=== PATIENT | female | born 1950 | race Caucasian/White ===

== ENCOUNTER 2019-03-21 07:02 | Inpatient (IN) | payer BC, OTHER ==
--- OUTSIDE RECORDS SUMMARY | 2019-03-21 07:05 | XMS REPORT ---
:1950 Author Organization [employer] Care Team Providers Name Role Phone Luh Larios Provider Role Unavailable Allergies, Adverse Reactions, Alerts Substance Reaction Event Type Bactrim rash Drug Allergy Problems Problem Type Condition Code Onset Dates Condition Status Problem Herpes zoster without complication B02.9 Active Problem Intermittent lightheadedness R42 Active Problem Acute myocardial infarction, I21.9 Active unspecified Problem Essential hypertension I10 Active Assessment History of coronary artery disease Z86.79 Active Problem Primary insomnia F51.01 Active Assessment Nocturnal leg cramps G47.62 Active Problem History of coronary artery disease Z86.79 Active Problem Vaginal dryness, menopausal N95.1 Active Problem Pain in female genitalia on N94.10 Active intercourse Problem Gastroesophageal reflux disease K21.9 Active without esophagitis Problem Obstructive sleep apnea syndrome G47.33 Active Problem Bipolar affective disorder F31.9 Active Problem Hydronephrosis N13.30 Active Assessment Primary insomnia F51.01 Active Problem Nocturnal leg cramps G47.62 Active Problem Anemia D64.9 Active Problem Benign hypertension I10 Active Problem Complete loss of teeth, unspecified K08.109 Active cause, unspecified class Problem Gastro-esophageal reflux disease K21.9 Active without esophagitis Problem Other seasonal allergic rhinitis J30.2 Active Medications Medication Code Code Instructions Start End Status Dosage System Date Date Biotin [facility] [address] Active not defined Iron [facility] 64935400693 325 (65 Fe) MG Active 1 tablet Orally Once a day Toprol XL [facility] 29410579283 50 MG Orally Active 1 tablet Once a day ProAir HFA [facility] 17009007338 108 (90 Base) Jun 21, Active 2 puffs as MCG/ACT 2017 needed Inhalation every 6 hrs Fish Oil [facility] [address]-78 Orally Once a Active 1 capsule day Trileptal ND 63240539234 300 MG Orally Active 3 tabs Twice a day Triamcinolone [facility] 99111774719 0.1 % December Active 1 application Acetonide Externally 08, to affected Twice a day 2017 area Lunesta [facility] [address]-05 2 MG Orally Active 1 tablet Once a day immediately before bedtime Probiotic [facility] 51864-[address]60 Active not defined L-Lysine [facility] [address]63 Active not defined Gabapentin [facility] 73816080080 300 MG Orally Active 1 capsule Three times a day Pantoprazole [facility] 22334453663 40 MG Orally Active 1 tablet Sodium Once a day Valtrex [facility] 59035093007 1 GM Orally Active 1 tablet Once a day Vitamin C [facility] [address]-38 Active not defined Centrum Silver [facility] 46011863222 - 1 Orally Active not defined Ultra Womens daily Calcium [facility] 97059024355 600 MG Orally Active 1 tablet Carbonate Three times a day Lyrica [facility] 26830716556 150 MG Orally Mar 01, Active 1 capsule Three times a 2018 day Results No Known Results Summary Purpose eClinicalWorks Submission
--- OUTSIDE RECORDS SUMMARY | 2019-03-21 07:05 | XMS REPORT ---
:1950 Author Organization [facility] Address [address] [place] [address] Dr. Wei [address] [place] [id number] Care Team Providers Name Role Phone Unavailable Unavailable Unavailable Problems This patient has no known problems. Allergies, Adverse Reactions, Alerts This patient has no known allergies or adverse reactions. Medications This patient has no known medications.
--- NOTE | 2019-03-21 07:29 | ER ---
Nurse's Notes [facility] Name: Cisco Edward Age: 68 yrs Sex: Female : 1950 Arrival Date: 03/21/2019 Time: 07:04 Bed 7 Private MD: Diagnosis: Pneumonia, unspecified organism Presentation: 03/21 07:16 Presenting complaint: Patient states: feels like she can't get a deep breath, started iw at 3 am, also has dry cough, runny nose X 1 week, body aches, general weakness, chills, nausea. Transition of care: patient was not received from another setting of care. Onset of symptoms was March 21, 2019. Risk Assessment: Do you want to hurt yourself or someone else? Patient reports no desire to harm self or others. Initial Sepsis Screen: Does the patient meet any 2 criteria? No. Patient's initial sepsis screen is negative. Does the patient have a suspected source of infection? No. Patient's initial sepsis screen is negative. Care prior to arrival: None. 07:16 Method Of Arrival: Wheelchair iw 07:16 Acuity: ROB 3 iw Triage Assessment: 07:20 General: Appears distressed, uncomfortable, Behavior is calm, cooperative, appropriate jl7 for age. Respiratory: Reports shortness of breath at rest cough that is hacking, Airway is patent Respiratory effort is even, labored, shallow, Respiratory pattern is symmetrical, tachypnea Breath sounds are coarse bilaterally. Breath sounds with wheezes bilaterally. Onset: The symptoms/episode began/occurred this morning, the patient has moderate shortness of breath. Historical: - Allergies: 07:18 Darvon; iw 07:18 Dilaudid; iw 07:18 Sulfa (Sulfonamide Antibiotics); iw - Home Meds: 07:18 metoprolol tartrate 25 mg Oral tab 1 tab once daily [Active]; iw 08:51 Wellbutrin Oral [Active]; ibuprofen 800 mg Oral tab 1 tab BID PRN [Active]; jl7 hydrocodone-acetaminophen 7.5-325 mg oral tab [Active]; pantoprazole 40 mg oral TbEC [Active]; Lyrica Oral [Active]; - PMHx: 07:18 Chronic pain; Hypertension; Myocardial infarction; Bipolar disorder; iw - PSHx: 07:18 Cholecystectomy; ; foot; back; iw - Immunization history:: Adult Immunizations not up to date. - Social history:: Smoking status: Patient/guardian denies using tobacco. - Ebola Screening: : Patient negative for fever greater than or equal to 101.5 degrees Fahrenheit, and additional compatible Ebola Virus Disease symptoms Patient denies exposure to infectious person Patient denies travel to an Ebola-affected area in the 21 days before illness onset No symptoms or risks identified at this time. Screenin:38 Abuse screen: Denies threats or abuse. Denies injuries from another. Nutritional jl7 screening: No deficits noted. Tuberculosis screening: No symptoms or risk factors identified. Fall Risk IV access (20 points). Total Manuel Fall Scale indicates No Risk (0-24 pts). Assessment: 07:20 General: Appears distressed, uncomfortable, Behavior is cooperative. Pain: Complains of jl7 pain in diaphragm Pain does not radiate. Pain currently is 9 out of 10 on a pain scale. Quality of pain is described as "Sore" Pain began 4 hours ago. Is continuous. Neuro: Level of Consciousness is awake, alert, obeys commands, Oriented to person, place, time, situation. Cardiovascular: Denies chest pain, Heart tones present Patient's skin is warm and dry. Rhythm is regular. Respiratory: Airway is patent Respiratory effort is even, labored, shallow, Respiratory pattern is symmetrical, tachypnea Breath sounds are coarse Breath sounds with wheezes. GI: No signs and/or symptoms were reported involving the gastrointestinal system. : No signs and/or symptoms were reported regarding the genitourinary system. EENT: No signs and/or symptoms were reported regarding the EENT system. Derm: Skin is pink, warm \\T\\ dry. Musculoskeletal: No signs and/or symptoms reported regarding the musculoskeletal system. 07:57 Reassessment: Pt initially reported taking a Narvon 7.5 mg this morning at 0530 so only jl7 one 500 mg acetaminophen was administered, now reporting she did not take the Narvon additional 500 mg acetaminophen administered at this time. 08:38 Reassessment: Patient appears in no apparent distress at this time. Patient and/or jl7 family updated on plan of care and expected duration. Pain level reassessed. Patient is alert, oriented x 3, equal unlabored respirations, skin warm/dry/pink. Patient states feeling better. Patient states symptoms have improved. 09:00 Reassessment: Attempted to call report, nurse unavailable. jl7 Vital Signs: 07:19 BP 124 / 66; Pulse 87; Resp 24 S; Temp 100.8(O); Pulse Ox 100% on R/A; Weight 74.84 kg; iw Height 5 ft. 1 in. (154.94 cm); Pain 8/10; 07:25 BP 89 / 56; Pulse 89; Resp 25 S; Pulse Ox 97% on R/A; jl7 07:35 BP 77 / 45; Pulse 85; Resp 24 S; Pulse Ox 96% on R/A; jl7 08:23 BP 104 / 62; Pulse 97; Resp 26 S; Temp 101.0(O); Pulse Ox 98% on R/A; jl7 08:51 BP 103 / 56; Pulse 92; Resp 24; Temp 100.2; Pulse Ox 94% on R/A; jl7 10:00 BP 79 / 64; Pulse 83; Resp 22; Pulse Ox 97% ; jl7 10:14 BP 86 / 49; Pulse 82; Resp 24 S; Pulse Ox 97% on R/A; jl7 07:19 Body Mass Index 31.18 (74.84 kg, 154.94 cm) iw ED Course: 07:04 Patient arrived in ED. as 07:05 Chaz Rizvi MD is Attending Physician. kdr 07:05 Crista Chin, GAEL is Primary Nurse. jl7 07:17 Triage completed. iw 07:19 Arm band placed on. iw 07:27 Linden Frankel MD is Hospitalizing Provider. kdr 07:28 Inserted saline lock: 20 gauge in right antecubital area, using aseptic technique. aa5 Blood collected. 07:28 Initial lab(s) drawn, by me, sent to lab. First set of blood cultures drawn by me. aa5 07:37 XRAY Chest (1 view) In Process Unspecified. EDMS 07:47 EKG done, by research technician. reviewed by Chaz Rizvi MD. at1 07:49 Inserted saline lock: 22 gauge in left forearm, using aseptic technique. Blood jl7 collected. 07:49 Second set of blood cultures drawn by me. jl7 08:25 Straight cath inserted, using sterile technique, 16 Fr. Specimen obtained. Returned jl7 clear yellow urine. Patient tolerated well. 08:38 Patient has correct armband on for positive identification. Placed in gown. Bed in low jl7 position. Call light in reach. Side rails up X2. roller presser operator on. Pulse ox on. NIBP on. 08:38 No provider procedures requiring assistance completed. Patient admitted, IV remains in jl7 place. intact, No redness/swelling at site. Administered Medications: 07:52 Drug: Tylenol 1000 mg {Note: 500 administered, pt took a Narvon 7.5 at 0530 this jl7 morning.} Route: PO; 08:50 Follow up: Response: No adverse reaction; Temperature is decreased jl7 07:53 Drug: NS 0.9% 1000 ml Route: IV; Rate: 1 bolus; Site: left forearm; jl7 08:31 Follow up: Response: No adverse reaction; IV Status: Completed infusion; IV Intake: jl7 1000ml 07:55 Drug: Albuterol - atroVENT (3:1) (2.5 mg - 0.5 mg) 3 ml Route: Nebulizer; jl7 08:31 Follow up: Response: No adverse reaction; Marked relief of symptoms jl7 07:55 Not Given (wrong pharmacy order): Rocephin - (cefTRIAXone) 1 grams IVPB once over 30 jl7 mins; (mix in 50 mL NS) 07:55 Drug: Rocephin 1 grams Route: IV; Rate: 1 calculated rate; Site: left forearm; jl7 07:58 Follow up: Response: No adverse reaction; IV Status: Completed infusion jl7 08:54 Drug: Zithromax 500 mg Route: IVPB; Infused Over: 1 hrs; Site: left forearm; jl7 08:54 Follow up: IV Status: Infusion continued upon admission jl7 10:00 Follow up: Response: No adverse reaction; IV Status: Completed infusion jl7 10:10 Drug: NS 0.9% 1000 ml Route: IV; Rate: 1 bolus; Site: right antecubital; jl7 10:15 Follow up: IV Status: Infusion continued upon admission jl7 Intake: 08:31 IV: 1000ml; Total: 1000ml. jl7 Outcome: 07:27 Decision to Hospitalize by Provider. kdr 10:12 Admitted to Tele accompanied by tech, family with patient, via stretcher, room 212, 7 with chart, Report called to GAEL Zuniga 10:12 Condition: stable 10:12 Discharge instructions given to patient, family, Instructed on the need for admit, Demonstrated understanding of instructions. 10:42 Patient left the ED. aa5 Signatures: Dispatcher [employer] EDMS Chaz Rizvi MD MD kdr Viviana Tom Irene, RN RN iw Carolina Flores RN RN aa5 Vale Hensley, manager inventory EKG Tat1 Crista Chin RN RN jl7 Corrections: (The following items were deleted from the chart) 07:33 07:19 BP 124 / 66; Pulse 87bpm; Resp 18bpm; Spontaneous; Pulse Ox 100% RA; Temp 100.8F iw Oral; 74.84 kg; Height 5 ft. 1 in.; BMI: 31.1; Pain 8/10; iw 08:21 07:19 BP 124 / 66; Pulse 87bpm; Resp 20bpm; Spontaneous; Pulse Ox 100% RA; Temp 100.8F iw Oral; 74.84 kg; Height 5 ft. 1 in.; BMI: 31.1; Pain 8/10; iw
--- NOTE | 2019-03-21 07:29 | EDPHYS ---
Physician Documentation [facility] Name: Cisco Edward Age: 68 yrs Sex: Female : 1950 Arrival Date: 03/21/2019 Time: 07:04 Bed 7 Private MD: ED Physician Chaz Rizvi HPI: 03/21 07:23 This 68 yrs old Female presents to ER via Wheelchair with complaints of kdr Breathing Difficulty. 07:23 The patient has shortness of breath at rest, with light activity. Onset: The kdr symptoms/episode began/occurred suddenly, just prior to arrival, this morning. Duration: The symptoms are continuous, and are steadily getting worse. The patient's shortness of breath is aggravated by coughing, exertion, light activity, talking. Associated signs and symptoms: Pertinent positives: productive cough, fever, Pertinent negatives: chest pain, diaphoresis, dizziness, hemoptysis, vomiting. Severity of symptoms: At their worst the symptoms were mild moderate in the emergency department the symptoms are unchanged. The patient has experienced similar episodes in the past, a few times. The patient has not recently seen a physician. Has had runny nose/minor URI for the last week but then awoke feeling poorly this morning. Historical: - Allergies: 07:18 Darvon; iw 07:18 Dilaudid; iw 07:18 Sulfa (Sulfonamide Antibiotics); iw - Home Meds: 07:18 metoprolol tartrate 25 mg Oral tab 1 tab once daily [Active]; iw 08:51 Wellbutrin Oral [Active]; ibuprofen 800 mg Oral tab 1 tab BID PRN [Active]; jl7 hydrocodone-acetaminophen 7.5-325 mg oral tab [Active]; pantoprazole 40 mg oral TbEC [Active]; Lyrica Oral [Active]; - PMHx: 07:18 Chronic pain; Hypertension; Myocardial infarction; Bipolar disorder; iw - PSHx: 07:18 Cholecystectomy; ; foot; back; iw - Immunization history:: Adult Immunizations not up to date. - Social history:: Smoking status: Patient/guardian denies using tobacco. - Ebola Screening: : Patient negative for fever greater than or equal to 101.5 degrees Fahrenheit, and additional compatible Ebola Virus Disease symptoms Patient denies exposure to infectious person Patient denies travel to an Ebola-affected area in the 21 days before illness onset No symptoms or risks identified at this time. ROS: 07:23 Constitutional: Negative for weight loss - she has had subjective fever adn chills kdr Eyes: Negative for injury, pain, redness, and discharge, Neck: Negative for injury, pain, and swelling, Cardiovascular: Negative for chest pain, palpitations, and edema, Abdomen/GI: Negative for abdominal pain, nausea, vomiting, diarrhea, and constipation, Back: Negative for injury and pain, : Negative for injury, bleeding, discharge, and swelling, MS/Extremity: Negative for injury and deformity, Skin: Negative for injury, rash, and discoloration, Neuro: Negative for headache, weakness, numbness, tingling, and seizure activity. Psych: Negative for depression, anxiety, suicide ideation, homicidal ideation, and hallucinations, Allergy/Immunology: Negative for hives, rash, and allergies, Endocrine: Negative for neck swelling, polydipsia, polyuria, polyphagia, and marked weight changes, Hematologic/Lymphatic: Negative for swollen nodes, abnormal bleeding, and unusual bruising. 07:23 Respiratory: Positive for cough, with no reported sputum, dyspnea on exertion, shortness of breath, at rest. wheezing, expiratory. Exam: 07:23 Constitutional: This is a well developed, well nourished patient who is awake, alert, kdr and in no acute distress. Head/Face: Normocephalic, atraumatic. Eyes: Pupils equal round and reactive to light, extra-ocular motions intact. Lids and lashes normal. Conjunctiva and sclera are non-icteric and not injected. Cornea within normal limits. Periorbital areas with no swelling, redness, or edema. Neck: Trachea midline, no thyromegaly or masses palpated, and no cervical lymphadenopathy. Supple, full range of motion without nuchal rigidity, or vertebral point tenderness. No Meningismus. Chest/axilla: Normal chest wall appearance and motion. Nontender with no deformity. No lesions are appreciated. Cardiovascular: Regular rate and rhythm with a normal S1 and S2. No gallops, murmurs, or rubs. Normal PMI, no JVD. No pulse deficits. Abdomen/GI: Soft, non-tender, with normal bowel sounds. No distension or tympany. No guarding or rebound. No evidence of tenderness throughout. Back: No spinal tenderness. No costovertebral tenderness. Full range of motion. Skin: Warm, dry with normal turgor. Normal color with no rashes, no lesions, and no evidence of cellulitis. MS/ Extremity: Pulses equal, no cyanosis. Neurovascular intact. Full, normal range of motion. Neuro: Awake and alert, GCS 15, oriented to person, place, time, and situation. Cranial nerves II-XII grossly intact. Motor strength 5/5 in all extremities. Sensory grossly intact. Cerebellar exam normal. Normal gait. Psych: Awake, alert, with orientation to person, place and time. Behavior, mood, and affect are within normal limits. 07:23 Respiratory: mild respiratory distress is noted, Respirations: labored breathing, grunting, that is mild, shallow respirations, that is mild, tachypnea, that is mild. 07:28 ECG was reviewed by the Attending Physician. kdr 08:16 Respiratory: Breath sounds: decreased breath sounds, that are mild, are heard in the kdr right posterior middle lobe and right posterior lower lobe, wheezing: expiratory that is mild, is heard diffusely. Vital Signs: 07:19 BP 124 / 66; Pulse 87; Resp 24 S; Temp 100.8(O); Pulse Ox 100% on R/A; Weight 74.84 kg; iw Height 5 ft. 1 in. (154.94 cm); Pain 8/10; 07:25 BP 89 / 56; Pulse 89; Resp 25 S; Pulse Ox 97% on R/A; jl7 07:35 BP 77 / 45; Pulse 85; Resp 24 S; Pulse Ox 96% on R/A; jl7 08:23 BP 104 / 62; Pulse 97; Resp 26 S; Temp 101.0(O); Pulse Ox 98% on R/A; jl7 08:51 BP 103 / 56; Pulse 92; Resp 24; Temp 100.2; Pulse Ox 94% on R/A; jl7 10:00 BP 79 / 64; Pulse 83; Resp 22; Pulse Ox 97% ; jl7 10:14 BP 86 / 49; Pulse 82; Resp 24 S; Pulse Ox 97% on R/A; jl7 07:19 Body Mass Index 31.18 (74.84 kg, 154.94 cm) iw MDM: 07:23 Data reviewed: vital signs, nurses notes, lab test result(s), radiologic studies. kdr Counseling: I had a detailed discussion with the patient and/or guardian regarding: the historical points, exam findings, and any diagnostic results supporting the discharge/admit diagnosis, lab results, radiology results, the need for further work-up and treatment in the hospital. 07:27 Patient medically screened. kdr 03/21 07:12 Order name: Basic Metabolic Panel; Complete Time: 08:14 kdr 03/21 07:12 Order name: CBC with Diff; Complete Time: 10:36 kdr 03/21 07:12 Order name: LFT's; Complete Time: 08:14 kdr 03/21 07:12 Order name: Magnesium; Complete Time: 08:14 kdr 03/21 07:12 Order name: NT PRO-BNP; Complete Time: 08:14 kdr 03/21 07:12 Order name: PT-INR; Complete Time: 08:14 kdr 03/21 07:12 Order name: Troponin (emerg Dept Use Only); Complete Time: 08:14 kdr 03/21 07:22 Order name: Blood Culture Adult (2) kdr 03/21 07:22 Order name: Ckmb; Complete Time: 08:14 kdr 03/21 07:22 Order name: CPK; Complete Time: 08:14 kdr 03/21 07:22 Order name: Lactate; Complete Time: 08:14 kdr 03/21 07:22 Order name: Lipase; Complete Time: 08:14 kdr 03/21 07:22 Order name: Procalcitonin; Complete Time: 08:14 kdr 03/21 07:22 Order name: Ptt, Activated; Complete Time: 08:14 kdr 03/21 07:12 Order name: XRAY Chest (1 view); Complete Time: 10:36 kdr 03/21 07:12 Order name: EKG; Complete Time: 07:14 kdr 03/21 07:12 Order name: Cardiac monitoring; Complete Time: 07:32 kdr 03/21 07:12 Order name: EKG - Nurse/Tech; Complete Time: 07:32 kdr 03/21 07:12 Order name: IV Saline Lock; Complete Time: 07:32 kdr 03/21 07:12 Order name: Labs collected and sent; Complete Time: 07:32 kdr 03/21 07:22 Order name: Urine Microscopic Only; Complete Time: 10:36 kdr 03/21 07:54 Order name: CBC Smear Scan; Complete Time: 10:36 EDMS 03/21 08:21 Order name: Urine Dipstick--Ancillary (enter results); Complete Time: 10:36 eb 03/21 07:12 Order name: O2 Per Protocol; Complete Time: 07:32 kdr 03/21 07:12 Order name: O2 Sat Monitoring; Complete Time: 07:32 kdr 03/21 07:22 Order name: Accucheck; Complete Time: 07:56 kdr 03/21 07:22 Order name: IV Saline Lock - Large Bore; Complete Time: 07:32 kdr 03/21 07:22 Order name: Urine Dipstick-Ancillary (obtain specimen); Complete Time: 08:24 kdr 03/21 08:24 Order name: Straight Cath - Urine; Complete Time: 08:24 jl7 EC:28 Rate is 86 beats/min. Rhythm is regular, Sinus Rhythm with No ectopy. [place] interval is kdr normal. QRS interval is normal. QT interval is normal. No Q waves. Clinical impression: NSR w/ Non-specific ST/T Changes. Administered Medications: 07:52 Drug: Tylenol 1000 mg {Note: 500 administered, pt took a [place] 7.5 at 0530 this jl7 morning.} Route: PO; 08:50 Follow up: Response: No adverse reaction; Temperature is decreased jl7 07:53 Drug: NS 0.9% 1000 ml Route: IV; Rate: 1 bolus; Site: left forearm; jl7 08:31 Follow up: Response: No adverse reaction; IV Status: Completed infusion; IV Intake: jl7 1000ml 07:55 Drug: Albuterol - atroVENT (3:1) (2.5 mg - 0.5 mg) 3 ml Route: Nebulizer; jl7 08:31 Follow up: Response: No adverse reaction; Marked relief of symptoms jl7 07:55 Not Given (wrong pharmacy order): Rocephin - (cefTRIAXone) 1 grams IVPB once over 30 jl7 mins; (mix in 50 mL NS) 07:55 Drug: Rocephin 1 grams Route: IV; Rate: 1 calculated rate; Site: left forearm; jl7 07:58 Follow up: Response: No adverse reaction; IV Status: Completed infusion jl7 08:54 Drug: Zithromax 500 mg Route: IVPB; Infused Over: 1 hrs; Site: left forearm; jl7 08:54 Follow up: IV Status: Infusion continued upon admission jl7 10:00 Follow up: Response: No adverse reaction; IV Status: Completed infusion jl7 10:10 Drug: NS 0.9% 1000 ml Route: IV; Rate: 1 bolus; Site: right antecubital; jl7 10:15 Follow up: IV Status: Infusion continued upon admission jl7 Disposition: 03/21/19 07:27 Hospitalization ordered by Linden Frankel for Inpatient Admission. Preliminary diagnosis is Pneumonia, unspecified organism. - Bed requested for Telemetry/MedSurg (Inpatient). - Status is Inpatient Admission. aa5 - Condition is Fair. - Problem is new. - Symptoms have improved. UTI on Admission? No Signatures: Dispatcher [employer] EDMS Edyta Potts RN RN Chaz Rizvi MD MD [facility] Lilian Fairbanks RN RN Carolina Flores RN RN aa5 Crista Chin RN RN 7 Debra Martin Corrections: (The following items were deleted from the chart) 07:29 07:27 Hospitalization Ordered by Linden Frankel MD for Inpatient Admission. Preliminary eb diagnosis is Pneumonia, unspecified organism. Bed requested for Telemetry/MedSurg (Inpatient). Status is Inpatient Admission. Condition is Fair. Problem is new. Symptoms have improved. UTI on Admission? No. kdr 08:43 07:29 03/21/2019 07:27 Hospitalization Ordered by Linden Frankel MD for Inpatient dw Admission. Preliminary diagnosis is Pneumonia, unspecified organism. Bed requested for Telemetry/MedSurg (Inpatient). Status is Inpatient Admission. Condition is Fair. Problem is new. Symptoms have improved. UTI on Admission? No. eb 10:42 08:43 03/21/2019 07:27 Hospitalization Ordered by Linden Frankel MD for Inpatient aa5 Admission. Preliminary diagnosis is Pneumonia, unspecified organism. Bed requested for Telemetry/MedSurg (Inpatient). Status is Inpatient Admission. Condition is Fair. Problem is new. Symptoms have improved. UTI on Admission? No. dw
[2019-03-21] MEDS ORDERED: ACETAMINOPHEN 500 MG TAB ONE ×2 (07:33→08:03)
[2019-03-21] MEDS ORDERED: CEFTRIAXONE/SWI 1gm 1 GM/10 ML SYR ONE (07:33)
[2019-03-21] MEDS ORDERED: IPRATROPIUM BROM 0.5MG/2.5ML ONE (07:33)
[2019-03-21] MEDS ORDERED: NA CHLORIDE 0.9% 1,000 ML ONE (07:33)
[2019-03-21] MEDS ORDERED: ALBUTEROL 2.5 MG/3 ML NEB SOL ONE (07:33)
[2019-03-21 07:44] LABS: Absolute Lymphocytes (CBC) 0.6 K/uL (0.7-4.9); Basophils % 0.2 % (0-1.3); Hematocrit 42.2 % (36.0-45.0); Lymphocytes % 6.1 % (15.3-44.8); MPV 7.7 fL (7.6-11.3); RBC Red Blood Cell Count 4.51 M/uL (3.86-4.86)
[2019-03-21 07:45] LABS: Protime INR 0.92
[2019-03-21 08:00] LABS: CKMB Creatine Kinase MB 3.6 ng/mL (0.3-3.6)
[2019-03-21 08:09] LABS: ALT/SGPT 32 U/L (12-78); AST/SGOT 28 U/L (15-37); Albumin 3.8 g/dL (3.4-5.0); Alkaline Phosphatase 125 U/L (45-117); BUN Blood Urea Nitrogen 17 mg/dL (7-18); Bicarbonate 28 mmol/L (21-32); Bilirubin Direct 0.1 mg/dL (0-0.2); Bilirubin Total 0.4 mg/dL (0.2-1.0); Glucose Level 88 mg/dL (74-106); Magnesium 1.8 mg/dL (1.8-2.4); NT PRO-BNP 95 pg/mL (<125); Potassium 3.8 mmol/L (3.5-5.1); Protein, Total 6.9 g/dL (6.4-8.2); Sodium Level 138 mmol/L (136-145); Troponin (Emerg Dept Use Only) < 0.02 ng/mL (0.0-0.045)
[2019-03-21 08:37] LABS: Blood Morphology Comment NOT SEEN (NOT SEEN); Platelet Estimate ADEQ; Urine White Blood Cell Casts OK
[2019-03-21 08:55] LABS: Urine Blood NEGATIVE (NEG); Urine Glucose NEGATIVE (NEG); Urine Protein NEGATIVE (NEG)
--- NOTE | 2019-03-21 08:56 | RAD REPORT ---
EXAM DESCRIPTION: Sharon Single View03/21/2019 7:37 am CLINICAL HISTORY: Shortness of breath COMPARISON: 2017 FINDINGS: Moderate patchy alveolar opacities right lung. Left lung appears clear Of acute infiltrate. The heart is normal size IMPRESSION: Moderate right pneumonia. This should be followed until it has cleared to help exclude a post obstructive process/underlying mass
[2019-03-21] MEDS ORDERED: AZITHROMYCIN IV 500 MG in NA CHLORIDE 0.9% 250 ML IVPB ONE (09:00)
[2019-03-21 09:05] LABS: Urine Bacteria NONE SEEN /HPF (<20); Urine Culture Reflex Order NOT NEEDED; Urine RBC NONE SEEN /HPF (NONE SEEN)
[2019-03-21] MEDS ORDERED: NA CHLORIDE 0.9% 1,000 ML IV SCH (11:10)
[2019-03-21 11:22] VITALS: BMI 31.1
[2019-03-21] MEDS: ENOXAPARIN 40 MG/0.4 ML SQ SCH (12:38)
[2019-03-21] MEDS: NA CHLORIDE 0.9% 1,000 ML IV SCH ×2 (13:00→20:41)
[2019-03-21] MEDS: ALBUTEROL 2.5 MG/3 ML NEB SOL NEB SCH ×2 (13:36→19:35)
[2019-03-21] MEDS: IPRATROPIUM BROM 0.5MG/2.5ML NEB SCH ×2 (13:36→19:35)
--- NOTE | 2019-03-21 15:56 | EKG ---
Test Date: 2019-03-21 Test Time: 07:19:37 Interactive Media Director: SYLVIA MEASUREMENT RESULTS: Intervals: Rate: 86 OR: 162 QRSD: 116 QT: 362 QTc: 433 Levasy: P: 44 OR: 162 QRS: -21 T: 102 INTERPRETIVE STATEMENTS: Normal sinus rhythm Incomplete left bundle branch block ST & T wave abnormality, consider lateral ischemia Abnormal ECG Compared to ECG 01/12/2018 14:28:46 ST (T wave) deviation now present Possible ischemia now present Sinus bradycardia no longer present Electronically Signed On 03-21-19 15:54:23 CDT by Rajinder Cassidy
[2019-03-21] MEDS ORDERED: IBUPROFEN 800 MG PO PRN (16:35)
[2019-03-21] MEDS ORDERED: HYDROCODONE/APAP 7.5/325 MG TAB PO PRN (16:35)
--- NOTE | 2019-03-21 16:43 | P.HP ---
Patient History Date of Service: 03/21/19 Reason for admission: Shortness of breath History of Present Illness: This is a 68-year-old female with past medical history of chronic pain, hypertension, [place] and bipolar disorder who presented to the emergency room with shortness of breath at rest and with light activity. Per patient, for the past 1 week she has not been feeling well generally and this has gotten progressively. She started to experience exhaustion, decreased energy, congestion. 3 a.m. prior to arrival, patient states that she was suddenly awoke with shortness of breath and not being able to catch her breath. She felt like she to gasp for air. Shortness of breath is associated with cough and subjective fever. She denies any chest pain, diaphoresis, dizziness, hemoptysis, vomiting. She denies any alleviating or exacerbating factors. She therefore was brought to the emergency room. In the ER, patient's blood pressure was 124/66, heart rate of 87, respirations of 24, low-grade temperature of 100.8 and satting 100% on room air. Her labs were fairly unremarkable. Her chest x-ray was with Moderate right pneumonia. This should be followed until it has cleared to help exclude a post obstructive process/underlying mass. she received Tylenol, IV fluids, breathing treatments , Rocephin, IV azithromycin. At the time of my exam, she was alert oriented x3, in no acute distress and hemodynamically stable. She stated that she is feeling better, though not completely back to baseline. Allergies hydromorphone [From Dilaudid] Allergy (Verified 04/20/17 14:37) Unknown propoxyphene HCl [From Darvon] Allergy (Verified 04/20/17 14:37) Unknown Sulfa (Sulfonamide Antibiotics) Allergy (Verified 04/20/17 14:37) Unknown Home medications list reviewed: Yes Home Medications: Ascorbic Acid [Vitamin C*] 1 tab PO BEDTIME 11/28/16 Biotin 5 mg PO DAILY 11/28/16 Calcium Carbonate/Vitamin D3 [Calcium 500 + Vit D Caplet] 1 tab PO DAILY Eszopiclone 3 mg PO BEDTIME 11/28/16 Hydrocodone 7.5/APAP 325 [[place] 7.5/325 mg*] 1 tab PO Q6HP PRN 11/28/16 Ibuprofen 800 mg PO BID PRN 11/28/16 Multivit-Min/Iron/Folic/Lutein [Centrum Silver Women Tablet] 1 tab PO DAILY Oxcarbazepine [Trileptal] 300 mg PO DAILY 11/28/16 Oxcarbazepine [Trileptal] 600 mg PO BEDTIME 11/28/16 Pregabalin [Lyrica] 150 cap PO TID 11/28/16 Pantoprazole [Protonix Tab*] 40 mg PO DAILYAC #30 tab 11/29/16 Atorvastatin Calcium 20 mg PO BEDTIME 03/21/19 Bupropion *Xl* [Wellbutrin XL] 300 mg PO DAILY 03/21/19 Metoprolol Succinate 50 mg PO DAILY 03/21/19 - Past Medical/Surgical History Diabetic: No -: Coronary artery disease -: Hypertension -: GERD -: Chronic back pain with neuropathy -: Bipolar disorder -: Obesity -: 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 She has 3 children. She no longer works. 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 - Family History Mother -: Heart disease, Hypertension, Diabetes Father History Unknown: Yes - Social History Smoking Status: Former smoker Alcohol use: Yes CD- Drugs: No Caffeine use: Yes Place of Residence: Home Review of Systems 10-point ROS is otherwise unremarkable Physical Examination - Vital Signs Temperature: 100.2 F Blood Pressure: 86/49 Pulse: 82 Respirations: 24 - Physical Exam General: Alert, In no apparent distress, Oriented x3 HEENT: Atraumatic, PERRLA, Mucous membr. moist/pink, EOMI, Sclerae nonicteric Neck: Supple, 2+ carotid pulse no bruit, No LAD, Without JVD or thyroid abnormality Respiratory: Clear to auscultation bilaterally, Normal air movement Cardiovascular: Regular rate/rhythm, Normal S1 S2 Gastrointestinal: Normal bowel sounds, No tenderness Musculoskeletal: No tenderness Integumentary: No rashes Neurological: Normal gait, Normal speech, Normal strength at 5/5 x4 extr, Normal tone, Normal affect Lymphatics: No axilla or inguinal lymphadenopathy - Studies Laboratory Data (last 24 hrs) 03/21/19 07:28: APTT 33.3 03/21/19 07:28: Lipase 158 03/21/19 07:28: PT 10.9, INR 0.92 03/21/19 07:28: WBC 9.7, Hgb 14.5, Hct 42.2, Plt Count 367 03/21/19 07:28: Sodium 138, Potassium 3.8, BUN 17, Creatinine 0.82, Glucose 88, Magnesium 1.8, Total Bilirubin 0.4, AST 28, ALT 32, Alkaline Phosphatase 125 H Assessment and Plan - Problems (Diagnosis) (1) Pneumonia Onset Date: 03/21/19 Current Visit: Yes Status: Acute Plan: Chest x-ray evident with right sided pneumonia -PSI risk class 3, was 0.9-2.8% mortality. Patient would need to be treated inpatient due to clinical symptoms. -IV antibiotics with azithromycin and Rocephin. -Supportive care with oxygen as needed. -continue IV fluids -No evidence of sepsis at this time, continue to monitor. Qualifiers: Pneumonia type: due to unspecified organism Laterality: right Lung location: unspecified part of lung Qualified Code(s): J18.9 - Pneumonia, unspecified organism (2) Shortness of breath Onset Date: 11/29/16 Current Visit: No Status: Acute Plan: Secondary to pneumonia - continue supportive care and breathing treatments (3) Bipolar disorder Onset Date: 11/29/16 Current Visit: No Status: Chronic Plan: Stable. We will restart home medications Qualifiers: Active/Remission status: remission status unspecified Qualified Code(s): F31.9 - Bipolar disorder, unspecified (4) Chronic back pain Onset Date: 11/29/16 Current Visit: No Status: Chronic Plan: Stable, will restart home medications Qualifiers: Back pain location: back pain in unspecified location Back pain laterality : unspecified Qualified Code(s): M54.9 - Dorsalgia, unspecified; G89.29 - Other chronic pain (5) Coronary artery disease Onset Date: 11/29/16 Current Visit: No Status: Chronic Qualifiers: Coronary Disease-Associated Artery/Lesion type: [place] artery [place] vs. transplanted heart: [place] heart Associated angina: without angina Qualified Code(s): I25.10 - Atherosclerotic heart disease of [place] coronary artery without angina pectoris (6) GERD (gastroesophageal reflux disease) Onset Date: 11/29/16 Current Visit: No Status: Chronic Plan: Will continue Protonix, home medication. Qualifiers: Esophagitis presence: esophagitis presence not specified Qualified Code(s) : K21.9 - Gastro-esophageal reflux disease without esophagitis (7) Hypertension Onset Date: 11/29/16 Current Visit: No Status: Chronic Plan: Currently hypotensive. Therefore will hold home medications at this time. We will continue to monitor blood pressure and restart if needed. Qualifiers: Hypertension type: essential hypertension Qualified Code(s): I10 - Essential (primary) hypertension (8) Hypotension Current Visit: Yes Status: Acute Plan: Hold blood pressure medications at this time. Continue to monitor blood pressures. Continue IV fluids at this time. Qualifiers: Hypotension type: unspecified hypotension type Qualified Code(s): I95.9 - Hypotension, unspecified - Plan DVT prophylaxis: Lovenox GI prophylaxis: Protonix, home medication Diet: Heart healthy diet Disposition: admit to floor with tele. Pending symptomatic improvement. Anticipate discharge home in the next 24-48 hr. - Advance Directives Does patient have a Living Will: No Does patient have a Durable POA for Healthcare: No
[2019-03-21] MEDS ORDERED: ESZOPICLONE 1 MG TAB PO PRN (16:57)
[2019-03-21] MEDS ORDERED: POTASSIUM CL SA 10 MEQ TAB PO ONE (17:00)
[2019-03-21] MEDS: IBUPROFEN 400 MG TAB PO PRN (17:29)
[2019-03-21] MEDS: CEFTRIAXONE/SWI 1gm 1 GM/10 ML SYR IV SCH (20:39)
[2019-03-21] MEDS: ASCORBIC ACID 500 MG TABLET PO SCH (20:39)
[2019-03-21] MEDS: ATORVASTATIN 20 MG TAB PO SCH (20:39)
[2019-03-21] MEDS: OXcarbazepine 150 MG TAB PO SCH (20:41)
[2019-03-21] MEDS ORDERED: OXCARBAZEPINE 600 MG PO SCH (21:00)
[2019-03-21] MEDS ORDERED: HOME MED 1 EA UNK (Eszopiclone [Eszopiclone] 3 MG) PO SCH (21:00)
[2019-03-22] MEDS: IPRATROPIUM BROM 0.5MG/2.5ML NEB SCH ×5 (02:00→20:00)
[2019-03-22] MEDS: ALBUTEROL 2.5 MG/3 ML NEB SOL NEB SCH ×5 (02:00→20:00)
[2019-03-22] MEDS: NA CHLORIDE 0.9% 1,000 ML IV SCH (05:00)
[2019-03-22 05:56] LABS: Absolute Lymphocytes (CBC) 1.6 K/uL (0.7-4.9); Basophils % 0.3 % (0-1.3); Hematocrit 31.5 % (36.0-45.0); Lymphocytes % 13.8 % (15.3-44.8); MPV 8.1 fL (7.6-11.3); RBC Red Blood Cell Count 3.34 M/uL (3.86-4.86)
[2019-03-22 06:20] LABS: Albumin 2.6 g/dL (3.4-5.0); Bilirubin Total 0.3 mg/dL (0.2-1.0); Magnesium 2.2 mg/dL (1.8-2.4); Potassium 4.5 mmol/L (3.5-5.1); Protein, Total 4.8 g/dL (6.4-8.2)
[2019-03-22] MEDS: OXcarbazepine 150 MG TAB PO SCH ×2 (07:50→21:02)
[2019-03-22] MEDS: MULTIVIT W/ MINERAL TAB PO SCH (07:50)
[2019-03-22] MEDS: BUPROPION HCL XL 150 MG TAB PO SCH (07:50)
[2019-03-22] MEDS: ENOXAPARIN 40 MG/0.4 ML SQ SCH (07:51)
[2019-03-22] MEDS: IBUPROFEN 400 MG TAB PO PRN (07:51)
[2019-03-22] MEDS: CALCIUM CARB 500MG/VIT D 200 IU TAB PO SCH (07:51)
[2019-03-22] MEDS: PANTOPRAZOLE 40MG TABLET PO SCH (07:51)
[2019-03-22] MEDS: CEFTRIAXONE/SWI 1gm 1 GM/10 ML SYR IV SCH ×2 (07:51→21:01)
[2019-03-22] MEDS ORDERED: FOLIC PO SCH (09:00)
[2019-03-22] MEDS ORDERED: LUTEIN PO SCH (09:00)
[2019-03-22] MEDS: BIOTIN 5 MG PO SCH (09:00)
[2019-03-22] MEDS ORDERED: IRON PO SCH (09:00)
[2019-03-22] MEDS ORDERED: VITAMIN D3 PO SCH (09:00)
[2019-03-22] MEDS ORDERED: MULTIVIT MIN PO SCH (09:00)
[2019-03-22] MEDS ORDERED: OXCARBAZEPINE 300 MG PO SCH (09:00)
[2019-03-22] MEDS ORDERED: CALCIUM CARBONATE PO SCH (09:00)
[2019-03-22] MEDS: AZITHROMYCIN IV 500 MG in NA CHLORIDE 0.9% 250 ML IVPB SCH (10:48)
--- NOTE | 2019-03-22 14:32 | P.PN ---
Subjective Date of Service: 03/22/19 Chief Complaint: Shortness of breath Subjective: Improving Patient seen and examined at bedside. No family at bedside. Chart reviewed and case discussed with nursing staff. Patient reports improvement but states she is generally tired this morning. She reports improved breathing and is off oxygen. No other concerns or complaints this morning. No acute events noted overnight. Review of Systems 10-point ROS is otherwise unremarkable Physical Examination - Vital Signs Temperature: 97.3 F Blood Pressure: 137/60 Pulse: 68 Respirations: 18 Pulse Ox (%): 97 - Physical Exam General: Alert, In no apparent distress, Oriented x3 HEENT: Atraumatic, PERRLA, EOMI Neck: Supple, JVD not distended Respiratory: Clear to auscultation bilaterally, Normal air movement Cardiovascular: Regular rate/rhythm, Normal S1 S2 Gastrointestinal: Normal bowel sounds, No tenderness Musculoskeletal: No tenderness Integumentary: No rashes Neurological: Normal speech, Normal tone, Normal affect Lymphatics: No axilla or inguinal lymphadenopathy - Studies Microbiology Data (last 24 hrs): 03/21/19 07:49 Blood - Blood Anaerobic Blood Culture - Final Assessment And Plan - Current Problems (Diagnosis) (1) Pneumonia Onset Date: 03/21/19 Current Visit: Yes Status: Acute Plan: Chest x-ray evident with right sided pneumonia -PSI risk class 3, was 0.9-2.8% mortality. Patient would need to be treated inpatient due to clinical symptoms. -IV antibiotics with azithromycin and Rocephin. -Supportive care with oxygen as needed. -continue IV fluids -No evidence of sepsis at this time, continue to monitor. Qualifiers: Pneumonia type: due to unspecified organism Laterality: right Lung location: unspecified part of lung Qualified Code(s): J18.9 - Pneumonia, unspecified organism (2) Shortness of breath Onset Date: 11/29/16 Current Visit: No Status: Acute Plan: Secondary to pneumonia - improved. - continue supportive care and breathing treatments (3) Bipolar disorder Onset Date: 11/29/16 Current Visit: No Status: Chronic Plan: Stable. We will restart home medications Qualifiers: Active/Remission status: remission status unspecified Qualified Code(s): F31.9 - Bipolar disorder, unspecified (4) Chronic back pain Onset Date: 11/29/16 Current Visit: No Status: Chronic Plan: Stable, will restart home medications Qualifiers: Back pain location: back pain in unspecified location Back pain laterality : unspecified Qualified Code(s): M54.9 - Dorsalgia, unspecified; G89.29 - Other chronic pain (5) Coronary artery disease Onset Date: 11/29/16 Current Visit: No Status: Chronic Qualifiers: Coronary Disease-Associated Artery/Lesion type: [place] artery [place] vs. transplanted heart: [place] heart Associated angina: without angina Qualified Code(s): I25.10 - Atherosclerotic heart disease of [place] coronary artery without angina pectoris (6) GERD (gastroesophageal reflux disease) Onset Date: 11/29/16 Current Visit: No Status: Chronic Plan: Will continue Protonix, home medication. Qualifiers: Esophagitis presence: esophagitis presence not specified Qualified Code(s) : K21.9 - Gastro-esophageal reflux disease without esophagitis (7) Hypertension Onset Date: 11/29/16 Current Visit: No Status: Chronic Plan: Currently hypotensive. Therefore will hold home medications at this time. We will continue to monitor blood pressure and restart if needed. Qualifiers: Hypertension type: essential hypertension Qualified Code(s): I10 - Essential (primary) hypertension (8) Hypotension Current Visit: Yes Status: Acute Plan: Improved. Hold blood pressure medications at this time. Continue to monitor blood pressures. Continue IV fluids at this time. -If BP remains lower, she may not require blood pressure medications on discharge. Qualifiers: Hypotension type: unspecified hypotension type Qualified Code(s): I95.9 - Hypotension, unspecified - Plan DVT prophylaxis: Lovenox GI prophylaxis: Protonix, home medication Diet: Heart healthy diet Disposition: Pending symptomatic improvement. Anticipate discharge home in the next 24 hr.
[2019-03-22] MEDS: ATORVASTATIN 20 MG TAB PO SCH (21:01)
[2019-03-22] MEDS: ASCORBIC ACID 500 MG TABLET PO SCH (21:01)
[2019-03-23 00:19] VITALS: O2SAT 98
[2019-03-23] MEDS: IBUPROFEN 400 MG TAB PO PRN (02:20)
[2019-03-23 05:55] LABS: Absolute Lymphocytes (CBC) 1.5 K/uL (0.7-4.9); Basophils % 0.4 % (0-1.3); Hematocrit 32.3 % (36.0-45.0); Lymphocytes % 18.7 % (15.3-44.8); MPV 7.8 fL (7.6-11.3); RBC Red Blood Cell Count 3.44 M/uL (3.86-4.86)
[2019-03-23 06:13] LABS: Albumin 2.9 g/dL (3.4-5.0); Bilirubin Total 0.2 mg/dL (0.2-1.0); Potassium 3.7 mmol/L (3.5-5.1); Protein, Total 5.6 g/dL (6.4-8.2)
[2019-03-23] MEDS: IPRATROPIUM BROM 0.5MG/2.5ML NEB SCH (08:00)
[2019-03-23] MEDS ORDERED: POTASSIUM CL SA 10 MEQ TAB PO ONE (08:00)
[2019-03-23] MEDS: ALBUTEROL 2.5 MG/3 ML NEB SOL NEB SCH (08:00)
[2019-03-23] MEDS: PANTOPRAZOLE 40MG TABLET PO SCH (08:08)
[2019-03-23] MEDS: CALCIUM CARB 500MG/VIT D 200 IU TAB PO SCH (08:08)
[2019-03-23] MEDS: BUPROPION HCL XL 150 MG TAB PO SCH (08:08)
[2019-03-23] MEDS: AZITHROMYCIN IV 500 MG in NA CHLORIDE 0.9% 250 ML IVPB SCH (08:09)
[2019-03-23] MEDS: CEFTRIAXONE/SWI 1gm 1 GM/10 ML SYR IV SCH (08:09)
[2019-03-23] MEDS: MULTIVIT W/ MINERAL TAB PO SCH (08:09)
--- NOTE | 2019-03-23 08:10 | RAD REPORT ---
EXAM DESCRIPTION: Khait Pa And Lat (2 Views)03/23/2019 7:17 am CLINICAL HISTORY: Cough COMPARISON: March 21 FINDINGS: Right pulmonary opacities have shown significant improvement. Mild right lung opacities ar e present The heart is normal size IMPRESSION: Significant improvement in a right pneumonia.
[2019-03-23 08:16] VITALS: BP 128/60; TEMP 97.1
[2019-03-23] MEDS: BIOTIN 5 MG PO SCH (09:00)
[2019-03-23] MEDS: ENOXAPARIN 40 MG/0.4 ML SQ SCH (09:00)
[2019-03-23] MEDS: OXcarbazepine 150 MG TAB PO SCH (09:29)
--- NOTE | 2019-03-23 15:31 | P.DS ---
Admission Date: 03/21/19 Discharge Date: 03/23/19 Disposition: ROUTINE DISCHARGE Discharge Condition: GOOD Reason for Admission: Shortness of breath - Problems (1) Pneumonia Onset Date: 03/21/19 Status: Acute Qualifiers: Pneumonia type: due to unspecified organism Laterality: right Lung location: unspecified part of lung Qualified Code(s): J18.9 - Pneumonia, unspecified organism (2) Shortness of breath Onset Date: 11/29/16 Status: Acute (3) Bipolar disorder Onset Date: 11/29/16 Status: Chronic Qualifiers: Active/Remission status: remission status unspecified Qualified Code(s): F31.9 - Bipolar disorder, unspecified (4) Chronic back pain Onset Date: 11/29/16 Status: Chronic Qualifiers: Back pain location: back pain in unspecified location Back pain laterality : unspecified Qualified Code(s): M54.9 - Dorsalgia, unspecified; G89.29 - Other chronic pain (5) Coronary artery disease Onset Date: 11/29/16 Status: Chronic Qualifiers: Coronary Disease-Associated Artery/Lesion type: [place] artery [place] vs. transplanted heart: [place] heart Associated angina: without angina Qualified Code(s): I25.10 - Atherosclerotic heart disease of [place] coronary artery without angina pectoris (6) GERD (gastroesophageal reflux disease) Onset Date: 11/29/16 Status: Chronic Qualifiers: Esophagitis presence: esophagitis presence not specified Qualified Code(s) : K21.9 - Gastro-esophageal reflux disease without esophagitis (7) Hypertension Onset Date: 11/29/16 Status: Chronic Qualifiers: Hypertension type: essential hypertension Qualified Code(s): I10 - Essential (primary) hypertension (8) Hypotension Status: Acute Qualifiers: Hypotension type: unspecified hypotension type Qualified Code(s): I95.9 - Hypotension, unspecified Brief History of Present Illness: This is a 68-year-old female with past medical history of chronic pain, hypertension, [place] and bipolar disorder who presented to the emergency room with shortness of breath at rest and with light activity. Per patient, for the past 1 week she has not been feeling well generally and this has gotten progressively. She started to experience exhaustion, decreased energy, congestion. 3 a.m. prior to arrival, patient states that she was suddenly awoke with shortness of breath and not being able to catch her breath. She felt like she to gasp for air. Shortness of breath is associated with cough and subjective fever. She denies any chest pain, diaphoresis, dizziness, hemoptysis, vomiting. She denies any alleviating or exacerbating factors. She therefore was brought to the emergency room. In the ER, patient's blood pressure was 124/66, heart rate of 87, respirations of 24, low-grade temperature of 100.8 and satting 100% on room air. Her labs were fairly unremarkable. Her chest x-ray was with Moderate right pneumonia. This should be followed until it has cleared to help exclude a post obstructive process/underlying mass. she received Tylenol, IV fluids, breathing treatments , Rocephin, IV azithromycin. At the time of my exam, she was alert oriented x3, in no acute distress and hemodynamically stable. She stated that she is feeling better, though not completely back to baseline. Hospital Course: Patient was admitted for pneumonia. Chest x-ray was evident with right-sided pneumonia. PSI risk class 3. she was started on IV antibiotics with azithromycin and Rocephin. She was provided supportive care and oxygen as needed. Her symptoms slowly improved. Prior to discharge, she was ambulating without concerns, satting well on room air, she was symptom-free and tolerating an oral diet. She otherwise did really well throughout the stay. She remained hemodynamically stable. She did have hypotension on admission. Her blood pressure medications were held. Her blood pressure is improved, though in the normal range. Her metoprolol was held on discharge. She was instructed to check her blood pressures at home and record on the blood pressure sheet that she take with her primary care physician and they can't come to a decision of metoprolol needs to be continued. Her diagnosis and treatment plan was explained to her, all questions were answered and she verbalized understanding. She was then discharged home a safe and stable manner with instructions to follow up with her primary care physician. Vital Signs/Physical Exam: Temp Pulse Resp BP Pulse Ox 97.1 F 63 18 128/60 98 03/23/19 08:00 03/23/19 08:00 03/23/19 09:08 03/23/19 08:00 03/23/19 09:08 General: Alert, In no apparent distress, Oriented x3 HEENT: Atraumatic, PERRLA, EOMI Neck: Supple, JVD not distended Respiratory: Clear to auscultation bilaterally, Normal air movement Cardiovascular: Regular rate/rhythm, Normal S1 S2 Gastrointestinal: Normal bowel sounds, No tenderness Musculoskeletal: No tenderness Integumentary: No rashes Neurological: Normal speech, Normal tone, Normal affect Lymphatics: No axilla or inguinal lymphadenopathy Laboratory Data at Discharge: WBC 7.9 K/uL (4.3-10.9) D 03/23/19 05:33 Hgb 11.1 g/dL (12.0-15.0) L 03/23/19 05:33 Hct 32.3 % (36.0-45.0) L 03/23/19 05:33 Plt Count 305 K/uL (152-406) 03/23/19 05:33 PT 10.9 SECONDS (9.5-12.5) 03/21/19 07:28 INR 0.92 03/21/19 07:28 APTT 33.3 SECONDS (24.3-36.9) 03/21/19 07:28 Sodium 144 mmol/L (136-145) 03/23/19 05:33 Potassium 3.7 mmol/L (3.5-5.1) 03/23/19 05:33 BUN 7 mg/dL (7-18) 03/23/19 05:33 Creatinine 0.66 mg/dL (0.55-1.3) 03/23/19 05:33 Glucose 105 mg/dL (74-106) 03/23/19 05:33 Phosphorus 3.0 mg/dL (2.5-4.9) 03/22/19 05:07 Magnesium 2.2 mg/dL (1.8-2.4) 03/22/19 05:07 Total Bilirubin 0.2 mg/dL (0.2-1.0) 03/23/19 05:33 AST 14 U/L (15-37) L 03/23/19 05:33 ALT 25 U/L (12-78) 03/23/19 05:33 Alkaline Phosphatase 82 U/L (45-117) 03/23/19 05:33 Triglycerides 26 mg/dL (<150) 03/22/19 05:07 Cholesterol 98 mg/dL (<200) 03/22/19 05:07 HDL Cholesterol 71 mg/dL (40-60) H 03/22/19 05:07 Cholesterol/HDL Ratio 1.38 03/22/19 05:07 Lipase 158 U/L (73-393) 03/21/19 07:28 Home Medications: Ascorbic Acid [Vitamin C*] 1 tab PO BEDTIME 11/28/16 Biotin 5 mg PO DAILY 11/28/16 Calcium Carbonate/Vitamin D3 [Calcium 500 + Vit D Caplet] 1 tab PO DAILY Eszopiclone 3 mg PO BEDTIME 11/28/16 Hydrocodone 7.5/APAP 325 [[place] 7.5/325 mg*] 1 tab PO Q6HP PRN 11/28/16 Ibuprofen 800 mg PO BID PRN 11/28/16 Multivit-Min/Iron/Folic/Lutein [Centrum Silver Women Tablet] 1 tab PO DAILY Oxcarbazepine [Trileptal] 300 mg PO DAILY 11/28/16 Oxcarbazepine [Trileptal] 600 mg PO BEDTIME 11/28/16 Pregabalin [Lyrica] 150 cap PO TID 11/28/16 Pantoprazole [Protonix Tab*] 40 mg PO DAILYAC #30 tab 11/29/16 Atorvastatin Calcium 20 mg PO BEDTIME 03/21/19 Bupropion *Xl* [Wellbutrin XL*] 300 mg PO DAILY 03/21/19 Albuterol Inhaler [Ventolin Inhaler*] 2 puff IH Q6H PRN #1 hfa.aer.ad 03/23/19 Azithromycin 500 mg PO DAILY #7 tablet 03/23/19 New Medications: Albuterol Inhaler [Ventolin Inhaler*] 2 puff IH Q6H PRN #1 hfa.aer.ad PRN Reason: Shortness Of Breath Azithromycin 500 mg PO DAILY #7 tablet Patient Discharge Instructions: Please follow up with your primary care physician in 2-3 days. Return to the Emergency room for worsening symptoms. Diet: Regular Activity: Ad jose Time spent managing pt's care (in minutes): 55
== END 2019-03-23 11:50 | disposition home or self-care (01) | DRG 195 ==
LOC: ER 07:02 → ERHOLD 08:38 → 2ND 10:08
PROVIDERS: ADMIT Family Medicine; ATTEND Family Medicine
DX: J18.9 Pneumonia, unspecified organism (principal); I95.9 Hypotension, unspecified; I10 Essential (primary) hypertension; F31.9 Bipolar disorder, unspecified; M54.9 Dorsalgia, unspecified; I25.10 Atherosclerotic heart disease of native coronary artery without angina pectoris; K21.9 Gastro-esophageal reflux disease without esophagitis; I25.2 Old myocardial infarction; Z88.2 Allergy status to sulfonamides; Z87.891 Personal history of nicotine dependence
CPT/HCPCS: 36415; 51702; 71045; 71046; 80048; 80053; 80061; 80076; 81003; 81015; 82550; 82553; 83605; 83690; 83735; 83880; 84100; 84145; 84484; 85025; 85610; 85730; 87040; 93005; 94640; 94760; 96361; 96374; 96375; 97116; 97161; 99285; J0456; J0696; J1650; J7030

== ENCOUNTER 2019-09-13 08:55 | Observation (INO) | payer OTHER ==
--- OUTSIDE RECORDS SUMMARY | 2019-09-13 09:00 | XMS REPORT ---
:1950 Author Organization [employer] Care Team Providers Name Role Phone Luh Larios Provider Role Unavailable Allergies, Adverse Reactions, Alerts Substance Reaction Event Type Bactrim rash Drug Allergy Problems Problem Type Condition Code Onset Dates Condition Status Problem Intermittent lightheadedness R42 Active Problem Vaginal dryness, menopausal N95.1 Active Problem Pain in female genitalia on N94.10 Active intercourse Problem History of pneumonia Z87.01 Active Problem History of coronary artery disease Z86.79 Active Assessment Hospital discharge follow-up Z09 Active Assessment History of pneumonia Z87.01 Active Problem Hospital discharge follow-up Z09 Active Problem Obstructive sleep apnea syndrome G47.33 Active Problem Primary insomnia F51.01 Active Problem Essential hypertension I10 Active Problem Gastroesophageal reflux disease K21.9 Active without esophagitis Problem Benign hypertension I10 Active Problem Gastro-esophageal reflux disease K21.9 Active without esophagitis Problem Bipolar affective disorder F31.9 Active Problem Hydronephrosis N13.30 Active Problem Nocturnal leg cramps G47.62 Active Problem Anemia D64.9 Active Problem Complete loss of teeth, unspecified K08.109 Active cause, unspecified class Problem Herpes zoster without complication B02.9 Active Problem Other seasonal allergic rhinitis J30.2 Active Problem Acute myocardial infarction, I21.9 Active unspecified Medications Medication Code Code Instructions Start End Status Dosage System Date Date Vitamin C [facility] [address]-40 Active not defined Iron [facility] 70712278077 325 (65 Fe) MG Active 1 tablet Orally Once a day Valtrex [facility] 81277778887 1 GM Orally Active 1 tablet Once a day Gabapentin [facility] 61450940703 300 MG Orally Active 1 capsule Three times a day Fish Oil [facility] [address]-64 Orally Once a Active 1 capsule day Trileptal ND 22283691842 300 MG Orally Active 3 tabs Twice a day Lyrica ND 28060721268 150 MG Orally Mar 01, Active 1 capsule Three times a [address] [facility] 90579553978 - 1 Orally Active not defined Ultra Womens daily L-Lysine [facility] [address] Active not defined Biotin [facility] [address] Active not defined Pantoprazole [facility] 94876960981 40 MG Orally Active 1 tablet Sodium Once a day Toprol XL [facility] 56325246972 50 MG Orally Active 1 tablet Once a day ProAir HFA [facility] 54089589213 108 (90 Base) Jun 21, Active 2 puffs as MCG/ACT 2017 needed Inhalation every [address] [facility] 12648883860 0.1 % December Active 1 application Acetonide Externally , to affected Twice a day [address] [facility] 81468407678 2 MG Orally Active 1 tablet Once a day immediately before bedtime Calcium [facility] 51530184616 600 MG Orally Active 1 tablet Carbonate Three times a day Probiotic [facility] 64[address]63 Active not defined Results Name Result Date Reference Range Unit Abnormality Flag Chest Pa And Lat (2 Views) Summary Purpose [employer] Submission
--- OUTSIDE RECORDS SUMMARY | 2019-09-13 09:00 | XMS REPORT ---
:1950 Author Organization eClinicalWorks Care Team Providers Name Role Phone Luh Larios Provider Role Unavailable Allergies, Adverse Reactions, Alerts Substance Reaction Event Type Bactrim rash Drug Allergy Problems Problem Type Condition Code Onset Dates Condition Status Assessment Hospital discharge follow-up Z09 Active Assessment Gastro-esophageal reflux disease K21.9 Active without esophagitis Assessment Cough R05 Active Problem Pain in female genitalia on N94.10 Active intercourse Assessment Pneumonia due to infectious J18.9 Active organism, unspecified laterality, unspecified part of lung Problem Vaginal dryness, menopausal N95.1 Active Problem Essential hypertension I10 Active Problem Obstructive sleep apnea syndrome G47.33 Active Problem Primary insomnia F51.01 Active Problem Pneumonia due to infectious J18.9 Active organism, unspecified laterality, unspecified part of lung Problem Hospital discharge follow-up Z09 Active Problem Benign hypertension I10 Active Problem Hydronephrosis N13.30 Active Problem Cough R05 Active Problem Bipolar affective disorder F31.9 Active Problem History of coronary artery disease Z86.79 Active Problem Gastroesophageal reflux disease K21.9 Active without esophagitis Problem History of pneumonia Z87.01 Active Problem Neuropathic pain of both feet G57.93 Active Problem Other seasonal allergic rhinitis J30.2 Active Problem Nocturnal leg cramps G47.62 Active Problem Gastro-esophageal reflux disease K21.9 Active without esophagitis Problem Complete loss of teeth, unspecified K08.109 Active cause, unspecified class Problem Acute myocardial infarction, I21.9 Active unspecified Problem Intermittent lightheadedness R42 Active Problem Anemia D64.9 Active Problem Herpes zoster without complication B02.9 Active Medications No Known Medications Results No Known Results Summary Purpose eClinicalWorks Submission
--- OUTSIDE RECORDS SUMMARY | 2019-09-13 09:00 | XMS REPORT ---
:1950 [facility] Address [address] [place] [address] Dr. Wei [address] [place] [id number] Care Team Providers Name Role Phone Unavailable Unavailable Unavailable Problems This patient has no known problems. Allergies, Adverse Reactions, Alerts This patient has no known allergies or adverse reactions. Medications This patient has no known medications.
--- OUTSIDE RECORDS SUMMARY | 2019-09-13 09:01 | XMS REPORT ---
:1950 Author Organization [employer]Works Care Team Providers Name Role Phone Luh Larios Provider Role Unavailable Allergies, Adverse Reactions, Alerts Substance Reaction Event Type Bactrim rash Drug Allergy Problems Problem Type Condition Code Onset Dates Condition Status Assessment Asymptomatic menopausal state Z78.0 Active Assessment Encounter for screening mammogram Z12.31 Active for malignant neoplasm of breast Problem Pain in female genitalia on N94.10 Active intercourse Assessment Encounter for general adult medical Z00.00 Active examination without abnormal findings Problem Vaginal dryness, menopausal N95.1 Active Problem [...] Herpes zoster without complication B02.9 Active Medications Medication Code Code Instructions Start End Status Dosage System Date Date Probiotic [facility] [address]30-506[address] Active not defined L-Lysine [facility] 66092-[address]75 Active not defined Lyrica ND 49724118756 150 MG Orally Mar 01, Active 1 capsule Three times a 2019 day Atorvastatin ND 57562677570 20 MG Orally Active 1 tablet Calcium Once a day Calcium [facility] 99376322506 600 MG Orally Active 1 tablet Carbonate Three times a day Centrum Silver [facility] 37931812849 - 1 Orally Active not defined Ultra Womens daily Biotin [facility] 66379-[address]48 Active not defined Iron [facility] 01931388434 325 (65 Fe) MG Active 1 tablet Orally Once a day Pantoprazole [facility] 53868791752 40 MG Orally Active 1 tablet Sodium Once a day Gabapentin [facility] 93056653371 300 MG Orally Active 1 capsule Three times a day Valtrex [facility] 62409014127 1 GM Orally Active 1 tablet Once a day Lunesta [facility] 97910496328 2 MG Orally Active 1 tablet Once a day immediately before bedtime Trileptal [facility] 99070161356 300 MG Orally Active 3 tabs Twice a day Vitamin C [facility] [address]-86 Active not defined ProAir HFA [facility] 22517731871 108 (90 Base) Jun 21, Active 2 puffs as MCG/ACT 2018 needed Inhalation every 6 hrs Results No Known Results Summary Purpose eClinicalWorks Submission
--- OUTSIDE RECORDS SUMMARY | 2019-09-13 09:01 | XMS REPORT ---
:1950 Author Organization eClinicalWorks Care Team Providers Name Role Phone Luh Larios Provider Role Unavailable Allergies No Known Allergies Problems Problem Type Condition Code Onset Dates Condition Status Problem Essential hypertension I10 Active Problem Obstructive sleep apnea syndrome G47.33 Active Problem Primary insomnia F51.01 Active Problem Pneumonia due to infectious J18.9 Active organism, unspecified laterality, unspecified part of lung Problem Benign hypertension I10 Active Problem Hospital discharge follow-up Z09 Active Problem Hydronephrosis N13.30 Active Problem Bipolar affective disorder F31.9 Active Problem Cough R05 Active Problem History of coronary artery disease [...] Active unspecified Problem Intermittent lightheadedness R42 Active Assessment Benign hypertension I10 Active Problem Anemia D64.9 Active Problem Pain in female genitalia on N94.10 Active intercourse Problem Herpes zoster without complication B02.9 Active Problem Vaginal dryness, menopausal N95.1 Active Medications Medication Code Code Instructions Start End Date Status Dosage System Date Metoprolol [facility] 26066525283 25 MG Orally Sep 05, Active 1 tablet Succinate ER Once a day 2019 Results No Known Results Summary Purpose eClinicalWorks Submission
--- OUTSIDE RECORDS SUMMARY | 2019-09-13 09:01 | XMS REPORT ---
:1950 Author Organization eClinicalWorks Care Team Providers Name Role Phone Luh Larios Provider Role Unavailable Allergies, Adverse Reactions, Alerts Substance Reaction Event Type Bactrim rash Drug Allergy Problems Problem Type Condition Code Onset Dates Condition Status Assessment Bipolar affective disorder F31.9 Active Assessment Gastro-esophageal reflux disease K21.9 Active without esophagitis Problem Pain in female genitalia on N94.10 Active intercourse Assessment Neuropathic pain of both feet G57.93 Active Problem Vaginal dryness, menopausal N95.1 Active [...] Start End Status Dosage System Date Date Iron [facility] 93464217872 325 (65 Fe) MG Active 1 tablet Orally Once a day Biotin [facility] 32832-17924 Active not defined Toprol XL [facility] 48058516907 50 MG Orally Active 1 tablet Once a day Pantoprazole [facility] 63248948556 40 MG Orally Active 1 tablet Sodium Once a day Lunesta [facility] 91233838524 2 MG Orally Active 1 tablet Once a day immediately before bedtime Lyrica [facility] 25834951359 150 MG Orally Mar 01, Active 1 capsule Three times a 2018 day Calcium [facility] 93933896583 600 MG Orally Active 1 tablet Carbonate Three times a day Vitamin C [facility] [address]-53 Active not defined L-Lysine [facility] 05876-88033 Active not defined Valtrex [facility] 31793986403 1 GM Orally Active 1 tablet Once a day Fish Oil [facility] [address]-11 Orally Once a Active 1 capsule day Triamcinolone [facility] 46583085833 0.1 % December Active 1 application Acetonide Externally , to affected Twice a day 2017 area Gabapentin [facility] 77076763383 300 MG Orally Active 1 capsule Three times a day Centrum Silver [facility] 46725671877 - 1 Orally Active not defined Ultra Womens daily Trileptal [facility] 62968973752 300 MG Orally Active 3 tabs Twice a day Probiotic [facility] 82063-41639 Active not defined ProAir HFA [facility] 58274792566 108 (90 Base) Jun 21, Active 2 puffs as MCG/ACT 2018 needed Inhalation every 6 hrs Results No Known Results Summary Purpose eClinicalWorks Submission
--- OUTSIDE RECORDS SUMMARY | 2019-09-13 09:01 | XMS REPORT | Summary of Care ---
:1950 Author Organization [facility] Address [address] [place] [address] Care Team Providers Name Role Phone Luh Larios Primary Care Provider Reason for Referral MRI/CAT Scan (Routine) Status Reason Specialty Diagnoses / Referred By Referred To Procedures Contact Contact Closed Diagnostic Diagnoses Cervicalgia Fernando Norton Radiology Procedures CT CERVICAL SPINE WO CONTRAST MD Michael [id number] [place] [address] Reason for Visit MRI/CAT Scan (Routine) Status Reason Specialty Diagnoses / Referred By Referred To Procedures Contact Contact Closed Diagnostic Diagnoses Cervicalgia Fernando Norton Radiology Procedures CT CERVICAL SPINE WO CONTRAST MD Michael [id number] [place] [address] Encounter Details Date Type Department Care Team Description 08/23/2019 Hospital Encounter [facility] Fernando Norton Arrived [place] [facility] MD Tomography [address] [place] [address] [address] [phone] [place] [address] Allergies Active Allergy Reactions Severity Noted Date Comments Propoxyphene Hcl Hallucinations 01/24/2013 Sulfa (Sulfonamide Unknown - See comments 01/24/2013 Told not to take by Antibiotics) mother documented as of this encounter (statuses as of 08/24/2019) Medications Medication Sig Dispensed Refills Start Date End Date Status OXcarbazepine Take 1 mg by mouth 0 Active (TRILEPTAL) 300 mg 2 (two) times tablet daily. metoprolol succinate Take 12.5 mg by 0 Active XL (TOPROL XL) 25 mg mouth daily. 24 hr tablet pantoprazole Take 40 mg by 0 Active (PROTONIX) 40 mg EC mouth daily. tablet eszopiclone (LUNESTA) Take 3 mg by mouth 0 Active 3 mg tablet at bedtime. DOCOSAHEXANOIC Take 1 Cap by 0 Active ACID/EPA (FISH OIL mouth daily. ORAL) MULTIVITS W-FE,OTHER Take 1 Tab by 0 Active MIN/LUT (CENTRUM mouth daily. SILVER ULTRA WOMEN'S ORAL) CALCIUM Take 1 Tab by 0 Active CARBONATE/VITAMIN D3 mouth daily. (VITAMIN D-3 ORAL) CALCIUM CARB/VIT Take 1 Tab by 0 Active D2/MINERALS (CALTRATE mouth daily. PLUS ORAL) imiquimod (ALDARA) 5 % Apply to area(s) 0 Active cream every Tuesday, Tuesday and Tuesday. clotrimazole Apply to area(s) 1 Tube 1 10/04/2013 Active (LOTRIMIN) 1 % topical at bedtime. creamIndications: Candidiasis of mouth gabapentin (NEURONTIN) 0 08/06/2013 Active 300 mg capsule HYDROcodone-acetaminop 0 08/31/2013 Active hen (NORCO) 7.5-325 mg per tablet fluocinonide (LIDEX) Apply to area(s) 120 g 3 11/01/2013 Active 0.05 % 2 (two) times creamIndications: daily. Granuloma annulare clobetasol (TEMOVATE) Apply to area(s) 60 g 3 12/10/2013 Active 0.05 % 2 (two) times creamIndications: daily. Granuloma annulare lidocaine 4% (L-M-X 4) Apply to lesions 1 45 g 0 12/10/2013 Active 4 % creamIndications: hour prior to Granuloma annulare appointment ibuprofen (MOTRIN) 800 0 11/28/2013 Active mg tablet valACYclovir (VALTREX) 0 11/28/2013 Active 1 gram tablet ondansetron (ZOFRAN) 4 Take 1 tablet by 12 tablet 0 12/12/2018 Active mg tabletIndications: mouth every 8 Weakness, Syncope, (eight) hours as unspecified syncope needed for Nausea type, Nausea and and Vomiting vomiting, (N/V). 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 Overview: ICD10 Diagnosis Term [employer] Utility Encounter for routine gynecological examination 01/24/2013 Overview: ICD10 Diagnosis Term [employer] Utility Bipolar disorder 01/24/2013 Hx of hysterectomy 01/24/2013 Need for prophylactic vaccination with combined 01/24/2013 oxwqneetcf-nbglgib-fcvwplfat (DTP) vaccine Skin lesion 01/24/2013 documented as of this encounter (statuses as of 08/24/2019) Resolved Problems Problem Noted Date Resolved Date Tubal ligation status 01/24/2013 01/24/2013 documented as of this encounter (statuses as of 08/24/2019) Immunizations Name Administration Dates Next Due Tdap 01/24/2013 documented as of this encounter Social History Tobacco Use Types Packs/Day Years Used Date Never Smoker Smokeless Tobacco: Never Used Alcohol Use Drinks/Week oz/Week Comments Yes socially Sex Assigned at Date Recorded Not on file Job Start Date Occupation Industry Not on file Not on file Not on file Travel History Travel Start Travel End No recent travel history available. documented as of this encounter Last Filed Vital Signs Not on filedocumented in this encounter Plan of Treatment Health Maintenance Due Date Last Done Comments HEPATITIS C (HCV) SCREEN 1950 Breast Cancer Screening (MAMMOGRAM) 1992 COLONOSCOPY 2002 Zoster Recombinant Vaccine (SHINGRIX) (1 of 2) 2002 Medicare Wellness Visit 2017 Osteoporosis Screening 2017 PNEUMOCOCCAL VACCINES 65+ (1 of 2 - PCV13) 2017 INFLUENZA VACCINE (#1) 2019 DTaP,Tdap,and Td Vaccines (2 - Td) 01/24/2023 01/24/2013 documented as of this encounter Procedures Procedure Name Priority Date/Time Associated Diagnosis Comments CT CERVICAL SPINE WO Routine 08/23/2019 9:59 Cervicalgia Results for this CONTRAST AM CHIROPRACTIC PHYSICIAN procedure are in the results section. CONSENT/REFUSAL FOR Routine 08/23/2019 9:20 DIAGNOSIS AND AM CHIROPRACTIC PHYSICIAN TREATMENT ASSIGNMENT OF Routine 08/23/2019 9:20 BENEFITS AM CHIROPRACTIC PHYSICIAN documented in this encounter Results CT CERVICAL SPINE WO CONTRAST (08/23/2019 9:59 AM CHIROPRACTIC PHYSICIAN) Specimen Narrative Performed At HISTORY: Neck pain. PACS/VR/DOSE TECHNIQUE: 64-multidetector Sp[address] CT of the cervical spine is obtained and subsequently sagittal, coronal reformations are obtained. FINDINGS: No acute compression fracture or aggressive bone lesions visualized. Reversal of normal cervical lordosis is suggestive of neck muscle spasm. Calcification is seen in the left thyroid gland, of no clinical significance. C2-C3: Mild right facet arthritis. C3-C4: Minimal anterior listhesis of C3 over C4 could be due to neck muscle spasm. C4-C5: Minimal anterior listhesis of C4 over C5 could be due to neck muscle spasm. Mild hypertrophic right facet arthritis with subchondral degenerative cystic changes in the right facet of C4. C5-C6: Moderate degenerative disc disease with narrowing of the disc space by approximately 70% with small disc osteophyte complex minimally encroaching into the spinal canal. No significant foraminal encroachment. C6-C7: Moderate degenerative disc disease with narrowing of the disc space by up to 70%, shallow Schmorl's nodes in the vertebral endplates, more prominent in the lower plate of C6. Small disc osteophyte complex are seen encroaching into the spinal canal and into the neural foramina, slightly on the right side without cord compression or nerve root compression. C7-T1, T1-T2: Mild left facet arthritis at C7-T1. CONCLUSIONS: 1. No acute fracture. No aggressive bone lesions. Probable neck muscle spasm. 2. Degenerative disc disease at C5-C6 and C6-C7. Procedure Note Wymb, Radiant Results Inft User - 08/23/2019 10:11 AM CHIROPRACTIC PHYSICIAN HISTORY: Neck pain. TECHNIQUE: 64-multidetector Spiral CT of the cervical spine is obtained and subsequently sagittal, coronal reformations are obtained. FINDINGS: No acute compression fracture or aggressive bone lesions visualized. Reversal of normal cervical lordosis is suggestive of neck muscle spasm. Calcification is seen in the left thyroid gland, of no clinical significance. C2-C3: Mild right facet arthritis. C3-C4: Minimal anterior listhesis of C3 over C4 could be due to neck muscle spasm. C4-C5: Minimal anterior listhesis of C4 over C5 could be due to neck muscle spasm. Mild hypertrophic right facet arthritis with subchondral degenerative cystic changes in the right facet of C4. C5-C6: Moderate degenerative disc disease with narrowing of the disc space by approximately 70% with small disc osteophyte complex minimally encroaching into the spinal canal. No significant foraminal encroachment. C6-C7: Moderate degenerative disc disease with narrowing of the disc space by up to 70%, shallow Schmorl's nodes in the vertebral endplates, more prominent in the lower plate of C6. Small disc osteophyte complex are seen encroaching into the spinal canal and into the neural foramina, slightly on the right side without cord compression or nerve root compression. C7-T1, T1-T2: Mild left facet arthritis at C7-T1. CONCLUSIONS: 1. No acute fracture. No aggressive bone lesions. Probable neck muscle spasm. 2. Degenerative disc disease at C5-C6 and C6-C7. Performing Organization Address City/State/Zipcode Phone Number PACS/VR/DOSE documented in this encounter Visit Diagnoses Diagnosis Cervicalgia documented in this encounter Insurance Payer Benefit Plan / Subscriber ID Effective Phone Address Type Group Dates MEDICARE MEDICARE PART xxxxxxxxxxx 2019-Pre [phone] Medicare [employer] sent [id number] [place] [address] [facility] [id number] 2019-Pres Commercial COMMERCIAL ent Group GROUP documented as of this encounter
--- OUTSIDE RECORDS SUMMARY | 2019-09-13 09:01 | XMS REPORT ---
:1950 Author Organization eClinicalWorks Care Team Providers Name Role Phone Luh Larios Provider Role Unavailable Allergies, Adverse Reactions, Alerts Substance Reaction Event Type Bactrim rash Drug Allergy Problems Problem Type Condition Code Onset Dates Condition Status Assessment Gastroesophageal reflux disease K21.9 Active without esophagitis Assessment Neuropathic pain of both feet G57.93 Active Problem Pain in female genitalia on N94.10 Active intercourse Assessment Benign hypertension I10 Active Problem Vaginal dryness, menopausal N95.1 Active [...] Start End Status Dosage System Date Date Valtrex [facility] 15840161065 1 GM Orally Active 1 tablet Once a day Gabapentin [facility] 44063379503 300 MG Orally Active 1 capsule Three times a day Lyrica ND 20320285742 150 MG Orally Mar 01, Active 1 capsule Three times a 2019 day Centrum Silver [facility] 45408643442 - 1 Orally Active not defined Ultra Womens daily Vitamin C [facility] [address]-41 Active not defined Iron [facility] 16947199072 325 (65 Fe) MG Active 1 tablet Orally Once a day Trileptal [facility] 19915923490 300 MG Orally Active 3 tabs Twice a day Probiotic [facility] 8[address] Active not defined Pantoprazole [facility] 27693068658 40 MG Orally Active 1 tablet Sodium Once a day Lunesta [facility] 21573338723 2 MG Orally Active 1 tablet Once a day immediately before bedtime Eszopiclone [facility] 22974819993 3 MG Oral Active (Schedule IV Drug) TAKE 1 TABLET BY MOUTH EVERY DAY AT BEDTIME NEEDED Metoprolol [facility] 28499108252 25 MG Orally Aug 31, Active 1 capsule Succinate Once a day 2019 Calcium [facility] 13667645550 600 MG Orally Active 1 tablet Carbonate Three times a day Biotin [facility] [address] Active not defined L-Lysine [facility] 95[address]678 Active not defined ProAir HFA [facility] 79772076504 108 (90 Base) Jun 21, Active 2 puffs as MCG/ACT 2017 needed Inhalation every 6 hrs Atorvastatin [facility] 53664913663 20 MG Orally Active 1 tablet Calcium Once a day Results No Known Results Summary Purpose eClinicalWorks Submission
--- OUTSIDE RECORDS SUMMARY | 2019-09-13 09:02 | XMS REPORT ---
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 Assessment Non-intractable vomiting with R11.2 Active nausea, unspecified vomiting type Assessment UTI (lower urinary tract infection) N39.0 Active Assessment Dysuria R30.0 Active Problem Complete loss of teeth, unspecified K08.109 Active cause, unspecified class Problem Other seasonal allergic rhinitis J30.2 Active Problem Herpes zoster without complication B02.9 Active Problem Gastroesophageal reflux disease K21.9 Active without esophagitis Problem Primary insomnia F51.01 Active Problem Bipolar affective disorder F31.9 Active Problem History of coronary artery disease Z86.79 Active Problem History of pneumonia Z87.01 Active Problem Neuropathic pain of both feet G57.93 Active Problem 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 Problem UTI (lower urinary tract infection) N39.0 Active Problem Gastro-esophageal reflux disease K21.9 Active without esophagitis Problem Benign hypertension I10 Active Problem Dysuria R30.0 Active Problem Hydronephrosis N13.30 Active Problem Cough R05 Active Problem Hospital discharge follow-up Z09 Active Problem Non-intractable vomiting with R11.2 Active nausea, unspecified vomiting type Problem Pneumonia due to infectious J18.9 Active organism, unspecified laterality, unspecified part of lung Problem Acute myocardial infarction, I21.9 Active unspecified Problem Intermittent lightheadedness R42 Active Problem Anemia D64.9 Active Problem Nocturnal leg cramps G47.62 Active Problem Essential hypertension I10 Active Problem Obstructive sleep apnea syndrome G47.33 Active Problem Pain in female genitalia on N94.10 Active intercourse Problem Vaginal dryness, menopausal N95.1 Active Medications Medication Code Code Instructions Start End Status Dosage System Date Date Ciprofloxacin NDC 77274102354 500 MG Orally September Active 1 tablet HCl every 12 hrs 2019 Pyridium NDC 70754468535 200 MG Orally September Active 1 tablet Three times a , 05, after meals day 2019 2019 Vitamin C [facility] [address]-31 Active not defined Trileptal [facility] 44584208266 300 MG Orally Active 3 tabs Twice a day Metoprolol ND 57973374981 25 MG Orally Sep 05, Active 1 tablet Succinate ER Once a day 2019 Gabapentin [facility] 88513294432 300 MG Orally Active 1 capsule Three times a day Calcium [facility] 26454931513 600 MG Orally Active 1 tablet Carbonate Three times a day Lunesta [facility] 55213250726 2 MG Orally Active 1 tablet Once a day immediately before bedtime L-Lysine [facility] [address] Active not defined Eszopiclone [facility] 12358062534 3 MG Oral Active (Schedule IV Drug) TAKE 1 TABLET BY MOUTH EVERY DAY AT BEDTIME NEEDED Lyrica [facility] 27271743755 150 MG Orally Mar 01, Active 1 capsule Three times a 2018 Pantoprazole [facility] 09183583175 40 MG Orally Active 1 tablet Sodium Once a day Iron [facility] 82178802980 325 (65 Fe) MG Active 1 tablet Orally Once a day Ondansetron HCl [facility] 63338419571 8 MG Orally September Active 1 tablet as Once a day , 2019 Valtrex [facility] 42720463573 1 GM Orally Active 1 tablet Once a day ProAir HFA [facility] 73394225860 108 (90 Base) Jun 21, Active 2 puffs as MCG/ACT 2017 needed Inhalation every 6 hrs Atorvastatin [facility] 07523482169 20 MG Orally Active 1 tablet Calcium Once a day Probiotic [facility] [address] Active not defined Centrum Silver [facility] 07210317691 - 1 Orally Active not defined Ultra Womens daily Biotin [facility] [address] Active not defined Results Name Result Date Reference Range Unit Abnormality Flag URINALYSIS AUTO W/O SCOPE (71125) ----NIT Positive* [id number] ----URO 1.0 [id number] ----PROTEIN 3+* [id number] ----pH 6.0 [id number] ----BLO 2+* [id number] ----GLUCOSE Negative [id number] ----ERIK 3+* [id number] ----BILIRUBIN Negative [id number] ----KETONES Negative [id number] ----SPECIFIC GRAVITY 1.015 [id number] Summary Purpose [employer] Submission
[2019-09-13 10:14] LABS: Absolute Lymphocytes (CBC) 0.7 K/uL (0.7-4.9); Basophils % 0.4 % (0-1.3); Hematocrit 35.7 % (36.0-45.0); Lymphocytes % 4.7 % (15.3-44.8); MPV 7.8 fL (7.6-11.3); RBC Red Blood Cell Count 3.92 M/uL (3.86-4.86)
[2019-09-13 10:19] LABS: Protime INR 1.1
[2019-09-13 10:34] LABS: ALT/SGPT 25 U/L (12-78); AST/SGOT 22 U/L (15-37); Alkaline Phosphatase 105 U/L (45-117); Amylase Level 28 U/L (25-115); BUN Blood Urea Nitrogen 10 mg/dL (7-18); Bicarbonate 29 mmol/L (21-32); Bilirubin Direct 0.2 mg/dL (0-0.2); Bilirubin Total 0.4 mg/dL (0.2-1.0); CKMB Creatine Kinase MB 2.6 ng/mL (0.3-3.6); Creatine Phosphokinase 208 U/L (26-192); Glucose Level 143 mg/dL (74-106); Lipase 47 U/L (73-393); Potassium 3.7 mmol/L (3.5-5.1); Protein, Total 6.5 g/dL (6.4-8.2); Sodium Level 130 mmol/L (136-145); Troponin (Emerg Dept Use Only) < 0.02 ng/mL (0.0-0.045)
--- NOTE | 2019-09-13 10:42 | RAD REPORT ---
EXAM DESCRIPTION: RAD - Chest Single View - 09/13/2019 9:51 am CLINICAL HISTORY: AMS/Abdominal pain COMPARISON: Chest Pa And Lat (2 Views) dated 04/10/2019 TECHNIQUE: AP portable chest image was obtained 09/13/2019 9:51 am . FINDINGS: Lungs are underinflated. Patchy opacification is present in the lower right lung field jaime picious for a mild pneumonia. No significant failure or volume overload. Heart and vasculature are no rmal. No measurable pleural effusion and no pneumothorax. No acute bony abnormality seen. No acute ao rtic findings suspected. IMPRESSION: Mild or early right lung base pneumonia.
[2019-09-13 11:03] LABS: Urine Blood 1+ (NEG); Urine Glucose NEGATIVE (NEG); Urine Protein 1+ (NEG); Urine Specific Gravity 1.015 (1.005-1.030)
--- NOTE | 2019-09-13 11:15 | RAD REPORT ---
EXAM DESCRIPTION: CT - Head Brain Wo Cont - 09/13/2019 11:03 am CLINICAL HISTORY: CONFUSED, transient alteration of awareness COMPARISON: No comparisons TECHNIQUE: Axial 5 mm thick images of the head were obtained without IV contrast. All CT scans are performed using dose optimization technique as appropriate and may include automated exposure control or mA/KV adjustment according to patient size. FINDINGS: No intracranial hemorrhage, mass, edema or shift of mid-line structures. No acute infarcti on changes seen. No abnormal extra-axial fluid collections. Ventricles are normal. No significant atr ophy or chronic ischemic change. Physiologic calcifications are present. Mastoid air cells and visualized portions of the paranasal sinuses are clear. No acute bony findings. IMPRESSION: Negative non-contrast CT head examination.
[2019-09-13 11:16] LABS: Urine Bacteria <20 /HPF (<20); Urine Culture Reflex Order REFLEXED
--- NOTE | 2019-09-13 11:18 | RAD REPORT ---
EXAM DESCRIPTION: CT - Abdomen Pelvis W Contrast - 09/13/2019 11:02 am CLINICAL HISTORY: ABD PAIN, anteromedially COMPARISON: No comparisons TECHNIQUE: Biphasic, helical CT imaging of the abdomen and pelvis was performed following 100 ml non -ionic IV contrast. Oral contrast was given. All CT scans are performed using dose optimization technique as appropriate and may include automated exposure control or mA/KV adjustment according to patient size. FINDINGS: Scattered airspace opacification present in the right lower lobe. Minimal atelectasis also present. No left lobe infiltrate. There is some hazy ground-glass opacification that is favored to b e atelectasis. No pleural effusion. No cardiomegaly or pericardial effusion. Patient does have a smal l hiatal hernia. The The liver, spleen, and pancreas show no suspicious findings. Cholecystectomy clips are present. No bi liary tree dilatation. No hydronephrosis present. Both kidneys show heterogeneous enhancement of the renal parenchyma. No ab scess or mass lesions seen. No measurable stranding in the perinephric fat. Urinary bladder is fully contracted limiting assessment of the urinary bladder blackburn. Numerous phleboliths are present. No adr enal abnormalities. Gastric sleeve surgical changes are present. Moderate stool volume is present in the colon. No eviden ce for appendicitis. No free air, free fluid or inflammatory stranding. No hernia, mass or bulky lym phadenopathy. Postsurgical changes are present at the lower abdominal wall. Atrophy of the right-side corrects abdominis musculature noted. No suspicious bony findings. IMPRESSION: Bilateral pyelonephritis with no abscess or emergent complication. Right lower lung pneumonia
[2019-09-13] MEDS ORDERED: NA CHLORIDE 0.9% 1,000 ML IV ONE (12:20)
[2019-09-13] MEDS ORDERED: CEFTRIAXONE/SWI 1gm 1 GM/10 ML SYR ONE (12:30)
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
[2019-09-13] MEDS ORDERED: ACETAMINOPHEN 500 MG TAB PO PRN (14:25)
[2019-09-13] MEDS ORDERED: ONDANSETRON 4 MG/2 ML VIAL IV PRN (14:25)
[2019-09-13] MEDS ORDERED: ALBUTEROL 2.5 MG/3 ML NEB SOL NEB PRN (14:25)
[2019-09-13] MEDS: NA CHLORIDE 0.9% 1,000 ML IV SCH (14:52)
[2019-09-13] MEDS: ENOXAPARIN 40 MG/0.4 ML SQ SCH (16:01)
[2019-09-13] MEDS: AZITHROMYCIN IV 500 MG in NA CHLORIDE 0.9% 250 ML IVPB SCH (16:01)
--- NOTE | 2019-09-13 16:48 | EKG ---
Test Date: 2019-09-13 Test Time: 10:49:55 Window And Door Installer: KATIE MEASUREMENT RESULTS: Intervals: Rate: 73 NH: 164 QRSD: 122 QT: 396 QTc: 436 [place]: P: 68 NH: 164 QRS: 35 T: -77 INTERPRETIVE STATEMENTS: Normal sinus rhythm Nonspecific intraventricular conduction delay ST & T wave abnormality, consider inferolateral ischemia Abnormal ECG Compared to ECG 03/21/2019 07:19:37 Intraventricular conduction delay now present Left bundle-branch block no longer present ST (T wave) deviation still present Possible ischemia still present Electronically Signed On 09-13-19 16:47:26 REMOTE SENSING ANALYST by Leif Gu
[2019-09-13 16:59] VITALS: BMI 33.6
[2019-09-13] MEDS ORDERED: POTASSIUM CL SA 10 MEQ TAB PO ONE (20:30)
[2019-09-13] MEDS: CEFTRIAXONE/SWI 1gm 1 GM/10 ML SYR IVP SCH (20:41)
[2019-09-13] MEDS ORDERED: OXCARBAZEPINE 600 MG PO SCH (21:00)
[2019-09-13] MEDS ORDERED: ESZOPICLONE 1 MG TAB PO SCH (21:00)
[2019-09-13] MEDS ORDERED: OXcarbazepine 150 MG TAB PO SCH (21:00)
[2019-09-13] MEDS ORDERED: HOME MED 1 EA UNK (Eszopiclone [Eszopiclone] 3 MG) PO SCH (21:00)
[2019-09-13 21:28] VITALS: O2SAT 95
[2019-09-14] MEDS: NA CHLORIDE 0.9% 1,000 ML IV SCH ×2 (00:25→10:25)
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
[2019-09-14 06:34] LABS: Basophils % 0.4 % (0-1.3); Hematocrit 34.7 % (36.0-45.0); Lymphocytes % 14.4 % (15.3-44.8); MPV 7.9 fL (7.6-11.3); RBC Red Blood Cell Count 3.75 M/uL (3.86-4.86)
[2019-09-14 06:39] LABS: Albumin 2.6 g/dL (3.4-5.0); Bilirubin Total 0.3 mg/dL (0.2-1.0); Potassium 4.1 mmol/L (3.5-5.1); Protein, Total 5.8 g/dL (6.4-8.2)
[2019-09-14] MEDS ORDERED: PANTOPRAZOLE 40MG TABLET PO SCH (07:30)
[2019-09-14] MEDS ORDERED: BUPROPION HCL XL 150 MG TAB PO SCH (09:00)
[2019-09-14] MEDS ORDERED: OXCARBAZEPINE 300 MG PO SCH (09:00)
[2019-09-14] MEDS ORDERED: OXcarbazepine 150 MG TAB PO SCH (09:00)
[2019-09-14] MEDS: AZITHROMYCIN IV 500 MG in NA CHLORIDE 0.9% 250 ML IVPB SCH (09:13)
[2019-09-14] MEDS: ENOXAPARIN 40 MG/0.4 ML SQ SCH (09:14)
[2019-09-14] MEDS: CEFTRIAXONE/SWI 1gm 1 GM/10 ML SYR IVP SCH (09:15)
[2019-09-14 10:38] VITALS: TEMP 97.2
[2019-09-14] MEDS ORDERED: ALBUTEROL 2.5 MG/3 ML NEB SOL NEB PRN (14:00)
[2019-09-14] MEDS ORDERED: ALBUTEROL 2.5 MG/3 ML NEB SOL NEB SCH (14:00)
[2019-09-14] MEDS ORDERED: PREGABALIN 150 MG CAP PO SCH (14:00)
[2019-09-14 15:20] VITALS: BP 144/80
--- NOTE | 2019-09-15 00:06 | DS ---
Date of Discharge: 09/14/2019 Discharge Diagnoses: 1.Right lung base pneumonia. 2.Acute pyelonephritis, bilateral. 3.Hyponatremia. 4.Coronary artery disease, buckland artery and buckland heart, without angina. 5.Essential hypertension. 6.Chronic back pain, midline with sciatica. 7.Neuropathy. 8.Bipolar disorder. 9.Obesity, BMI 33. 10.Chronic obstructive pulmonary disease. Hospital Course: Patient is a 69-year-old female with past medical history of bipolar disorder, neur opathy, GERD, hypertension, comes in with generalized malaise, dysuria and flank pain. Patient was s een by her PCP and was found to have UTI, was given ciprofloxacin. She took the dose for 2 days. Sh cailin took 5 doses total, however, continued to deteriorate. She had worsening symptoms. She had a near syncopal type episode and presented to the ER. She was hypotensive at home. Patient, in the ER[place] [id number]. She was admitted for pneumonia and urinary tract infection. CT scan showe d pyelonephritis. She was started on IV antibiotics. Cultures were obtained. Urine culture at the hospital grew negative. Blood cultures also negative. Influenza screen was also negative. However, the culture report from her PCPs office did show E coli, which was essentially pansensitive. Patiluly hale overall did well, her white blood cell count improved, her blood pressure was more stable, did not have any further near syncopal type episodes. She was able to ambulate without difficulty. Her proc alcitonin level normalized. White blood cell count also normalized. Did not have any signs of sepsi s. Patient was then feeling better, still had minimal pain in her left flank, but overall doing bett er. She was then cleared for discharge and was sent home in a stable condition. Activity: As tolerated. Medications: As per medication reconciliation list. Followup: Follow up with primary care physician in 2-3 days. Return to ER for worsening condition. Medications: As per medication reconciliation list. Physical Examination: General: Awake, alert, and oriented x3, obese female. CV: S1, S2. Respiratory: Minimal wheezing. No use of accessory muscles or stridor, otherwise moving air well. Gastrointestinal: Abdomen is soft, nontender, nondistended. Positive bowel sounds. Minimal tendern ess on the left flank. Extremities: No clubbing, cyanosis, or edema. Neurologic: Nonfocal. SA/MODL Voice ID: [id number] Report ID: [id number]
== END 2019-09-14 14:25 | disposition home or self-care (01) ==
LOC: ER 08:55 → ERHOLD 12:09 → INTOOBSV 12:09 → 2ND 14:06
PROVIDERS: ADMIT Family Medicine; ATTEND Family Medicine
DX: N10 Acute pyelonephritis (principal); J18.9 Pneumonia, unspecified organism; E87.1 Hypo-osmolality and hyponatremia; J44.9 Chronic obstructive pulmonary disease, unspecified; I25.10 Atherosclerotic heart disease of native coronary artery without angina pectoris; I10 Essential (primary) hypertension; G89.29 Other chronic pain; M54.9 Dorsalgia, unspecified; G62.9 Polyneuropathy, unspecified; K21.9 Gastro-esophageal reflux disease without esophagitis; I25.2 Old myocardial infarction; F31.9 Bipolar disorder, unspecified; E66.9 Obesity, unspecified; Z68.33 Body mass index [BMI] 33.0-33.9, adult; Z87.891 Personal history of nicotine dependence; Z88.3 Allergy status to other anti-infective agents; Z88.6 Allergy status to analgesic agent; Z80.9 Family history of malignant neoplasm, unspecified; Z83.3 Family history of diabetes mellitus; Z82.49 Family history of ischemic heart disease and other diseases of the circulatory system
CPT/HCPCS: 96365; 93005; 87040 ×2; 87088; 85025 ×2; 80048; 36415; 82150; 82550; 85610; 82947; 80076; 83605; 85730; 84484; 82553; 83690; 80053; 84145 ×2; 87804 ×2; 70450; 74177; 71045; 94640; 94760 ×2; 99285; Q9967; J0456; J1650 ×2; J0696 ×3; J7030 ×4; G0378 ×3; 81003; 81015; 87086

== ENCOUNTER 2020-01-16 09:39 | Emergency (ER) | payer OTHER ==
--- OUTSIDE RECORDS SUMMARY | 2020-01-16 10:05 | XMS REPORT | Continuity of Care Document ---
:1950 Author Organization [facility] t Address [address] [place] [address] Care Team Providers Name Role Phone James LÓPEZ Attending Clinician Doctor Unassigned, Name Attending Clinician Unavailable Cierra LÓPEZ, S Attending Clinician Problems Condition Condition Condition Status Onset Resolution Last Treating Co mments Source Name Details Category Date Date Treatment Clinician Date Herpes Herpes Problem Active [facility] zoster zoster [facility] - without without Memoria complicati complicati l on on Outpati ent Clinics Other Other Problem Active [facility] seasonal seasonal [facility] - allergic allergic Memori a rhinitis rhinitis l Outpati ent Clinics Complete Complete Problem Active [facility] loss of loss of [facility] - teeth, teeth, Memoria unspecifie unspecifie l d cause, d cause, Outpat i unspecifie unspecifie en t d class d class Clinics Nocturnal Nocturnal Problem Active [facility] leg cramps leg cramps Gertrude kes - [facility] Outpat[facility] ent Clinics Anemia Anemia Problem Active [facility] Hydronephr Hydronephr Problem Active [facility] osis osis [facility] Bipolar Bipolar Problem Active [facility] affective affective [facility] - disorder disorder Memori a l Outpati ent Clinics Gastroesop Gastroesop Problem Active [facility] hageal hageal [facility] - reflux reflux Memoria disease disease l without without Outpati esophagiti esophagiti en t s s Clinics Essential Essential Problem Active [facility] hypertensi hypertensi Gertrude kes - on on Memoria l [facility] Clinics Acute Acute Problem Active [facility] myocardial myocardial Gertrude kes - infarction infarction Me moria , , l unspecifie unspecifie Ou tpati d d ent Clinics Intermitte Intermitte Problem Active [facility] nt nt [facility] - lightheade lightheade Me moria dness dness l [facility] Pain in Pain in Problem Active [facility] female female [facility] - genitalia genitalia Prem noé on on l intercours intercours Ou tpati e e ent Clinics Vaginal Vaginal Problem Active [facility] dryness, dryness, [facility] - menopausal menopausal Me moria l [facility] Clinics Primary Primary Problem Active [facility] insomnia insomnia [facility] - [facility] Clinics Obstructiv Obstructiv Problem Active [facility] e sleep e sleep [facility] - apnea apnea Memoria syndrome syndrome l [facility] Clinics History of History of Problem Active [facility] coronary coronary [facility] - artery artery Memoria disease disease l [facility] Clin[facility] History of History of Problem Active [facility] pneumonia pneumonia [facility] - Memoria l [facility] Hospital Problem Active [facility] discharge discharge Luke [facility] - follow-up follow-up Prem noé l [facility] Clinics Cough Cough Problem Active [facility] Pneumonia Pneumonia Problem Active [facility] due to due to [facility] - infectious infectious Me moria organism, organism, l unspecifie unspecifie Ou tpati d d ent laterality laterality Cl inics , , unspecifie unspecifie d part of d part of lung lung Neuropathi Neuropathi Problem Active [facility] c pain of c pain of Luke s - both feet both feet Prem noé l [facility] Clinics Benign Benign Problem Active [facility] essential essential Luke s - microscopi microscopi Me moria c c l hematuria hematuria Outp ati ent Clinics Non-intrac Non-intrac Problem Active [facility] table table [facility] - vomiting vomiting Memori a with with l nausea, nausea, Outpati unspecifie unspecifie en t d vomiting d vomiting Cl inics type type UTI (lower UTI (lower Problem Active [facility] urinary urinary [facility] - tract tract Memoria infection) infection) l [facility] Clin[facility] Dysuria Dysuria Problem Active [facility] Pyelonephr Pyelonephr Problem Active [facility] itis itis [facility] - [facility] Aspiration Aspiration Problem Active [facility] pneumonia pneumonia Luke s - of right of right Memori a upper upper l lobe, lobe, Outpati unspecifie unspecifie en t d d Clinics aspiration aspiration pneumonia pneumonia type type Allergies, Adverse Reactions, Alerts Allergy Allergy Status Severity Reaction(s) Onset Inactive Treating Comm ents Source Name Type Date Date Clinician Bactrim Adverse Active rash [facility] Reaction [facility] Medications Ordered Filled Start Stop Current Ordering Indication Dosage Frequency Signature Comments Components Source Medication Medication Date Date Medication? Clinician (SIG) Name Name Ondansetron Ondansetron Yes Luh [address] [facility] HCl HCl 3-03 [place] as needed [facility] - 00:00: Memoria 00 l [facility] Metoprolol Metoprolol Yes Luh [address] [facility] Succinate Succinate 2-26 [place] Luke s - ER ER 00:00: Memoria 00 l [facility] Clinics Lyrica Lyrica Yes Luh [address] [facility] 8-22 [place] [facility]ukes - 00:00: Memoria 00 l [facility] Clinics ProAir HFA ProAir HFA 2017-07 Yes Luh [address] [facility] 2-12 [place] needed [facility]ukes - 00:00: Memoria 00 l [facility] Clinics Vitamin C Vitamin C Yes Luh not [facility] [place] defined [facility] - Memoria l [facility] Clinics Trileptal Trileptal Yes Luh [address] [facility] [place] [facility] - [facility]ics Gabapentin Gabapentin Yes Luh [address] [facility] [place] [facility] - [facility] Clinics Calcium Calcium Yes Luh [address] [facility] Carbonate Carbonate [place] Luke s - Memoria l [facility] Clinics L-Lysine L-Lysine Yes Luh not [facility] [place] defined [facility] - Mem[facility] l [facility] Clinics Eszopiclone Eszopiclone Yes Luh (Schedule [facility] [place] IV Drug) Lukes - TAKE 1 Memoria TABLET BY l MOUTH [facility] EVERY DAY ent AT BEDTIME Clinics NEEDED Pantoprazol Pantoprazol Yes Luh [address] [facility] e Sodium e Sodium [place] [facility] ent Clinics Iron Iron Yes Luh [address] [facility] [place] [facility] ent Clinics Valtrex Valtrex Yes Luh [address] [facility] [place] [facility]pat[facility] ent Clinics Atorvastati Atorvastati Yes Luh [address] [facility] n Calcium n Calcium [place] Luke s - Memoria l Outpati ent Clinics Centrum Centrum Yes Luh not [facility] Silver Silver [place] defined [facility]ukes - Ultra Ultra Memoria Womens Womens l Outpati ent Clinics Biotin Biotin Yes Luh not [facility] [place] defined [facility] - [facility] ent Clinics Probiotic Probiotic Yes Luh not [facility] [place] defined [facility] - [facility] Out[facility] ent Clinics Procedures This patient has no known procedures. Encounters Start End Encounter Admission Attending Care Care Encounter Source Date/Time Date/Time Type Type Clinicians Facility Department ID 2019-12-23 2019-12-23 Emergency Ramirez, [facility] [id number] 13:12:31 15:41:00 Chencho Hatch [id number] [place] [id number] [place] [id number] 2019-12-23 2019-12-23 Orders Doctor [facility] [id number] 00:00:00 00:00:00 Only Unassigned, ZULEMA [id number] [place] [facility] [id number] 2019-11-06 2019-11-06 [place] [id number] [facility] 10:20:00 10:20:00 [facility] Medicine Medicine Outpati ent Clinics 2019-10-10 2019-10-10 [facility] [id number] [address] 15:00:00 15:00:00 [facility] Medicine l Medicine Outpati ent Clinics 2019-09-26 2019-09-26 [facility] [id number] 13:23:00 13:23:00 [facility] Medicine Medicine Outpati ent Clinics 2019-09-18 2019-09-18 [facility] [place] [id number] 10:00:00 10:00:[address] [facility] Medicine Outpati ent Clinics 2019-09-11 2019-09-11 [facility] [place] [facility] [id number] 13:00:00 13:00:00 [facility] Medicine Outpati ent Clinics 2019-09-05 2019-09-05 [facility] [place] [id number] 11:26:00 11:26:[address] [facility] Medicine Outpati ent Clinics 2019-08-31 2019-08-31 [facility] [place] [id number] 10:40:00 10:40:00 [facility] Medicine Outpati ent Clinics 2019-08-23 2019-08-23 [facility] [id number] 09:19:00 23:59:00 Encounter Fernando Hatch [id number] [place] [id number] [place] [id number] 2019-08-07 2019-08-07 [facility] [id number] 10:40:00 10:40:00 [facility] Medicine Outpati ent Clinics 2019-06-01 2019-06-01 [facility] [place] [id number] 09:40:00 09:40:[address] [facility] Medicine Outpati ent Clinics 2019-04-13 2019-04-13 [facility] [place] [facility] [id number] 10:00:00 10:00:00 [facility] Medicine Outpati ent Clinics 2019-03-26 2019-03-26 [facility] [place] [id number] 15:20:00 15:20:00 [facility] Medicine Outpati ent Clinics 2019-03-01 2019-03-01 [facility] [place] [id number] [address] 08:20:00 08:20:00 [facility] Medicine Outpati ent Clinics 2018-12-18 2018-12-18 [facility] [place] [facility] [id number] 15:51:00 15:51:[address] [facility] Medicine Outpati ent Clinics 2018-12-18 2018-12-18 [facility] [place] [id number] 10:15:00 10:15:[address] [facility] Medicine Outpati ent Clinics 2018-06-29 2018-06-29 [facility] [id number] 11:41:00 11:41:[address] [facility] Medicine Outpati ent Clinics 2018-06-21 2018-06-21 [facility] [place] [address] 10:30:00 10:30:[address] [facility] Medicine Outpati ent Clinics 2018-02-06 2018-02-06 [facility] [place] [id number] [address] 10:13:00 10:13:00 t [facility] Medicine Medicine Outpati ent Clinics 2018-02-02 2018-02-02 [facility] [place] [id number] 16:51:00 16:51:[address] [facility] Medicine Outpati ent Clinics 2018-01-09 2018-01-09 [facility] [id number] 09:12:00 09:12:00 t [facility] Medicine Medicine Outpati ent Clinics 2017-12-16 2017-12-16 [facility] [id number] 09:15:00 09:15:00 t [facility] Medicine Medicine Outpati ent Clinics 2017-12-12 2017-12-12 [facility] [place] [id number] 16:39:00 16:39:00 t [facility] Medicine Outpati ent Clinics 2017-11-30 2017-11-30 [facility] [place] [id number] 09:30:00 09:30:[address] [facility] Medicine Outpati ent Clinics Results This patient has no known results.
--- OUTSIDE RECORDS SUMMARY | 2020-01-16 10:06 | XMS REPORT | Summary of Care ---
:1950 Author Organization [facility] - Health Address [address] [place] [address] Care Team Providers Name Role Phone Patricia Larios Primary Care Provider Encounter Details Date Type Department Care Team Description 12/23/2019 Orders Only [facility] Doctor Unassigned, No [address] [facility] [place] [address] [address] [place] [address] Allergies Active Allergy Reactions Severity Noted Date Comments Propoxyphene Hcl Hallucinations 01/24/2013 Sulfa (Sulfonamide Unknown - See comments 01/24/2013 Told not to take by Antibiotics) mother documented as of this encounter (statuses as of 12/23/2019) Medications Medication Sig Dispensed Refills Start Date End Date Status OXcarbazepine Take 1 mg by mouth 0 Active (TRILEPTAL) 300 mg 2 (two) times tablet daily. metoprolol succinate Take 12.5 mg by 0 Active XL (TOPROL XL) 25 mg mouth daily. 24 hr tablet pantoprazole Take 40 mg by 0 Act ruba (PROTONIX) 40 mg EC mouth daily. tablet eszopiclone (LUNESTA) Take 3 mg by mouth 0 Active 3 mg tablet at bedtime. DOCOSAHEXANOIC Take 1 Cap by 0 A ctive ACID/EPA (FISH OIL mouth daily. 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 Overview: ICD10 Diagnosis Term Conveyor Feeder Utility Encounter for routine gynecological examination 2012 Overview: ICD10 Diagnosis Term Conveyor Feeder Utility Bipolar disorder 01/24/2013 Hx of hysterectomy 01/24/2013 Need for prophylactic vaccination with combined 2012 pkanzgzvac-asligoc-squjbxfbz (DTP) vaccine Skin lesion 01/24/2013 documented as of this encounter (statuses as of 12/23/2019) Resolved Problems Problem Noted Date Resolved Date Tubal ligation status 01/24/2013 01/24/2013 documented as of this encounter (statuses as of 12/23/2019) Immunizations Name Administration Dates Next Due Tdap [...] Done Comments HEPATITIS C (HCV) SCREEN 1950 Depression Screening 1964 Breast Cancer Screening (MAMMOGRAM) 1992 COLONOSCOPY 2002 Zoster Recombinant Vaccine (SHINGRIX) (1 of 2) 2002 Medicare Wellness Visit 2017 Osteoporosis Screening 2017 PNEUMOCOCCAL VACCINES 65+ (1 of 2 - PCV13) 2017 INFLUENZA VACCINE (Season Ended) 2020 DTaP,Tdap,and Td Vaccines (2 - Td) 01/24/2023 01/24/2013 documented as of this encounter Procedures Procedure Name Priority Date/Time Associated Diagnosis Comme nts CONSENT/REFUSAL FOR Routine 12/23/2019 1:02 PM CDT DIAGNOSIS AND TREATMENT documented in this encounter Results Not on filedocumented in this encounter Insurance Payer Benefit Plan / Subscriber ID Effective Phone Address T ype Group Dates MEDICARE MEDICARE PART xxxxxxxxxxx 2019-Pre [phone] Medicare A & B sent [id number] [place] [phone] [facility] [id number] 2019-Pres C ommercial COMMERCIAL ent Group GROUP documented as of this encounter
--- OUTSIDE RECORDS SUMMARY | 2020-01-16 10:06 | XMS REPORT ---
:1950 Author Organization [employer] Care Team Providers Name Role Phone Luh Larios Provider Role Unavailable Allergies, Adverse Reactions, Alerts Substance Reaction Event Type Bactrim rash Drug Allergy Problems Problem Type Condition Code Onset Dates Condition Statu s Assessment Cough R05 Active Assessment Gastroesophageal reflux disease K21.9 Active without esophagitis Problem Complete loss of teeth, unspecified K08.109 Active cause, unspecified class Problem Other seasonal allergic rhinitis J30.2 Active Problem Herpes zoster without complication B02.9 Active Problem Bipolar affective disorder F31.9 A ctive Problem Hydronephrosis N13.30 Active Problem History of coronary artery disease Z86.79 Active Problem Neuropathic pain of both feet G57.93 Active Problem Benign hypertension I10 Active Problem History of pneumonia Z87.01 Active Problem Pneumonia due to infectious J18.9 Active organism, unspecified laterality, unspecified part of lung Problem Hospital discharge follow-up Z09 Active Problem Aspiration pneumonia of right upper J69.0 Active lobe, unspecified aspiration pneumonia type Problem UTI (lower urinary tract infection) N39.0 Active Problem Nocturnal leg cramps G47.62 Active Problem Anemia D64.9 Active Problem Pyelonephritis N12 Active Problem Gastro-esophageal reflux disease K21.9 Active without esophagitis Problem 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 Problem Cough R05 Active Problem Non-intractable vomiting with R11.2 Active nausea, unspecified vomiting type Problem Dysuria R30.0 Active Problem Pain in female genitalia on N94.10 Active intercourse Problem Vaginal dryness, menopausal N95.1 Active Problem Acute myocardial infarction, I21.9 Active unspecified Problem Intermittent lightheadedness R42 Active Problem Gastroesophageal reflux disease K21.9 Active without esophagitis Problem Primary insomnia F51.01 Active Problem Essential hypertension I10 Activ e Problem Obstructive sleep apnea syndrome G47.33 Active Medications Medication Code Code Instructions Start End Status Dosage System Date Date Gabapentin ND 36310234518 300 MG Orally Active 1 c apsule Three times a day ProAir HFA ND 38630293252 108 (90 Base) Jun 21, Active 2 p uffs as MCG/ACT 2017 needed Inhalation every 6 hrs Lyrica [facility] 91186800655 150 MG Orally Mar 01, Active 1 caps ule Three times a 2018 day Eszopiclone [facility] 53686918240 3 MG Oral Active (Sched ule IV Drug) TAKE 1 TABLET BY MOUTH EVERY DAY AT BEDTIME NEEDED Calcium [facility] 45865413535 600 MG Orally Active 1 tabl et Carbonate Three times a day Centrum Silver [facility] 37519743202 - 1 Orally Active no t Ultra Womens daily defined Ondansetron HCl [facility] 96622003813 8 MG Orally September Active 1 tablet Once a day 2019 as needed L-Lysine [facility] [address] Active not defined Pantoprazole [facility] 41976598527 40 MG Orally Active 1 tablet Sodium Once a day Iron [facility] 39978601370 325 (65 Fe) MG Active 1 tab let Orally Once a day Metoprolol [facility] 97070559059 25 MG Orally Sep 05, Active 1 ta blet Succinate ER Once a day 2019 Valtrex [facility] 98384078452 1 GM Orally Active 1 tablet Once a day Atorvastatin [facility] 03600821099 20 MG Orally Active 1 tablet Calcium Once a day Vitamin C [facility] [address]-27 Active not defined Trileptal [facility] 77521059948 300 MG Orally 3 Active 1 tablet times a day Probiotic [facility] [address] Active not defined Biotin [facility] [address] Active not defined Results No Known Results Summary Purpose [employer]ClinicalWorks Submission
--- OUTSIDE RECORDS SUMMARY | 2020-01-16 10:07 | XMS REPORT | Summary of Care ---
:1950 Author Organization [facility] - [facility] Address [address] [place] [id number] Care Team Providers Name Role Phone Patricia Larios Primary Care Provider Reason for Referral Radiology Services (STAT) Status Reason Specialty Diagnoses / Referred By Referred To Procedures Contact Contact New Request Diagnostic Diagnoses Dyspnea, unspecified type Chencho Weinberg, Radiology Procedures XR CHEST [address] [place] [address] [place] [phone] Radiology Services (STAT) Status Reason Specialty Diagnoses / Referred By Referred To Procedures Contact Contact New Request Diagnostic Diagnoses Dyspnea, unspecified type Chencho Weinberg, Radiology Procedures XR RIBS 3 V[address] [place] [address] [place] [id number] Reason for Visit Reason Comments Rib Pain Auth/Cert Status Reason Specialty Diagnoses / Referred By Referred To Procedures Contact Contact Emergency Medicine Diagnoses RIB PAIN [facility] [address] [place] [address] Fax: Encounter Details Date Type Department Care Team Description 12/23/2019 Emergency [facility] Chencho Weinberg MD Dyspnea, unspecified type (Primary Dx); Department [address] [facility] Muscle strain; [address] [facility] [address] Sprain of costal cartilage[place] [address] [place] [address] [phone] Allergies Active Allergy Reactions Severity Noted Date [...] not specified, unspecified vomiting type, Mild dehydration ibuprofen 600 mg Take 1 tablet by 30 tablet 0 12/23/2019 Active tabletIndications: mouth 3 (three) Dyspnea, unspecified times daily with type, Muscle strain, meals. Sprain of costal cartilage, initial encounter methocarbamol 500 mg Take 1 tablet by 30 tablet 0 12/23/2019 Active tabletIndications: mouth 4 (four) Dyspnea, unspecified times daily. 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 COVID-19 Exposure Response Date Recorded In the last month, have you been in contact with No / Unsure 12/23/2019 1:45 PM CDT someone who was confirmed or suspected to have Coronavirus / COVID-19? documented as of this encounter Last Filed Vital Signs Vital Sign Reading Time Taken Comments Blood Pressure 133/81 12/23/2019 3:34 PM CDT Pulse 56 12/23/2019 3:34 PM CDT Temperature 36.4 C (97.5 F) 12/23/2019 1:11 PM CDT Respiratory Rate 20 12/23/2019 3:34 PM CDT Oxygen Saturation 99% 12/23/2019 3:34 PM CDT Inhaled Oxygen Concentration - - Weight 77.1 kg (170 lb) 12/23/2019 1:11 PM CDT Height - - Body Mass Index 31.09 12/12/2018 7:06 PM CDT documented in this encounter Discharge Instructions InstructionsChencho Weinberg MD - 12/23/2019 RETURN FOR ANY QUESTIONS OR CONCERNS Today you were seen by Chencho Weinberg Jr., MD You were seen today for Chief Complaint Patient presents with Rib Pain Your ER diagnosis was ICD-10-CM ICD-9-CM 1. Dyspnea, unspecified type R06.00 786.09 2. Muscle strain T14.8XXA 848.9 NO LIFE-THREATENING FINDINGS ON TODAY'S EXAM. YOUR PRESCRIPTIONS : Check out [facility] for medication discounts Medication List ASK your doctor about these medications CALTRATE PLUS ORAL CENTRUM SILVER ULTRA WOMEN'S ORAL clobetasoL 0.05 % cream Commonly known as: TEMOVATE Apply to area(s) 2 (two) times daily. clotrimazole 1 % topical cream Commonly known as: LOTRIMIN Apply to area(s) at bedtime. FISH OIL ORAL fluocinonide 0.05 % cream Commonly known as: LIDEX Apply to area(s) 2 (two) times daily. gabapentin 300 mg capsule Commonly known as: NEURONTIN HYDROcodone-acetaminophen 7.5-325 mg per tablet Commonly known as: NORCO ibuprofen 800 mg tablet Commonly known as: IBU imiquimod 5 % cream Commonly known as: ALDARA lidocaine 4% 4 % cream Commonly known as: L-M-X 4 Apply to lesions 1 hour prior to appointment LUNESTA 3 mg tablet Generic drug: eszopiclone metoprolol succinate XL 25 mg 24 hr tablet Commonly known as: TOPROL XL ondansetron 4 mg tablet Commonly known as: ZOFRAN Take 1 tablet by mouth every 8 (eight) hours as needed for Nausea and Vomiting (N/V). pantoprazole 40 mg EC tablet Commonly known as: PROTONIX TRILEPTAL 300 mg tablet Generic drug: OXcarbazepine valACYclovir 1 gram tablet Commonly known as: VALTREX VITAMIN D-3 ORAL ER precautions and follow up : 1. Return to ER if your symptoms should worsen or fail to improve within 72 hours. 2. The care provided in the emergency room was for acute problems only. 3. You should follow up with your primary care provider within 72 hours. 4. Fill and take all your medications as prescribed. 5. Make sure you are staying adequately hydrated. Busque attencion immediatamente si usted tiene los sitomas sigue, vuelve peor o si hay sitomas nuevas o para cualquiera preoccupacion incluyendo dolor del pecho, falta aire, se siente debile, mas fievre, mas dolor, nausea, vomitando, sangrando que no es normal, confusion, baja or pierdas conciencia. MAY FOLLOW-UP WITH A PROVIDER OF YOUR CHOICE, SUCH : 1. A PHYSICIAN OF YOUR CHOICE 2. [facility], . LOCATIONS IN [facility] 3. [facility], [address] [place] [address]; [phone] OR, IF YOU WISH TO FOLLOW-UP WITHIN THE [facility], MAY TRY THESE OPTIONS (CLINIC APPOINTMENTS AVAILABLE ON BIPF-PT-WOEU BASIS): 1. SCHEDULE AN APPOINTMENT ONLINE AT WWW[facility] 2. OR CALL THE [facility] ACCESS CENTER AT OR 3. OR CALL YOUR [facility] PHYSICIAN'S OFFICE DIRECTLY IF YOU ARE ALREADY AN ESTABLISHED [facility] PATIENT. [facility] RETURN TO WORK / SCHOOL EXCUSE Cisco Bangura John WAS SEEN IN THE ER AND DISCHARGED 12/23/2019 TODAY, 3:27 PM & May return to Work / School / Incarceration on X with activity as tolerated indicated below. ___The following limitations apply until pt is seen by Physician and cleared to return to normal activity. _X_ Off for two days and return to activity as tolerated at work or school ___ No Sports ___ No work ___ Do not return until fever free for 24 hours. ___ No school CHENCHO WEINBERG Jr., MD [facility] [address] [place] [address] [place] [address] ### The patient may have been given Narcotic pain medications during their stay in the ED that may show up on a Drug Screen. The hospital discharge paper work will identify these medications. AttachmentsThe following attachments cannot be sent through Care Everywhere. Contusion, Rib ([place] African)Strains and Sprains, Treating ([place] African)documented in this encounter Plan of Treatment Name Type Priority Associated Diagnoses Date/Ti me XR RIBS 3 VW RIGHT IMAGING STAT Dyspnea, unspecified t ype 12/23/2019 2:58 PM CDT XR CHEST 1 VW IMAGING STAT Dyspnea, unspecified type 0 12/23/2019 2:58 PM CDT Health Maintenance Due Date Last Done Comments [...] Name Priority Date/Time Associated Diagnosis Comme nts XR RIBS 3 VW RIGHT STAT 12/23/2019 2:58 PM CDT Dyspnea, un specified type Procedure Note - [facility], Radia nt Results Inft User - 12/23/2019 3:10 PM CDT XR RIBS 3 VW RIGHT HISTORY: 69 years-old; Femal e; fall COMPARISON: None FINDINGS: Radiographs of the right rib s demonstrate no acute rib fracture. No acute abnormality is noted in the remainder of the osseous structures. The leads of nerve stimulati ng device project at the level of T6-T7. The visualized lungs are clear w ith no pneumothorax or pleural effusion. The heart is normal in size. IMPRESSION No acute rib fracture. Preliminary Report Dictated by Resident: Vikram Kennedy XR CHEST 1 VW STAT 12/23/2019 2:58 PM CDT Dyspnea, unspeci fied type Procedure Note - [facility], Radia nt Results Inft User - 12/23/2019 3:11 PM CDT XR CHEST 1 VW HISTORY: 69 years-old; Femal e; dyspnea COMPARISON: 12/12/2018 TECHNIQUE: SINGLE VIEW CHEST RADIOGRAPH. FINDINGS: The lungs are well-expanded and clear with no focal consolidation. There is no pleural effusion or pneum othorax. The cardiac silhouette is wi thin normal limits. Aortic knob calcification is seen. There is no acute osseous ab normality. Neurostimulator wires projec ting over the midthoracic spine. IMPRESSION No acute cardiopulmonary abn ormality within the confines of radiographic imaging. Preliminary Report Dictated by Resident: Vikram Kennedy EKG-12 LEAD STAT 12/23/2019 1:39 PM CDT NOTICE OF PRIVACY PRACTICES Routine 12/23/2019 1:02 PM CDT documented in this encounter Results Not on filedocumented in this encounter Visit Diagnoses Diagnosis Dyspnea, unspecified type - Primary Muscle strain Unspecified site of sprain and strain Sprain of costal cartilage, initial enco unter documented in this encounter Insurance Payer Benefit Plan / Subscriber ID Effective Phone Address T ype Group Dates MEDICARE MEDICARE PART xxxxxxxxxxx 2019-Pre [phone] Medicare A & B sent [id number] [place] [address] [facility] [id number] 2019-Pres C ommercial [employer]CIAL ent Group GROUP documented as of this encounter
[2020-01-16] MEDS ORDERED: HYDROCODONE/APAP 10/325 TAB ONE (11:21)
--- NOTE | 2020-01-16 11:33 | RAD REPORT ---
EXAM DESCRIPTION: CT - Facial Bones W/ Mpr - 01/16/2020 11:15 am CLINICAL HISTORY: Facial injury with facial pain status post fall COMPARISON: None TECHNIQUE: Computed axial tomography of the face was obtained. Coronal and sagittal reconstruction w as performed. All CT scans are performed using dose optimization technique as appropriate and may include automated exposure control or mA/KV adjustment according to patient size. FINDINGS: The right cheek hematoma. A fracture is not seen. A TMJ dislocation is not noted. The globes are intact. Fluid within the sinuses is not seen. IMPRESSION: Negative for a facial fracture.
--- NOTE | 2020-01-16 11:38 | RAD REPORT ---
EXAM DESCRIPTION: CT - Thorax Wo Con - 01/16/2020 11:24 am CLINICAL HISTORY: Chest pain status post fall TECHNIQUE: Computed axial tomography of the chest was obtained. Contrast was not requested. All CT scans are performed using dose optimization technique as appropriate and may include automated exposure control or mA/KV adjustment according to patient size. FINDINGS: The evaluation of mediastinum, jarett and vessels is limited secondary to lack of IV contras t administration. Nondisplaced fractures involve the left eighth and ninth lateral ribs. No pneumothorax No pulmonary contusion. No mediastinal hematoma seen. A pleural effusion is not present. No pericardial effusion IMPRESSION: Nondisplaced fractures involve the left eighth and ninth lateral ribs
[2020-01-16] MEDS ORDERED: ONDANSETRON 4 MG (ODT) TAB ONE (12:10)
--- NOTE | 2020-01-16 12:26 | ER ---
Nurse's Notes [facility] Name: Cisco Edward Age: 69 yrs Sex: Female : 1950 Arrival Date: 01/16/2020 Time: 09:43 Bed 2 Private MD: Luh Larios Diagnosis: Multiple fractures of ribs, left side-8 \T\ 9;Abrasion, left knee;Pain in left knee;Right infraorbital pain/contusion Presentation: 01/15 09:55 Chief complaint: Patient states: slipped and fell approximately 1 hour ago. Pt c/o pain ss to L knee, R crandall and R cheek. Bruising noted to areas. Denies LOC. Coronavirus screen: Proceed with normal triage. Patient denies a cough. Patient denies shortness of breath or difficulty breathing. Patient denies measured and/or subjective temperature greater than 100.4F prior to today's visit. Patient denies travel on a cruise ship or to a country the [facility] currently lists as an affected area. Patient denies contact with known and/or suspected case of COVID-19. Ebola Screen: Patient denies exposure to infectious person. Patient denies travel to an Ebola-affected area in the 21 days before illness onset. Initial Sepsis Screen: Does the patient meet any 2 criteria? No. Patient's initial sepsis screen is negative. Does the patient have a suspected source of infection? No. Patient's initial sepsis screen is negative. Risk Assessment: Do you want to hurt yourself or someone else? Patient reports no desire to harm self or others. Onset of symptoms was January 16, 2020. 09:55 Method Of Arrival: Ambulatory ss 09:55 Acuity: ROB 3 ss Historical: - Allergies: 09:57 Darvon; ss 09:57 Dilaudid; ss 09:57 Sulfa (Sulfonamide Antibiotics); ss - PMHx: 09:57 Bipolar disorder; Chronic pain; Hypertension; Myocardial infarction; ss - PSHx: 09:57 Cholecystectomy; ; foot; back; ss - Immunization history:: Adult Immunizations up to date. - Social history:: Smoking status: Patient denies any tobacco usage or history of. Screenin:40 Abuse screen: Denies threats or abuse. Nutritional screening: No deficits noted. em Tuberculosis screening: No symptoms or risk factors identified. Fall Risk Fall in past 12 months (25 points). Total Manuel Fall Scale indicates Low Risk Score (25-44 pts). Fall prevention measures have been instituted. Placed close to Nursing Station 1:1 attendant Assigned to Pt. Assessment: 11:40 General: Appears in no apparent distress. uncomfortable, Behavior is calm, cooperative, em appropriate for age. Pain: Complains of pain in left leg and left crandall and left knee and chest and left lateral anterior chest Pain currently is 8 out of 10 on a pain scale. Neuro: Level of Consciousness is awake, alert, obeys commands, Oriented to person, place, time, situation, Appropriate for age. Cardiovascular: Capillary refill < 3 seconds Patient's skin is warm and dry. Respiratory: Reports pain with respiration Airway is patent Respiratory effort is even, unlabored, Respiratory pattern is regular, symmetrical. GI: Abdomen is round non-distended. Derm: Skin is intact, is fragile, is thin, Bruising that is on right eye and left crandall. Musculoskeletal: Swelling present in right eye and left crandall. 12:00 Reassessment: states she is nauseous, provider notified, received new medication orders.em 12:50 Reassessment: Patient appears in no apparent distress at this time. Dr. Rizvi at em bedside. Vital Signs: 09:55 BP 99 / 43; Pulse 70; Resp 17; Temp 97.0(TE); Pulse Ox 96% on R/A; Weight 83.91 kg; ss Height 5 ft. 1 in. (154.94 cm); 11:49 BP 142 / 73; Pulse 61; Resp 18; Pulse Ox 95% on R/A; em 09:55 Body Mass Index 34.96 (83.91 kg, 154.94 cm) ED Course: 09:43 Patient arrived in ED. ag5 09:43 Luh Larios is Private Physician. ag5 09:49 Chaz Rzivi MD is Attending Physician. kdr 09:57 Triage completed. ss 09:57 Arm band placed on right wrist. ss 11:21 Facial Bones W/ Mpr In Process Unspecified. EDMS 11:22 Thorax Wo Con In Process Unspecified. EDMS 11:26 Oseas Muhammad, RN is Primary Nurse. em 11:35 Knee Left 3 View In Process Unspecified. EDMS 11:40 Patient has correct armband on for positive identification. Placed in gown. Bed in low em position. Call light in reach. Pulse ox on. NIBP on. 13:30 No provider procedures requiring assistance completed. Patient did not have IV access em during this emergency room visit. Administered Medications: 11:49 Drug: Leivasy 10 mg-325 mg 1 tabs Route: PO; em 12:30 Follow up: Response: No adverse reaction em 12:05 Drug: Zofran (Ondansetron) 4 mg Route: PO; em 12:20 Follow up: Response: No adverse reaction em Outcome: 12:25 Discharge ordered by . kdr 13:30 Discharged to home ambulatory. em 13:30 Condition: good 13:30 Discharge instructions given to patient, Instructed on discharge instructions, follow up and referral plans. Demonstrated understanding of instructions, follow-up care, medications, Prescriptions given X 2. 13:34 Patient left the ED. Signatures: Dispatcher [employer] EDIA Chaz Rizvi MD MD kdr Munoz, Edgar, RN RN Shante Yarbrough RN RN Ena Wilcox, GAEL RN Lon Samson ag5
--- NOTE | 2020-01-16 12:26 | EDPHYS ---
Physician Documentation [facility] Name: Cisco Edward Age: 69 yrs Sex: Female : 1950 Arrival Date: 01/16/2020 Time: 09:43 Bed 2 Private MD: Luh Larios ED Physician Chaz Rizvi HPI: 01/15 11:15 This 69 yrs old Female presents to ER via Ambulatory with complaints of Fall kdr Injury, Knee Pain, Facial Injury. 11:15 Details of fall: The patient fell from an upright position, while standing. Onset: The kdr symptoms/episode began/occurred suddenly, just prior to arrival. Associated injuries: The patient sustained injury to the head, contusion, hematoma, pain, left lateral anterior chest, painful injury, left knee and left crandall, decreased range of motion, painful injury, swelling. Severity of symptoms: At their worst the symptoms were mild, in the emergency department the symptoms are unchanged. The patient has not experienced similar symptoms in the past. The patient has not recently seen a physician. Historical: - Allergies: 09:57 Darvon; ss 09:57 Dilaudid; ss 09:57 Sulfa (Sulfonamide Antibiotics); ss - PMHx: 09:57 Bipolar disorder; Chronic pain; Hypertension; Myocardial infarction; ss - PSHx: 09:57 Cholecystectomy; ; foot; back; ss - Immunization history:: Adult Immunizations up to date. - Social history:: Smoking status: Patient denies any tobacco usage or history of. ROS: 11:15 Constitutional: Negative for fever, chills, and weight loss, Eyes: Negative for injury, kdr pain, redness, and discharge, ENT: Negative for injury, pain, and discharge, Neck: Negative for injury, pain, and swelling, Respiratory: Negative for shortness of breath, cough, wheezing, and pleuritic chest pain, Abdomen/GI: Negative for abdominal pain, nausea, vomiting, diarrhea, and constipation, Back: Negative for injury and pain, : Negative for injury, bleeding, discharge, and swelling, Skin: Negative for injury, rash, and discoloration, Neuro: Negative for headache, weakness, numbness, tingling, and seizure activity. Psych: Negative for depression, anxiety, suicide ideation, homicidal ideation, and hallucinations, Allergy/Immunology: Negative for hives, rash, and allergies, Endocrine: Negative for neck swelling, polydipsia, polyuria, polyphagia, and marked weight changes, Hematologic/Lymphatic: Negative for swollen nodes, abnormal bleeding, and unusual bruising. 11:15 Cardiovascular: Positive for chest pain, with movement, of the left lateral anterior chest. 11:15 MS/extremity: Positive for abrasion, contusion, ecchymosis, erythema, pain, swelling, tenderness, of the left knee and left crandall. Exam: 11:15 Constitutional: This is a well developed, well nourished patient who is awake, alert, kdr and in no acute distress. Head/Face: Normocephalic, contusion to lright infra-orbital area Eyes: Pupils equal round and reactive to light, extra-ocular motions intact. Lids and lashes normal. Conjunctiva and sclera are non-icteric and not injected. Cornea within normal limits. Periorbital areas with no swelling, redness, or edema. Neck: Trachea midline, no thyromegaly or masses palpated, and no cervical lymphadenopathy. Supple, full range of motion without nuchal rigidity, or vertebral point tenderness. No Meningismus. Chest/axilla: Normal chest wall appearance and motion. Mild left aneterior lateal chest pain to palpation with no deformity. No lesions are appreciated. Cardiovascular: Regular rate and rhythm with a normal S1 and S2. No gallops, murmurs, or rubs. Normal PMI, no JVD. No pulse deficits. Respiratory: Lungs have equal breath sounds bilaterally, clear to auscultation and percussion. No rales, rhonchi or wheezes noted. No increased work of breathing, no retractions or nasal flaring. Abdomen/GI: Soft, non-tender, with normal bowel sounds. No distension or tympany. No guarding or rebound. No evidence of tenderness throughout. Back: No spinal tenderness. No costovertebral tenderness. Full range of motion. Skin: Warm, dry with normal turgor. Normal color with no rashes, no lesions, and no evidence of cellulitis. Neuro: Awake and alert, GCS 15, oriented to person, place, time, and situation. Cranial nerves II-XII grossly intact. Motor strength 5/5 in all extremities. Sensory grossly intact. Cerebellar exam normal. Normal gait. Psych: Awake, alert, with orientation to person, place and time. Behavior, mood, and affect are within normal limits. 11:15 Musculoskeletal/extremity: Extremities: grossly normal except: noted in the left knee and left crandall: contusion, decreased ROM, ecchymosis, erythema, pain, swelling, tenderness. Vital Signs: 09:55 BP 99 / 43; Pulse 70; Resp 17; Temp 97.0(TE); Pulse Ox 96% on R/A; Weight 83.91 kg; ss Height 5 ft. 1 in. (154.94 cm); 11:49 BP 142 / 73; Pulse 61; Resp 18; Pulse Ox 95% on R/A; em 09:55 Body Mass Index 34.96 (83.91 kg, 154.94 cm) ss MDM: 11:15 Data reviewed: vital signs, nurses notes, lab test result(s), radiologic studies. kdr Counseling: I had a detailed discussion with the patient and/or guardian regarding: the historical points, exam findings, and any diagnostic results supporting the discharge/admit diagnosis, radiology results, the need for outpatient follow up. 12:25 Patient medically screened. kdr 01/15 11:21 Order name: Facial Bones W/ Mpr; Complete Time: 12:20 EDMS 01/15 11:21 Order name: Knee Left 3 View; Complete Time: 14:08 EDMS 01/15 11:22 Order name: Thorax Wo Con; Complete Time: 12:20 EDMS Administered Medications: 11:49 Drug: [place] 10 mg-325 mg 1 tabs Route: PO; em 12:30 Follow up: Response: No adverse reaction em 12:05 Drug: Zofran (Ondansetron) 4 mg Route: PO; em 12:20 Follow up: Response: No adverse reaction em Disposition: 01/16/20 12:25 Discharged to Home. Impression: Multiple fractures of ribs, left side - 8 \T\ 9, Abrasion, left knee, Pain in left knee, Right infraorbital pain/contusion. - Condition is Stable. - Discharge Instructions: Musculoskeletal Pain, Knee Pain, [id number], Rib Fracture, Jdwh-ro-Gtbj, Joint Pain, Ssby-vd-Uaii, Facial or Scalp Contusion, Bult-ce-Gbnt. - Prescriptions for Tylenol- Codeine #3 300-30 mg Oral Tablet - take 2 tablets by ORAL route every 4-6 hours As needed Take one or two tablest every 4-6 hours as needed for pain; 20 tablet. - Medication Reconciliation Form, Thank You Letter, Antibiotic Education, Prescription Opioid Use form. - Follow up: Private Physician; When: 2 - 3 days; Reason: If symptoms return, Further diagnostic work-up, Recheck today's complaints, Continuance of care, Re-evaluation by your physician. - Problem is new. - Symptoms have improved. Signatures: Dispatcher [employer] EDMS Chaz Rizvi MD MD [facility] Oseas Muhammad RN RN em Shante Yarbrough RN RN Ean Wilcox RN RN Corrections: (The following items were deleted from the chart) 13:34 12:25 01/16/2020 12:25 Discharged to Home. Impression: Multiple fractures of ribs, left hb side - 8 \T\ 9; Abrasion, left knee; Pain in left knee; Right infraorbital pain/contusion. Condition is Stable. Forms are Medication Reconciliation Form, Thank You Letter, Antibiotic Education, Prescription Opioid Use. Follow up: Private Physician; When: 2 - 3 days; Reason: If symptoms return, Further diagnostic work-up, Recheck today's complaints, Continuance of care, Re-evaluation by your physician. Problem is new. Symptoms have improved. kdr
--- NOTE | 2020-01-16 13:00 | RAD REPORT ---
EXAM DESCRIPTION: RAD - Knee Left 3 View - 01/16/2020 11:39 am CLINICAL HISTORY: Left knee pain status post injury FINDINGS: No fracture or dislocation is seen. Soft tissue swelling anterior aspect of the lower knee
[2020-01-16 13:39] VITALS: TEMP 97
[2020-01-16 13:40] VITALS: BP 142/73; O2SAT 95
== END 2020-01-16 13:34 | disposition home or self-care (01) ==
LOC: ER 09:39
DX: S22.42XA Multiple fractures of ribs, left side, initial encounter for closed fracture (principal); S80.212A Abrasion, left knee, initial encounter; S05.11XA Contusion of eyeball and orbital tissues, right eye, initial encounter; W19.XXXA Unspecified fall, initial encounter; Y93.9 Activity, unspecified; Y92.9 Unspecified place or not applicable; I10 Essential (primary) hypertension; Z88.2 Allergy status to sulfonamides; Z88.5 Allergy status to narcotic agent; Z88.8 Allergy status to other drugs, medicaments and biological substances
CPT/HCPCS: 70486; 71250; 76377; 99284

== ENCOUNTER 2020-04-11 09:15 | Emergency (ER) | payer OTHER ==
[2020-04-11 09:58] LABS: Absolute Lymphocytes (CBC) 1.7 K/uL (0.7-4.9); Basophils % 0.1 % (0-1.3); Lymphocytes % 8.5 % (15.3-44.8); MPV 7.6 fL (7.6-11.3); RBC Red Blood Cell Count 4.34 M/uL (3.86-4.86)
[2020-04-11 10:01] LABS: Protime INR 0.89
--- NOTE | 2020-04-11 10:01 | RAD REPORT ---
EXAM DESCRIPTION: CT - Ct Stroke Brain Wo Cont - 04/11/2020 9:49 am CLINICAL HISTORY: Visual disturbances;Weakness COMPARISON: Facial Bones W/ Mpr dated 01/16/2020 TECHNIQUE: Axial 5 millimeter thick images of the head were obtained without IV contrast. All CT scans are performed using dose optimization technique as appropriate and may include automated exposure control or mA/KV adjustment according to patient size. FINDINGS: No intracranial hemorrhage, mass, or cerebral edema. No acute infarction identifiable. No cortical edema or sulcal effacement. No significant atrophy changes. Ventricles are normal. Patient m ay have very minimal white matter chronic ischemic change. Marrero matter-white matter differentiation i s preserved. Visualized portions of the mastoid air cells, paranasal sinuses, and orbits are unremarkable. Findings telephoned to the referring physician 9:47 a.m. IMPRESSION: No CT evidence of acute intracranial process.
[2020-04-11] MEDS ORDERED: ALTEPLASE 100 ML IV ONE (10:02)
[2020-04-11] MEDS ORDERED: NA CHLORIDE 0.9% 100 ML IV ONE (10:05)
[2020-04-11 10:18] LABS: BUN Blood Urea Nitrogen 8 mg/dL (7-18); Bicarbonate 29 mmol/L (21-32); Glucose Level 92 mg/dL (74-106); Magnesium 2.2 mg/dL (1.8-2.4); Sodium Level 127 mmol/L (136-145); Troponin (Emerg Dept Use Only) < 0.02 ng/mL (0.0-0.045)
--- NOTE | 2020-04-11 10:31 | RAD REPORT ---
EXAM DESCRIPTION: RAD - Chest Single View - 04/11/2020 10:02 am CLINICAL HISTORY: weakness, possible stroke COMPARISON: September 2019 TECHNIQUE: AP portable chest image was obtained 04/11/2020 10:02 am . FINDINGS: No focal lung parenchymal process. Interstitial pattern matches comparison. Heart and vasc ulature are normal. No measurable pleural effusion and no pneumothorax. No acute bony abnormality see n. No acute aortic findings suspected. IMPRESSION: No acute cardiopulmonary process. No significant change from comparison.
--- NOTE | 2020-04-11 10:37 | EDPHYS ---
Physician Documentation [facility] Name: Cisco Edward Age: 69 yrs Sex: Female : 1950 Arrival Date: 04/11/2020 Time: 09:16 Bed 3 Private MD: ED Physician Donell Draper HPI: 04/11 09:39 This 69 yrs old Female presents to ER via Unassigned with complaints of S/S rn of Possible Stroke. 09:39 The patient's problem is reported as visual difficulty, blurred vision, decreased rn visual field, weakness, in the right lower extremity. 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 No recent trauma or bleeding. Takes aspirin. . 09:56 Onset: The symptoms/episode began/occurred at 08:00. Duration: This was a single rn incident. The symptoms are alleviated by nothing. The symptoms are aggravated by nothing. Severity of symptoms: At their worst the symptoms were mild in the emergency department the symptoms are unchanged. The patient has not experienced similar symptoms in the past. Historical: - Allergies: 09:42 Dilaudid; iw 09:42 Sulfa (Sulfonamide Antibiotics); iw 09:42 Darvon; iw - Home Meds: 10:13 Lyrica Oral daily [Active]; metoprolol tartrate 25 mg Oral tab 1 tab once daily iw [Active]; pantoprazole 40 mg Oral TbEC [Active]; Lunesta oral oral nightly [Active]; Trileptal 300 mg oral tab 1 tab 2 times per day [Active]; Bupropion Oral once daily [Active]; - PMHx: 09:42 Bipolar disorder; Chronic pain; Hypertension; Myocardial infarction; iw - PSHx: 09:42 Cholecystectomy; ; foot; back; iw 10:00 Back Stimulator; aa5 - Immunization history:: Adult Immunizations unknown. - Family history:: not pertinent. - Social history:: Smoking status: Patient denies any tobacco usage or history of. - Hospitalizations: : No recent hospitalization is reported. ROS: 09:56 Constitutional: Negative for fever, chills, and weight loss, Eyes: Negative for injury, rn pain, redness, and discharge, Neck: Negative for injury, pain, and swelling, Cardiovascular: Negative for chest pain, palpitations, and edema, Respiratory: Negative for shortness of breath, cough, wheezing, and pleuritic chest pain, Abdomen/GI: Negative for abdominal pain, nausea, vomiting, diarrhea, and constipation, MS/Extremity: Negative for injury and deformity, Skin: Negative for injury, rash, and discoloration, Neuro: + right eye blurred vision with loss of visual field right superior on right eye. + drift RLE. RUE 4/5 strength. LUE/LLE 4/5 strength. Sensation grossly intact. No facial droop. Tongue midline. Exam: 09:56 Neuro: Awake and alert, GCS 15, oriented to person, place, time, and situation. + rn right eye blurred vision with loss of visual field right superior on right eye. + drift RLE. RUE 4/5 strength. LUE/LLE 4/5 strength. Sensation grossly intact. No facial droop. Tongue midline. 09:56 Constitutional: This is a well developed, well nourished patient who is awake, alert, rn and in no acute distress. Head/Face: Normocephalic, atraumatic. Eyes: Pupils equal round and reactive to light, extra-ocular motions intact. Lids and lashes normal. Conjunctiva and sclera are non-icteric and not injected. Cornea within normal limits. Periorbital areas with no swelling, redness, or edema. Cardiovascular: Regular rate and rhythm. No pulse deficits. Respiratory: No increased work of breathing, no retractions or nasal flaring. Abdomen/GI: soft, non-tender Skin: Warm, dry with normal turgor. Normal color with no rashes, no lesions, and no evidence of cellulitis. MS/ Extremity: Pulses equal, no cyanosis. Vital Signs: 09:30 BP 160 / 85; Pulse 77; Resp 16 S; Temp 97.8(TE); Pulse Ox 99% on R/A; iw 10:00 BP 153 / 77; Pulse 68; Resp 16 S; Pulse Ox 98% on R/A; aa5 10:00 Weight 90.08 kg (M); aa5 10:15 BP 163 / 74; Pulse 67; Resp 18 S; Pulse Ox 98% on R/A; aa5 10:25 BP 163 / 82; Pulse 66; Resp 16 S; Pulse Ox 98% on R/A; aa5 10:32 BP 166 / 76; Pulse 66; Resp 16 S; Pulse Ox 100% on R/A; aa5 10:40 BP 132 / 54; Pulse 65; Resp 18 S; Pulse Ox 100% on R/A; aa5 10:45 BP 146 / 60; Pulse 65; Resp 16 S; Pulse Ox 100% on R/A; aa5 10:50 BP 146 / 87; Pulse 63; Resp 16 S; Pulse Ox 99% on R/A; aa5 10:55 BP 152 / 91; Pulse 65; Resp 16 S; Pulse Ox 99% on R/A; aa5 11:00 BP 170 / 81; Pulse 61; Resp 16 S; Pulse Ox 99% on R/A; aa5 11:08 BP 177 / 103; Pulse 65; Resp 16 S; Pulse Ox 99% on R/A; aa5 11:15 BP 161 / 115; Pulse 67; Resp 16 S; Pulse Ox 99% on R/A; aa5 11:19 BP 154 / 92; Pulse 70; Resp 18 S; Pulse Ox 100% on R/A; Pain 2/10; aa5 11:08 MD notified of increased BP and increased Headache, rates DELGADO 7/10 on a pain scale. aa5 11:15 MD notified of increased BP and increased headache, pt rates headache 10/10 on a pain aa5 scale at this time. NIH Stroke Scale Scores: 09:24 NIHSS Score: 2 iw 09:30 NIHSS Score: 2 aa5 09:38 NIHSS Score: 2 rn 10:08 NIHSS Score: 2 iw 10:15 NIHSS Score: 1 aa5 10:30 NIHSS Score: 1 aa5 11:00 NIHSS Score: 1 aa5 11:08 NIHSS Score: 1 aa5 11:15 NIHSS Score: 1 aa5 MDM: 09:23 Patient medically screened. rn 09:47 ED course: Consulted with Dr. Mena, agrees with plan for TPA if CT negative. rn Patient reports doesn't think MRI would be capable with her stimulator in [facility], states told needs MRI in [place], but not sure. Dr. Mena states if not sure could play it safe and transfer after TPA, also could benefit if needs perfusion studies or intraarterial thrombolysis as well. . 09:51 ED course: CT head negative per Dr. Palacios. Spoke with patient, meets TPA requirements rn and no contraindication, patient agrees and consented for TPA. . 10:13 Differential diagnosis: CVA, TIA, metabolic disorder. Data reviewed: vital signs, rn nurses notes, lab test result(s), EKG, radiologic studies, CT scan, and as a result, I will admit patient. Counseling: I had a detailed discussion with the patient and/or guardian regarding: the historical points, exam findings, and any diagnostic results supporting the discharge/admit diagnosis, lab results, radiology results, the need to transfer to another facility, for higher level of care. ED course: Accepted for Transfer to [facility] for CVA by Dr. Fink. tPA started. . 04/11 09:38 Order name: Magnesium rn 04/11 09:38 Order name: Troponin (emerg Dept Use Only) rn 04/11 09:38 Order name: Basic Metabolic Panel rn 04/11 09:38 Order name: CBC with Diff rn 04/11 09:38 Order name: Protime (+inr); Complete Time: 10:05 rn 04/11 09:38 Order name: Ptt, Activated; Complete Time: 10:05 rn 04/11 09:35 Order name: CT Stroke Brain w/o Contrast; Complete Time: 10:05 iw 04/11 09:38 Order name: Stroke CXR 1 View rn 04/11 09:45 Order name: Glucose, Ancillary Testing; Complete Time: 09:56 EDPR 04/11 10:00 Order name: CBC Smear Scan EDPR 04/11 11:22 Order name: CT Head Brain wo Cont rn 04/11 09:38 Order name: EKG; Complete Time: 09:39 rn 04/11 09:38 Order name: Accucheck; Complete Time: 09:40 rn 04/11 09:38 Order name: Cardiac monitoring; Complete Time: 09:50 rn 04/11 09:38 Order name: EKG - Nurse/Tech; Complete Time: 09:50 rn 04/11 09:38 Order name: IV Saline Lock; Complete Time: 09:50 rn 04/11 09:38 Order name: Labs collected and sent; Complete Time: 09:50 rn 04/11 09:38 Order name: NPO; Complete Time: 09:51 rn 04/11 09:38 Order name: O2 Per Protocol; Complete Time: 09:51 rn 04/11 09:38 Order name: O2 Sat Monitoring; Complete Time: 09:51 rn 04/11 09:38 Order name: Stroke Swallow Screen; Complete Time: 10:18 rn Administered Medications: 10:07 Drug: ACTIvase {Co-Signature: iw (Lilian Fairabnks RN).} Route: IV Thrombolytics; Rate: aa5 calculated rate; Infused Over: 60 mins; 11:07 Follow up: Completed infusion aa5 11:14 Drug: morphine 4 mg Route: IVP; Site: right antecubital; aa5 11:19 Follow up: Response: No adverse reaction; Marked relief of symptoms aa5 11:14 Drug: Zofran (Ondansetron) 4 mg Route: IVP; Site: right antecubital; aa5 11:19 Follow up: Response: No adverse reaction aa5 Point of Care Testing: Blood Glucose: 09:35 Blood Glucose: 99 mg/dL; iw Ranges: Critical Glucose Levels:Adult <50 mg/dl or >400 mg/dl <40 mg/dl or >180 mg/dl Disposition: 04/11/20 10:[address] [facility]. Diagnosis are Weakness, Visual field defects, Ischemic Stroke. - Reason for transfer: Higher level of care. - Accepting physician is Aleks. - Condition is Stable. - Problem is new. - Symptoms are unchanged. Critical care time excluding procedures: 10:13 Critical care time: Bedside Care: 25 minutes, Consultation: 5 minutes. Total time: 30 rn minutes NIH Stroke Scale - NIH Stroke Score Date: 04/11/2020 Time: 09:24 Total Score = 2 1a. Level of Consciousness (LOC) - 0(Alert) 1b. Level of Consciousness (LOC) (Year \\T\\ Age) - 0(Both) 1c. LOC Commands (Open \\T\\ Closes Eyes/Solar Sales Representative) - 0(Both) 2. Best Gaze (Lateral Gaze Paresis) - 0(Normal) 3. Visual Field Loss - 1(Partial hemianopia) 4. Facial Palsy - 0(Normal) 5a. Left Arm: Motor (10-second hold) - 0(No drift) 5b. Right Arm: Motor (10-second hold) - 0(No drift) 6a. Left Leg: Motor (5-second hold - always test supine) - 0(No drift) 6b. Right Leg: Motor (5-second hold - always test supine) - 1(Drift) 7. Limb Ataxia (finger/nose \\T\\ heel/crandall - test with eyes open) - 0(Absent) 8. Sensory Loss (pinprick arms/legs/face) - 0(Normal) 9. Best Language: Aphasia (description/naming/reading) - 0(No aphasia) 10. Dysarthria (speech clarity - read or repeat words) - 0(Normal) 11. Extinction and Inattention (visual/tactile/auditory/spatial/personal) - 0(No abnormality) Initials: iw NIH Stroke Scale - NIH Stroke Score Date: 04/11/2020 Time: 09:30 Total Score = 2 1a. Level of Consciousness (LOC) - 0(Alert) 1b. Level of Consciousness (LOC) (Year \\T\\ Age) - 0(Both) 1c. LOC Commands (Open \\T\\ Closes Eyes/Solar Sales Representative) - 0(Both) 2. Best Gaze (Lateral Gaze Paresis) - 0(Normal) 3. Visual Field Loss - 1(Partial hemianopia) 4. Facial Palsy - 0(Normal) 5a. Left Arm: Motor (10-second hold) - 0(No drift) 5b. Right Arm: Motor (10-second hold) - 0(No drift) 6a. Left Leg: Motor (5-second hold - always test supine) - 0(No drift) 6b. Right Leg: Motor (5-second hold - always test supine) - 1(Drift) 7. Limb Ataxia (finger/nose \\T\\ heel/crandall - test with eyes open) - 0(Absent) 8. Sensory Loss (pinprick arms/legs/face) - 0(Normal) 9. Best Language: Aphasia (description/naming/reading) - 0(No aphasia) 10. Dysarthria (speech clarity - read or repeat words) - 0(Normal) 11. Extinction and Inattention (visual/tactile/auditory/spatial/personal) - 0(No abnormality) Initials: aa5 NIH Stroke Scale - NIH Stroke Score Date: 04/11/2020 Time: 09:38 Total Score = 2 1a. Level of Consciousness (LOC) - 0(Alert) 1b. Level of Consciousness (LOC) (Year \\T\\ Age) - 0(Both) 1c. LOC Commands (Open \\T\\ Closes Eyes/Solar Sales Representative) - 0(Both) 2. Best Gaze (Lateral Gaze Paresis) - 0(Normal) 3. Visual Field Loss - 1(Partial hemianopia) 4. Facial Palsy - 0(Normal) 5a. Left Arm: Motor (10-second hold) - 0(No drift) 5b. Right Arm: Motor (10-second hold) - 0(No drift) 6a. Left Leg: Motor (5-second hold - always test supine) - 0(No drift) 6b. Right Leg: Motor (5-second hold - always test supine) - 1(Drift) 7. Limb Ataxia (finger/nose \\T\\ heel/crandall - test with eyes open) - 0(Absent) 8. Sensory Loss (pinprick arms/legs/face) - 0(Normal) 9. Best Language: Aphasia (description/naming/reading) - 0(No aphasia) 10. Dysarthria (speech clarity - read or repeat words) - 0(Normal) 11. Extinction and Inattention (visual/tactile/auditory/spatial/personal) - 0(No abnormality) Initials: maria esther NIH Stroke Scale - NIH Stroke Score Date: 04/11/2020 Time: 10:08 Total Score = 2 1a. Level of Consciousness (LOC) - 0(Alert) 1b. Level of Consciousness (LOC) (Year \\T\\ Age) - 0(Both) 1c. LOC Commands (Open \\T\\ Closes Eyes/Solar Sales Representative) - 0(Both) 2. Best Gaze (Lateral Gaze Paresis) - 0(Normal) 3. Visual Field Loss - 1(Partial hemianopia) 4. Facial Palsy - 0(Normal) 5a. Left Arm: Motor (10-second hold) - 0(No drift) 5b. Right Arm: Motor (10-second hold) - 0(No drift) 6a. Left Leg: Motor (5-second hold - always test supine) - 0(No drift) 6b. Right Leg: Motor (5-second hold - always test supine) - 1(Drift) 7. Limb Ataxia (finger/nose \\T\\ heel/crandall - test with eyes open) - 0(Absent) 8. Sensory Loss (pinprick arms/legs/face) - 0(Normal) 9. Best Language: Aphasia (description/naming/reading) - 0(No aphasia) 10. Dysarthria (speech clarity - read or repeat words) - 0(Normal) 11. Extinction and Inattention (visual/tactile/auditory/spatial/personal) - 0(No abnormality) Initials: iw NIH Stroke Scale - NIH Stroke Score Date: 04/11/2020 Time: 10:15 Total Score = 1 1a. Level of Consciousness (LOC) - 0(Alert) 1b. Level of Consciousness (LOC) (Year \\T\\ Age) - 0(Both) 1c. LOC Commands (Open \\T\\ Closes Eyes/Solar Sales Representative) - 0(Both) 2. Best Gaze (Lateral Gaze Paresis) - 0(Normal) 3. Visual Field Loss - 0(No visual loss) 4. Facial Palsy - 0(Normal) 5a. Left Arm: Motor (10-second hold) - 0(No drift) 5b. Right Arm: Motor (10-second hold) - 0(No drift) 6a. Left Leg: Motor (5-second hold - always test supine) - 0(No drift) 6b. Right Leg: Motor (5-second hold - always test supine) - 1(Drift) 7. Limb Ataxia (finger/nose \\T\\ heel/crandall - test with eyes open) - 0(Absent) 8. Sensory Loss (pinprick arms/legs/face) - 0(Normal) 9. Best Language: Aphasia (description/naming/reading) - 0(No aphasia) 10. Dysarthria (speech clarity - read or repeat words) - 0(Normal) 11. Extinction and Inattention (visual/tactile/auditory/spatial/personal) - 0(No abnormality) Initials: aa5 NIH Stroke Scale - NIH Stroke Score Date: 04/11/2020 Time: 10:30 Total Score = 1 1a. Level of Consciousness (LOC) - 0(Alert) 1b. Level of Consciousness (LOC) (Year \\T\\ Age) - 0(Both) 1c. LOC Commands (Open \\T\\ Closes Eyes/Solar Sales Representative) - 0(Both) 2. Best Gaze (Lateral Gaze Paresis) - 0(Normal) 3. Visual Field Loss - 0(No visual loss) 4. Facial Palsy - 0(Normal) 5a. Left Arm: Motor (10-second hold) - 0(No drift) 5b. Right Arm: Motor (10-second hold) - 0(No drift) 6a. Left Leg: Motor (5-second hold - always test supine) - 0(No drift) 6b. Right Leg: Motor (5-second hold - always test supine) - 1(Drift) 7. Limb Ataxia (finger/nose \\T\\ heel/crandall - test with eyes open) - 0(Absent) 8. Sensory Loss (pinprick arms/legs/face) - 0(Normal) 9. Best Language: Aphasia (description/naming/reading) - 0(No aphasia) 10. Dysarthria (speech clarity - read or repeat words) - 0(Normal) 11. Extinction and Inattention (visual/tactile/auditory/spatial/personal) - 0(No abnormality) Initials: aa NIH Stroke Scale - NIH Stroke Score Date: 04/11/2020 Time: 11:00 Total Score = 1 1a. Level of Consciousness (LOC) - 0(Alert) 1b. Level of Consciousness (LOC) (Year \\T\\ Age) - 0(Both) 1c. LOC Commands (Open \\T\\ Closes Eyes/Solar Sales Representative) - 0(Both) 2. Best Gaze (Lateral Gaze Paresis) - 0(Normal) 3. Visual Field Loss - 0(No visual loss) 4. Facial Palsy - 0(Normal) 5a. Left Arm: Motor (10-second hold) - 0(No drift) 5b. Right Arm: Motor (10-second hold) - 0(No drift) 6a. Left Leg: Motor (5-second hold - always test supine) - 0(No drift) 6b. Right Leg: Motor (5-second hold - always test supine) - 1(Drift) 7. Limb Ataxia (finger/nose \\T\\ heel/crandall - test with eyes open) - 0(Absent) 8. Sensory Loss (pinprick arms/legs/face) - 0(Normal) 9. Best Language: Aphasia (description/naming/reading) - 0(No aphasia) 10. Dysarthria (speech clarity - read or repeat words) - 0(Normal) 11. Extinction and Inattention (visual/tactile/auditory/spatial/personal) - 0(No abnormality) Initials: aa5 NIH Stroke Scale - NIH Stroke Score Date: 04/11/2020 Time: 11:08 Total Score = 1 1a. Level of Consciousness (LOC) - 0(Alert) 1b. Level of Consciousness (LOC) (Year \\T\\ Age) - 0(Both) 1c. LOC Commands (Open \\T\\ Closes Eyes/Solar Sales Representative) - 0(Both) 2. Best Gaze (Lateral Gaze Paresis) - 0(Normal) 3. Visual Field Loss - 0(No visual loss) 4. Facial Palsy - 0(Normal) 5a. Left Arm: Motor (10-second hold) - 0(No drift) 5b. Right Arm: Motor (10-second hold) - 0(No drift) 6a. Left Leg: Motor (5-second hold - always test supine) - 0(No drift) 6b. Right Leg: Motor (5-second hold - always test supine) - 1(Drift) 7. Limb Ataxia (finger/nose \\T\\ heel/crandall - test with eyes open) - 0(Absent) 8. Sensory Loss (pinprick arms/legs/face) - 0(Normal) 9. Best Language: Aphasia (description/naming/reading) - 0(No aphasia) 10. Dysarthria (speech clarity - read or repeat words) - 0(Normal) 11. Extinction and Inattention (visual/tactile/auditory/spatial/personal) - 0(No abnormality) Initials: aa5 NIH Stroke Scale - NIH Stroke Score Date: 04/11/2020 Time: 11:15 Total Score = 1 1a. Level of Consciousness (LOC) - 0(Alert) 1b. Level of Consciousness (LOC) (Year \\T\\ Age) - 0(Both) 1c. LOC Commands (Open \\T\\ Closes Eyes/Solar Sales Representative) - 0(Both) 2. Best Gaze (Lateral Gaze Paresis) - 0(Normal) 3. Visual Field Loss - 0(No visual loss) 4. Facial Palsy - 0(Normal) 5a. Left Arm: Motor (10-second hold) - 0(No drift) 5b. Right Arm: Motor (10-second hold) - 0(No drift) 6a. Left Leg: Motor (5-second hold - always test supine) - 0(No drift) 6b. Right Leg: Motor (5-second hold - always test supine) - 1(Drift) 7. Limb Ataxia (finger/nose \\T\\ heel/crandall - test with eyes open) - 0(Absent) 8. Sensory Loss (pinprick arms/legs/face) - 0(Normal) 9. Best Language: Aphasia (description/naming/reading) - 0(No aphasia) 10. Dysarthria (speech clarity - read or repeat words) - 0(Normal) 11. Extinction and Inattention (visual/tactile/auditory/spatial/personal) - 0(No abnormality) Initials: aa5 Signatures: Dispatcher [employer] Lilian Davis RN RN iw Nieto, Roman, MD MD rn Calderon, Audri, RN RN aa5 Lilian morrell Corrections: (The following items were deleted from the chart) 09:58 09:56 Constitutional: Negative for fever, chills, and weight loss, Eyes: rn Negative for injury, pain, redness, and discharge, Neck: Negative for injury, pain, and swelling, Cardiovascular: Negative for chest pain, palpitations, and edema, Respiratory: Negative for shortness of breath, cough, wheezing, and pleuritic chest pain, Abdomen/GI: Negative for abdominal pain, nausea, vomiting, diarrhea, and constipation, MS/Extremity: Negative for injury and deformity, Skin: Negative for injury, rash, and discoloration, Neuro: Negative for headache, and seizure, + right leg weakness, + right eye blurred vision with loss of visual field right superior on right eye. + drift RLE. RUE 4/5 strength. LUE/LLE 4/5 strength. Sensation grossly intact. No facial droop. Tongue midline. rn 10:00 09:56 Constitutional: Negative for fever, chills, and weight loss, Eyes: rn Negative for injury, pain, redness, and discharge, Neck: Negative for injury, pain, and swelling, Cardiovascular: Negative for chest pain, palpitations, and edema, Respiratory: Negative for shortness of breath, cough, wheezing, and pleuritic chest pain, Abdomen/GI: Negative for abdominal pain, nausea, vomiting, diarrhea, and constipation, MS/Extremity: Negative for injury and deformity, Skin: Negative for injury, rash, and discoloration, Neuro: Negative for headache, and seizure, + right leg weakness, + right eye blurred vision with loss of visual field right superior on right eye. + drift RLE. RUE 4/5 strength. LUE/LLE 4/5 strength. Sensation grossly intact. No facial droop. Tongue midline. rn 11:46 10:36 04/11/2020 10:36 Transfer ordered to [address] Diagnosis is Weakness; Visual field defects; Ischemic Stroke. Reason for transfer: Higher level of care. Accepting physician is Aleks. Condition is Stable. Problem is new. Symptoms are unchanged. rn
--- NOTE | 2020-04-11 10:37 | ER ---
Nurse's Notes [facility] Name: Cisco Edward Age: 69 yrs Sex: Female : 1950 Arrival Date: 04/11/2020 Time: 09:16 Bed 3 Private MD: Diagnosis: Weakness;Visual field defects;Ischemic Stroke Presentation: 04/11 09:20 Chief complaint: Patient states: woke up at 0430 and felt fine, went to work and iw started to feel bad, c/o weakness and twitching in tanvi legs, also had blurry/double vision, feels fuzzy in her head, feels confused, can't focus, symptoms started at 0800. Coronavirus screen: At this time, the client does not indicate any symptoms associated with coronavirus-19. Ebola Screen: Patient negative for fever greater than or equal to 101.5 degrees Fahrenheit, and additional compatible Ebola Virus Disease symptoms Patient denies exposure to infectious person. Patient denies travel to an Ebola-affected area in the 21 days before illness onset. No symptoms or risks identified at this time. An acute neurological deficit is present. Pre-hospital glucose is not applicable to this patient. Initial Sepsis Screen: Does the patient meet any 2 criteria? No. Patient's initial sepsis screen is negative. Does the patient have a suspected source of infection? No. Patient's initial sepsis screen is negative. Risk Assessment: Do you want to hurt yourself or someone else? Patient reports no desire to harm self or others. Onset of symptoms was April 11, 2020 at 08:00. 09:20 Method Of Arrival: Wheelchair iw 09:20 Acuity: ROB 2 iw Triage Assessment: 09:35 The onset of the patients symptoms was April 11, 2020 at 08:00. iw Stroke Activation: Symptom onset < 3 hours Physician: Stroke Attending; Name: N/A; Notified At: 09:35; Arrived At: N/A Physician: Chief Stroke Resident; Name: N/A; Notified At: 09:35; Arrived At: N/A Physician: Stroke Resident; Name: N/A; Notified At: 09:35; Arrived At: N/A Physician: ED Attending; Name: Dr. Draper; Notified At: 09:35; Arrived At: 09:35 Physician: ED Resident; Name: N/A; Notified At: 09:35; Arrived At: 09:35 Historical: - Allergies: 09:42 Dilaudid; iw 09:42 Sulfa (Sulfonamide Antibiotics); iw 09:42 Darvon; iw - Home Meds: 10:13 Lyrica Oral daily [Active]; metoprolol tartrate 25 mg Oral tab 1 tab once daily iw [Active]; pantoprazole 40 mg Oral TbEC [Active]; Lunesta oral oral nightly [Active]; Trileptal 300 mg oral tab 1 tab 2 times per day [Active]; Bupropion Oral once daily [Active]; - PMHx: 09:42 Bipolar disorder; Chronic pain; Hypertension; Myocardial infarction; iw - PSHx: :42 Cholecystectomy; ; foot; back; iw 10:00 Back Stimulator; aa5 - Immunization history:: Adult Immunizations unknown. - Family history:: not pertinent. - Social history:: Smoking status: Patient denies any tobacco usage or history of. - Hospitalizations: : No recent hospitalization is reported. Screenin:31 Abuse screen: Denies threats or abuse. Nutritional screening: No deficits noted. aa5 Tuberculosis screening: No symptoms or risk factors identified. Fall Risk IV access (20 points). Total Manuel Fall Scale indicates No Risk (0-24 pts). Assessment: 09:24 Reassessment: Dr. Draper at bedside to assess pt. iw 09:25 VAN Scoring: Arm Drift: Patients demonstrates NO arm weakness. Patient is VAN Negative. iw 09:30 General: Appears uncomfortable, Behavior is calm, cooperative, Pt reports shaking to aa5 tanvi legs. . Pain: Complains of pain in forehead Pain does not radiate. Pain currently is 5 out of 10 on a pain scale. Quality of pain is described as aching, Is continuous. Neuro: Level of Consciousness is awake, alert, obeys commands, Oriented to person, place, time, situation, Coremaker Apprentice are equal bilaterally Moves all extremities. Weakness in right leg(s) Speech is normal, Facial symmetry appears normal, Pupils are PERRLA, Reports blurred vision diplopia, dizziness, headache frontal area. Cardiovascular: Heart tones S1 S2 present Rhythm is regular. Respiratory: Airway is patent Respiratory effort is even, unlabored, Respiratory pattern is regular, symmetrical. GI: Abdomen is round Patient currently denies nausea. : No signs and/or symptoms were reported regarding the genitourinary system. EENT: No signs and/or symptoms were reported regarding the EENT system. Derm: Skin is pink, warm \T\ dry. Musculoskeletal: Range of motion: intact in all extremities. 09:31 Reassessment: Pt taken to CT via stretcher, accompanied by me . aa5 09:50 T-PA (Activase) Screening: Indications: Definite evidence of stroke, ischemic, embolic, iw or hypertensive: Yes. Treatment will start within 4.5 hours onset of symptoms: Yes. No evidence of intracranial hemorrhage or CT of head and no evidence of peripheral hemorrhage or recent CVA: Yes. 09:50 Reassessment: CT negative. iw 09:50 Reassessment: Pt back from CT, accompanied by me. . aa5 10:00 Reassessment: TPA consent form signed by patient. . aa5 10:08 Neuro: Level of Consciousness is awake, alert, obeys commands, Oriented to person, aa5 place, time, situation, Coremaker Apprentice are equal bilaterally Moves all extremities. Weakness in right leg(s) Speech is normal, Facial symmetry appears normal, Pupils are PERRLA, Reports diplopia, dizziness. 10:15 Patient has been NPO before screening. The patient is alert, and able to follow aa5 commands. The patient does not exhibit slurred or garbled speech. The patient is not exhibiting difficulty speaking. The patient does not exhibit difficulty understanding words. The patient is able to swallow own secretions with no drooling or need for suction. Patient tolerated one teaspoon of water. No drooling, immediate coughing, gurgling, or clearing of the throat was noted. The patient tolerated 90mL of water. No drooling, immediate coughing, gurgling, or clearing of the throat was noted. The patient passed the bedside swallow screening. Oral medications may be given as ordered. Contact Physician for further diet orders. Provider notified of bedside swallow screening results: Donell Draper MD. 10:15 Neuro: Level of Consciousness is awake, alert, obeys commands, Oriented to person, aa5 place, time, situation, Coremaker Apprentice are equal bilaterally Moves all extremities. Weakness in right leg(s) Speech is normal, Facial symmetry appears normal, Pupils are PERRLA, Pt denies visual disturbances, denies diplopia. States feeling better. DELGADO is 2/10 on a pain scale. . 10:30 Neuro: Level of Consciousness is awake, alert, obeys commands, Oriented to person, aa5 place, time, situation, Coremaker Apprentice are equal bilaterally Moves all extremities. Weakness in right leg(s) Speech is normal, Facial symmetry appears normal, Pupils are PERRLA, Pt denies visual disturbances, DELGADO remains 2/10 on a pain scale. . 11:00 Reassessment: Pt reports DELGADO has increased to 5/10 on a pain scale. MD was notified. . aa5 11:00 Reassessment: Patient is alert, oriented x 3, equal unlabored respirations, skin aa5 warm/dry/pink. 11:08 Reassessment: Patient is alert, oriented x 3, equal unlabored respirations, skin aa5 warm/dry/pink. Pt reports DELGADO is increased to 7/10 on a pain scale. MD was notified of elevated BP and pain level. . 11:15 Reassessment: EMS at bedside. MD at bedside . aa5 11:15 Reassessment: Patient is alert, oriented x 3, equal unlabored respirations, skin aa5 warm/dry/pink. Pt reports pain is a 10/10 on a pain scale at this time. Pt continues to deny any visual disturbances. Pt's only c/o is headache. . 11:15 Neuro: Coremaker Apprentice are equal bilaterally Moves all extremities. Weakness in right leg(s) aa5 Speech is normal, Facial symmetry appears normal. 11:19 Reassessment: Patient is alert, oriented x 3, equal unlabored respirations, skin aa5 warm/dry/pink. Pt states feeling better, DELGADO decreased to 2/10 on a pain scale. . 11:19 Neuro: Coremaker Apprentice are equal bilaterally Moves all extremities. Weakness in right leg(s) aa5 Speech is normal, Facial symmetry appears normal, Pupils are PERRLA. 11:22 Reassessment: Repeat CT head ordered by Dr. Draper. EMS awaiting CT scan results prior aa5 to transfer. . 11:24 Reassessment: Pt currently in CT . aa5 11:43 Reassessment: Repeat CT negative to intracranial hemorrhage, EMS notified. . aa5 11:43 Reassessment: Patient is alert, oriented x 3, equal unlabored respirations, skin aa5 warm/dry/pink. Vital Signs: 09:30 BP 160 / 85; Pulse 77; Resp 16 S; Temp 97.8(TE); Pulse Ox 99% on R/A; iw 10:00 BP 153 / 77; Pulse 68; Resp 16 S; Pulse Ox 98% on R/A; aa5 10:00 Weight 90.08 kg (M); aa5 10:15 BP 163 / 74; Pulse 67; Resp 18 S; Pulse Ox 98% on R/A; aa5 10:25 BP 163 / 82; Pulse 66; Resp 16 S; Pulse Ox 98% on R/A; aa5 10:32 BP 166 / 76; Pulse 66; Resp 16 S; Pulse Ox 100% on R/A; aa5 10:40 BP 132 / 54; Pulse 65; Resp 18 S; Pulse Ox 100% on R/A; aa5 10:45 BP 146 / 60; Pulse 65; Resp 16 S; Pulse Ox 100% on R/A; aa5 10:50 BP 146 / 87; Pulse 63; Resp 16 S; Pulse Ox 99% on R/A; aa5 10:55 BP 152 / 91; Pulse 65; Resp 16 S; Pulse Ox 99% on R/A; aa5 11:00 BP 170 / 81; Pulse 61; Resp 16 S; Pulse Ox 99% on R/A; aa5 11:08 BP 177 / 103; Pulse 65; Resp 16 S; Pulse Ox 99% on R/A; aa5 11:15 BP 161 / 115; Pulse 67; Resp 16 S; Pulse Ox 99% on R/A; aa5 11:19 BP 154 / 92; Pulse 70; Resp 18 S; Pulse Ox 100% on R/A; Pain 2/10; aa5 11:08 MD notified of increased BP and increased Headache, rates DELGADO 7/10 on a pain scale. aa5 11:15 MD notified of increased BP and increased headache, pt rates headache 10/10 on a pain aa5 scale at this time. NIH Stroke Scale Scores: 09:24 NIHSS Score: 2 iw 09:30 NIHSS Score: 2 aa5 09:38 NIHSS Score: 2 rn 10:08 NIHSS Score: 2 iw 10:15 NIHSS Score: 1 aa5 10:30 NIHSS Score: 1 aa5 11:00 NIHSS Score: 1 aa5 11:08 NIHSS Score: 1 aa5 11:15 NIHSS Score: 1 aa5 ED Course: 09:16 Patient arrived in ED. ag5 09:23 Donell Draper MD is Attending Physician. rn 09:30 Carolina Flores, GAEL is Primary Nurse. aa5 09:30 Inserted saline lock: 20 gauge in right antecubital area, using aseptic technique. iw 09:31 Initial lab(s) drawn, by ED staff, sent to lab. aa5 09:42 Triage completed. iw 09:44 Arm band placed on. iw 09:49 CT Stroke Brain w/o Contrast In Process Unspecified. EDMS 09:59 EKG done, by ED staff, reviewed by Donell Draper MD. aa5 09:59 Patient has correct armband on for positive identification. Placed in gown. Bed in low mh5 position. Call light in reach. Warm blanket given. residential monitor on. Pulse ox on. NIBP on. 10:01 Stroke CXR 1 View In Process Unspecified. EDMS 10:06 initiated a transfer with Charisma Davidson from the [facility]. eb 10:[address] Fink the neurologist proposition player for [facility] with Dr. Draper for patient transfer consultation. 10:14 Missed attempt(s): 22 gauge in left antecubital area. mh5 10:18 Inserted saline lock: 20 gauge in left wrist, using aseptic technique. jl7 10:30 administrative approval given by Charisma Davidson Rn/ patient has been accepted to [facility] [address] [address] Bed 5 / Lashell Ruiz has accepted the patient in transfer/ report to be called to the transfer center at [phone]. 10:50 called and spoke with Cortez from [facility] / they will be in route to our facility. eb 11:27 CT Head Brain wo Cont In Process Unspecified. EDMS 11:40 No provider procedures requiring assistance completed. Patient transferred, IV remains aa5 in place. Administered Medications: 10:07 Drug: ACTIvase {Co-Signature: iw (Lilian Fairbanks RN).} Route: IV Thrombolytics; Rate: aa5 calculated rate; Infused Over: 60 mins; 11:07 Follow up: Completed infusion aa5 11:14 Drug: morphine 4 mg Route: IVP; Site: right antecubital; aa5 11:19 Follow up: Response: No adverse reaction; Marked relief of symptoms aa5 11:14 Drug: Zofran (Ondansetron) 4 mg Route: IVP; Site: right antecubital; aa5 11:19 Follow up: Response: No adverse reaction aa5 Point of Care Testing: Blood Glucose: 09:35 Blood Glucose: 99 mg/dL; iw Ranges: Intake: Outcome: 10:36 ER care complete, transfer ordered by . rn 11:43 Transferred by ground EMS to [facility], Transfer form completed. aa5 X-rays sent w/ patient. Note: Report given to [facility] 11:43 Condition: stable aa5 11:43 Instructed on the need for transfer, Demonstrated understanding of instructions. 11:46 Patient left the ED. aa5 NIH Stroke Scale - NIH Stroke Score Date: 04/11/2020 Time: 09:24 Total Score = 2 1a. Level of Consciousness (LOC) - 0(Alert) 1b. Level of Consciousness (LOC) (Year \T\ Age) - 0(Both) 1c. LOC Commands (Open \T\ Closes Eyes/Infantry Assaultman) - 0(Both) 2. Best Gaze (Lateral Gaze Paresis) - 0(Normal) 3. Visual Field Loss - 1(Partial hemianopia) 4. Facial Palsy - 0(Normal) 5a. Left Arm: Motor (10-second hold) - 0(No drift) 5b. Right Arm: Motor (10-second hold) - 0(No drift) 6a. Left Leg: Motor (5-second hold - always test supine) - 0(No drift) 6b. Right Leg: Motor (5-second hold - always test supine) - 1(Drift) 7. Limb Ataxia (finger/nose \T\ heel/crandall - test with eyes open) - 0(Absent) 8. Sensory Loss (pinprick arms/legs/face) - 0(Normal) 9. Best Language: Aphasia (description/naming/reading) - 0(No aphasia) 10. Dysarthria (speech clarity - read or repeat words) - 0(Normal) 11. Extinction and Inattention (visual/tactile/auditory/spatial/personal) - 0(No abnormality) Initials: iw NIH Stroke Scale - NIH Stroke Score Date: 04/11/2020 Time: 09:30 Total Score = 2 1a. Level of Consciousness (LOC) - 0(Alert) 1b. Level of Consciousness (LOC) (Year \T\ Age) - 0(Both) 1c. LOC Commands (Open \T\ Closes Eyes/Infantry Assaultman) - 0(Both) 2. Best Gaze (Lateral Gaze Paresis) - 0(Normal) 3. Visual Field Loss - 1(Partial hemianopia) 4. Facial Palsy - 0(Normal) 5a. Left Arm: Motor (10-second hold) - 0(No drift) 5b. Right Arm: Motor (10-second hold) - 0(No drift) 6a. Left Leg: Motor (5-second hold - always test supine) - 0(No drift) 6b. Right Leg: Motor (5-second hold - always test supine) - 1(Drift) 7. Limb Ataxia (finger/nose \T\ heel/crandall - test with eyes open) - 0(Absent) 8. Sensory Loss (pinprick arms/legs/face) - 0(Normal) 9. Best Language: Aphasia (description/naming/reading) - 0(No aphasia) 10. Dysarthria (speech clarity - read or repeat words) - 0(Normal) 11. Extinction and Inattention (visual/tactile/auditory/spatial/personal) - 0(No abnormality) Initials: aa5 NIH Stroke Scale - NIH Stroke Score Date: 04/11/2020 Time: 09:38 Total Score = 2 1a. Level of Consciousness (LOC) - 0(Alert) 1b. Level of Consciousness (LOC) (Year \T\ Age) - 0(Both) 1c. LOC Commands (Open \T\ Closes Eyes/Infantry Assaultman) - 0(Both) 2. Best Gaze (Lateral Gaze Paresis) - 0(Normal) 3. Visual Field Loss - 1(Partial hemianopia) 4. Facial Palsy - 0(Normal) 5a. Left Arm: Motor (10-second hold) - 0(No drift) 5b. Right Arm: Motor (10-second hold) - 0(No drift) 6a. Left Leg: Motor (5-second hold - always test supine) - 0(No drift) 6b. Right Leg: Motor (5-second hold - always test supine) - 1(Drift) 7. Limb Ataxia (finger/nose \T\ heel/crandall - test with eyes open) - 0(Absent) 8. Sensory Loss (pinprick arms/legs/face) - 0(Normal) 9. Best Language: Aphasia (description/naming/reading) - 0(No aphasia) 10. Dysarthria (speech clarity - read or repeat words) - 0(Normal) 11. Extinction and Inattention (visual/tactile/auditory/spatial/personal) - 0(No abnormality) Initials: NIH Stroke Scale - NIH Stroke Score Date: 04/11/2020 Time: 10:08 Total Score = 2 1a. Level of Consciousness (LOC) - 0(Alert) 1b. Level of Consciousness (LOC) (Year \T\ Age) - 0(Both) 1c. LOC Commands (Open \T\ Closes Eyes/Infantry Assaultman) - 0(Both) 2. Best Gaze (Lateral Gaze Paresis) - 0(Normal) 3. Visual Field Loss - 1(Partial hemianopia) 4. Facial Palsy - 0(Normal) 5a. Left Arm: Motor (10-second hold) - 0(No drift) 5b. Right Arm: Motor (10-second hold) - 0(No drift) 6a. Left Leg: Motor (5-second hold - always test supine) - 0(No drift) 6b. Right Leg: Motor (5-second hold - always test supine) - 1(Drift) 7. Limb Ataxia (finger/nose \T\ heel/crandall - test with eyes open) - 0(Absent) 8. Sensory Loss (pinprick arms/legs/face) - 0(Normal) 9. Best Language: Aphasia (description/naming/reading) - 0(No aphasia) 10. Dysarthria (speech clarity - read or repeat words) - 0(Normal) 11. Extinction and Inattention (visual/tactile/auditory/spatial/personal) - 0(No abnormality) Initials: NIH Stroke Scale - NIH Stroke Score Date: 04/11/2020 Time: 10:15 Total Score = 1 1a. Level of Consciousness (LOC) - 0(Alert) 1b. Level of Consciousness (LOC) (Year \T\ Age) - 0(Both) 1c. LOC Commands (Open \T\ Closes Eyes/Infantry Assaultman) - 0(Both) 2. Best Gaze (Lateral Gaze Paresis) - 0(Normal) 3. Visual Field Loss - 0(No visual loss) 4. Facial Palsy - 0(Normal) 5a. Left Arm: Motor (10-second hold) - 0(No drift) 5b. Right Arm: Motor (10-second hold) - 0(No drift) 6a. Left Leg: Motor (5-second hold - always test supine) - 0(No drift) 6b. Right Leg: Motor (5-second hold - always test supine) - 1(Drift) 7. Limb Ataxia (finger/nose \T\ heel/crandall - test with eyes open) - 0(Absent) 8. Sensory Loss (pinprick arms/legs/face) - 0(Normal) 9. Best Language: Aphasia (description/naming/reading) - 0(No aphasia) 10. Dysarthria (speech clarity - read or repeat words) - 0(Normal) 11. Extinction and Inattention (visual/tactile/auditory/spatial/personal) - 0(No abnormality) Initials: aa5 NIH Stroke Scale - NIH Stroke Score Date: 04/11/2020 Time: 10:30 Total Score = 1 1a. Level of Consciousness (LOC) - 0(Alert) 1b. Level of Consciousness (LOC) (Year \T\ Age) - 0(Both) 1c. LOC Commands (Open \T\ Closes Eyes/Infantry Assaultman) - 0(Both) 2. Best Gaze (Lateral Gaze Paresis) - 0(Normal) 3. Visual Field Loss - 0(No visual loss) 4. Facial Palsy - 0(Normal) 5a. Left Arm: Motor (10-second hold) - 0(No drift) 5b. Right Arm: Motor (10-second hold) - 0(No drift) 6a. Left Leg: Motor (5-second hold - always test supine) - 0(No drift) 6b. Right Leg: Motor (5-second hold - always test supine) - 1(Drift) 7. Limb Ataxia (finger/nose \T\ heel/crandall - test with eyes open) - 0(Absent) 8. Sensory Loss (pinprick arms/legs/face) - 0(Normal) 9. Best Language: Aphasia (description/naming/reading) - 0(No aphasia) 10. Dysarthria (speech clarity - read or repeat words) - 0(Normal) 11. Extinction and Inattention (visual/tactile/auditory/spatial/personal) - 0(No abnormality) Initials: aa5 NIH Stroke Scale - NIH Stroke Score Date: 04/11/2020 Time: 11:00 Total Score = 1 1a. Level of Consciousness (LOC) - 0(Alert) 1b. Level of Consciousness (LOC) (Year \T\ Age) - 0(Both) 1c. LOC Commands (Open \T\ Closes Eyes/Infantry Assaultman) - 0(Both) 2. Best Gaze (Lateral Gaze Paresis) - 0(Normal) 3. Visual Field Loss - 0(No visual loss) 4. Facial Palsy - 0(Normal) 5a. Left Arm: Motor (10-second hold) - 0(No drift) 5b. Right Arm: Motor (10-second hold) - 0(No drift) 6a. Left Leg: Motor (5-second hold - always test supine) - 0(No drift) 6b. Right Leg: Motor (5-second hold - always test supine) - 1(Drift) 7. Limb Ataxia (finger/nose \T\ heel/crandall - test with eyes open) - 0(Absent) 8. Sensory Loss (pinprick arms/legs/face) - 0(Normal) 9. Best Language: Aphasia (description/naming/reading) - 0(No aphasia) 10. Dysarthria (speech clarity - read or repeat words) - 0(Normal) 11. Extinction and Inattention (visual/tactile/auditory/spatial/personal) - 0(No abnormality) Initials: 5 NIH Stroke Scale - NIH Stroke Score Date: 04/11/2020 Time: 11:08 Total Score = 1 1a. Level of Consciousness (LOC) - 0(Alert) 1b. Level of Consciousness (LOC) (Year \T\ Age) - 0(Both) 1c. LOC Commands (Open \T\ Closes Eyes/Infantry Assaultman) - 0(Both) 2. Best Gaze (Lateral Gaze Paresis) - 0(Normal) 3. Visual Field Loss - 0(No visual loss) 4. Facial Palsy - 0(Normal) 5a. Left Arm: Motor (10-second hold) - 0(No drift) 5b. Right Arm: Motor (10-second hold) - 0(No drift) 6a. Left Leg: Motor (5-second hold - always test supine) - 0(No drift) 6b. Right Leg: Motor (5-second hold - always test supine) - 1(Drift) 7. Limb Ataxia (finger/nose \T\ heel/crandall - test with eyes open) - 0(Absent) 8. Sensory Loss (pinprick arms/legs/face) - 0(Normal) 9. Best Language: Aphasia (description/naming/reading) - 0(No aphasia) 10. Dysarthria (speech clarity - read or repeat words) - 0(Normal) 11. Extinction and Inattention (visual/tactile/auditory/spatial/personal) - 0(No abnormality) Initials: aa5 NIH Stroke Scale - NIH Stroke Score Date: 04/11/2020 Time: 11:15 Total Score = 1 1a. Level of Consciousness (LOC) - 0(Alert) 1b. Level of Consciousness (LOC) (Year \T\ Age) - 0(Both) 1c. LOC Commands (Open \T\ Closes Eyes/Infantry Assaultman) - 0(Both) 2. Best Gaze (Lateral Gaze Paresis) - 0(Normal) 3. Visual Field Loss - 0(No visual loss) 4. Facial Palsy - 0(Normal) 5a. Left Arm: Motor (10-second hold) - 0(No drift) 5b. Right Arm: Motor (10-second hold) - 0(No drift) 6a. Left Leg: Motor (5-second hold - always test supine) - 0(No drift) 6b. Right Leg: Motor (5-second hold - always test supine) - 1(Drift) 7. Limb Ataxia (finger/nose \T\ heel/crandall - test with eyes open) - 0(Absent) 8. Sensory Loss (pinprick arms/legs/face) - 0(Normal) 9. Best Language: Aphasia (description/naming/reading) - 0(No aphasia) 10. Dysarthria (speech clarity - read or repeat words) - 0(Normal) 11. Extinction and Inattention (visual/tactile/auditory/spatial/personal) - 0(No abnormality) Initials: aa5 Signatures: Dispatcher [employer] EDLilian Britt RN RN Donell Draper MD MD rn Calderon, Audri, RN RN 5 [facility] Crista Chin RN RN 7 Debra Martin Ajare ag5 Lilian Fairbanks RN iw Corrections: (The following items were deleted from the chart) 09:36 09:36 Reassessment: Dr. Draper at bedside to assess pt iw iw 10:33 10:32 Pulse 66bpm; Resp 16bpm; Spontaneous; Pulse Ox 100% RA; aa5 aa5 12:50 09:59 Initial lab(s) drawn, by ED staff, sent to lab. EKG done, by ED staff, aa5 reviewed by Donell Draper MD 5 12:52 09:30 Neuro: Level of Consciousness is awake, alert, obeys commands, Oriented aa5 to person, place, time, situation, Coremaker Apprentice are equal bilaterally Moves all extremities. Weakness in right leg(s) Speech is normal, Facial symmetry appears normal, Pupils are PERRLA, Reports blurred vision diplopia, headache frontal area, aa5
[2020-04-11 10:45] LABS: Blood Morphology Comment NOTED (NOT SEEN); Platelet Estimate ADEQ; Stomatocytes 1+; White Blood Cell Scan OK (OK)
[2020-04-11] MEDS ORDERED: MORPHINE 4 MG/ML SYR ONE (11:24)
[2020-04-11] MEDS ORDERED: ONDANSETRON 4 MG/2 ML VIAL ONE (11:24)
--- NOTE | 2020-04-11 11:37 | EKG ---
Test Date: 2020-04-11 Test Time: 09:54:31 Lab Support Service Tech: KATIE MEASUREMENT RESULTS: Intervals: Rate: 68 VT: 186 QRSD: 126 QT: 398 QTc: 423 [place]: P: 57 VT: 186 QRS: -19 T: 80 INTERPRETIVE STATEMENTS: Normal sinus rhythm Possible Left atrial enlargement Nonspecific intraventricular block Cannot rule out Septal infarct, age undetermined Abnormal ECG Compared to ECG 09/13/2019 10:49:55 Myocardial infarct finding now present Intraventricular conduction delay no longer present ST (T wave) deviation no longer present Possible ischemia no longer present Electronically Signed On 04-11-20 11:37:03 CDT by Rajinder Cassidy
--- NOTE | 2020-04-11 11:37 | RAD REPORT ---
EXAM DESCRIPTION: CT - Head Brain Wo Cont - 04/11/2020 11:27 am CLINICAL HISTORY: headache 04/19 after tpa COMPARISON: Ct Stroke Brain Wo Cont dated 04/11/2020 TECHNIQUE: Axial 5 mm thick images of the head were obtained without IV contrast. All CT scans are performed using dose optimization technique as appropriate and may include automated exposure control or mA/KV adjustment according to patient size. FINDINGS: No intracranial hemorrhage is developed. No mass, edema or acute intracranial finding. No acute cortical based infarction identified. Intracranial findings are stable from earlier study. Gray te select IMPRESSION: No intracranial hemorrhage has developed. No new finding from prior study.
[2020-04-11 11:53] VITALS: TEMP 97.8
[2020-04-11 12:10] VITALS: BP 154/92; O2SAT 100
--- OUTSIDE RECORDS SUMMARY | 2020-04-16 19:33 | XMS REPORT | Clinical Summary ---
:1950 Author Organization [facility] Address [address] [place] [address] Care Team Providers Name Role Phone Patricia Larios PERSONNEL PLACEMENT SPECIALIST Primary Care Provider Allergies No Known Allergies Medications Medication Sig Dispensed Refills Start Date End Date Status eszopiclone 3 mg tablet AT BEDTIME 0 11/28/2016 Active OXcarbazepine DAILY 0 11/28/2016 Activ e (TRILEPTAL) 150 MG tablet OXcarbazepine AT BEDTIME 0 11/28/2016 Acti ve (TRILEPTAL) 150 MG tablet pantoprazole DAILY AT 0630 0 11/29/2016 Ac tive pregabalin (LYRICA) 100 THREE TIMES A DAY 0 03/01/20 19 Active MG capsule metoprolol succinate 1 tablet 0 08/31/2019 Active (TOPROL-XL) 25 MG 24 hr tablet Active Problems Problem Noted Date Chronic hyponatremia 04/12/2020 Bipolar 1 disorder 04/12/2020 Stroke (cerebrum) 04/11/2020 Essential hypertension 04/11/2020 Anemia 04/11/2020 S/P admn tPA in diff fac w/n last 24 hr bef adm to crn t fac 04/11/2020 Encounters Date Type Specialty Care Team Description 04/11/2020 - Hospital Encounter Intensive Care Bony Fink S/P ad mn tPA in diff fac w/n last 24 hr bef adm to crnt fac; 04/12/2020 [place] Cerebrovascular accident (CVA) due to embolism of left middle cerebral artery (HCC); Essential hyper tension after 04/16/2019 Social History Tobacco Use Types Packs/Day Years Used Date Never Assessed Sex Assigned at Date Recorded Not on file Job Start Date Occupation Industry Not on file Not on file Not on file Travel History Travel Start Travel End No recent travel history available. Last Filed Vital Signs Vital Sign Reading Time Taken Blood Pressure 119/60 04/12/2020 5:07 PM CDT Pulse 79 04/12/2020 5:07 PM CDT Temperature 36.6 C (97.8 F) 04/12/2020 4:00 PM CDT Respiratory Rate 17 04/12/2020 5:07 PM CDT Oxygen Saturation 97% 04/12/2020 5:07 PM CDT Inhaled Oxygen Concentration - - Weight 92 kg (202 lb 13.2 oz) 04/12/2020 8:00 AM CDT Height 154.9 cm (5' 1") 04/12/2020 8:00 AM CDT Body Mass Index 38.32 04/12/2020 8:00 AM CDT Plan of Treatment Health Maintenance Due Date Last Done Comments BREAST CANCER SCREENING 1950 COLON CANCER SCREENING COLONOSCOPY 1950 PNEUMOCOCCAL 65+ LOW/MEDIUM RISK (1 of 2 - PCV13) 2017 Medicare IPPE (WELCOME TO MEDICARE) 06/10/2019 INFLUENZA VACCINE (#1) 2020 Procedures Procedure Name Priority Date/Time Associated Comments Diagnosis RHYTHM STRIP - SCAN 04/14/2020 1:40 PM CDT CAROTID DOPPLER STAT 04/12/2020 2:00 Results for this BILATERAL PM CDT procedure are i n the results section. POCT-GLUCOSE METER Routine 04/12/2020 11:55 Resul ts for this AM CDT procedure are i n the results section. RPR Routine 04/12/2020 5:36 Results for this AM CDT procedure are i n the results section. CT BRAIN WITHOUT IV Routine 04/12/2020 4:53 Resu lts for this CONTRAST AM CDT procedure are i n the results section. 2D ECHO W/ DOPPLER Routine 04/12/2020 4:08 Resul ts for this (CW/PW/COLOR) AM CDT procedure are in the results section. CBC W/PLT COUNT & Routine 04/12/2020 3:52 Result s for this AUTO DIFFERENTIAL AM CDT procedure are in the results section. PT/APTT Routine 04/12/2020 3:52 Results for this AM CDT procedure are i n the results section. PHOSPHORUS Routine 04/12/2020 3:52 Results for this AM CDT procedure are i n the results section. MAGNESIUM Routine 04/12/2020 3:52 Results for this AM CDT procedure are i n the results section. CBC W/PLT COUNT & Routine 04/12/2020 3:52 Result s for this AUTO DIFFERENTIAL AM CDT procedure are in the results section. BASIC METABOLIC PANEL Routine 04/12/2020 3:52 Re sults for this (7) AM CDT procedure are i n the results section. HOMOCYSTEINE Routine 04/12/2020 3:52 Results for this AM CDT procedure are i n the results section. TSH/FREE T4 IF Routine 04/12/2020 3:52 Results f or this INDICATED AM CDT procedure are i n the results section. HEMOGLOBIN A1C Routine 04/12/2020 3:52 Results f or this AM CDT procedure are i n the results section. LIPID PANEL Routine 04/12/2020 3:52 Results for this AM CDT procedure are i n the results section. TROPONIN I Routine 04/11/2020 11:20 Results for this PM CDT procedure are i n the results section. POCT-GLUCOSE METER Routine 04/11/2020 10:34 Resul ts for this PM CDT procedure are i n the results section. SARS-COV2/RT-PCR Routine 04/11/2020 6:25 Results for this ([facility]) PM CDT procedure are in the results section. TROPONIN I Routine 04/11/2020 3:56 Results for this PM CDT procedure are i n the results section. VITAMIN B12 AND Routine 04/11/2020 3:27 Results for this FOLATE PM CDT procedure are i n the results section. CBC W/PLT COUNT & Routine 04/11/2020 3:26 Result s for this AUTO DIFFERENTIAL PM CDT procedure are in the results section. CBC W/PLT COUNT & Routine 04/11/2020 3:26 Result s for this AUTO DIFFERENTIAL PM CDT procedure are in the results section. BASIC METABOLIC PANEL Routine 04/11/2020 3:26 Re sults for this (7) PM CDT procedure are i n the results section. after 04/16/2019 Results RHYTHM STRIP - SCAN (04/14/2020 1:40 PM CDT) Narrative Performed At This result has an attachment that is no t available. Carotid doppler bilateral (04/12/2020 2:00 PM CDT) Ejection Fraction [facility] Specimen Impressions Performed At Right Impression [facility]ART[facility] 1. There is <50% diameter reduction (approximately 34% by 2-D measurement) in the internal carotid artery with a peak velocity of 93.2 cm/sec and heterogeneous plaque. 2. The common and external carotid arteries are within normal limits. 3. The vertebral artery flow is antegrade and normal. 4. The subclavian artery is patent with normal triphasic flow and a velocity of 123 cm/sec. Left Impression 1. There is <50% diameter reduction (approximately 29% by 2-D measurement) in the internal carotid artery with a peak velocity of 104 cm/sec and heterogeneous plaque. 2. The common and external carotid arteries are within normal limits. 3. The vertebral artery flow is antegrade and normal. 4. The subclavian artery is patent with normal triphasic flow and a velocity of 128 cm/sec. Conclusions Summary Carotid duplex scanning and color flow imaging were performed bilaterally. The arteries were adequately visualized. The bilateral internal carotid arteries had <50% hemodynamically insignificant stenosis (approximately 34% by 2-D measurement on the right, approximately 29% by 2-D measurement on the left) with heterogeneous plaque. The vertebral artery flow was antegrade and normal bilaterally. The subclavian arteries were patent with normal flow bilaterally where visualize d. Signature Velocities are measured in cm/s ; Diameters are measured in cm Carotid Right Measurements + +----+----+-----+ +---- + + !Location !PSV !EDV !Angle!%Stenosis 2D!%Stenosis Doppler!Tortuosity ! + +----+----+-----+ +---- + + !Prox CCA !107 !29.9!60 !! ! ! + +----+----+-----+ +---- + + !Dist CCA !90.4!22!60 !! ! ! + +----+----+-----+ +---- + + !Prox ICA !93.2!28.1!60 !34% !<50% ! ! + +----+----+-----+ +---- + + !Dist ICA !91.1!29.1!60 !! ! ! + +----+----+-----+ +---- + + !Prox ECA !113 !17.3!60 !! ! ! + +----+----+-----+ +---- + + !Vertebral!52.6!16.9!60 !! ! ! + +----+----+-----+ +---- + + !Prox Subclavian!123 !7.07!60 !! ! ! + +----+----+-----+ +---- + + - Additional Measurements:ICAPSV/CCAPSV 1.03.ICAEDV/CCAEDV 0.97. Carotid Left Measurements + +----+----+-----+ +---- + + !Location !PSV !EDV !Angle!%Stenosis 2D!%Stenosis Doppler!Tortuosity ! + +----+----+-----+ +---- + + !Prox CCA !72.1!22.9!60 !! ! ! + +----+----+-----+ +---- + + !Dist CCA !89.1!29.3!60 !! ! ! + +----+----+-----+ +---- + + !Prox ICA !104 !35.2!60 !29% !<50% ! ! + +----+----+-----+ +---- + + !Dist ICA !152 !42.2!60 !! ! ! + +----+----+-----+ +---- + + !Prox ECA !79.2!8.79!60 !! ! ! + +----+----+-----+ +---- + + !Vertebral!43.6!12.6!60 !! ! ! + +----+----+-----+ +---- + + !Prox Subclavian!128 !11.8!60 !! ! ! + +----+----+-----+ +---- + + - Additional Measurements:ICAPSV/CCAPSV 1.71.ICAEDV/CCAEDV 1.84. Narrative Performed At [facility] - Carotid Duplex Study [facility] Demographics Patient Name ELIEZER EDWARDDate of Study04/12/2020 MAYA NARANJO [id number] 7 Visit Number [id number] Female Accession Number [id number] of Birth1950 [facility] [id number] Physician SonographerLuz Maria FoleyInterpreting Anca Rodriguez, Physician LÓPEZ Procedure Type of Study: Cerebral: Carotid, CAROTID DOPPLER, DEN ATERAL. Indications for Study:Rule out carotid artery stenosis. Patient Status:STAT. Study Location:Portable. Technical Quality:Adequate visualization . Procedure Note Interface, External Ris In - 04/12/2020 8:55 PM CDT [facility] - Carotid Duplex Study Demographics Patient Name ELIEZER EDWARD Da te of Study 04/12/2020 JOE Ag e 69 Visit Number [id number] Ge nder Female Accession Number [id number] Da te of 1950 Referring Aleks Bony [facility] Number [id number] Physician Car Salter Luz Maria Foley In terpreting Anca Rodriguez, Ph ysician MD Procedure Type of Study: Cerebral: Carotid, CAROTID DOPPLER, DEN ATERAL. Indications for Study:Rule out carotid a rtery stenosis. Patient Status:STAT. Study Location:Portable. Technical Quality:Adequate visualization . Impressions Right Impression 1. There is <50% diameter reduction (xiao roximately 34% by 2-D measurement) in the internal carotid artery with a pe ak velocity of 93.2 cm/sec and heterogeneous plaque. 2. The common and external carotid arter ies are within normal limits. 3. The vertebral artery flow is antegrad e and normal. 4. The subclavian artery is patent with normal triphasic flow and a velocity of 123 cm/sec. Left Impression 1. There is <50% diameter reduction (xiao roximately 29% by 2-D measurement) in the internal carotid artery with a pe ak velocity of 104 cm/sec and heterogeneous plaque. 2. The common and external carotid arter ies are within normal limits. 3. The vertebral artery flow is antegrad e and normal. 4. The subclavian artery is patent with normal triphasic flow and a velocity of 128 cm/sec. Conclusions Summary Carotid duplex scanning and color flow imaging were performed bilaterally. The arteries were adequately visualized . The bilateral internal carotid arteries had <50% hemodynamically insig nificant stenosis (approximately 34% by 2-D measurement on the right, ap proximately 29% by 2-D measurement on the left) with heterogeneous plaque. The vertebral artery flow was antegrade and normal bilaterally. The s ubclavian arteries were patent with normal flow bilaterally where visualize d. Signature Velocities are measured in cm/s ; Diamet ers are measured in cm Carotid Right Measurements + +----+----+-----+------- -----+ + + !Location !PSV !EDV !Angle!%Stenos is 2D!%Stenosis Doppler!Tortuosity ! + +----+----+-----+------- -----+ + + !Prox CCA !107 !29.9!60 ! ! ! ! + +----+----+-----+------- -----+ + + !Dist CCA !90.4!22 !60 ! ! ! ! + +----+----+-----+------- -----+ + + !Prox ICA !93.2!28.1!60 !34% !<50% ! ! + +----+----+-----+------- -----+ + + !Dist ICA !91.1!29.1!60 ! ! ! ! + +----+----+-----+------- -----+ + + !Prox ECA !113 !17.3!60 ! ! ! ! + +----+----+-----+------- -----+ + + !Vertebral !52.6!16.9!60 ! ! ! ! + +----+----+-----+------- -----+ + + !Prox Subclavian!123 !7.07!60 ! ! ! ! + +----+----+-----+------- -----+ + + - Additional Measurements:ICAPSV/CCAPS V 1.03.ICAEDV/CCAEDV 0.97. Carotid Left Measurements + +----+----+-----+------- -----+ + + !Location !PSV !EDV !Angle!%Stenos is 2D!%Stenosis Doppler!Tortuosity ! + +----+----+-----+------- -----+ + + !Prox CCA !72.1!22.9!60 ! ! ! ! + +----+----+-----+------- -----+ + + !Dist CCA !89.1!29.3!60 ! ! ! ! + +----+----+-----+------- -----+ + + !Prox ICA !104 !35.2!60 !29% !<50% ! ! + +----+----+-----+------- -----+ + + !Dist ICA !152 !42.2!60 ! ! ! ! + +----+----+-----+------- -----+ + + !Prox ECA !79.2!8.79!60 ! ! ! ! + +----+----+-----+------- -----+ + + !Vertebral !43.6!12.6!60 ! ! ! ! + +----+----+-----+------- -----+ + + !Prox Subclavian!128 !11.8!60 ! ! ! ! + +----+----+-----+------- -----+ + + - Additional Measurements:ICAPSV/CCAPS V 1.71.ICAEDV/CCAEDV 1.84. Performing Organization Address City/[facility]ode Phone Number [facility] POC-Glucose meter (04/12/2020 11:55 AM CDT)Only the most recent of2 results within the time period is included. POC-Glucose Meter 99Comment: : TESTED AT 70 - 110 mg/dL [address], [address]: Ornamenter Hand/Quality Improvement Consultant ID = [id number] for Keri De Jesus Specimen Blood Performing Organization Address [facility] Cent[facility]ode Phone Number [address] [address] CENTER RPR (04/12/2020 5:36 AM CDT) RPR Nonreactive Nonreactive [facility] Specimen Blood Performing Organization Address [facility] Phone Number [address] brain without IV contrast (04/12/2020 4:53 AM CDT) Specimen Narrative Performed At FINAL REPORT [facility] CT, BRAIN, WITHOUT CONTRAST CLINICAL INDICATION:Stroke, follow u p COMPARISON: None TECHNIQUE:Noncontrast axial CT imagi ng of the brain and skull. DOSE REDUCTION: Dose modulation, iterati ve reconstruction, and/or weight-based adjustment of the mA/kV was utilized to reduce the radiation dose to as low as reasonably a chievable. FINDINGS: No intracranial hemorrhage, midline shif t or mass effect. Midline structures are normally developed. Mild chronic microvascular ischemic changes of the periventricular and subcortical white matter are present. No hydrocephalus. Orbits are within normal limits. No obstructive paranasal sinus disease. IMPRESSION: No acute intracranial findings If there is persistent clinical concern for intracranial pathology, MR examination is recommended for furthe r characterization. Signed: Barber Groves MD Report Verified Date/Time:04/12/2020 07:16:16 Reading Location: [address] Room Procedure Note Interface, External Ris In - 04/12/2020 7:18 AM CDT FINAL REPORT CT, BRAIN, WITHOUT CONTRAST CLINICAL INDICATION: Stroke, follow up COMPARISON: None TECHNIQUE: Noncontrast axial CT imaging of the brain and skull. DOSE REDUCTION: Dose modulation, iterati ve reconstruction, and/or weight-based adjustment of the mA/kV was utilized to reduce the radiation dose to as low as reasonably a chievable. FINDINGS: No intracranial hemorrhage, midline shif t or mass effect. Midline structures are normally developed. Mild chronic microvascular ischemic changes of the periventricular and subcortical white matter are present. No hydrocephalus. Orbits are within normal limits. No obstructive paranasal sinus disease. IMPRESSION: No acute intracranial findings If there is persistent clinical concern for intracranial pathology, MR examination is recommended for furthe r characterization. Signed: Barber Groves MD Report Verified Date/Time: 04/12/2020 0 7:16:16 Reading Location: [address] Room Performing Organization Address City/State/Zipcode Phone Number [facility] 2D Echo W/Doppler(CW/PW/Color) (04/12/2020 4:08 AM CDT) Ejection Fraction [facility] Specimen Narrative Performed At Transthoracic Echocardiography Report (T TE) [facility] Demographics Patient Name ELIEZER EDWARD Date of Study 04/12/2020 JOE [id number] GenderFemale Visit Number [id number] RaceUnkn own [id number] Room Number [id number] Number Date of Birth1950 Referring Physician Bony Fink Age69 year(s) Car Salter Julien Lopezsherman graham InterpretingFlavio blevins, Physician Procedure Type of Study TTE procedure:2DECHO W DOPPLER(CW/PW/COLOR) (Routine) Indications:Suspected cardiac source of emboli. Clinical History HGB 12.5 HCT 36.9 % STROKE, HTN, ANEMIA Contrast Medium: Definity. Amount - 3 ml Height: 66 inches Weight: 91.63 kg (202 lbs) BSA: 2.01 m^2 BMI: 32.6 kg/m^2 HR: 58 bpm BP: 93/48 mmHg Summary 1. Normal LV size and function. LVEF is > 60% 2. Diastology: Indeterminate 3. Normal RV size and function 4. No significant valvular heart diseas e 5. Unable to estimate PASP 6. No pericardial effusion Previous Study No prior exam available for comparison. Signature Findings Technical Quality: Technically fair exam . Left Ventricle The left ventricle is chamber size (by PSLAX di mension) is normal (female - LVIDd 3.8-5 .2cm) . No rmal LV wall thickness. All of the LV se gments co ntract normally . Global LV systolic fun ction no rmal . LVEF by Ching's method of disk as sessment is normal (>60%) . The LVEF was measured us ing Ching's single plane method (apica l 4 ch sara) . LV endocardium is incompletely vi sualized despite IV ultrasound enhancing agent. Di astology: Indeterminate Left AtriumLA size is normal (16-34 ml/m2) . Right VentricleThe right ventricular chamber size and systolic fu nction are within normal limits. Right Atrium RA cavity size is normal . Atrial SeptumIV saline contrast injection was technically in adequate to detect a PFO (patent foramen ovale) at rest and post Valsalva . Aortic Valve Mild AoV cusp thickening. Mitral Valve Mild MV leaflet thickening. Tr mynor mitral regurgitation. Tricuspid ValveThe tricuspid valve is not well visualized. Un able to estimate peak systolic PA pressu re; in adequate TR velocity signal. Pulmonic Valve PV is not well visualized; function appears normal by Doppler visualized. AortaAortic root size (SInus of Valsalva diameter) i s no rmal . PericardiumNo significant pericardial effusion is visualized. IVC/SVC/PA/PV/PleuralThe estimated RA pressure by IVC dynamics 5-10mmHg . Chambers/Structures Left Atrium LA Volume: 45.58 mlLA Area: 17.2 cm^2 LA Vol. Index: 23 ml/m^2 Left Ventricle LVIDd: 4.73 cm LV Septum Diastolic: 1.01 cm LV PW Diastolic: 0.93 cm LVEDV Ching's:118.92 ml LV Length: 7 cm LVESV Ching's:43.46 ml LVEF Ching's: 63.5 %LVEDV I: 59 ml/m^2 LVESVI: 22 ml/m^2 LVOT Diameter: 2.13 cm Right Ventricle TAPSE: 1.65 cm Aorta Ao Root S of Nora.: 3.22 cm Doppler/Quantitative Measurements Mitral Valve MV Peak E-Wave: 0.77 m/sMV Peak A-Wave: 0.61 m/s E/A Ratio: 1. 25 Peak Gradient: 2.34 mmHg Deceleration Time: 228.7 msec MV Armond. Peak: Tissue Doppler E' Septal Velocity: 0.07 m/sE/E': 11.25 E' Lateral Velocity: 0.09 m/s Aortic Valve Peak Velocity: 1.11 m/s Mean Velocity: 0.79 m/s Peak Gradient: 4.93 mmHgMean Gradient: 2.8 mmHg AV Area (continuity): 2.99 cm^2 AV VTI: 26.63 cm AV DVI: 0.84 LVOT Peak Velocity: 0.91 m/s Peak Gradient: 3.31 mmHg Mean Velocity: 0.63 m/s Mean Gradient: 1.8 mmHg LVOT Diameter: 2.13 cmLVOT VTI: 22.37 cm LVOT Area: 3.56 cm^2LVOT SV:79.67 ml LVOT CO: 4.62 l/min LVOT CI: 2.3 l/min/m^2 Procedure Note Interface, External Ris In - 04/12/2020 5:42 PM CDT Transthoracic Echocardiography Report (TTE) Demographics Patient Name ELIEZER EDWARD e of Study 04/12/2020 JOE Gen solitario Female Visit Number [id number] Rac e Unknown [place] m Number [id number] Number Date of 1950 Ref erring Physician Bony Fink Age 69 year(s) Son jose Sutherland Int erpreting Julieta Bazan MD Procedure Type of Study TTE procedure:2DECHO W DOPPLE R(CW/PW/COLOR) (Routine) Indications:Suspected cardiac source of emboli. Clinical History HGB 12.5 HCT 36.9 % STROKE, HTN, ANEMIA Contrast Medium: Definity. Amount - 3 ml Height: 66 inches Weight: 91.63 kg (202 lbs) BSA: 2.01 m^2 BMI: 32.6 kg/m^2 HR: 58 bpm BP: 93/48 mmHg Summary 1. Normal LV size and function. LVEF is > 60% 2. Diastology: Indeterminate 3. Normal RV size and function 4. No significant valvular heart diseas e 5. Unable to estimate PASP 6. No pericardial effusion Previous Study No prior exam available for comparison. Signature Findings Technical Quality: Technically fair exam . Left Ventricle The left ventric le is chamber size (by PSLAX dimension) is no rmal (female - LVIDd 3.8-5.2cm) . Normal LV wall t hickness. All of the LV segments contract normall y . Global LV systolic function normal . LVEF by Ching's method of disk assessment is no rmal (>60%) . The LVEF was measured using Ching's single plane method (apical 4 chamber) . LV en docardium is incompletely visualized despi te IV ultrasound enhancing agent. Diastology: Inde terminate Left Atrium LA size is christal l (16-34 ml/m2) . Right Ventricle The right ventri cular chamber size and systolic function are wit hin normal limits. Right Atrium RA cavity size i s normal . Atrial Septum IV saline contra st injection was technically inadequate to de tect a PFO (patent foramen ovale) at rest and post Valsalva . Aortic Valve Mild AoV cusp th ickening. Mitral Valve Mild MV leaflet thickening. Trace mitral reg urgitation. Tricuspid Valve The tricuspid va lve is not well visualized. Unable to estima te peak systolic PA pressure; inadequate TR ve locity signal. Pulmonic Valve PV is not well v isualized; function appears normal by Doppler visua lized. Aorta Aortic root size (SInus of Valsalva diameter) is normal . Pericardium No significant p ericardial effusion is visualized. IVC/SVC/PA/PV/Pleural The estimated RA pressure by IVC dynamics 5-10mmHg . Chambers/Structures Left Atrium LA Volume: 45.58 ml LA Area: 17.2 cm^2 LA Vol. Index: 23 ml/m^2 Left Ventricle LVIDd: 4.73 cm LV Septum Diastolic: 1.01 cm LV PW Diastolic: 0.93 cm LVEDV Ching's:118.92 ml LV Length: 7 cm LVESV Ching's:43.46 ml LVEF Ching's: 63.5 % LVEDVI: 59 ml/m^2 LVESVI: 22 ml/m^2 LVOT Diameter: 2.13 cm Right Ventricle TAPSE: 1.65 cm Aorta Ao Root S of Nora.: 3.22 cm Doppler/Quantitative Measurements Mitral Valve MV Peak E-Wave: 0.77 m/s M V Peak A-Wave: 0.61 m/s E /A Ratio: 1.25 P eak Gradient: 2.34 mmHg D eceleration Time: 228.7 msec MV Armond. Peak: Tissue Doppler E' Septal Velocity: 0.07 m/s E /E': 11.25 E' Lateral Velocity: 0.09 m/s Aortic Valve Peak Velocity: 1.11 m/s Mean Velocity: 0.79 m/s Peak Gradient: 4.93 mmHg Mean Gradient: 2.8 mmHg AV Area (continuity): 2.99 cm^2 AV VTI: 26.63 cm AV DVI: 0.84 LVOT Peak Velocity: 0.91 m/s Pea k Gradient: 3.31 mmHg Mean Velocity: 0.63 m/s Evelyn n Gradient: 1.8 mmHg LVOT Diameter: 2.13 cm LVO T VTI: 22.37 cm LVOT Area: 3.56 cm^2 LVO T SV:79.67 ml LVOT CO: 4.62 l/min LVO T CI: 2.3 l/min/m^2 Performing Organization Address City/[facility] Cent[facility]ode Phone Number [facility] TSH/Free T4 If Indicated (04/12/2020 3:52 AM CDT) TSH 1.689 0.350 - 4.940 uIU/mL [facility] Specimen Blood Narrative Performed At Ornamenter Hand ID - [facility] Performing Organization Address City/[facility]/Zipcode Phone Number [facility] [address] [place] [address] CENTER PT/aPTT (04/12/2020 3:52 AM CDT) Protime 14.1 11.9 - 14.2 seconds [facility] INR 1.12 <=5.90 [facility] PTT 43.9 (H) 22.5 - 36.0 seconds [facility] Specimen Blood Narrative Performed At Effective 12/06/2018: PT Reference Range [facility] Change New: 11.9-14.2Previous: 11.7-14.7 RECOMMENDED COUMADIN/WARFARIN INR THERAPY RANGES STANDARD DOSE: 2.0-3.0Includes: PROPHYLAXIS for venous thrombosis, systemic embolization; TREATMENT for venous thrombosis and/or pulmonary embolus. HIGH RISK: Target INR is 2.5-3.5 for patients wiht mechanical heart valves. Performing Organization Address City/State/Zipcode Phone Number [facility] [address] [place] [address] CENTER CBC with platelet count + automated diff (04/12/2020 3:52 AM CDT)Only the most recent of2 resultswithin the time period is included. WBC 6.1 3.5 - 10.5 K/L [facility] RBC 3.69 (L) 3.93 - 5.22 M/L [facility] Hemoglobin 11.4 11.2 - 15.7 GM/DL [facility] Hematocrit 33.5 (L) 34.1 - 44.9 % [facility] HEALTH RESOURCES MCV 90.8 79.4 - 94.8 fL [facility] MCH 30.9 25.6 - 32.2 pg [facility] MCHC 34.0 32.2 - 35.5 GM/DL [facility] RDW 12.0 11.7 - 14.4 % [facility] Platelets 341 150 - 450 K/CU MM [facility] MPV 9.0 (L) 9.4 - 12.3 fL [facility] nRBC 0 0 - 0 /100 WBC [facility] % Neutros 60 % [facility] % Lymphs 27 % [facility] % Monos 9 % [facility] % Eos 4 % [facility] % Baso 1 % [facility] # Neutros 3.62 1.56 - 6.13 K/L [facility] # Lymphs 1.62 1.18 - 3.74 K/L [facility] # Monos 0.55 (H) 0.24 - 0.36 K/L [facility] # Eos 0.24 0.04 - 0.36 K/L [facility] # Baso 0.05 0.01 - 0.08 K/L [facility] Immature Granulocytes-Relative 0 0 - 1 % C [facility] Specimen Blood Performing Organization Address [facility] [place] [address] CENTER Phosphorus (04/12/2020 3:52 AM CDT) Phosphorus 3.6Comment: Specimen slightly 2.3 - 4.7 mg/dL [facility] Spec[facility] Blood Narrative Performed At Ornamenter Hand ID - PINANDO L [facility] Performing Organization Address [facility] Centerc[place] [address] CENTER Magnesium (04/12/2020 3:52 AM CDT) Magnesium 2.0Comment: Specimen slightly 1.6 - 2.6 mg/dL [facility] Specimen Blood Narrative Performed At Ornamenter Hand ID - PINANDO L [facility] Performing Organization Address City/[facility]/Zipcode Phone Number [address] [address] CENTER Homocysteine (04/12/2020 3:52 AM CDT) Homocysteine 5.8 5.1 - 15.4 umol/L [facility] Specimen Blood Narrative Performed At Ornamenter Hand ID - LELAND L [facility] Performing Organization Address City/State/Zipcode Phone Number [address] [phone] [place] Hemoglobin A1c (04/12/2020 3:52 AM CDT) Hemoglobin A1C 5.7 4.3 - 6.1 % [facility] Specimen Blood Performing Organization Address City/[facility] Centercode Phone Number [address] [phone] [place] Lipid panel (04/12/2020 3:52 AM CDT) Triglycerides 51Comment: Specimen slightly mg/dL [facility] Cholesterol 152Comment: Specimen slightly mg/dL [facility] HDL 68 mg/dL [facility] LDL Calculated 74 mg/dL [facility] Specimen Blood Narrative Performed At Triglyceride Reference Range: [facility] Low Risk <150 [id number] High Risk 200-499 Very High Risk>=500 Cholesterol Reference Range: Low Risk <200 Hiotnqsszm639-455 High Risk>240 HDL Cholesterol Reference Range: Low Risk >=60 High Risk <40 LDL Cholesterol Reference Range: Optimal<100 Near Fhkegtb032-303 Wsnesguozb310-726 Yjcy257-015 Very High >=190 Ornamenter Hand ID - PIAYA L Performing Organization Address [facility] Centercode Phone Number [address] [phone] [place] Basic Metabolic Panel (04/12/2020 3:52 AM CDT)Only the most recent of2 results within the time period is included. Sodium 123 (L) 136 - 145 meq/L [facility] Potassium 4.3Comment: Specimen slightly 3.5 - 5.1 meq/L [facility] Chloride 93 (L) 98 - 107 meq/L [facility] CO2 24 22 - 29 meq/L [facility] BUN 7 7 - 21 mg/dL [facility] Creatinine 0.67Comment: Specimen 0.57 - 1.25 mg/dL [facility] slightly hemolyzed [facility] Glucose 97 70 - 105 mg/dL [facility] Calcium 8.1 (L) 8.4 - 10.2 mg/dL [facility] EGFR 88Comment: ESTIMATED GFR IS mL/min/1.73 sq m [facility] NOT ACCURATE CREATININE [facility] CLEARANCE IN PREDICTING GLOMERULAR FILTRATION RATE. ESTIMATED GFR IS NOT APPLICABLE FOR DIALYSIS PATIENTS. Specimen Blood Narrative Performed At Ornamenter Hand ID - PIAYA L [facility] Performing Organization Address City/[facility] Centercode Phone Number [address] [address] CENTER Troponin I (04/11/2020 11:20 PM CDT)Only the most recent of2 resultswithin the time period is included. Troponin I <0.01 0.00 - 0.03 ng/mL [facility] Specimen Blood Narrative Performed At Troponin I (TnI) levels must be interpreted [facility] in the context of the presenting symptoms and the clinical findings. Elevated TnI levels indicate myocardial damage, but are not specific for ischemic heart disease. Elevated TnI levels are seen in patients with other cardiac conditions (including myocarditis and congestive heart failure), and slight TnI elevations occur in patients with other conditions, including sepsis, renal failure, acidosis, acute neurological disease, and persistent tachyarrhythmia. Ornamenter Hand ID - PIAYA L Performing Organization Address City/[facility]/Zipcode Phone Number [address] [address] CENTER SARS-CoV2/RT-PCR (HS & Ref Labs) (04/11/2020 6:25 PM CDT) SARS-COV2/RT-PCR Negative Not Detected, Negative, [facility] See external report for MEDICAL CENTER linked test SARS-COV-[address] [facility] STEVEN [facility] Specimen Other Narrative Performed At Negative result for this test determines that [facility] SARS-CoV-2 RNA was not present in the specimen above the Limit of Detection (LOD).However, Negative results do not preclude SARS-CoV-2 infection and should not be used as the sole basis for treatment or patient management decisions. Negative results must be combined with clinical observations, patient history, and epidemiological information. A false negative result may occur if a specimen is improperly collected, transported or handled.A false negative result should be considered if patient's recent exposures or clinical presentation indicate that COVID-19 (SARS-CoV-2) is likely and diagnostic tests for other causes of illness are negative.Re-testing should be considered in cases of suspected false negatives. The limit of detection for this assay is 800 copies/mL. This SARS CoV-2 test is a real-time RT-PCR test intended for the qualitative detection of nucleic acid from SARS-CoV-2 in a nasopharyngeal swab specimen collected from individuals suspected of COVID-19 by their healthcare provider. This test has not been Food and Drug Administration (FDA) cleared or approved.This is a modified version of an approved Emergency Use Authorization (EUA) and is in the process of review by the FDA. Once authorized by the FDA, the issued EUA will be effective until the declaration that circumstances exist justifying the authorization of the emergency use of in vitro diagnostic tests for detection and/or diagnosis of COVID-19 is terminated under Section 564(b)(2) of the Act or the EUA is revoked under Section 564(g) of the Act. Fact Sheet for Healthcare Providers: https://www.[employer].com/sites/default/files/pro duct/documents/Fact_Sheet_HC_Providers_Lyra_SA RS-CoV-2.pdf Fact Sheet for Healthcare Patients: https://www.[employer]/sites/default/files/pro duct/documents/Fact_Sheet_Patients_Lyra_SARS-C oV-2.pdf Performing Laboratory: [address] [place] [address] Performing Organization Address City/[facility]/Zipcode Phone Number [facility] [address] [place] [address] CENTER Vitamin B12 and Folate (04/11/2020 3:27 PM CDT) Vitamin B12 1,210 (H) 213 - 816 pg/mL [facility] Folate 18.10 >=7.00 ng/mL [facility] Specimen Blood Narrative Performed At Ornamenter Hand ID - DB [facility] Performing Organization Address [facility] Centercode Phone Number [facility] [address] [place], [place] [phone] [place] after 04/16/2019 Insurance Payer Benefit Plan / Group Subscriber ID Type Phone A ddress MEDICARE MEDICARE A B xxxxxxxxxxx Medicare MCR GENERIC MEDICARE xxxxxxxxxxxx Medigap SUPPLEMENT/INDIVIDU SUPPLEMENT AL CDC REVIEW CDC REVIEW xxxxxxxx [address] [place] [place] [address] (Home) [place] [address] Advance Directives For more information, please contact:[address] [phone] Code Status Date Activated Date Inactivated Comments Full Code 04/11/2020 2:26 PM 04/12/2020 8:13 PM This code status was determined by: Patient
--- OUTSIDE RECORDS SUMMARY | 2020-04-16 19:35 | XMS REPORT ---
:1950 Author Organization [employer] Care Team Providers Name Role Phone Luh Larios Provider Role Unavailable Allergies, Adverse Reactions, Alerts Substance Reaction Event Type Bactrim rash Drug Allergy Problems Problem Type Condition Code Onset Dates Condition Statu s Assessment Abnormal mammogram of both breasts R92.8 Active Assessment Status post fall Z91.81 Active Problem Complete loss of teeth, unspecified K08.109 Active cause, unspecified class Problem Other seasonal allergic rhinitis J30.2 Active Problem Herpes zoster without complication B02.9 Active Problem Bipolar affective disorder F31.9 A ctive Problem Hydronephrosis N13.30 Active Problem Benign hypertension I10 Active Problem Neuropathic pain of both feet G57.93 Active Problem History of pneumonia Z87.01 Active Problem Gastro-esophageal reflux disease K21.9 Active without esophagitis Problem Hospital discharge follow-up Z09 Active Problem Cough R05 Active Problem Pneumonia due to infectious J18.9 Active organism, unspecified laterality, unspecified part of lung Problem Pyelonephritis N12 Active Problem Aspiration pneumonia of right upper J69.0 Active lobe, unspecified aspiration pneumonia type Problem Intermittent lightheadedness R42 Active Problem Acute myocardial infarction, I21.9 Active unspecified Problem Encounter to establish care Z76.89 Active Problem Anemia D64.9 Active Problem Dysuria R30.0 Active Problem 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 Problem UTI (lower urinary tract infection) N39.0 Active Problem Non-intractable vomiting with R11.2 Active nausea, unspecified vomiting type Problem Vaginal dryness, menopausal N95.1 Active Problem Essential hypertension I10 Activ e Problem Nocturnal leg cramps G47.62 Active Problem Pain in female genitalia on N94.10 Active intercourse Problem Primary insomnia F51.01 Active Problem History of coronary artery disease Z86.79 Active Problem Obstructive sleep apnea syndrome G47.33 Active Problem Gastroesophageal reflux disease K21.9 Active without esophagitis Medications Medication Code Code Instructions Start End Status Dosage System Date Date Calcium NDC 34385980464 600 MG Orally Active 1 tabl et Carbonate Three times a day Centrum Silver [facility] 89676318759 - 1 Orally Active no t Ultra Womens daily defined Eszopiclone [facility] 72408067465 3 MG Oral Active (Sched ule IV Drug) TAKE 1 TABLET BY MOUTH EVERY DAY AT BEDTIME NEEDED Pantoprazole [facility] 00614380408 40 MG Orally Active 1 tablet Sodium Once a day Valtrex [facility] 80190727594 1 GM Orally Active 1 tablet Once a day Trileptal [facility] 49876658144 300 MG Orally 3 Active 1 tablet times a day Vitamin C [facility] [address]-61 Active not defined Iron [facility] 60073038458 325 (65 Fe) MG Active 1 tab let Orally Once a day Probiotic [facility] 46959-23344 Active not defined Metoprolol [facility] 77199787920 25 MG Orally Sep 05, Active 1 ta blet Succinate ER Once a day 2019 Ondansetron HCl [facility] 06912253881 8 MG Orally September Active 1 tablet Once a day 2019 as needed Valacyclovir [facility] 13555837210 1 GM Active TAKE 1 HCl TABLET BY MOUTH EVERY DAY Lyrica [facility] 29385796219 150 Orally Active 1 capsule Three times a day ProAir HFA [facility] 16727371312 108 (90 Base) Jun 21, Active 2 p uffs as MCG/ACT 2017 needed Inhalation every 6 hrs Results No Known Results Summary Purpose eClinicalWorks Submission
--- OUTSIDE RECORDS SUMMARY | 2020-04-16 19:35 | XMS REPORT | Continuity of Care Document ---
:1950 Author Organization [facility] t Address [address] [place] [address] Care Team Providers Name Role Phone Patricia Mayfield Primary Care Physician DOMINGO FINK Attending Clinician Unavailable Domingo Fink MD Attending Clinician James LÓPEZ Attending Clinician Doctor Unassigned, Name Attending Clinician Unavailable Cierra LÓPEZ S Attending Clinician DOMINGO FINK Admitting Clinician Unavailable Payers Payer Name Policy Policy Number Effective Expiration Source Type Date Date MEDICAREMEDICARE A xxxxxxxxxxx [facility] SUPP[facility]/INDIVIDUALGENERIC [facility] - MEDICARE Medical SUPPLEMENTxxxxxxxxxxxx[facility] CDC REVIEWCDC REVIEWxxxxxxxxPO xxxxx[place] [address] [facility] Problems Condition Condition Condition Status Onset Resolution Last Treating Co mments Source Name Details Category Date Date Treatment Clinician Date Chronic Chronic Disease Active 2019-[address] [facility] hyponatrem hyponatrem 0-03 Gertrude kes - ia ia 00:00: Medical 00 [place] Bipolar 1 Bipolar 1 Disease Active 2019-[address] [facility] disorder disorder 0-03 [facility] - 00:[facility]: Medical 00 [place] Stroke Stroke Disease Active 2019-[address] [facility] [address] (cerebrum) (cerebrum) 0-02 Gertrude kes - 00:00: Medical 00 Center Essential Essential Disease Active 2019-[address] [facility] [facility] hypertensi hypertensi 0-02 Gertrude kes - on on 00:00: Medical 00 [place] Anemia Anemia Disease Active 2019-[address] [facility] 0-02 [facility] - 00[facility] Medical 00 Center S/P admn S/P admn Disease Active 2019-07 [facility] tPA in tPA in 0-02 [facility] - diff fac diff fac 00:00: Medica l w/n last w/n last Center 24 hr bef 24 hr bef adm to adm to crnt fac crnt fac Herpes Herpes Problem Active [facility] zoster [...] Gertrude kes - on on Memoria l Outpati ent Clinics Acute Acute Problem Active [facility] myocardial myocardial Gertrude kes - infarction infarction Me moria , , l unspecifie unspecifie Ou tpati d d ent Clinics Intermitte Intermitte Problem Active [facility] nt nt [facility] - lightheade lightheade Me moria dness dness l Outpati ent Clinics Pain in Pain in Problem Active [facility] female female [facility] - genitalia genitalia Prem noé on on l intercours intercours Ou tpati e e ent Clinics Vaginal Vaginal Problem Active [facility] dryness, dryness, [facility]ukes - menopausal menopausal Me moria l [facility] ent Clinics Primary Primary Problem Active [facility] insomnia insomnia [facility] - Memoria l [facility] Obstructiv Obstructiv Problem Active [facility] e sleep e sleep [facility] - apnea apnea Memoria syndrome syndrome l [facility] History of History of Problem Active [facility] coronary coronary [facility] - artery artery Memoria disease disease l [facility] History of History of Problem Active [facility] pneumonia pneumonia Luke s - Memoria l [facility] Hospital Hospital Problem Active [facility] discharge discharge Luke s - follow-up follow-up Prem noé l [facility] Cough Cough Problem Active [facility] Pneumonia Pneumonia Problem Active [facility] due [...] both feet both feet Prem noé l [facility] Benign Benign Problem Active [facility] essential [...] - tract tract Memoria infection) infection) l [facility] Dysuria Dysuria Problem Active [facility] Clinics Pyelonephr Pyelonephr Problem Active [facility] itis itis [facility] - Memoria l [facility] Aspiration Aspiration Problem Active C [facility] pneumonia pneumonia Luke s - of right of right Memori a upper upper l lobe, lobe, Outpati unspecifie unspecifie en t d d Clinics aspiration aspiration pneumonia pneumonia type type Abnormal Abnormal Diagnosis Active [facility] mammogram mammogram Luke s - of both of both Memoria breasts breasts l [facility] Status Status Diagnosis Active [facility] post fall post fall Luke s - Memoria l [facility] Clinics Encounter Encounter Problem Active [facility] to to [facility] - establish establish Prem [facility] care care [facility] Allergies, Adverse Reactions, Alerts Allergy Allergy Status Severity Reaction(s) Onset Inactive Treating Comm ents Source Name Type Date Date Clinician Que Adverse Active rash [facility] Reaction [facility] Social History Social Habit Start Date Stop Date Quantity Comments Source Sex Assigned At [facility] Medications Ordered Filled Start Stop Current Ordering Indication Dosage Frequency Signature Comments Components Source Medication Medication Date Date Medication? Clinician (SIG) Name Name Ondansetron Ondansetron Yes Luh [address] [address] HCl HCl 3-03 [place] as needed [facility] - 00:00: Memoria [facility] Metoprolol Metoprolol Yes Luh [address] Succinate Succinate 2-26 [place] Luke s - ER ER 00:00: Memoria [facility] metoprolol Yes [address] succinate 2-21 [facility] - (TOPROL-XL) 00:00: Medica l 25 MG 24 hr 00 Center tablet pregabalin Yes THREE [facility] (LYRICA) 8-22 TIMES A [facility] - 100 MG 00:00: DAY Medical capsule 00 [place] ProAir HFA ProAir HFA 2017-07 Yes Luh [address] [facility] 2-12 [place] needed [facility] - 00:00: Memoria 00 [facility] pantoprazol Yes DAILY AT [facility] e 5-22 0630 [facility] - 00:00: Medical 00 [place] eszopiclone Yes AT BEDTIME [facility] 3 mg tablet 5-21 [facility] - 00:00: Medical 00 [place] OXcarbazepi Yes DAILY [facility] t ne 5-21 [facility] - (TRILEPTAL) 00:00: Medica l 150 MG 00 Center tablet OXcarbazepi Yes AT BEDTIME [facility] ne 5-21 [facility] - (TRILEPTAL) 00:00: Medica l 150 MG 00 [place] tablet Vitamin C Vitamin C Yes Luh not [facility] [place] [facility] Trileptal Trileptal Yes Luh [address] [place] [facility] - [facility] Calcium Calcium Yes Luh [address] Carbonate Carbonate [place] Luke s - Memoria l Outpati ent Clinics Eszopiclone Eszopiclone Yes Luh (Schedule [facility] [place] IV Drug) Lukes - TAKE 1 Memoria TABLET BY l MOUTH Outpati EVERY DAY ent AT BEDTIME Clinics NEEDED Pantoprazol Pantoprazol Yes Luh [address] e Sodium e Sodium [place] [facility] - [facility] Iron Iron Yes Luh [address] [place] [facility] - Memoria l Outpati ent Clinics Valacyclovi Valacyclovi Yes Luh TAKE [address] [facility] r HCl r HCl [place] TABLET BY [facility]ukes - MOUTH Memoria EVERY DAY l Outpati ent Clinics Centrum Centrum Yes Luh not [facility] Silver Silver [place] defined [facility]ukes - Ultra Ultra Memoria Womens Womens l [facility] Clinics Probiotic Probiotic Yes Luh not [facility] [place] defined [facility] - Memoria l Outpati ent Clinics Lyrica Lyrica Yes Luh 1 capsule [facility] t [place] [facility] - [facility] Vital Signs Vital Name Observation Time Observation Value Comments Source Systolic blood 2020-04-12 17:07:00 119 mm[Hg] [facility] Diastolic blood 2020-04-12 17:07:00 60 mm[Hg] [facility] Heart rate 2020-04-12 17:07:00 79 /min [facility] Respiratory rate 2020-04-12 17:07:00 17 /min [facility] Oxygen saturation in 2020-04-12 17:07:00 97 /min [facility] Arterial blood by Medical Ce nter Pulse oximetry Body temperature 2020-04-12 16:00:00 36.56 Karolyn [facility] Body height 2020-04-12 08:00:00 154.9 cm [facility] Body weight Measured 2020-04-12 08:00:00 92 kg [facility] BMI 2020-04-12 08:00:00 38.32 kg/m2 [facility] Procedures Procedure Date / Time Performed Performing Clinician Manuel e RHYTHM STRIP - SCAN 2020-04-14 13:40:14 Provider, Default [facility] CAROTID DOPPLER 2020-04-12 14:00:00 Gavin Menezes [facility] POCT-GLUCOSE METER 2020-04-12 11:55:00 [facility] 2020-04-12 05:36:00 Gavin Menezes [facility] CT BRAIN WITHOUT IV 2020-04-12 04:53:[address] [facility] CONTRAST [facility] 2D ECHO W/ DOPPLER 2020-04-12 04:08:44 Gavin Menezes [facility] S t [facility] (CW/PW/COLOR) [facility] LIPID PANEL 2020-04-12 03:52:00 Gavin Menezes [facility] HEMOGLOBIN A1C 2020-04-12 03:52:00 Gavin Menezes [facility] TSH/FREE T4 IF INDICATED 2020-04-12 03:52:00 Gavin Menezes [facility] HOMOCYSTEINE 2020-04-12 03:52:00 Gavin Menezes [facility] BASIC METABOLIC PANEL 2020-04-12 03:52:00 Gavin Menezes I [facility] (7) [facility] MAGNESIUM 2020-04-12 03:52:00 Gavin Menezes [facility] PHOSPHORUS 2020-04-12 03:52:00 Gavin Menezes [facility] PT/APTT 2020-04-12 03:52:00 Gavin Menezes [facility] CBC W/PLT COUNT & AUTO 2020-04-12 03:52:00 Gavin Menezes HI [facility] TROPONIN I 2020-04-11 23:20:00 Gavin Menezes [facility] POCT-GLUCOSE METER 2020-04-11 22:34:00 Ale[facility] SARS-COV2/RT-PCR ([facility] & 2020-04-11 18:25:00 Gavin Menezes [facility] - REF LABS) Medical Center TROPONIN I 2020-04-11 15:56:[address] [facility] VITAMIN B12 AND FOLATE 2020-04-11 15:27:00 Gavin Menezes HI [facility] BASIC METABOLIC PANEL 2020-04-11 15:26:00 Gavin Menezes CH I [facility] (7) [facility] CBC W/PLT COUNT & AUTO 2020-04-11 15:26:00 Gavin Menezes HI [facility] Plan of Care Planned Activity Planned Date Details Comments Source Future Scheduled 2020-03-11 INFLUENZA VACCINE (#1) [facility] Test 00:00:00 [code = INFLUENZA Medical Ce nter VACCINE (#1)] Future Scheduled 2019-06-10 Medicare IPPE (WELCOME [facility] - Test 00:00:00 TO MEDICARE) [code = Medical Center Medicare IPPE (WELCOME TO MEDICARE)] Future Scheduled 2017 PNEUMOCOCCAL [address] - Test 00:00:00 LOW/MEDIUM RISK (1 of Medica l Center 2 - PCV13) [code = PNEUMOCOCCAL 65+ LOW/MEDIUM RISK (1 of 2 - PCV13)] Future Scheduled [address] [facility] - Test 00:00:00 [facility] breast (procedure) [code = 594763389] Future Scheduled [address] [facility] - Test 00:00:00 [facility] colon (procedure) [code = 238519106] Encounters Start End Encounter Admission Attending Care Care Encounter Source Date/Time Date/Time Type Type Clinicians Facility Department ID 2020-01-24 2020-01-24 [facility] [id number] 16:00:00 16:00:00 [facility] s [facility] Family Medicine l Medicine Outpati ent Clinics 2019-12-23 2019-12-23 Emergency James [facility] [id number] 13:12:31 15:41:00 Chencho Hatch [id number] [place] [id number] [place] [id number] 2019-12-23 2019-12-23 [facility] [id number] 00:00:00 00:00:00 Only Unassigned, ZULEMA [id number] [place] [address]686 [id number] 2019-11-06 2019-11-06 [facility] [id number] 10:20:00 10:20:00 [facility] Medicine Outpati ent Clinics 2019-10-10 2019-10-10 [facility] [id number] 15:00:00 15:00:00 [facility] Medicine Outpati ent Clinics 2019-09-26 2019-09-26 [facility] [id number] 13:23:00 13:23:00 [facility] Medicine Outpati ent Clinics 2019-09-18 2019-09-18 [facility] [id number] 10:00:00 10:00:00 [facility] Medicine Outpati ent Clinics 2019-09-11 2019-09-11 [facility] [id number] 13:00:00 13:00:00 [facility] Medicine Outpati ent Clinics 2019-09-05 2019-09-05 [facility] [id number] 11:26:00 11:26:00 [facility] Medicine Outpati ent Clinics 2019-08-31 2019-08-31 [facility] [id number] 10:40:00 10:40:00 [facility] Medicine Outpati ent Clinics 2019-08-23 2019-08-23 [place] [id number] 09:19:00 23:59:00 Encounter Fernando Hatch [id number] [place] [id number] 2019-08-07 2019-08-07 [facility] [id number] 10:40:00 10:40:00 t [facility] Medicine Medicine Outpati ent Clinics 2019-06-01 2019-06-01 [facility] [id number] 09:40:00 09:40:00 t [facility] Medicine Medicine Outpati ent Clinics 2019-04-13 2019-04-13 [facility] [id number] 10:00:00 10:00:00 t [facility] Medicine l Medicine Outpati ent Clinics 2019-03-26 2019-03-26 [facility] [id number] 15[facility]20:00 15:20:00 t [facility] Medicine Outpati ent Clinics 2019-03-01 2019-03-01 [facility] [id number] 08:20:00 08:20:00 t [facility] Medicine Medicine Outpati ent Clinics 2018-12-18 2018-12-18 [facility] [id number] 15:51:00 15:51:00 t [facility] Medicine Medicine Outpati ent Clinics 2018-12-18 2018-12-18 [facility] [id number] 10:15:00 10:15:00 t [facility] Medicine Medicine Outpati ent Clinics 2018-06-29 2018-06-29 [facility] [id number] 11:41:00 11:41:00 t [facility] Medicine l Medicine Outpati ent Clinics 2018-06-21 2018-06-21 [facility] [id number] 10:30:00 10:30:00 t [facility] Medicine l Medicine Outpati ent Clinics 2018-02-06 2018-02-06 [facility] [id number] 10:13:00 10:13:00 t [facility] Medicine l Medicine Outpati ent Clinics 2018-02-02 2018-02-02 [facility] [id number] 16:51:00 16:51:00 [facility] Outpati ent Clinics 2018-01-09 2018-01-09 [facility] [id number] 09:12:00 09:12:00 [facility] Outpati ent Clinics 2017-12-16 2017-12-16 [facility] [id number] 09:15:00 09:15:00 [facility] Outpati ent Clinics 2017-12-12 2017-12-12 [facility] [id number] 16:39:00 16:39:00 [facility] Clinics 2017-11-30 2017-11-30 Outpatient Bert Noelt [id number] 09:30:00 09:30:00 [facility] Clinics Results Test Description Test Time Test Comments Results Result Comments Source RPR 2020-04-14 11:59:00 Test Item Value Reference Range Interpretation Comme nts RPR (test code = 92305-3) Nonreactive Nonreactive Lab Interpretation (test code = 12578-3) [facility] 11:59:00 Test Item Value Reference Range Interpretation Comments RPR SCREEN (BEAKER) (test code = Nonreactive Nonreactive 420) Carotid doppler [id number] 20:54:56Ejection FractionSLE ECHO HEARTLAB MKCKESSON CPACSRight Impression1. There is <50% diameter reduction (approximately 34% by 2-D measurement)in the internal carotid artery with a peak velocity of 93.2 cm/sec andheterogeneous plaque.2. The common and external carotid arteries are within normal limits.3. The vertebral artery flow is antegrade and normal.4. The subclavian artery is patent with normaltriphasic flow and a velocityof 123 cm/sec.Left Impression1. There is <50% diameter reduction (approximately 29% by 2-D measurement)in the internal carotid artery with a peak velocity of 104 cm/sec andheterogeneous plaque.2. The common and external carotid arteries are within normal limits.3. The vertebral artery flow is antegrade and normal.4. The subclavian artery is patent with normal triphasic flow and a velocityof 128 cm/sec. Conclusions Summary Carotid duplex scanning and color flow imaging were performed bilaterally. The arteries were adequately visualized. The bilateral internal carotid arteries had <50% hemodynamically insignificant stenosis (approximately 34% by 2-D measurement on the right, approximately 29% by 2-D measurement on the left) with heterogeneous plaque. The vertebral artery flow was antegrade and normal bilaterally. The subclavian arteries were patent with normalflow bilaterally where visualized. Signature Velocities are measured in cm/s ;Diameters are measured in cm Carotid Right Measurements+ +----+----+-----+ + + +!Location !PSV !EDV !Angle!%Stenosis 2D!%Stenosis Doppler!Tortuosity !+ +----+----+-----+ + + +!Pr ox CCA !107 !29.9!60 ! ! ! !+ +----+----+-----+ + + +!Dist CCA !90.4!22 !60 ! ! ! !+ +----+----+-----+ + + +!Pr ox ICA !93.2!28.1!60 !34% !<50% ! !+ +----+----+-----+-------- ----+ + +!Dist ICA !91.1!29.1!60 ! ! ! !+ +----+----+-----+ + + +!Pr ox ECA !113 !17.3!60 ! ! ! !+ +----+----+-----+------- -----+ + +!Vertebral !52.6!16.9!60 ! ! ! !+ +----+----+-----+ + + +!Pr ox Subclavian!123 !7.07!60 ! ! ! !+ +----+----+-----+ + + + - Additional Measurements:ICAPSV/CCAPSV 1.03.ICAEDV/CCAEDV 0.97. Carotid Left Measurements+ +----+----+-----+ + +---- -------+!Location !PSV !EDV !Angle!%Stenosis 2D!%Stenosis Doppler!Tortuosity !+ +---- +----+-----+ + + +!Prox CCA !72.1!22.9!60 ! ! ! !+ +----+----+-----+ + +------- ----+!Dist CCA !89.1!29.3!60 ! ! ! !+ +--- -+----+-----+ + + +!Prox ICA !104 !35.2!60 !29%!<50% ! !+ +----+----+-----+ + +--- --------+!Dist ICA !152 !42.2!60 ! ! ! !+ +----+----+-----+ + + +!Prox ECA !79.2!8.79!60 ! ! ! !+ +----+----+-----+ + +-- ---------+!Vertebral !43.6!12.6!60 ! ! ! !+ -+----+----+-----+ + + +!Prox Subclavian!128 !11.8!60 ! ! ! !+ +----+----+-----+ + + + - Additional Measurements:ICAPSV/CCAPSV 1.71.ICAEDV/CCAEDV 1.84. 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 Indications for Study:Rule out carotid artery stenosis.Patient Status:STAT.Study Location:Portable.Technical Quality:Adequate visualization.ImpressionsRight Impression1. There is <50% diameter reduction (approximately 34% by 2-D measurement)in the internal carotid arterywith a peak velocity of 93.2 cm/sec andheterogeneous plaque.2. The common and external carotid arteries are within normal limits.3. The vertebral artery flow is antegrade and normal.4. The subclavian artery is patent with normal triphasic flow and a velocityof 123 cm/sec.Left Impression1. There is <50% diameter reduction (approximately 29% by 2-D measurement)in the internal carotid artery with a peak velocity of 104 cm/sec andheterogeneous plaque.2. The common and external carotid arteries are within normal limits.3. The vertebral artery flow is antegrade and normal.4. The subclavian artery is patent with normal triphasic flow and a velocityof 128 cm/sec. Conclusions Summary Carotid duplex scanning [...] were patent with normal flow bilaterally where visualized. Signature Velocities are measured in cm/s ; Diameters are measured in cmCarotid Right Measurements+ +---- +----+-----+ + + +!Location !PSV !EDV !Angle!%Stenosis 2D!%Stenosis Doppler!Tortuosity !+ +----+----+-----+ + +------- ----+!Prox CCA !107 !29.9!60 ! ! ! !+ +--- -+----+-----+ + + +!Dist CCA !90.4!22 !60 !! ! !+ +----+----+-----+ + +------ -----+!Prox ICA !93.2!28.1!60 !34% !<50% ! !+ +----+----+-----+ + + +!Dist ICA !91.1!29.1!60 ! ! ! !+ +----+----+-----+ + +-- ---------+!Prox ECA !113 !17.3!60 ! ! ! !+ -+----+----+-----+ + + +!Vertebral !52.6!16.9!60 ! ! ! !+ +----+----+-----+ + +- +!Prox Subclavian!123 !7.07!60 ! ! ! !+ --+----+----+-----+ + + + - Additional Measurements:ICAPSV/CCAPSV 1.03.ICAEDV/CCAEDV 0.97.Carotid Left Measurements+ +----+----+-----+ +--- + +!Location !PSV !EDV !Angle!%Stenosis 2D!%Stenosis Doppler!Tortuosity !+ +----+----+-----+ + + +!Pr ox CCA !72.1!22.9!60 ! ! ! !+ +----+----+-----+ +-- + +!Dist CCA !89.1!29.3!60 ! ! ! !+ +----+----+-----+ + + +!Pr ox ICA !104 !35.2!60 !29% !<50% ! !+ +----+----+-----+ -+ + +!Dist ICA !152 !42.2!60 ! ! ! !+ +----+----+-----+ + + +!Pr ox ECA !79.2!8.79!60 ! ! ! !+ +----+----+-----+ --+ + +!Vertebral !43.6!12.6!60 ! ! ! !+ +----+----+-----+ + + +!Pr ox Subclavian!128 !11.8!60 ! ! ! 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 Amount - 3 mlHeight: 66 inches Weight: 91.63 kg (202 lbs) BSA: 2.01 m^2 BMI:32.6 kg/m^2HR: 58 bpm BP: 93/48 mmHg Summary 1. Normal LV size and function. LVEF is > 60% 2. Diastology: Indeterminate 3. Normal RV size and function 4. No significant valvular heart disease 5. Unable to estimate PASP 6. No pericardial effusion Previous Study No prior exam available for comparison. Signature Electronically signedby Flavio Jorgensen MD(Interpreting physician) on 04/12/2020 05:42 PM Findings Technical Quality: Technically fair exam. Left Ventricle The left ventricle is chamber size (by PSLAX dimension) is normal (female - LVIDd 3.8-5.2cm) . Normal LV wall thickness. All of the LV segments contract normally . Global LV systolic function normal . LVEF by Ching's method of disk assessment is normal (>60%) . The LVEF wasmeasured using Ching's single plane method (apical 4chamber) . LV endocardium is incompletely visualized despite IV ultrasound enhancing agent. Diastology: Indeterminate Left Atrium LA size is normal (16-34 ml/m2) . Right Ventricle The right ventricular chamber size and systolic function are within normal limits. Right Atrium RA cavity size is normal .Atrial Septum IV saline contrast injection was technically inadequate to detect a PFO (patent foramen ovale) at rest and post Valsalva . Aortic Valve Mild AoV cusp thickening. Mitral Valve Mild MV leaflet thickening. Trace mitral regurgitation. Tricuspid Valve The tricuspid valve is not well vis ualized. Unable to estimate peak systolic PA pressure; inadequate TR velocity signal. Pulmonic Valve PV is not well visualized; function appears normal by Doppler visualized. Aorta Aortic root size (SInus of Valsalva diameter) is normal . Pericardium No significant pericardial effusion is visualized. IVC/SVC/PA/PV/Pleural The estimated RA [...] 3.22 cm Doppler/Quantitative Measurements Mitral Valve MV Maria Alejandra-Wave: 0.77 m/s MV Peak A-Wave: 0.61 m/s E/A Ratio: 1.25 Peak Gradient: 2.34 mmHg Deceleration Time: 228.7 msec MV Armond. Peak: Tissue Doppler E' Septal Velocity: 0.07 m/s E/E': 11.25 E' Lateral Velocity: 0.09 m/s Aortic Valve Peak Velocity: 1.11 m/s Mean Velocity: 0.79 m/s Peak Gradient: 4.93 mmHg Mean Gradient: 2.8 mmHg AV Area (continuity): 2.99 cm^2 AV VTI: 26.63 cm AV DVI: 0.84 LVOT Peak Velocity: 0.91 m/s Peak Gradient: 3.31 mmHg Mean Velocity: 0.63 m/s Mean Gradient: 1.8 mmHg LVOT Diameter: 2.13 cm LVOT VTI: 22.37 cm LVOT Area: 3.56 cm^2 LVOT SV:79.67 ml LVOT CO: 4.62 l/min LVOT CI: 2.3 l/min/m^2 [facility]-Glucose [id number] 12:12:00 Test Item Value Reference Range Interpretation Comments POC-Glucose Meter (test 99 mg/dL 70-110 : TE STED AT [facility] code = 1538) [address] [facility], 770 30: Customer Service Clerk/Techni marlene ID = [id number] for Arrey, Keri Lab Interpretation (test Normal code = 93911-9) [facility] Center[facility] [id number] 12:12:00 Test Item Value Reference Range Interpretation Comments POC-GLUCOSE METER 99 mg/dL 70-110 : TESTED A T [facility] 6720 (BEAKER) (test code = ENMA R [facility], 1538) [address]: Customer Service Clerk/Techni marlene ID = [id number] for Step toe, Keri Hemoglobin [id number] 10:55:00 Test Item Value Reference Range Interpretation Comments Hemoglobin A1C (test code = 4548-4) 5.7 % 4.3-6.1 Lab Interpretation (test code = Normal 67616-5) [facility] CenterHEMOGLOBIN [id number] 10:55:00 Test Item Value Reference Range Interpretation Comments HEMOGLOBIN A1C (BEAKER) (test code = 5.7 % 4.3-6.1 368) CT, BRAIN, WITHOUT [id number] 07:16:00Unlisted Reason for Exam - Click Yes and Enter Reason Below->NoFINAL REPORT CT, BRAIN, WITHOUT CONTRAST CLINICAL INDICATION: Stroke, followup COMPARISON: None TECHNIQUE: Noncontrast axial CT imaging of the brain and skull. DOSE REDUCTION: Dose modulation, iterative reconstruction, and/or weight-based adjustment of the mA/kV was utilizedto reduce the radiation dose to as low as reasonably achievable. FINDINGS:No intracranial hemorrhage, midline shift or mass effect. Midline structures are normally developed. Mild chronic microvascularischemic changes of the periventricular and subcortical white matter are present. No hydrocephalus. Orbits are within normal limits. No obstructive paranasal sinus disease. IMPRESSION: No acute intracranial findings If there is persistent clinical concern for intracranial pathology, MR examination isrecommended for further characterization. Signed: Barber [place]ves Verified Date/Time: 04/12/2020 07:16:16 Reading Location: [address] Neuro Reading [facility] without IV [id number] 07:16:00Interface, External Ris In - 04/12/2020 7:[address], BRAIN, WITHOUT CONTRAST CLINICAL INDICATION: Stroke, follow up COMPARISON: None TECHNIQUE: Noncontrast axial CT imaging of the brain and skull. DOSE REDUCTION: Dose modulation, iterative reconstruction, and/or weight-based adjustment of the mA/kV was utilized to reduce the radiation dose to as low as reasonably achievable. FINDINGS:No intracranial hemorrhage, midline shift or mass effect. Midline structures are normally developed. Mild chronic microvascular ischemic changes of the periventricular and subcortical white matter are present. No hydrocephalus. Orbits are within normal limits. No obstructive paranasal sinus disease. IMPRESSION: No acute intracranial findings If there is persistent clinical concern for intracranial pathology, MR examination is recommended for further characterization. Signed: Barber Groves Verified Date/Time: 04/12/2020 07:16:16 Reading Location: [address] Neuro [facility] CenterHomocysteine2020-10-03 06:22:00 Test Item Value Reference Range Interpretation Comments Homocysteine (test code = 5.8 umol/L 5.1-15.4 60534-1) ANGELA (test code = ANGELA) Customer Service Clerk ID - PIAYA L Lab Interpretation (test Normal code = 00571-7) [facility] CenterTSH/Free T4 If [id number] 06:22:00 Test Item Value Reference Range Interpretation Comments TSH (test code = 1.689 0.350- 4.940 uIU/mL 72719-5) ANGELA (test code = ANGELA) Customer Service Clerk ID - PIAYA L Lab Interpretation (test Normal code = 08918-6) [facility] CenterHOMOCYSTEINE2020-10-03 06:22:00 Test Item Value Reference Range Interpretation Comments HOMOCYSTEINE (BEAKER) (test code = 5.8 umol/L 5.1-15.4 642) Customer Service Clerk ID - PINANDO LTSH/FREE T4 IF [id number] 06:22:00 Test Item Value Reference Range Interpretation Comments THYROID STIMULATING HORMONE 1.689 uIU/mL 0.350-4.940 (DHEERAJ) (test code = 772) Customer Service Clerk ID - PINANDO LSARS-CoV2/RT-PCR ([facility])2020-04-12 05:40:00 Test Item Value Reference Range Interpretation Comments SARS-COV2/RT-PCR Negative Not Detected, (test code = Negative, See 84682-2) external report for linked test SARS-COV-2 [facility] STEVEN PERFORMING LAB (test code = 16425-6) ANGELA (test code = Negative result for this ANGELA) test determines that SARS-CoV-2 RNA was not present in the specimen above the Limit of Detection (LOD). However, Negative results do not preclude SARS-CoV-2 infection and should not be used as the sole basis for treatment or patient management decisions. Negative results must be combined with clinical observations, patient history, and epidemiological information. A false negative result may occur if a specimen is improperly collected, transported or handled. A false negative result should be considered if patient's recent exposures or clinical presentation indicate that COVID-19 (SARS-CoV-2) is likely and diagnostic tests for other causes of illness are negative. Re-testing should be considered in cases of suspected [...] Food and Drug Administration (FDA) cleared or approved. This is a modified version of an approved [...] of the Act. Fact Sheet for Healthcare Providers:https://www.JETME idel.[employer]/sites/default/f francie/product/documents/F act_Sheet_HC_Providers_L pix_TPBW-SaN-7.pdf Fact Sheet for Healthcare Patients:https://www.[employer]/sites/default/fi les/product/documents/Fa ct_Sheet_Patients_Lyra_S ARS-CoV-2.pdf Performing Laboratory:[facility] [place] [place] [address] [facility] ([facility])2020-04-12 05:40:00 Test Item Value Reference Range Interpretation Comments SARS-COV2/RT-PCR (test Negative Not Detected, Negative, code = 4377335) See external report for linked test SARS-COV-[address] [facility] STEVEN (test code = 1818771) Negative result for this test determines that SARS-CoV-2 RNA was not present in the specimen above the Limit of Detection (LOD). However, Negative results do not preclude SARS-CoV-2 infection and should not be used as the sole basis for treatment or patient management decisions. Negative results mustbe combined with clinical observations, patient history, and epidemiological information. A false negative result may occur if a specimen is improperly collected, transported or handled. A false negative result should be considered if patient's recent exposures or clinical presentation indicate that COVID-19 (SARS-CoV-2) is likely and diagnostic tests for other causes of illness are negative. Re-testing should be considered in cases of suspected false negatives.The limit of detection for this assay is 800 copies/mL.This SARS CoV-2 test is a real-time RT-PCR test intended for the qualitative detection of nucleic acid from SARS-CoV-2 in a nasopharyngeal swab specimen collected from individuals susp ected of COVID-19 by their healthcare provider.This test has not been Food and Drug Administration (FDA) cleared or approved. This is a modified version of an approved [...] is revoked under Section 564(g) of the Act.Fact Sheet for Healthcare Providers:https://www.[employer]/sites/default/files/product/documents/Fact_Shee h_PR_Awbdlypnp_Aien_OHAC-YlH-5.pdfFact Sheet for Healthcare Patients:https://www.[employer]/sites/default/files/product/ documents/Kpaw_Dxsdc_Ephrisna_Mqtr_TMEZ-GiM-4.pdfPerforming Laboratory:[facility], [place] [address]Djhwm Metabolic Panel 2020-04-12 05:12:00 Test Item Value Reference Range Interpretation Comments Sodium (test code = 123 meq/L 136-145 L 2951-2) Potassium (test code = 4.3 meq/L 3.5-5.1 Speci men slightly 2823-3) hemolyzed Chloride (test code = 93 meq/L 98-107 L 2075-0) CO2 (test code = 24 meq/L 22-29 2028-9) BUN (test code = 7 mg/dL 7-21 3094-0) Creatinine (test code 0.67 mg/dL 0.57-1.25 Specim en slightly = 2160-0) hemolyzed Glucose (test code = 97 mg/dL 70-105 2345-7) Calcium (test code = 8.1 mg/dL 8.4-10.2 L 01108-6) EGFR (test code = 88 mL/min/1.73 [place] [address]-0) NOT ACCURATE CREATININE CLEARANCE IN PREDICTING GLOMERULAR FILTRATION RATE . ESTIMATED GFR I S NOT APPLICABLE FOR DIALYSIS PATIENTS. ANGELA (test code = ANGELA) Customer Service Clerk ID - PIAYA L Lab Interpretation Abnormal (test code = 93984-4) [facility] CenterLipid [id number] 05:12:00 Test Item Value Reference Range Interpretation Comments Triglycerides (test 51 mg/dL Specimen code = 2571-8) slightly hemolyzed Cholesterol (test 152 mg/dL Specimen code = 2093-3) slightly hemolyzed HDL (test code = 68 mg/dL 2085-03) LDL Calculated (test 74 mg/dL code = 58366-1) ANGELA (test code = Triglyceride ANGELA) Reference Range: Low Risk <150 Borderline 150-199 High Risk 200-499 Very High Risk >=500 Cholesterol Reference Range: Low Risk <200 Borderline 200-239 High Risk >240 HDL Cholesterol Reference Range: Low Risk >=60 High Risk <40 LDL Cholesterol Reference Range: Optimal <100 Near Optimal 100-129 Borderline 130-159 High 160-189 Very High >=190 Customer Service Clerk ID - LELAND L [facility] 05:12:00 Test Item Value Reference Range Interpretation Comments Magnesium (test code = 2.0 mg/dL 1.6-2.6 Speci men 37610-0) slightly hemolyzed ANGELA (test code = ANGELA) Customer Service Clerk ID - LELAND L Lab Interpretation Normal (test code = 57329-8) [facility] CenterPhosphorus2020-10-03 05:12:00 Test Item Value Reference Range Interpretation Comments Phosphorus (test code 3.6 mg/dL 2.3-4.7 Specim en = 2777-1) slightly hemolyzed ANGELA (test code = ANGELA) Customer Service Clerk ID - LELAND L Lab Interpretation Normal (test code = 75052-3) [facility] 05:12[facility]00 Test Item Value Reference Range Interpretation Comments MAGNESIUM (BEAKER) 2.0 mg/dL 1.6-2.6 Specimen slightly (test code = 627) hemolyzed Customer Service Clerk ID - SHALINIAYA [id number] 05:12:00 Test Item Value Reference Range Interpretation Comments PHOSPHORUS (BEAKER) 3.6 mg/dL 2.3-4.7 Specimen slightly (test code = 604) hemolyzed Customer Service Clerk ID - SHALINIAYA LBASIC METABOLIC [id number] 05:12:00 Test Item Value Reference Range Interpretation Comments SODIUM (BEAKER) 123 meq/L 136-145 L (test code = 381) POTASSIUM (BEAKER) 4.3 meq/L 3.5-5.1 Specimen slightly (test code = 379) hemolyzed CHLORIDE (BEAKER) 93 meq/L 98-107 L (test code = 382) CO2 (BEAKER) (test 24 meq/L 22-29 code = 355) BLOOD UREA NITROGEN 7 mg/dL 7-21 (BEAKER) (test code = 354) CREATININE (BEAKER) 0.67 mg/dL 0.57-1.25 Specimen slightly (test code = 358) hemolyzed GLUCOSE RANDOM 97 mg/dL 70-105 (BEAKER) (test code = 652) CALCIUM (BEAKER) 8.1 mg/dL 8.4-10.2 L (test code = 697) EGFR (BEAKER) (test 88 mL/min/1.73 ESTIMA GREGG GFR IS code = 1092) sq m NOT ACCURATE CREATININE CLEARANCE IN PREDICTING GLOMERULAR FILTRATION RATE . ESTIMATED GFR I S NOT APPLICABLE FOR DIALYSIS PATIEN TS. Customer Service Clerk ID - PIAYA LLIPID [id number] 05:12:00 Test Item Value Reference Range Interpretation Comments TRIGLYCERIDES (BEAKER) 51 mg/dL Speci men slightly (test code = 540) hemolyzed CHOLESTEROL (BEAKER) 152 mg/dL Specime n slightly (test code = 631) hemolyzed HDL CHOLESTEROL (BEAKER) 68 mg/dL (test code = 976) LDL CHOLESTEROL 74 mg/dL CALCULATED (BEAKER) (test code = 633) Triglyceride Reference Range: Low Risk <150 Borderline 150-199 High Risk 200-499 Very High Risk >=500Cholesterol Reference Range: Low Risk <200 Borderline 200-239 High Risk >240HDL Cholesterol Reference Range: Low Risk >=60 High Risk <40LDL Cholesterol Reference Range: Optimal <100 Near Optimal 100-129 Borderline 130-159 High 160-189 Very High >=190 Customer Service Clerk ID - PIAYALPT/[id number] 04:15:00 Test Item Value Reference Range Interpretation Comments Protime (test code = 14.1 11.9- 14.2 5902-2) seconds INR (test code = 1.12 <=5.90 6301-6) PTT (test code = 43.9 22.5- 36.0 H 35696-2) seconds ANGELA (test code = ANGELA) Effective 12/06/2018: PT Reference Range ChangeNew: 11.9-14.2 Previous: 11.7-14.7 RECOMMENDED COUMADIN/WARFARIN INR THERAPY RANGESSTANDARD DOSE: 2.0-3.0 Includes: PROPHYLAXIS for venous thrombosis, systemic embolization; TREATMENT for venous thrombosis and/or pulmonary embolus.HIGH RISK: Target INR is 2.5-3.5 for patients wiht mechanical heart valves. Lab Interpretation Abnormal (test code = 97717-1) [facility] CenterPT/[id number] 04:15:00 Test Item Value Reference Range Interpretation Comments PROTIME (BEAKER) (test code = 14.1 seconds 11.9-14.2 759) INR (BEAKER) (test code = 370) 1.12 <=5.90 PARTIAL THROMBOPLASTIN TIME 43.9 seconds 22.5-36.0 H (BEAKER) (test code = 760) Effective 12/06/2018: PT Reference Range ChangeNew: 11.9-14.2 Previous: 11.7- 14.7RECOMMENDED COUMADIN/WARFARIN INR THERAPY RANGESSTANDARD DOSE: 2.0-3.0 Includes: PROPHYLAXIS for venous thrombosis, systemic embolization; TREATMENT for venous thrombosis and/or pulmonary embolus.HIGH RISK: Target INR is2.5-3.5 for patients wiht mechanical heart valves.CBC with platelet count + automated [id number] 04:06:00 Test Item Value Reference Range Interpretation Comments WBC (test code = 6690-2) 6.1 3.5- 10.5 K/L RBC (test code = 789-8) 3.69 3.93- 5.22 M/L L MCHC (test code = 786-4) 34.0 32.2- 35.5 GM/DL Hematocrit (test code = 4544-3) 33.5 % 34.1-44.9 L MCV (test code = 787-2) 90.8 fL 79.4-94.8 MCH (test code = 785-6) 30.9 pg 25.6-32.2 RDW (test code = 788-0) 12.0 % 11.7-14.4 Platelets (test code = 777-3) 341 150- 450 K/CU MM MPV (test code = 44081-4) 9.0 fL 9.4-12.3 L nRBC (test code = 413) 0 0- 0 /100 WBC % Neutros (test code = 429) 60 % % Lymphs (test code = 430) 27 % % Monos (test code = 431) 9 % % Eos (test code = 432) 4 % % Baso (test code = 437) 1 % # Neutros (test code = 670) 3.62 1.56- 6.13 K/L # Lymphs (test code = 414) 1.62 1.18- 3.74 K/L # Monos (test code = 415) 0.55 0.24- 0.36 K/L H # Eos (test code = 416) 0.24 0.04- 0.36 K/L # Baso (test code = 417) 0.05 0.01- 0.08 K/L Immature Granulocytes-Relative 0 % 0-1 (test code = 2801) Lab Interpretation (test code = Abnormal 86341-2) [facility] W/PLT COUNT & AUTO [id number] 04:06:00 Test Item Value Reference Range Interpretation Comments WHITE BLOOD CELL COUNT (BEAKER) 6.1 K/ L 3.5-10.5 (test code = 775) RED BLOOD CELL COUNT (BEAKER) 3.69 M/ L 3.93-5.22 L (test code = 761) HEMOGLOBIN (BEAKER) (test code = 11.4 GM/DL 11.2-15.7 410) HEMATOCRIT (BEAKER) (test code = 33.5 % 34.1-44.9 L 411) MEAN CORPUSCULAR VOLUME (BEAKER) 90.8 fL 79.4-94.8 (test code = 753) MEAN CORPUSCULAR HEMOGLOBIN 30.9 pg 25.6-32.2 (BEAKER) (test code = 751) MEAN CORPUSCULAR HEMOGLOBIN CONC 34.0 GM/DL 32.2-35.5 (BEAKER) (test code = 752) RED CELL DISTRIBUTION WIDTH 12.0 % 11.7-14.4 (BEAKER) (test code = 412) PLATELET COUNT (BEAKER) (test 341 K/CU MM 150-450 code = 756) MEAN PLATELET VOLUME (BEAKER) 9.0 fL 9.4-12.3 L (test code = 754) NUCLEATED RED BLOOD CELLS 0 /100 WBC 0-0 (BEAKER) (test code = 413) NEUTROPHILS RELATIVE PERCENT 60 % (BEAKER) (test code = 429) LYMPHOCYTES RELATIVE PERCENT 27 % (BEAKER) (test code = 430) MONOCYTES RELATIVE PERCENT 9 % (BEAKER) (test code = 431) EOSINOPHILS RELATIVE PERCENT 4 % (BEAKER) (test code = 432) BASOPHILS RELATIVE PERCENT 1 % (BEAKER) (test code = 437) NEUTROPHILS ABSOLUTE COUNT 3.62 K/ L 1.56-6.13 (BEAKER) (test code = 670) LYMPHOCYTES ABSOLUTE COUNT 1.62 K/ L 1.18-3.74 (BEAKER) (test code = 414) MONOCYTES ABSOLUTE COUNT (BEAKER) 0.55 K/ L 0.24-0.36 H (test code = 415) EOSINOPHILS ABSOLUTE COUNT 0.24 K/ L 0.04-0.36 (BEAKER) (test code = 416) BASOPHILS ABSOLUTE COUNT (BEAKER) 0.05 K/ L 0.01-0.08 (test code = 417) IMMATURE GRANULOCYTES-RELATIVE 0 % 0-1 PERCENT (BEAKER) (test code = 2801) Troponin [id number] 23:58:00 Test Item Value Reference Range Interpretation Comments Troponin I (test code = <0.01 0-0.03 15818-3) ANGELA (test code = ANGELA) Troponin I (TnI) levels must be interpreted in the context of the presenting symptoms and the clinical findings. Elevated TnI levels indicate myocardial damage, but are not specific for ischemic heart disease. Elevated TnI levels are seen in patients with other cardiac conditions (including myocarditis and congestive heart failure), and slight TnI elevations occur in patients with other conditions, including sepsis, renal failure, acidosis, acute neurological disease, and persistent tachyarrhythmia.Opera tor ID - PIAYA L Lab Interpretation (test Normal code = 13701-1) [facility] CenterTROPONIN [id number] 23:58:00 Test Item Value Reference Range Interpretation Comments TROPONIN I (BEAKER) (test code = 397) < ng/mL 0.00-0.03 Troponin I (TnI) levels must be interpreted in the context of the presenting symptoms and the clinical findings. Elevated TnI levels indicate myocardial damage, but are not specific for ischemic heart disease. Elevated TnI levels are seen in patients with other cardiac conditions (including myocarditis and congestive heart failure), and slight TnI elevations occur in patients with other conditions, including sepsis, renal failure, acidosis, acute neurological disease, and persistent tachyarrhythmia.Customer Service Clerk ID - PIAYA LPOCT-GLUCOSE METER 2020-04-11 22:48:00 Test Item Value Reference Range Interpretation Comments POC-GLUCOSE METER 126 mg/dL 70-110 H : TESTED A T [facility] 6720 (BEAKER) (test code = [address] [place], 1538) [address]: Customer Service Clerk/Techni marlene ID = [id number] for SHAYLA MCLEOD Vitamin B12 and [id number] 16:32:00 Test Item Value Reference Range Interpretation Comments Vitamin B12 (test code = 1210 pg/mL 213-816 H 2132-9) Folate (test code = 2284-8) 18.10 ng/mL >=7.00 ANGELA (test code = ANGELA) Customer Service Clerk ID - DB Lab Interpretation (test Abnormal code = 95780-2) [facility] CenterVITAMIN B12 AND [id number] 16:32:00 Test Item Value Reference Range Interpretation Comments VITAMIN B12 (BEAKER) (test code = 1210 pg/mL 213-816 H 774) FOLATE (BEAKER) (test code = 362) 18.10 ng/mL >=7.00 Customer Service Clerk ID - DBTROPONIN [id number] 16:26:00 Test Item Value Reference Range Interpretation Comments TROPONIN I (BEAKER) (test code = 397) < ng/mL 0.00-0.03 Troponin I (TnI) levels must be interpreted in the context of the presenting symptoms and the clinical findings. Elevated TnI levels indicate myocardial damage, but are not specific for ischemic heart disease. Elevated TnI levels are seen in patients with other cardiac conditions (including myocarditis and congestive heart failure), and slight TnI elevations occur in patients with other conditions, including sepsis, renal failure, acidosis, acute neurological disease, and persistent tachyarrhythmia.Customer Service Clerk ID - DBBASIC METABOLIC PANEL 2020-04-11 16:00:00 Test Item Value Reference Range Interpretation Comments SODIUM (BEAKER) 125 meq/L 136-145 L (test code = 381) POTASSIUM (BEAKER) 4.0 meq/L 3.5-5.1 (test code = 379) CHLORIDE (BEAKER) 91 meq/L 98-107 L (test code = 382) CO2 (BEAKER) (test 26 meq/L 22-29 code = 355) BLOOD UREA NITROGEN 7 mg/dL 7-21 (BEAKER) (test code = 354) CREATININE (BEAKER) 0.69 mg/dL 0.57-1.25 (test code = 358) GLUCOSE RANDOM 105 mg/dL 70-105 (BEAKER) (test code = 652) CALCIUM (BEAKER) 8.3 mg/dL 8.4-10.2 L (test code = 697) EGFR (BEAKER) (test 85 mL/min/1.73 ESTIMA GREGG GFR IS code = 1092) sq m NOT ACCURATE CREATININE CLEARANCE IN PREDICTING GLOMERULAR FILTRATION RATE . ESTIMATED GFR I S NOT APPLICABLE FOR DIALYSIS PATIEN TS. Customer Service Clerk ID - DBCBC W/PLT COUNT & AUTO [id number] 15:42:00 Test Item Value Reference Range Interpretation Comments WHITE BLOOD CELL COUNT (BEAKER) 14.7 K/ L 3.5-10.5 H (test code = 775) RED BLOOD CELL COUNT (BEAKER) 4.08 M/ L 3.93-5.22 (test code = 761) HEMOGLOBIN (BEAKER) (test code = 12.5 GM/DL 11.2-15.7 410) HEMATOCRIT (BEAKER) (test code = 36.9 % 34.1-44.9 411) MEAN CORPUSCULAR VOLUME (BEAKER) 90.4 fL 79.4-94.8 (test code = 753) MEAN CORPUSCULAR HEMOGLOBIN 30.6 pg 25.6-32.2 (BEAKER) (test code = 751) MEAN CORPUSCULAR HEMOGLOBIN CONC 33.9 GM/DL 32.2-35.5 (BEAKER) (test code = 752) RED CELL DISTRIBUTION WIDTH 12.0 % 11.7-14.4 (BEAKER) (test code = 412) PLATELET COUNT (BEAKER) (test 372 K/CU MM 150-450 code = 756) MEAN PLATELET VOLUME (BEAKER) 8.6 fL 9.4-12.3 L (test code = 754) NUCLEATED RED BLOOD CELLS 0 /100 WBC 0-0 (BEAKER) (test code = 413) NEUTROPHILS RELATIVE PERCENT 79 % (BEAKER) (test code = 429) LYMPHOCYTES RELATIVE PERCENT 14 % (BEAKER) (test code = 430) MONOCYTES RELATIVE PERCENT 6 % (BEAKER) (test code = 431) EOSINOPHILS RELATIVE PERCENT 1 % (BEAKER) (test code = 432) BASOPHILS RELATIVE PERCENT 0 % (BEAKER) (test code = 437) NEUTROPHILS ABSOLUTE COUNT 11.52 K/ L 1.56-6.13 H (BEAKER) (test code = 670) LYMPHOCYTES ABSOLUTE COUNT 2.08 K/ L 1.18-3.74 (BEAKER) (test code = 414) MONOCYTES ABSOLUTE COUNT (BEAKER) 0.90 K/ L 0.24-0.36 H (test code = 415) EOSINOPHILS ABSOLUTE COUNT 0.09 K/ L 0.04-0.36 (BEAKER) (test code = 416) BASOPHILS ABSOLUTE COUNT (BEAKER) 0.03 K/ L 0.01-0.08 (test code = 417) IMMATURE GRANULOCYTES-RELATIVE 0 % 0-1 PERCENT (BEAKER) (test code = 0091)
== END 2020-04-11 11:46 | disposition short-term general hospital (02) ==
LOC: ER 09:15
DX: I63.9 Cerebral infarction, unspecified (principal); R53.1 Weakness; I10 Essential (primary) hypertension; R29.702 NIHSS score 2; F31.9 Bipolar disorder, unspecified; I25.2 Old myocardial infarction; Z88.2 Allergy status to sulfonamides; Z88.5 Allergy status to narcotic agent
CPT/HCPCS: 92977; 93005; 85025; 80048; 36415; 83735; 85610; 82947; 85730; 84484; 70450 ×2; 71045; 96375; 96374; 99285; J2997; J2405

== ENCOUNTER 2020-06-11 22:53 | Inpatient (IN) | payer OTHER ==
--- OUTSIDE RECORDS SUMMARY | 2020-06-11 22:56 | XMS REPORT | Clinical Summary ---
:1950 Author Organization [facility] Address [address] [place] [address] Care Team Providers Name Role Phone Patricia Larios HELP DESK ASSISTANT Primary Care Provider Allergies Active Allergy Reactions Severity Noted Date Comments Hydromorphone (Bulk) 06/11/2020 halluci nations Sulfa (Sulfonamide Antibiotics) 0 Medications Medication Sig Dispensed Refills Start Date [...] Active (TOPROL-XL) 25 MG 24 hr tablet buPROPion (WELLBUTRIN Take 150 mg by 0 Active XL) 150 MG 24 hr tablet mouth daily. Active Problems Problem Noted Date Pneumonia of right lung due to infectious organism, un specified part of 06/11/2020 lung Chronic hyponatremia 04/12/2020 Bipolar 1 disorder 04/12/2020 Stroke (cerebrum) 04/11/2020 Essential hypertension 04/11/2020 Anemia 04/11/2020 S/P admn tPA in diff fac w/n last 24 hr bef adm to crn t fac 04/11/2020 Encounters Date Type Specialty Care Team Description 06/11/2020 Emergency General Internal Doug, Arif, Pneumonia o f right lung due to infectious organism, unspecified part of lung (Primary Dx); Medicine Dyspnea and respiratory abnormality; Adelita Coughlin Essential hyper tension; MD Peña Acute hypoxemic respiratory failure (HCC) 06/11/2020 Travel 06/11/2020 Hospital Encounter James Camacho MD 04/11/2020 - Hospital Encounter Intensive Care Bony Fink S/P ad mn tPA in diff fac w/n last 24 hr bef adm to crnt fac; 04/12/2020 Domingo, 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 Last Filed Vital Signs Vital Sign Reading Time Taken Comments Blood Pressure 132/75 06/11/2020 5:00 PM [employer] Pulse 95 06/11/2020 2:00 PM [employer] Temperature 37.3 C (99.1 F) 06/11/2020 12:33 PM [employer] Respiratory Rate 22 06/11/2020 12:45 PM [employer] Oxygen Saturation 96% 06/11/2020 5:45 PM [employer] Inhaled Oxygen Concentration - - Weight 87.1 kg (192 lb) 06/11/2020 12:33 PM [employer] Height 157.5 cm (5' 2") 06/11/2020 12:33 PM [employer] Body Mass Index 35.12 06/11/2020 12:33 PM [employer] Plan of Treatment Health Maintenance Due Date Last Done Comments BREAST CANCER SCREENING 1950 COLON CANCER SCREENING COLONOSCOPY 1950 PNEUMOCOCCAL 65+ YRS (1 of 1 - [id number]) 2017 MEDICARE ANNUAL WELLNESS (YEAR 2 or FIRST YEAR if no 06/10/2019 IPPE) INFLUENZA VACCINE (#1) 2020 Procedures Procedure Name Priority Date/Time Associated Comments Diagnosis TROPONIN I Routine 06/11/2020 5:53 Results for this PM [employer] procedure are i n the results section. LEGIONELLA URINE Routine 06/11/2020 4:35 Results for this ANTIGEN PM [employer] procedure are i n the results section. STREP PNEUMONIAE Routine 06/11/2020 4:35 Results for this ANTIGEN PM [employer] procedure are i n the results section. C-REACTIVE PROTEIN Routine 06/11/2020 3:19 Resul ts for this PM [employer] procedure are i n the results section. FIBRINOGEN Routine 06/11/2020 3:19 Results for this PM [employer] procedure are i n the results section. PROTHROMBIN TIME/INR Routine 06/11/2020 3:19 Res ults for this PM [employer] procedure are i n the results section. D-DIMER Routine 06/11/2020 3:19 Results for this PM [employer] procedure are i n the results section. TROPONIN I Routine 06/11/2020 3:19 Results for this PM [employer] procedure are i n the results section. PROCALCITONIN Routine 06/11/2020 3:19 Results fo r this PM [employer] procedure are i n the results section. FERRITIN Routine 06/11/2020 3:19 Results for this PM [employer] procedure are i n the results section. XR CHEST 1 VIEW STAT 06/11/2020 3:09 Results for this PORTABLE/BEDSIDE PM [employer] procedure a re in the results section. RESPIRATORY PANEL [facility] Routine 06/11/2020 1:28 R esults for this PM [employer] procedure are i n the results section. SARS-COV2/RT-PCR ([facility] STAT 06/11/2020 1:28 R esults for this & REF LABS) PM [employer] procedure are i n the results section. (CELLAVISION MANUAL STAT 06/11/2020 12:45 Resu lts for this DIFF) PM [employer] procedure are i n the results section. CBC W/PLT COUNT & AUTO STAT 06/11/2020 12:45 R esults for this DIFFERENTIAL PM [employer] procedure are i n the results section. LACTATE DEHYDROGENASE Add-On 06/11/2020 12:45 Re sults for this (LDH) PM [employer] procedure are i n the results section. CREATINE KINASE (CK) Add-On 06/11/2020 12:45 Res ults for this PM [employer] procedure are i n the results section. LACTIC ACID, VENOUS STAT 06/11/2020 12:45 Resu lts for this PM [employer] procedure are i n the results section. B-TYPE NATRIURETIC STAT 06/11/2020 12:45 Resul ts for this FACTOR (BNP) PM [employer] procedure are i n the results section. TROPONIN I STAT 06/11/2020 12:45 Results for this PM [employer] procedure are i n the results section. BASIC METABOLIC PANEL STAT 06/11/2020 12:45 Re sults for this (7) PM [employer] procedure are i n the results section. CBC W/PLT COUNT & AUTO STAT 06/11/2020 12:45 R esults for this DIFFERENTIAL PM [employer] procedure are i n the results section. RHYTHM STRIP - SCAN 04/14/2020 1:40 PM [...] the results section. CBC W/PLT COUNT & AUTO Routine 04/12/2020 3:52 R esults for this DIFFERENTIAL AM CDT procedure are i n the results section. PT/APTT Routine 04/12/2020 3:52 Results for this AM CDT procedure are i n the results section. PHOSPHORUS Routine 04/12/2020 3:52 Results for this AM CDT procedure are i n the results section. MAGNESIUM Routine 04/12/2020 3:52 Results for this AM CDT procedure are i n the results section. CBC W/PLT COUNT & AUTO Routine 04/12/2020 3:52 R esults for this DIFFERENTIAL AM CDT procedure are i n the results section. BASIC METABOLIC PANEL Routine [...] are i n the results section. SARS-COV2/RT-PCR ([facility] Routine 04/11/2020 6:25 R esults for this & REF LABS) PM CDT procedure are i n the results section. TROPONIN I Routine 04/11/2020 3:56 Results for this PM CDT procedure are i n the results section. VITAMIN B12 AND FOLATE Routine 04/11/2020 3:27 R esults for this PM CDT procedure are i n the results section. CBC W/PLT COUNT & AUTO Routine 04/11/2020 3:26 R esults for this DIFFERENTIAL PM CDT procedure are i n the results section. CBC W/PLT COUNT & AUTO Routine 04/11/2020 3:26 R esults for this DIFFERENTIAL PM CDT procedure are i n the results section. BASIC METABOLIC PANEL Routine 04/11/2020 3:26 Re sults for this (7) PM CDT procedure are i n the results section. after 06/11/2019 Results Troponin I (06/11/2020 5:53 PM [employer])Only the most recent of5 resultswithin the time period is included. Pathologist Sig nature Troponin I 0.04 (H) 0.00 - 0.03 ng/mL [facility] Specimen Blood Narrative Performed At Troponin I (TnI) levels must be interpreted [facility] in the context of the presenting [...] acidosis, acute neurological disease, and persistent tachyarrhythmia. Ring Packer ID - BS Performing Organization Address City/State/Zipcode Phone Number [facility] [address] [place] [address] CENTER Strep pneumoniae antigen (06/11/2020 4:35 PM [employer]) Strep pneumoniae Presumptive Presumptive [facility] negative for negative for [facility] pneumococcal pneumococcal [facility] pneumonia - see pneumonia - see comment comment, Presumptive negative for pneumococcal meningitis - see comment Specimen Urine Narrative Performed At Presumptive negative for pneumococcal [facility] pneumonia, suggesting no current or recent pneumococcal infection. Infection due to S. pneumoniae cannot be ruled out since the antigen present in the sample may be below the detection limit of the test. Performing Organization Address [facility] Phone Number [address] [address] [place] Legionella antigen, urine (06/11/2020 4:35 PM [employer]) Legionella Urine Negative - see [facility] Antigen commentComment: [facility] Negative for [facility] pneumophila serogroup 1 antigen, suggesting no recent or current infection with this serogroup. Legionellosis cannot be ruled out since other serogroups and species may cause disease. Specimen Urine Performing Organization Address [facility] Phone Number [address] [address] [place] Procalcitonin (06/11/2020 3:19 PM [employer]) Pathologist Sig nature Procalcitonin 30.31 (HH) <0.05 ng/mL [facility] Specimen Blood Narrative Performed At SEPSIS RISK (ng/mL) [facility] Low: 0.05-0.50 Intermediate: 0.51-2.00 High: >=2.01 Performing Organization Address [facility] Phone Number [address] [address] [place] C-Reactive Protein (06/11/2020 3:19 PM [employer]) Pathologist Sig nature CRP 10.34 (H) 0.00 - 0.50 mg/dL [facility] Specimen Blood Narrative Performed At Ring Packer ID - BS [facility] Performing Organization Address [facility] Phone Number [address] [address] CENTER Prothrombin time/INR (06/11/2020 3:19 PM [employer]) [facility] Protime 13.1 11.9 - 14.2 seconds [facility] INR 1.02 <=5.90 [facility] Specimen Blood Narrative Performed At Effective 12/06/2018: PT Reference Range [facility] Change New: 11.9-14.2 Previous: 11.7-14.7 RECOMMENDED COUMADIN/WARFARIN INR THERAPY RANGES STANDARD DOSE: 2.0-3.0 Includes: PROPHYLAXIS for venous thrombosis, systemic embolization; TREATMENT for venous thrombosis and/or pulmonary embolus. HIGH RISK: Target INR is 2.5-3.5 for patients wiht mechanical heart valves. Performing Organization Address City/[facility] Phone Number [address] [address] C[place] Fibrinogen (06/11/2020 3:19 PM [employer]) [facility] Fibrinogen 371 225 - 434 mg/dl [facility] Specimen Blood Performing Organization Address City/[facility] Phone Number [address] [address] C[place] D-dimer (06/11/2020 3:19 PM [employer]) [facility] D-Dimer, Quant 2.22 (H) <0.50 MG/L FEU [facility] Specimen Blood Narrative Performed At Intended Use: The D-Dimer Assay can be used [facility] to aid in the diagnosis of Deep Vein Thrombosis (DVT) and Pulmonary Embolism Disease (PED). In patients with low pre-test probability, various studies concerning STA Liatest D-dimer test have reported that with a cutoff value of 0.50 MG/L FEU, the Negative Predictive Value (NPV) regarding the exclusion of thrombosis is within 95-100% range. Performing Organization Address City/[facility] Phone Number [address] [address] C[place] Ferritin (06/11/2020 3:19 PM [employer]) Pathologist Sig nature Ferritin 202.52 5.00 - 275.00 ng/mL [facility] Specimen Blood Narrative Performed At Ring Packer ID - BS [facility] Performing Organization Address City/State/Zipcode Phone Number [facility] MEDICAL [address] [place] [address] CENTER XR chest 1 view portable / bedside (06/11/2020 3:09 PM [employer]) Specimen Narrative Performed At FINAL REPORT GE RIS INDICATION: SHORTNESS OF BREATH COMPARISON: None TECHNIQUE: Single frontal view of the ch est. FINDINGS: Lungs and pleura: Right basilar airspace disease No effusion. Heart and mediastinum: Normal heart size . Unremarkable mediastinal contours. Osseous structures: No acute abnormality . Other: None. IMPRESSION: Right basilar airspace disease Signed: Barber Groves MD Report Verified Date/Time: 06/11/2020 15:31:05 Reading Location: [employer] Reading Room Procedure Note Interface, External Ris In - 06/11/2020 3:33 PM [employer] FINAL REPORT INDICATION: SHORTNESS OF BREATH COMPARISON: None TECHNIQUE: Single frontal view of the ch est. FINDINGS: Lungs and pleura: Right basilar airspace disease No effusion. Heart and mediastinum: Normal heart size . Unremarkable mediastinal contours. Osseous structures: No acute abnormality . Other: None. IMPRESSION: Right basilar airspace disease Signed: Barber Groves MD Report Verified Date/Time: 06/11/2020 1 5:31:05 Reading Location: [employer] Reading Room Performing Organization Address City/State/Zipcode Phone Number [facility] SARS-CoV2/RT-PCR (Symptomatic ONLY) (06/11/2020 1:28 PM [employer])Only the most recent of2 resultswithin the time period is included. SARS-COV2/RT-PCR Negative Not Detected, [facility] Negative, [facility] external report CENTER for linked test SARS-COV-2 [facility] STEVEN [facility] PERFORMING LAB [facility] Specimen Other - Nasopharyngeal wall structure (b sangeetha structure) Narrative Performed At Negative result for this test determines that [facility] SARS-CoV-2 RNA was not present in the [...] the Act. Fact Sheet for Healthcare Providers: https://www.[employer].com/sites/default/files/pro duct/documents/Fact_Sheet_HC_Providers_Lyra_SA RS-CoV-2.pdf Fact Sheet for Healthcare Patients: https://www.[employer].com/sites/default/files/pro duct/documents/Fact_Sheet_Patients_Lyra_SARS-C oV-2.pdf Performing Laboratory: [place] [address] [place] [address] Performing Organization Address City/State/Zipcode Phone Number [facility] [address] [place] [address] CENTER Respiratory Panel [facility] (06/11/2020 1:28 PM [employer]) Human Metapneumovirus Not detected Not detected, [facility] Rhinovirus Not detected Not detected, [facility] Influenza A Not detected Not detected, [facility] INFLUENZA A (NO [facility] SUBTYPE) [facility] Influenza A subtype H1 [facility] Influenza A Subtype H3 [facility] Influenza A Subtype [facility] H1-2009 [facility] Influenza B Not detected Not detected, [facility] Respiratory Syncytial Not detected Not detected, [facility] Virus [facility] Parainfluenza Virus 1 Not detected Not detected, [facility] Parainfluenza Virus 2 Not detected Not detected, [facility] Parainfluenza virus 3 Not detected Not detected, [facility] Parainfluenza Virus 4 Not detected Not detected, [facility] Adenovirus Not detected Not detected, [facility] Coronavirus 229E Not detected Not detected, [facility] Coronavirus HKU1 Not detected Not detected, [facility] Coronavirus NL63 Not detected Not detected, [facility] Coronavirus OC43 Not detected Not detected, [facility] Bordetella Pertussis Not detected Not detected, [facility] Chlamydophila Not detected Not detected, [facility] Pneumoniae [facility] Mycoplasma Pneumoniae Not detected Not detected, [facility] Specimen Nasopharyngeal - Nasopharyngeal wall str ucture (body structure) Narrative Performed At Other viruses and bacteria not targeted by [facility] this PCR panel cannot be excluded; therefore clinical correlation and follow up of serology, culture results, and other molecular studies is required. The results are not intended to be used as the sole means for clinical diagnosis or patient management decisions. This sample was tested at the [facility] Molecular Diagnostics Laboratory using the [employer] FilmArray Respiratory Panel. It is FDA cleared and has been verified and approved by the [facility] Molecular Diagnostics Laboratory for clinical use on nasopharyngeal swab specimens. The performance of the FilmArray RP has not been established in individuals who received influenza vaccine. Recent administration of a nasal influenza vaccine may cause false positive results for Influenza A and/or Influenza B. Performing Organization Address City/State/Zipcode Phone Number [facility] [address] [place] [address] CENTER Manual Differential (06/11/2020 12:45 PM [employer]) Pathologist Sig nature % Neutros 70 % [facility] % Lymphs 6 % [facility] % Monos 4 % [facility] % Metamyelo 8 (H) 0 - 0 % [facility] % Bands 10 0 - 10 % [facility] % Atypical Lymphs 1 (H) 0 - 0 % [facility] # Neutros 6.72 (H) 1.56 - 6.13 K/ul [facility] # Lymphs 0.58 (L) 1.18 - 3.74 K/ul [facility] # Monos 0.38 (H) 0.24 - 0.36 K/uL [facility] # Metamyelo 0.77 (H) 0.00 - 0.00 K/uL [facility] # Bands 0.96 (H) 0.00 - 0.80 K/uL [facility] # Atypical Lymphs 0.10 (H) 0.00 - 0.00 K/uL [facility] Total Counted 100 [facility] RBC Morphology Normal [facility] WBC Morphology Normal [facility] Platelet Morphology Normal [facility] Specimen Blood Performing Organization Address City/State/Zipcode Phone Number [facility] [address] [place] [address] [place] CBC with platelet count + automated diff (06/11/2020 12:45 PM [employer])Only the most recent of3 resultswithin the time period is included. Pathologist Sig nature WBC 9.6 3.5 - 10.5 K/L [facility] RBC 3.73 (L) 3.93 - 5.22 M/L [facility] Hemoglobin 11.6 11.2 - 15.7 GM/DL [facility] Hematocrit 35.5 34.1 - 44.9 % [facility] MCV 95.2 (H) 79.4 - 94.8 fL [facility] MCH 31.1 25.6 - 32.2 pg [facility] MCHC 32.7 32.2 - 35.5 GM/DL [facility] RDW 13.4 11.7 - 14.4 % [facility] Platelets 320 150 - 450 K/CU MM [facility] MPV 9.0 (L) 9.4 - 12.3 fL [facility] nRBC 0 0 - 0 /100 WBC [facility] Specimen Blood Performing Organization Address City/State/Zipcode Phone Number [facility] [address] [place] [address] [place] Lactic acid, venous (06/11/2020 12:45 PM [employer]) Pathologist Sig nature Lactate, Venous 1.89 0.50 - 2.20 mmol/L [facility] Specimen Blood Narrative Performed At Ring Packer ID - AAHAMID [facility] Performing Organization Address [facility] Phone Number [address] [address] CENTER B-type Natriuretic Factor (BNP) (06/11/2020 12:45 PM [employer]) Pathologist Sig nature BNP 79 0 - 100 pg/mL [facility] [place] Specimen Blood Narrative Performed At Ring Packer ID - [facility] Performing Organization Address City/[facility] Phone Number [address] [address] [place] Lactate dehydrogenase (LDH) (06/11/2020 12:45 PM [employer]) Pathologist Sig nature LDH 228 (H) 125 - 220 U/L [facility] Specimen Blood Narrative Performed At Ring Packer ID - BS [facility] Performing Organization Address [facility] Phone Number [address] [address] [place] Creatine Kinase (CK) (06/11/2020 12:45 PM [employer]) Pathologist Sig nature Total CK 261 (H) 29 - 200 U/L [facility] Specimen Blood Narrative Performed At Ring Packer ID - AANERIID [facility] Performing Organization Address [facility] Phone Number [address] [address] [place] Basic Metabolic Panel (06/11/2020 12:45 PM [employer])Only the most recent of3 results within the time period is included. Sodium 136 136 - 145 meq/L [facility] Potassium 3.7 3.5 - 5.1 meq/L [facility] Chloride 107 98 - 107 meq/L [facility] CO2 21 (L) 22 - 29 meq/L [facility] BUN 14 7 - 21 mg/dL [facility] Creatinine 0.98 0.57 - 1.25 [facility] mg/dL [facility] Glucose 145 (H) 70 - 105 mg/dL [facility] Calcium 7.9 (L) 8.4 - 10.2 [facility] mg/dL [facility] EGFR 57Comment: ESTIMATED mL/min/1.73 sq [facility] GFR IS NOT m [facility] ACCURATE [place] CREATININE CLEARANCE IN PREDICTING GLOMERULAR FILTRATION RATE. ESTIMATED GFR IS NOT APPLICABLE FOR DIALYSIS PATIENTS. Specimen Blood Narrative Performed At Ring Packer ID - [facility]AMID [facility] Performing Organization Address City/State/Zipcode Phone Number [facility] [address] [place] [address] CENTER RHYTHM STRIP - SCAN (04/14/2020 1:40 PM CDT) Narrative Performed At This result has an attachment that is no t available. Carotid doppler bilateral (04/12/2020 2:00 PM CDT) Pathologist Sig nature Ejection Fraction [facility] Specimen Impressions Performed At Right [facility] 1. There is <50% diameter reduction (approximately [...] +---- + + !Prox CCA !107 !29.9!60 ! ! ! ! + +----+----+-----+ +---- + + !Dist CCA !90.4!22 !60 ! ! ! ! + +----+----+-----+ +---- + + !Prox ICA !93.2!28.1!60 !34% !<50% ! ! + +----+----+-----+ +---- + + !Dist ICA !91.1!29.1!60 ! ! ! ! + +----+----+-----+ +---- + + !Prox ECA !113 !17.3!60 ! ! ! ! + +----+----+-----+ +---- + + !Vertebral !52.6!16.9!60 ! ! ! ! + +----+----+-----+ +---- + + !Prox Subclavian!123 !7.07!60 ! ! ! ! + +----+----+-----+ +---- + + - Additional Measurements:ICAPSV/CCAPSV 1.03.ICAEDV/CCAEDV 0.97. Carotid Left Measurements + +----+----+-----+ +---- + + !Location !PSV !EDV !Angle!%Stenosis 2D!%Stenosis Doppler!Tortuosity ! + +----+----+-----+ +---- + + !Prox CCA !72.1!22.9!60 ! ! ! ! + +----+----+-----+ +---- + + !Dist CCA !89.1!29.3!60 ! ! ! ! + +----+----+-----+ +---- + + !Prox ICA !104 !35.2!60 !29% !<50% ! ! + +----+----+-----+ +---- + + !Dist ICA !152 !42.2!60 ! ! ! ! + +----+----+-----+ +---- + + !Prox ECA !79.2!8.79!60 ! ! ! ! + +----+----+-----+ +---- + + !Vertebral !43.6!12.6!60 ! ! ! ! + +----+----+-----+ +---- + + !Prox Subclavian!128 !11.8!60 ! ! ! ! + +----+----+-----+ +---- + + - Additional Measurements:ICAPSV/CCAPSV 1.71.ICAEDV/CCAEDV 1.84. Narrative Performed At [facility] - Carotid Duplex Study [facility] Demographics Patient Name ELIEZER EDWARD Date of Study 04/12/2020 JOE Age 69 Visit Number [id number] Gender Female Accession Number [id number] Date of 1950 Referring Replaced By [facility] Room Number 7405 Physician Tone Regulator Luz Maria Foley Interpreting Physician MARIBEL Mancia Procedure Type of Study: Cerebral: Carotid, CAROTID DOPPLER, DEN ATERAL. Indications for Study:Rule out carotid artery stenosis. Patient Status:STAT. Study Location:Portable. Technical Quality:Adequate visualization . Procedure Note Interface, External Ris In - 04/12/2020 8:55 PM CDT [facility] - Carotid Duplex Study Demographics Patient Name ELIEZER EDWARD Da te of Study 04/12/2020 JOE Ag e 69 Visit Number [id number] Ge nder Female Accession Number [id number] Da te of 1950 Referring Formerly [facility] om Number [id number] Physician Tone Regulator Luz Maria Foley In terpreting Anca Rodriguez, ysician Procedure Type of Study: Cerebral: Carotid, CAROTID [...] Measurements:ICAPSV/CCAPS V 1.71.ICAEDV/CCAEDV 1.84. Performing Organization Address City/State/Zipcode Phone Number [facility] POC-Glucose meter (04/12/2020 11:55 AM CDT)Only the most recent of2 results within the time period is included. [facility] POC-Glucose Meter 99Comment: : 70 - 110 mg/dL [facility] HILLJANETHMichael TESTED AT [address], [address]: Ring Packer/Technic fito ID = [id number] for Keri De Jesus Specimen Blood Performing Organization Address City/[facility]/Zipcode Phone Number [address] [address] [place] RPR (04/12/2020 5:36 AM CDT) Pathologist Sig nature RPR Nonreactive Nonreactive [facility] Specimen Blood Performing Organization Address [facility] Cent[facility]ode Phone Number [address] [place] [address] brain without IV contrast (04/12/2020 4:53 AM CDT) Specimen Narrative Performed At FINAL REPORT RIS CT, BRAIN, WITHOUT CONTRAST CLINICAL INDICATION: Stroke, follow up COMPARISON: None TECHNIQUE: Noncontrast axial CT imagin g of the brain and skull. DOSE REDUCTION: [...] Barber Groves MD Report Verified Date/Time: 04/12/2020 07:16:16 Reading Location: [facility] [address] [place] [address] Procedure Note Interface, External Ris In - [...] Verified Date/Time: 04/12/2020 0 7:16:16 Reading Location: [facility] [address] [facility] Performing Organization Address City/State/Zipcode Phone Number [employer] 2D Echo W/Doppler(CW/PW/Color) (04/12/2020 4:08 AM CDT) Pathologist Sig nature Ejection Fraction [facility] Specimen Narrative Performed At Transthoracic Echocardiography Report (T TE) [facility] Demographics Patient Name EILEZER EDWARD Date of Study 04/12/2020 JOE Gender Female Visit Number [id number] Race Unknown Room Number 7405 Number Date of 1950 Referring Physician Bony Fink Age 69 year(s) Tone Regulator Julien Sutherland Interpreting Flavio Jorgensen Physician Procedure Type of Study TTE procedure:2DECHO [...] assessment is normal (>60%) . The LVEF was measured using Ching's single plane method (apical 4 chamber) . LV endocardium is incompletely visualized despite IV ultrasound enhancing agent. Diastology: Indeterminate Left Atrium LA size is normal (16-34 ml/m2) . Right Ventricle The right ventricular chamber size and systolic function are within normal limits. Right Atrium RA cavity size is normal . Atrial Septum IV saline contrast injection was technically inadequate to detect a PFO (patent foramen ovale) at rest and post Valsalva . Aortic Valve Mild AoV cusp thickening. Mitral Valve Mild MV leaflet thickening. Trace mitral regurgitation. Tricuspid Valve The tricuspid valve is not well visualized. Unable to estimate peak systolic PA pressure; inadequate TR velocity signal. Pulmonic Valve PV is not well visualized; function appears normal by Doppler visualized. Aorta Aortic root size (SInus of Valsalva diameter) is norm al . Pericardium No significant pericardial effusion is [...] LVOT Diameter: 2.13 cm Right Ventricle TAPSE: 1.6 5 cm Aorta Ao Root S of Nora.: 3.22 cm Doppler/Quantitative Measurements Mitral Valve MV Peak E-Wave: 0.77 m/s MV Peak A-Wave: 0.61 m/s [...] Report (TTE) Demographics Patient Name ELIEZER EDWARD Miguel A e of Study 04/12/2020 JOE Gen solitario Female Visit Number [id number] Rac e Unknown [facility] Number 7405 Number Date of 1950 Ref [...] isualized; function appears normal by Doppler visua anton. Aorta Aortic root size (SInus of Valsalva [...] T CI: 2.3 l/min/m^2 Performing Organization Address City/State/Zipcode Phone Number [facility] TSH/Free T4 If Indicated (04/12/2020 3:52 AM CDT) Pathologist Sig nature TSH 1.689 0.350 - 4.940 uIU/mL [facility] Specimen Blood Narrative Performed At Ring Packer ID - [facility] Performing Organization Address City/[facility]/Zipcode Phone Number [address] [address] CENTER PT/aPTT (04/12/2020 3:52 AM CDT) Pathologist Sig nature Protime 14.1 11.9 - 14.2 seconds [facility] INR 1.12 <=5.90 [facility] PTT 43.9 (H) 22.5 - 36.0 seconds [facility] Specimen Blood Narrative Performed At Effective 12/06/2018: PT Reference Range [facility] Change New: 11.9-14.2 Previous: 11.7-14.7 RECOMMENDED COUMADIN/WARFARIN INR THERAPY RANGES STANDARD DOSE: 2.0-3.0 Includes: PROPHYLAXIS for venous thrombosis, systemic embolization; TREATMENT for venous thrombosis and/or pulmonary embolus. HIGH RISK: Target INR is 2.5-3.5 for patients wiht mechanical heart valves. Performing Organization Address City/State/Zipcode Phone Number [address] [address] CENTER Phosphorus (04/12/2020 3:52 AM CDT) Pathologist Sig nature Phosphorus 3.6Comment: 2.3 - 4.7 mg/dL [facility] hemolyzed [place] Specimen Blood Narrative Performed At Ring Packer ID - [facility] Performing Organization Address City/State/Zipcode Phone Number [address] [address] CENTER Magnesium (04/12/2020 3:52 AM CDT) Pathologist Sig nature Magnesium 2.0Comment: Specimen 1.6 - 2.6 mg/dL [facility] hem[facility] Specimen Blood Narrative Performed At Ring Packer ID - [facility] L [facility] Performing Organization Address City/[facility]/Zipcode Phone Number [address] [address] CENTER Homocysteine (04/12/2020 3:52 AM CDT) Pathologist Sig nature Homocysteine 5.8 5.1 - 15.4 umol/L [facility] Specimen Blood Narrative Performed At Ring Packer ID - PIN[place]O L [facility] Performing Organization Address City/State/Zipcode Phone Number [address] [address] [place] Hemoglobin A1c (04/12/2020 3:52 AM CDT) Pathologist Sig nature Hemoglobin A1C 5.7 4.3 - 6.1 % [facility] Specimen Blood Performing Organization Address City/[facility]/Zipcode Phone Number [address] [address] [place] Lipid panel (04/12/2020 3:52 AM CDT) Pathologist Sig nature Triglycerides 51Comment: Specimen mg/dL [facility] slightly hemolyzed [facility] Cholesterol 152Comment: Specimen mg/dL [facility] slightly hemolyzed [facility] HDL 68 mg/dL [facility] LDL Calculated 74 mg/dL [facility] Specimen Blood Narrative Performed At Triglyceride Reference Range: [facility] Low Risk <150 Borderline 150-199 High Risk 200-499 Very High Risk >=500 Cholesterol Reference Range: Low Risk <200 Borderline 200-239 High Risk >240 HDL Cholesterol Reference Range: Low Risk >=60 High Risk <40 LDL Cholesterol Reference Range: Optimal <100 Near Optimal 100-129 Borderline 130-159 High 160-189 Very High >=190 Ring Packer ID - PIAYA L Performing Organization Address City/State/Zipcode Phone Number [facility] [address] [place] [address] CENTER Vitamin B12 and Folate (04/11/2020 3:27 PM CDT) Pathologist Sig nature Vitamin B12 1,210 (H) 213 - 816 pg/mL [facility] Folate 18.10 >=7.00 ng/mL [facility] Specimen Blood Narrative Performed At Ring Packer ID - DB [facility] Performing Organization Address City/[facility]/Zipcode Phone Number [facility] [address] [place] [address] CENTER after 06/11/2019 Insurance Payer Benefit Plan / Subscriber ID Effective Dates Phone Addre ss Type Group MEDICARE MEDICARE A B [id number] 2019-Presen Medicare t MCR GENERIC MEDICARE [id number] 2019-Presen Medigap SUPPLEMENT/ALEXX SUPPLEMENT t VIDUAL Advance Directives For more information, please contact: [phone] Code Status Date Activated Date Inactivated Comments Full Code 06/11/2020 3:06 PM This code status was determined by: Patient Full Code 04/11/2020 2:26 PM 04/12/2020 8:13 PM This code status was determined by: Patient
--- OUTSIDE RECORDS SUMMARY | 2020-06-11 22:57 | XMS REPORT | Continuity of Care Document ---
:1950 Author Organization [facility] t Address [address] [place] [address] Care Team Providers Name Role Phone Harriet Patricia NICHOLSON Primary Care Physician Doug LÓPEZ Attending Clinician Law Coughlin MD Attending Clinician DOUG Attending Clinician Unavailable Pob, Lab Main Attending Clinician Unavailable DOMINGO FINK Attending Clinician Unavailable Domingo Fink MD Attending Clinician LAW COUGHLIN Admitting Clinician Unavailable DOMINGO FINK Admitting Clinician Unavailable Payers Payer Name Policy Type Policy Effective Date Expiration Date Sour ce Number MEDICAREMEDICARE A [id number] 2019 MANISH Pearl [id number] 2019- 00:00:00 - Medical PresentMedicare Center MCR [id number] 2019 MANISH Alvarez SUPPLEMENT/INDIVIDUALG 3 00:00:00 - Medical ENERIC MEDICARE Center [id number] 2019-PresentMedig ap Problems Condition Condition Condition Status Onset Resolution Last Treating Co mments Source Name Details Category Date Date Treatment Clinician Date Pneumonia Pneumonia Disease Active 2019-[address] [facility] of right of right 2- [facility] - lung due lung due 00:00: Medica l to to 00 [place] infectious infectious organism, organism, unspecifie unspecifie d part of d part of lung lung Chronic Chronic Disease Active 2019-[address] [facility] hyponatrem hyponatrem 0-03 Gertrude kes - ia ia 00:00: Medical 00 [place] Bipolar 1 Bipolar 1 Disease Active 2019-[address] [facility] disorder disorder 0-03 [facility] - 00:00: Medical 00 [place] Stroke Stroke Disease Active 2019-[address] [facility] (cerebrum) (cerebrum) 0-02 Gertrude kes - 00:00: Medical 00 [place] Essential Essential Disease Active 2019-[address] [facility] hypertensi hypertensi 0-02 Gertrude kes - on on 00:00: Medical 00 [place] Anemia Anemia Disease Active 2019-[address] [facility] 0-02 [facility] - 00:00: Medical 00 [place] S/P admn S/P admn Disease Active 2019-07 [facility] t tPA in tPA in 0- [facility] - diff fac diff fac 00:00: Medica l w/n last w/n last 00 [place] 24 hr bef 24 hr bef adm to adm to crnt fac crnt fac Allergies, Adverse Reactions, Alerts Allergy Allergy Status Severity Reaction(s) Onset Inactive Treating Comm ents Source Name Type Date Date Clinician Hydromor Propensi Active 2019-[address] phone ty to 08-12 tions [facility] - (Bulk) adverse 00:00: Medical reaction 00 [place] s Sulfa Propensi Active 2019-[address] [facility] (Sulfona ty to 08-12 [facility] - mide adverse 00:00: Medical Antibiot reaction 00 [place] ics) s Bactrim Adverse Active rash [facility] Reaction [facility] Clinics Social History Social Habit Start Date Stop Date Quantity Comments Source Sex Assigned At [facility] - Medical [place] Exposure to Not sure [facility] - SARS-CoV-2 (event) Medica [facility] Tobacco use and 2020-06-11 2020-06-11 Former user [facility] L ukes - exposure 00:00:00 00:00:00 [facility] Smoking Status Start Date Stop Date Source Former smoker 2020-06-11 00:00:00 2020-06-11 00:00:[address] [facility] Medications Ordered Filled Start Stop Current Ordering Indication Dosage Frequency Signature Comments Components Source Medication Medication Date Date Medication? Clinician (SIG) Name Name buPROPion 2019-07 Yes 150mg QD Take [address] [facility] (WELLBUTRIN 2-02 mg by [facility] - XL) 150 MG 22:32: mouth Medica l 24 hr 39 daily. Center tablet Ondansetron Ondansetron Yes Luh [address] HCl HCl 3-03 [place] as needed [facility] - 00:00: Memoria 00 [facility] ent [facility] Metoprolol Metoprolol Yes Luh [address] Succinate Succinate 2-26 [place] Luke s - ER ER 00:00: Memoria 00 [facility] metoprolol Yes [address] succinate 2-21 [facility] - (TOPROL-XL) 00:00: Medica l 25 MG 24 hr 00 Center tablet pregabalin Yes THREE [facility] (LYRICA) 8-22 TIMES A [facility] - 100 MG 00:00: DAY Medical capsule 00 [place] ProAir HFA ProAir HFA 2017-07 Yes Luh [address] [facility] 2-12 [place] needed [facility] - 00:00: Memoria 00 [facility] pantoprazol Yes DAILY AT I St e 5- 0630 [facility] - 00:00: Medical 00 [place] eszopiclone 0 Yes AT BEDTIME [facility] 3 mg tablet 5-21 [facility] - 00:00: Medical 00 [place] OXcarbazepi Yes DAILY [facility] t ne 5-21 [facility] - (TRILEPTAL) 00:00: Medica l 150 MG 00 Center tablet OXcarbazepi Yes AT BEDTIME [facility] ne 5-21 [facility] - (TRILEPTAL) 00:00: Medica l 150 MG 00 Center tablet Vitamin C Vitamin C Yes Luh not [facility] [place] defined [facility] - [facility] Trileptal Trileptal Yes Luh [address] [place] [facility] - [facility] Calcium Calcium Yes Luh [address] Carbonate Carbonate [place] Luke s - Memoria [facility] Eszopiclone Eszopiclone Yes Luh (Schedule [facility] [place] IV Drug) Lukes - TAKE 1 Memoria TABLET BY l MOUTH Outpati EVERY DAY ent AT BEDTIME Clinics NEEDED Pantoprazol Pantoprazol Yes Luh [address] [facility] e Sodium e Sodium [place] [facility] - [facility] l [facility] Iron Iron Yes Luh [address] [place] [facility] - Memoria l [facility] Clinics Valacyclovi Valacyclovi Yes Luh TAKE [address] [facility] r HCl r HCl [place] TABLET BY [facility]ukes - MOUTH Memoria EVERY DAY l [facility] Clinics Centrum Centrum Yes Luh not [facility] Silver Silver [place] defined Lukes - Ultra Ultra Memoria Womens Womens l [facility] Clinics Probiotic Probiotic Yes Luh not [facility] [place] defined [facility]ukes - Memoria l [facility] Clinics Lyrica Lyrica Yes Luh 1 capsule [facility] t [place] [facility] - [facility] l [facility] Clinics Vital Signs Vital Name Observation Time Observation Value Comments Source Oxygen saturation in 2020-06-11 17:45:00 96 /min [facility] - Arterial blood by Medical Ce nter Pulse oximetry Systolic blood 2020-06-11 17:00:00 132 mm[Hg] [facility] Diastolic blood 2020-06-11 17:00:00 75 mm[Hg] [facility] Heart rate 2020-06-11 14:00:00 95 /min [facility] Respiratory rate 2020-06-11 12:45:00 22 /min [facility] Body temperature 2020-06-11 12:33:00 37.28 Karolyn [facility] Body height 2020-06-11 12:33:00 157.5 cm [facility] Body weight 2020-06-11 12:33:00 87.091 kg [facility] BMI 2020-06-11 12:33:00 35.12 kg/m2 [facility] Procedures Procedure Date / Time Performing Clinician Source Performed TROPONIN I 2020-06-11 17:53:00 Adelita Coughlin [facility] LEGIONELLA URINE ANTIGEN 2020-06-11 16:35:00 Adelita Coughlin [facility] FERRITIN 2020-06-11 15:19:00 Coughlin, [facility] PROCALCITONIN 2020-06-11 15:19:00 Coughlin, [facility] TROPONIN I 2020-06-11 15:19:00 Coughlin, [facility] D-DIMER 2020-06-11 15:19:00 Coughlin, [facility] PROTHROMBIN TIME/INR 2020-06-11 15:19:00 Coughlin, [facility] FIBRINOGEN 2020-06-11 15:19:00 Coughlin, [facility] C-REACTIVE PROTEIN 2020-06-11 15:19:00 Coughlin, [facility] XR CHEST 1 VIEW 2020-06-11 15:09:00 Coughlin, [facility] PORTABLE/BEDSIDE Medical Center SARS-COV2/RT-PCR ([facility] & 2020-06-11 13:28:00 Doug, [facility] - REF LABS) [facility] RESPIRATORY PANEL [facility] 2020-06-11 13:28:00 Ced [facility] BASIC METABOLIC PANEL (7) 2020-06-11 12:45:00 Doug, [facility] TROPONIN I 2020-06-11 12:45:00 [facility], [facility] B-TYPE NATRIURETIC FACTOR 2020-06-11 12:45:00 Doug, [facility] (BNP) [facility] LACTIC ACID, VENOUS 2020-06-11 12:45:00 Doug, [facility] CREATINE KINASE (CK) 2020-06-11 12:45:00 Christina Reis [facility] LACTATE DEHYDROGENASE 2020-06-11 12:45:00 Ced [facility] (LDH) [facility] CBC W/PLT COUNT & AUTO 2020-06-11 12:45:00 Doug, [facility] S [facility] (CELLAVISION MANUAL DIFF) 2020-06-11 12:45:00 [facility] RHYTHM STRIP - SCAN 2020-04-14 13:40:14 Matthew Perez [facility] CAROTID DOPPLER BILATERAL 2020-04-12 14:00:00 Gavin Menezes [facility] POCT-GLUCOSE METER 2020-04-12 11:55:00 Ra Alekshul [facility] RPR 2020-04-12 05:36:00 Gavin Menezes [facility] CT BRAIN WITHOUT IV 2020-04-12 04:53:00 Gavin Menezes [facility] CONTRAST [facility] 2D ECHO W/ DOPPLER 2020-04-12 04:08:44 Gavin Menezes [facility] (CW/PW/COLOR) [facility] LIPID PANEL 2020-04-12 03:52:00 Gavin Menezes [facility] HEMOGLOBIN A1C 2020-04-12 03:52:00 Gavin Menezes [facility] TSH/FREE T4 IF INDICATED 2020-04-12 03:52:00 Gavin Menezes [facility] HOMOCYSTEINE 2020-04-12 03:52:00 Gavin Menezes [facility] BASIC METABOLIC PANEL (7) 2020-04-12 03:52:00 Gavin Menezes [facility] MAGNESIUM 2020-04-12 03:52:00 Gavin Menezes [facility] PHOSPHORUS 2020-04-12 03:52:00 Gavin Menezes [facility] PT/APTT 2020-04-12 03:52:00 Gavin Menezes [facility] CBC W/PLT COUNT & AUTO 2020-04-12 03:52:00 Gavin Menezes [facility] TROPONIN I 2020-04-11 23:20:00 Gavin Menezes [facility] POCT-GLUCOSE METER 2020-04-11 22:34:00 [facility] SARS-COV2/RT-PCR ([facility] & 2020-04-11 18:25:00 Gavin Menezes [facility] - REF LABS) [facility] TROPONIN I 2020-04-11 15:56:00 Gavin Menezes [facility] VITAMIN B12 AND FOLATE 2020-04-11 15:27:00 Gavin Menezes [facility] BASIC METABOLIC PANEL (7) 2020-04-11 15:26:00 Gavin Menezes [facility] CBC W/PLT COUNT & AUTO 2020-04-11 15:26:00 Gavin Menezes [facility] Plan of Care Planned Activity Planned Date Details Comments Source Future Scheduled 2020-03-11 INFLUENZA VACCINE (#1) [facility] - Test 00:00:00 [code = INFLUENZA Medical Ce nter VACCINE (#1)] Future Scheduled 2019-06-10 MEDICARE ANNUAL [facility] - Test 00:00:00 WELLNESS (YEAR 2 or [facility] FIRST YEAR if no IPPE) [code = MEDICARE ANNUAL WELLNESS (YEAR 2 or FIRST YEAR if no IPPE)] Future Scheduled 2017 PNEUMOCOCCAL 65+ YRS [facility] - Test 00:00:00 (1 of 1 - [facility] [id number] PCV13) [code = PNEUMOCOCCAL 65+ YRS (1 of - [id number] PCV13)] Future Scheduled [address] [facility] - Test 00:00:00 malignant neoplasm of [facility] breast (procedure) [code = 325378086] Future Scheduled [address] [facility] - Test 00:00:00 malignant neoplasm of [facility] colon (procedure) [code = 080006403] Encounters Start End Encounter Admission Attending Care Care Encounter Source Date/Time Date/Time Type Type Clinicians Facility Department ID 2020-04-29 2020-04-29 Outpatient [facility] [id number] [facility]00 [facility] 2020-04-29 2020-04-29 Outpatient [facility] [id number] [facility] 00[facility]:00 [facility] Outpati ent Clinics 2020-04-24 2020-04-24 [facility] [id number] 00[facility]:00 [facility] Outpati ent Clinics 2020-04-22 2020-04-22 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 Artem Evans UTJANES [id number] 10:49:54 11:10:21 [facility] [id number] [place] [id number] [id number] [address] 2020-01-24 2020-01-24 [facility] [id number] 16:00:00 16:00:00 [facility] Medicine Outpati ent Clinics 2019-11-06 2019-11-06 [facility] [id number] 10:20:00 10:20:00 [facility] Medicine Outpati ent Clinics 2019-10-10 2019-10-10 [facility] [id number] 15:00:00 15:00:00 [facility] Medicine Outpati ent Clinics 2019-09-26 2019-09-26 [facility] [id number] 13:23:00 13:23:00 [facility] Medicine Outpati ent Clinics 2019-09-18 2019-09-18 [facility] [id number] 10:00:00 10:00:00 [facility] Medicine Outpati ent Clinics 2019-09-11 2019-09-11 [facility] [id number] 13:00:00 13:00:00 [facility] Medicine Outpati ent Clinics 2019-09-05 2019-09-05 [facility] [id number] 11:26:00 11:26:00 [facility] Medicine Outpati ent Clinics 2019-08-31 2019-08-31 [facility] [id number] 10:40:00 10:40:00 t [facility] Medicine Medicine Outpati ent Clinics 2019-08-07 2019-08-07 [facility] [id number] 10:40:00 10:40:00 t [facility] Medicine l Medicine Outpati ent Clinics 2019-06-01 2019-06-01 [facility] [id number] 09:40:00 09:40:00 t [facility] Medicine l Medicine Outpati ent Clinics 2019-04-13 2019-04-13 [facility] [id number] [facility] 10:00:00 10:00:00 t [facility] Medicine l Medicine Outpati ent Clinics 2019-03-26 2019-03-26 [facility] [id number] [facility] 15:20:00 15:20:00 t [facility] Medicine l Medicine Outpati ent Clinics 2019-03-01 2019-03-01 [facility] [id number] [facility] 08:20:00 08:20:00 t [facility] Medicine l Medicine Outpati ent Clinics 2018-12-18 2018-12-18 [facility] [id number] 15:51:00 15:51:00 t [facility] Medicine Medicine Outpati ent Clinics 2018-12-18 2018-12-18 [facility] [id number] 10:15:00 10:15:00 t [facility] Medicine l Medicine Outpati ent Clinics 2018-06-29 2018-06-29 [facility] [id number] 11:41:00 11:41:00 t [facility] Medicine l Medicine Outpati ent Clinics 2018-06-21 2018-06-21 [facility] [id number] [facility] 10:30:00 10:30:00 t [facility] Medicine l Medicine Outpati ent Clinics 2018-02-06 2018-02-06 [facility] [id number] [facility] 10:13:00 10:13:00 [facility] Outpati ent Clinics 2018-02-02 2018-02-02 [facility] [id number] 16:51:00 16:51:00 [facility] Medicine Outpati ent Clinics 2018-01-09 2018-01-09 [facility] [id number] 09:12:00 09:12:00 [facility] Medicine Outpati ent Clinics 2017-12-16 2017-12-16 [facility] [id number] 09:15:00 09:15:00 [facility] Outpati ent Clinics 2017-12-12 2017-12-12 [facility] [id number] 16:39:00 16:39:00 [facility] Medicine Outpati ent Clinics 2017-11-30 2017-11-30 [facility] [id number] 09:30:00 09:30:00 [facility] Results Test Description Test Time Test Comments Results Result Comments Source Strep pneumoniae antigen 2020-06-11 21:47:00 Test Item Value Reference Range Interpretation Comme nts Strep pneumoniae Antigen Presumptive negative for Presumptive negat ruba for (test code = 85569-2) pneumococcal pneumonia - pneumococcal pneumon ia - see comment see comment, Presumptive negative for pneumococcal meningitis ANGELA (test code = ANGELA) Presumptive negative for pneumococcal pneumonia, suggesting no current or recent pneumococcal infection. Infection due to S. pneumoniae cannot be ruled out since the antigen present in the sample may be below the detection limit of the test. Lab Interpretation (test code Normal = 14020-9) [facility] [id number] 21:47:00 Test Item Value Reference Range Interpretation Comments STREP PNEUMONIAE Presumptive negative Presumptive negative ANTIGEN (BEAKER) for pneumococcal for pneumococcal (test code = 1615) pneumonia - see pneumonia - see comment commen Presumptive negative for pneumococcal pneumonia, suggesting no current or recent pneumococcal infection. Infection due to S. pneumoniae cannot be ruled out since the antigen present in the sample may be below the detection limit of the test. Legionella antigen, [id number] 21:46:00 Test Item Value Reference Range Interpretation Comments Legionella Urine Negative - see Negative for L. Antigen (test code comment pneumophi la = 84481-5) serogroup 1 ant igen, suggesting no r ecent or current infe ction with this serog roup. Legionellosis c annot be ruled out si nce other serogroup s and species may cau se disease. [facility]TIGEN, [id number] 21:46:00 Test Item Value Reference Range Interpretation Comments L. PNEUMOPHILA Negative - see Negative fo r L. SEROGP 1 UR AG comment pneumophila (BEAKER) (test code serogrou p 1 antigen, = 1156) suggesting no r ecent or current infe ction with this serog roup. Legionellosis c annot be ruled out si nce other serogroup s and species may cau se disease. Respiratory Panel [id number] 19:14:00 Test Item Value Reference Range Interpretation Comments Human Metapneumovirus Not detected Not detected, (test code = 77111-6) Equivocal Rhinovirus (test code = Not detected Not detected, 56569-1) Equivocal INFLUENZA A (NO Not detected Not detected, SUBTYPE) (test code = Equivocal 41562-2) Influenza A subtype H1 (test code = 74439-0) Influenza A Subtype H3 (test code = 48083-2) Influenza A Subtype H1-2009 (test code = 05338-6) Influenza B (test code Not detected Not detected, = 09251-6) Equivocal Respiratory Syncytial Not detected Not detected, Virus (test code = Equivocal 01613-4) Parainfluenza Virus 1 Not detected Not detected, (test code = 56720-9) Equivocal Parainfluenza Virus 2 Not detected Not detected, (test code = 12216-9) Equivocal Parainfluenza virus 3 Not detected Not detected, (test code = 59390-5) Equivocal Parainfluenza Virus 4 Not detected Not detected, (test code = 47881-7) Equivocal Adenovirus (test code = Not detected Not detected, 11197-8) Equivocal Coronavirus 229E (test Not detected Not detected, code = 66483-4) Equivocal Coronavirus HKU1 (test Not detected Not detected, code = 63422-0) Equivocal Coronavirus NL63 (test Not detected Not detected, code = 13756-3) Equivocal Coronavirus OC43 (test Not detected Not detected, code = 89869-8) Equivocal Bordetella Pertussis Not detected Not detected, (test code = 38148-0) Equivocal Chlamydophila Not detected Not detected, Pneumoniae (test code = Equivocal 23622-9) Mycoplasma Pneumoniae Not detected Not detected, (test code = 28316-4) Equivocal ANGELA (test code = ANGELA) Other viruses and bacteria not targeted by this PCR panel cannot be excluded; therefore clinical correlation and follow up of serology, culture results, and other molecular studies is required. The results are not intended to be used as the sole means for clinical diagnosis or patient management decisions. This sample was tested at the [facility] Molecular Diagnostics Laboratory using the [employer] Respiratory Panel. It is FDA cleared and has been verified and approved by the [facility] Molecular Diagnostics Laboratory for clinical use on nasopharyngeal swab specimens. The performance of the FilmArray RP has not been established in individuals who received influenza vaccine. Recent administration of a nasal influenza vaccine may cause false positive results for Influenza A and/orInfluenza B. [facility] [id number] 19:14:00 Test Item Value Reference Range Interpretation Comments HUMAN METAPNEUMOVIRUS Not detected Not detected, (BEAKER) (test code = 2683) Equivocal RHINOVIRUS (BEAKER) (test Not detected Not detected, code = 2684) Equivocal INFLUENZA A (BEAKER) (test Not detected Not detected, code = 2685) Equivocal INFLUENZA A (NO SUBTYPE) (test code = 3606) INFLUENZA A SUBTYPE H1 (BEAKER) (test code = 2686) INFLUENZA A SUBTYPE H3 (BEAKER) (test code = 2687) INFLUENZA A SUBTYPE H1-2009 (BEAKER) (test code = 3198) INFLUENZA B (BEAKER) (test Not detected Not detected, code = 2688) Equivocal RESPIRATORY SYNCYTIAL VIRUS Not detected Not detected, (BEAKER) (test code = 3199) Equivocal PARAINFLUENZA VIRUS 1 Not detected Not detected, (BEAKER) (test code = 2691) Equivocal PARAINFLUENZA VIRUS 2 Not detected Not detected, (BEAKER) (test code = 2692) Equivocal PARAINFLUENZA VIRUS 3 Not detected Not detected, (BEAKER) (test code = 2693) Equivocal PARAINFLUENZA VIRUS 4 Not detected Not detected, (BEAKER) (test code = 3200) Equivocal ADENOVIRUS (BEAKER) (test Not detected Not detected, code = 2694) Equivocal CORONAVIRUS 229E (BEAKER) Not detected Not detected, (test code = 3201) Equivocal CORONAVIRUS HKU1 (BEAKER) Not detected Not detected, (test code = 3202) Equivocal CORONAVIRUS NL63 (BEAKER) Not detected Not detected, (test code = 3203) Equivocal CORONAVIRUS OC43 (BEAKER) Not detected Not detected, (test code = 3204) Equivocal BORDETELLA PERTUSSIS Not detected Not detected, (BEAKER) (test code = 3205) Equivocal CHLAMYDOPHILA PNEUMONIAE Not detected Not detected, (BEAKER) (test code = 3206) Equivocal MYCOPLASMA PNEUMONIAE Not detected Not detected, (BEAKER) (test code = 3207) Equivocal Other viruses and bacteria not targeted by this PCR panel cannot be excluded; therefore clinical correlation and follow up of serology, culture results, and other molecular studies is required. The results are not intended to be used as the sole means for clinical diagnosis or patient management decisions. This sample was tested at the [facility] Molecular Diagnostics Laboratory using the [employer] Respiratory Panel. It is FDA cleared and has been verified and approved by the [facility] Molecular Diagnostics Laboratory for clinical use on nasopharyngeal swab specimens.The performance of the FilmArrayRP has not been established in individuals who received influenza vaccine. Recent administration ofa nasal influenza vaccine may cause false positive results for Influenza A and/orInfluenza B.SARS-CoV2/RT-PCR (Symptomatic ONLY)2020-06-11 18:57:00 Test Item Value Reference Range Interpretation Comments SARS-COV2/RT-PCR Negative Not Detected, (test code = Negative, See 87215-7) external report for linked test SARS-COV-2 [facility] STEVEN PERFORMING LAB (test code = 24202-5) ANGELA (test code = Negative result for [...] of the Act. Fact Sheet for Healthcare Providers:https://www.[employer]/sites/default/f francie/product/documents/F act_Sheet_HC_Providers_L lhr_NAHF-UrF-2.pdf Fact Sheet for Healthcare Patients:https://www.[employer]/sites/default/fi les/product/documents/Fa ct_Sheet_Patients_Lyra_S ARS-CoV-2.pdf Performing Laboratory:[facility] [place] [address] [facility] & REF LABS)2020-06-11 18:57:00 Test Item Value Reference Range Interpretation Comments SARS-COV2/RT-PCR (test Negative Not Detected, Negative, code = 6525672) See external report for linked test SARS-COV-[address] [facility] STEVEN (test code = 2859408) Negative result for this test determines that [...] 564(g) of the Act.Fact Sheet for Healthcare Providers:https://www.[employer] Discountersidel.com/sites/default/files/product/documents/Fact_Shee w_SZ_Gukgxnqta_Uooq_CRIC-GeY-2.pdfFact Sheet for Healthcare Patients:https://www.My Luv My Life My Heartbeats.com/sites/default/files/product/ documents/Whfh_Dagqk_Idzimgba_Dkfk_XKCV-MxZ-6.pdfPerforming Laboratory:[facility], [place] [address]Bszrkdjd [id number] 18:53:00 Test Item Value Reference Range Interpretation Comments Troponin I (test code = 0.04 ng/mL 0-0.03 H 95489-5) ANGELA (test code = ANGELA) Troponin I [...] disease, and persistent tachyarrhythmia.Opera tor ID - BS Lab Interpretation (test Abnormal code = 63731-3) [facility]TROP[facility] [id number] 18:53:00 Test Item Value Reference Range Interpretation Comments TROPONIN I (BEAKER) (test code = 0.04 ng/mL 0.00-0.03 H 397) Troponin I (TnI) levels must be interpreted [...] failure, acidosis, acute neurological disease, and persistent tachyarrhythmia.Plant Production Worker ID - SPYdmoyjsorwgpz6526-79-63 16:47:00 Test Item Value Reference Range Interpretation Comments Procalcitonin (test code = 30.31 ng/mL <0.05 54783-9) ANGELA (test code = ANGELA) SEPSIS RISK (ng/mL)Low: 0.05-0.50Intermedi ate: 0.51-2.00High: >=2.01 Lab Interpretation (test Abnormal code = 42882-1) [facility] HospitalPROCALCITONIN2020-12-02 16:47:00 Test Item Value Reference Range Interpretation Comments PROCALCITONIN (BEAKER) (test code 30.31 ng/mL <0.05 HH = 3036) SEPSIS RISK (ng/mL)Low: 0.05-0.50Intermediate: 0.51-2.00High: >=2.12Fnmtsbwj8058-82-33 16:13:00 Test Item Value Reference Range Interpretation Comments Ferritin (test code = 202.52 ng/mL -025 3436-4) ANGELA (test code = ANGELA) Plant Production Worker ID - BS Lab Interpretation (test Normal code = 65341-8) [facility] HospitalFERRITIN2020-12-02 16:13:00 Test Item Value Reference Range Interpretation Comments FERRITIN (BEAKER) (test code = 202.52 ng/mL 5.00-275.00 361) Plant Production Worker ID - BSTROPONIN [id number] 16:00:00 Test Item Value Reference Range Interpretation Comments TROPONIN I (BEAKER) (test code = 0.04 ng/mL 0.00-0.03 H 397) Troponin I (TnI) levels must be interpreted [...] failure, acidosis, acute neurological disease, and persistent tachyarrhythmia.Plant Production Worker ID - BSC-Reactive Protein 2020-06-11 15:57:00 Test Item Value Reference Range Interpretation Comments CRP (test code = 676) 10.34 mg/dL 0-0.5 H ANGELA (test code = ANGELA) Plant Production Worker ID - BS Lab Interpretation (test Abnormal code = 06257-1) [facility] HospitalC-REACTIVE [id number] 15:57:00 Test Item Value Reference Range Interpretation Comments C-REACTIVE PROTEIN (BEAKER) (test 10.34 mg/dL 0.00-0.50 H code = 676) Plant Production Worker ID - TFO-krbeh9041-48-02 15:49:00 Test Item Value Reference Range Interpretation Comments D-Dimer, Quant (test code 2.22 <0.50 MG/L FEU H = 26709-7) ANGELA (test code = ANGELA) Intended Use: The D-Dimer Assay can be used to aid in the diagnosis of Deep Vein Thrombosis (DVT) and Pulmonary Embolism Disease (PED).In patients with low pre-test probability, various studies concerning STA Liatest D-dimer test have reported that with a cutoff value of 0.50 MG/L FEU, the Negative Predictive Value (NPV) regarding the exclusion of thrombosis is within 95-100% range. Lab Interpretation (test Abnormal code = 29496-8) [facility] HospitalD-[id number] 15:49:00 Test Item Value Reference Range Interpretation Comments D-DIMER QUANTITATIVE (BEAKER) 2.22 MG/L FEU <0.50 H (test code = 671) Intended Use: The D-Dimer Assay can be used to aid in the diagnosis of Deep Vein Thrombosis (DVT) and Pulmonary Embolism Disease (PED).In patients with low pre- test probability, various studies concerning STA Liatest D-dimer test have reported that with a cutoff value of 0.50 MG/L FEU, the Negative Predictive Value (NPV) regarding the exclusion of thrombosis is within 95-100% range. Lactate dehydrogenase (LDH)2020-06-11 15:47:00 Test Item Value Reference Range Interpretation Comments LDH (test code = 2532-0) 228 U/L 125-220 H ANGELA (test code = ANGELA) Plant Production Worker ID - BS Lab Interpretation (test Abnormal code = 30143-9) [facility] HospitalLACTATE DEHYDROGENASE (LDH)2020-06-11 15:47:00 Test Item Value Reference Range Interpretation Comments LACTATE DEHYDROGENASE (BEAKER) (test 228 U/L 125-220 H code = 635) Plant Production Worker ID - KHDkisyansfa1718-70-66 15:46:00 Test Item Value Reference Range Interpretation Comments Fibrinogen (test code = 3255-7) 371 mg/dl 225-434 Lab Interpretation (test code = Normal 44591-0) [facility] HospitalProthrombin time/[id number] 15:46:00 Test Item Value Reference Range Interpretation Comments Protime (test code = 13.1 11.9- 14.2 5902-2) seconds INR (test code = 1.02 <=5.90 6301-6) ANGELA (test code = ANGELA) Effective 12/06/2018: PT Reference Range ChangeNew: 11.9-14.2 Previous: 11.7-14.7 RECOMMENDED COUMADIN/WARFARIN INR THERAPY RANGESSTANDARD DOSE: 2.0-3.0 Includes: PROPHYLAXIS for venous thrombosis, systemic embolization; TREATMENT for venous thrombosis and/or pulmonary embolus.HIGH RISK: Target INR is 2.5-3.5 for patients wiht mechanical heart valves. Lab Interpretation Normal (test code = 28484-0) [facility] HospitalPROTHROMBIN TIME/[id number] 15:46:00 Test Item Value Reference Range Interpretation Comments PROTIME (BEAKER) (test code = 13.1 seconds 11.9-14.2 759) INR (BEAKER) (test code = 370) 1.02 <=5.90 Effective 12/06/2018: PT Reference Range ChangeNew: 11.9-14.2 Previous: 11.7- 14.7RECOMMENDED COUMADIN/WARFARIN INR THERAPY RANGESSTANDARD DOSE: 2.0-3.0 Includes: PROPHYLAXIS for venous thrombosis, systemic embolization; TREATMENT for venous thrombosis and/or pulmonary embolus.HIGH RISK: Target INR is2.5-3.5 for patients wiht mechanical heart valves.[id number] 15:46:00 Test Item Value Reference Range Interpretation Comments FIBRINOGEN LEVEL (BEAKER) (test 371 mg/dl 225-434 code = 658) RAD, CHEST, 1 VIEW, NON [id number] 15:31:00Reason for exam:->SHORTNESS OF BREATHShould this be performed at the bedside?->Yes [facility] : 1950 Sex: FFINAL REPORT INDICATION: SHORTNESS OF BREATH COMPARISON: None T ECHNIQUE: Single frontal view of the chest. FINDINGS: Lungs and pleura: Right basilar airspace disease No effusion.Heart and mediastinum: Normal heart size. Unremarkable mediastinal contours.Osseous structures: No acute abnormality.Other: None. IMPRESSION: Right basilar airspace disease Signed: Barber Groves MDReport Verified Date/Time: 06/11/2020 15:31:05 Reading Location: [facility] Radiology Reading Room XR chest 1 view portable / bedside 2020-06-11 15:31:00Interface, External Ris In - 06/11/2020 3:33 PM CSTFINAL REPORT INDICATION: SHORTNESS OF BREATH COMPARISON: None TECHNIQUE: Single frontal view of the chest. FINDINGS: Lungs andpleura: Right basilar airspace disease No effusion.Heart and mediastinum: Normal heart size. Unremarkable mediastinal contours.Osseous structures: No acute abnormality.Other: None. IMPRESSION: Right basilar airspace disease Signed: Barber Groves MDReport Verified Date/Time: 06/11/2020 15:31:05 Reading Location: [facility] Radiology Reading Room [facility] Creatine Kinase (CK)2020-06-11 14:44:00 Test Item Value Reference Range Interpretation Comments Total CK (test code = 261 U/L 29-200 H 2157-6) ANGELA (test code = ANGELA) Plant Production Worker ID - AAHAMID Lab Interpretation (test Abnormal code = 49940-3) [facility] HospitalCREATINE KINASE (CK)2020-06-11 14:44:00 Test Item Value Reference Range Interpretation Comments CREATINE KINASE TOTAL (BEAKER) (test 261 U/L 29-200 H code = 380) Plant Production Worker ID - AAHAMIDCBC with platelet count + automated pjyk7183-05-31 14:21:00 Test Item Value Reference Range Interpretation Comments WBC (test code = 6690-2) 9.6 3.5- 10.5 K/L RBC (test code = 789-8) 3.73 3.93- 5.22 M/L L MCHC (test code = 786-4) 32.7 32.2- 35.5 GM/DL Hematocrit (test code = 4544-3) 35.5 % 34.1-44.9 MCV (test code = 787-2) 95.2 fL 79.4-94.8 H MCH (test code = 785-6) 31.1 pg 25.6-32.2 RDW (test code = 788-0) 13.4 % 11.7-14.4 Platelets (test code = 777-3) 320 150- 450 K/CU MM MPV (test code = 74892-2) 9.0 fL 9.4-12.3 L nRBC (test code = 413) 0 0- 0 /100 WBC Lab Interpretation (test code = Abnormal 01603-1) [facility] HospitalManual Fzzlcxiwcqen9102-42-71 14:21:00 Test Item Value Reference Range Interpretation Comments % Neutros (test code = 2816) 70 % % Lymphs (test code = 2817) 6 % % Monos (test code = 2818) 4 % % Metamyelo (test code = 2821) 8 % 0-0 H % Bands (test code = 2826) 10 % 0-10 % Atypical Lymphs (test code = 1 % 0-0 H 2829) # Neutros (test code = 2830) 6.72 K/ul 1.56-6.13 H # Lymphs (test code = 2831) 0.58 K/ul 1.18-3.74 L # Monos (test code = 2832) 0.38 K/uL 0.24-0.36 H # Metamyelo (test code = 2836) 0.77 K/uL 0-0 H # Bands (test code = 2840) 0.96 K/uL 0-0.8 H # Atypical Lymphs (test code = 0.10 K/uL 0-0 H 2858) Total Counted (test code = 1351) 100 RBC Morphology (test code = 762) Normal WBC Morphology (test code = 487) Normal Platelet Morphology (test code = Normal 486) Lab Interpretation (test code = Abnormal 82290-8) [facility] HospitalCB W/PLT COUNT & AUTO [id number] 14:21:00 Test Item Value Reference Range Interpretation Comments WHITE BLOOD CELL COUNT (BEAKER) 9.6 K/ L 3.5-10.5 (test code = 775) RED BLOOD CELL COUNT (BEAKER) 3.73 M/ L 3.93-5.22 L (test code = 761) HEMOGLOBIN (BEAKER) (test code = 11.6 GM/DL 11.2-15.7 410) HEMATOCRIT (BEAKER) (test code = 35.5 % 34.1-44.9 411) MEAN CORPUSCULAR VOLUME (BEAKER) 95.2 fL 79.4-94.8 H (test code = 753) MEAN CORPUSCULAR HEMOGLOBIN 31.1 pg 25.6-32.2 (BEAKER) (test code = 751) MEAN CORPUSCULAR HEMOGLOBIN CONC 32.7 GM/DL 32.2-35.5 (BEAKER) (test code = 752) RED CELL DISTRIBUTION WIDTH 13.4 % 11.7-14.4 (BEAKER) (test code = 412) PLATELET COUNT (BEAKER) (test 320 K/CU MM 150-450 code = 756) MEAN PLATELET VOLUME (BEAKER) 9.0 fL 9.4-12.3 L (test code = 754) NUCLEATED RED BLOOD CELLS 0 /100 WBC 0-0 (BEAKER) (test code = 413) (CELLAVISION MANUAL DIFF)2020-06-11 14:21:00 Test Item Value Reference Range Interpretation Comments NEUTROPHILS - REL 70 % (CELLAVISION)(BEAKER) (test code = 2816) LYMPHOCYTES - REL 6 % (CELLAVISION)(BEAKER) (test code = 2817) MONOCYTES - REL 4 % (CELLAVISION)(BEAKER) (test code = 2818) METAMYELOCYTES - REL 8 % 0-0 H (CELLAVISION)(BEAKER) (test code = 2821) BANDS - REL (CELLAVISION)(BEAKER) 10 % 0-10 (test code = 2826) ATYPICAL LYMPHOCYTES - REL 1 % 0-0 H (CELLAVISION)(BEAKER) (test code = 2829) NEUTROPHILS - ABS 6.72 K/ul 1.56-6.13 H (CELLAVISION)(BEAKER) (test code = 2830) LYMPHOCYTES - ABS 0.58 K/ul 1.18-3.74 L (CELLAVISION)(BEAKER) (test code = 2831) MONOCYTES - ABS 0.38 K/uL 0.24-0.36 H (CELLAVISION)(BEAKER) (test code = 2832) METAMYELOCYTES - ABS 0.77 K/uL 0.00-0.00 H (CELLAVISION)(BEAKER) (test code = 2836) BANDS - ABS (CELLAVISION)(BEAKER) 0.96 K/uL 0.00-0.80 H (test code = 2840) ATYPICAL LYMPHOCYTES - ABS 0.10 K/uL 0.00-0.00 H (CELLAVISION)(BEAKER) (test code = 2858) TOTAL COUNTED (BEAKER) (test code = 100 1351) RBC MORPHOLOGY (BEAKER) (test code Normal = 762) WBC MORPHOLOGY (BEAKER) (test code Normal = 487) PLT MORPHOLOGY (BEAKER) (test code Normal = 486) Basic Metabolic [id number] 13:30:00 Test Item Value Reference Range Interpretation Comments Sodium (test code = 136 meq/L 177-353 6214-2) Potassium (test code = 3.7 meq/L 3.5-5.1 2823-3) Chloride (test code = 107 meq/L 98-107 2075-0) CO2 (test code = 21 meq/L 22-29 L 2028-9) BUN (test code = 14 mg/dL 7-21 3094-0) Creatinine (test code 0.98 mg/dL 0.57-1.25 = 2160-0) Glucose (test code = 145 mg/dL 70-105 H 2345-7) Calcium (test code = 7.9 mg/dL 8.4-10.2 L 06354-3) EGFR (test code = 57 mL/min/1.73 [place] [address]-4) NOT ACCURATE CREATININE CLEARANCE IN PREDICTING GLOMERULAR FILTRATION RATE . ESTIMATED GFR I S NOT APPLICABLE FOR DIALYSIS PATIENTS. ANGELA (test code = ANGELA) Plant Production Worker ID - AAHAMID Lab Interpretation Abnormal (test code = 57111-5) [facility] METABOLIC [id number] 13:30:00 Test Item Value Reference Range Interpretation Comments SODIUM (BEAKER) 136 meq/L 136-145 (test code = 381) POTASSIUM (BEAKER) 3.7 meq/L 3.5-5.1 (test code = 379) CHLORIDE (BEAKER) 107 meq/L 98-107 (test code = 382) CO2 (BEAKER) (test 21 meq/L 22-29 L code = 355) BLOOD UREA NITROGEN 14 mg/dL 7-21 (BEAKER) (test code = 354) CREATININE (BEAKER) 0.98 mg/dL 0.57-1.25 (test code = 358) GLUCOSE RANDOM 145 mg/dL 70-105 H (BEAKER) (test code = 652) CALCIUM (BEAKER) 7.9 mg/dL 8.4-10.2 L (test code = 697) EGFR (BEAKER) (test 57 mL/min/1.73 ESTIMA GREGG GFR IS code = 1092) sq m NOT ACCURATE CREATININE CLEARANCE IN PREDICTING GLOMERULAR FILTRATION RATE . ESTIMATED GFR I S NOT APPLICABLE FOR DIALYSIS PATIEN TS. Plant Production Worker ID - AAHAMIDB-type Natriuretic Factor (BNP)2020-06-11 13:19:00 Test Item Value Reference Range Interpretation Comments BNP (test code = 73420-6) 79 pg/mL 0-100 ANGELA (test code = ANGELA) Plant Production Worker ID - AAHAMID Lab Interpretation (test Normal code = 54915-4) [facility] HospitalB-TYPE NATRIURETIC FACTOR (BNP)2020-06-11 13:19:00 Test Item Value Reference Range Interpretation Comments B-TYPE NATRIURETIC PEPTIDE (BEAKER) 79 pg/mL 0-100 (test code = 700) Plant Production Worker ID - AAHAMIDTROPONIN [id number] 13:19:00 Test Item Value Reference Range Interpretation Comments TROPONIN I (BEAKER) (test code = 0.04 ng/mL 0.00-0.03 H 397) Troponin I (TnI) levels must be interpreted [...] failure, acidosis, acute neurological disease, and persistent tachyarrhythmia.Plant Production Worker ID - AAHAMIDLactic acid, venous 2020-06-11 13:07:00 Test Item Value Reference Range Interpretation Comments Lactate, Venous (test code 1.89 mmol/L 0.5-2.2 = 2872) ANGELA (test code = ANGELA) Plant Production Worker ID - AAHAMID Lab Interpretation (test Normal code = 61734-2) [facility] HospitalLACTIC ACID, [id number] 13:07:00 Test Item Value Reference Range Interpretation Comments LACTATE BLOOD VENOUS (2) (DHEERAJ) 1.89 mmol/L 0.50-2.20 (test code = 2872) Plant Production Worker ID - WGUVNYJQFQ0125-96-54 11:59:00 Test Item Value Reference Range Interpretation Comments RPR (test code = 94267-3) Nonreactive Nonreactive Lab Interpretation (test code = Normal 54240-8) [facility] 11:59:00 Test Item Value Reference Range Interpretation Comments RPR SCREEN (DHEERAJ) (test code = Nonreactive Nonreactive 420) Carotid doppler [id number] 20:54:56Ejection FractionSST. LUKE'S [facility]CHO HEARTLAB MKCKESSON CPACSRight Impression1. There is [...] Duplex Study Demographics Patient Name ELIEZER EDWARD Date of Study 04/12/2020 SELIN Age 69 Visit Number [id number] Gender Female Accession Number [id number] Date of 1950 Referring Aleks Lovett Room Number 3599 Physician Setter Induction Heating Equipment Luz Maria Foley Interpreting Anca Rodriguez, Physician [...] + + + - Additional Measurements:ICAPSV/CCAPSV 1.71.ICAEDV/CCAEDV 1.84.[facility]2D Echo W/Doppler(CW/PW/Color)2020-04-12 17:42:06Ejection FractionSLEH ECHO HEARTLAB MKCKESSON CPACSInterface, External Ris In - 04/12/2020 5:42 PM CDTTransthoracic Echocardiography Report (TTE) Demographics Patient Name ELIEZER EDWARD Dateof Study 04/12/2020 SELIN Gender Female Visit Number [id number] Race Unknown Room Number 7405 Number Date of 1950 Referring PhysicianBony Fink Age 69 year(s) Setter Induction Heating Equipment Julien Sutherland Interpreting Flavio Jorgensen, Physician Procedure Type of Study TTE procedure:2DECHO [...] CO: 4.62 l/min LVOT CI: 2.3 l/min/m^2 [facility]-Glucose [id number] 12:12:00 Test Item Value Reference Range Interpretation Comments POC-Glucose Meter (test 99 mg/dL 70-110 : TE STED AT [facility] code = 1538) [address] [place] [address], 770 30: Plant Production Worker/Techni marlene ID = [id number] for [place], Keri Lab Interpretation (test Normal code = 57171-1) [facility]-GLUCOSE [id number] 12:12:00 Test Item Value Reference Range Interpretation Comments POC-GLUCOSE METER 99 mg/dL 70-110 : TESTED A T [facility] 6720 (BEAKER) (test code = [place], 1538) [address]: Plant Production Worker/Techni marlene ID = [id number] for Step toe, Keri Hemoglobin [id number] 10:55:00 Test Item Value Reference Range Interpretation Comments Hemoglobin A1C (test code = 4548-4) 5.7 % 4.3-6.1 Lab Interpretation (test code = Normal 80592-4) [facility] HospitalHEMOGLOBIN [id number] 10:55:00 Test Item Value Reference Range Interpretation Comments HEMOGLOBIN A1C (BEAKER) (test code = 5.7 % 4.3-6.1 368) CT, BRAIN, WITHOUT [id number] 07:16:00Unlisted Reason for Exam - Click Yes [...] isrecommended for further characterization. Signed: Barber Groves MDReport Verified Date/Time: 04/12/2020 07:16:16 Reading Location: [address] Neuro Reading Room CT brain without IV [id number] 07:16:00Interface, External Ris In - 04/12/2020 7:18 [...] recommended for further characterization. Signed: Barber Groves William Verified Date/Time: 04/12/2020 07:16:16 Reading Location: [facility] B1 C013V Neuro Reading [facility] CenterHomocysteine2020-10-[facility] 06:22:00 Test Item Value Reference Range Interpretation Comments Homocysteine (test code = 5.8 umol/L 5.1-15.4 10829-8) ANGELA (test code = ANGELA) Plant Production Worker ID - PIAYA L Lab Interpretation (test Normal code = 96712-3) [facility] HospitalTSH/Free T4 If [id number] 06:22:00 Test Item Value Reference Range Interpretation Comments TSH (test code = 1.689 0.350- 4.940 uIU/mL 39958-4) ANGELA (test code = ANGELA) Plant Production Worker ID - PIAYA L Lab Interpretation (test Normal code = 05711-8) [facility] HospitalHOMOCYSTEINE2020-10-03 06:22:00 Test Item Value Reference Range Interpretation Comments HOMOCYSTEINE (BEAKER) (test code = 5.8 umol/L 5.1-15.4 642) Plant Production Worker ID - PIAYA LTSH/FREE T4 IF [id number] 06:22:00 Test Item Value Reference Range Interpretation Comments THYROID STIMULATING HORMONE 1.689 uIU/mL 0.350-4.940 (BEAKER) (test code = 772) Plant Production Worker ID - PIAYA LSARS-COV2/RT-PCR ([facility])2020-04-12 05:40:00 Test Item Value Reference Range Interpretation Comments SARS-COV2/RT-PCR (test Negative Not Detected, Negative, code = 4828129) See external report for linked test SARS-COV-[address] [facility] STEVEN (test code = 9410409) Negative result for this test determines that [...] 564(g) of the Act.Fact Sheet for Healthcare Providers:https://www.My Lu[employer] My [employer] My Heartbeats.Acesis/sites/default/files/product/documents/Fact_Shee l_PP_Tikaosmen_Tnnn_DREE-CtL-8.pdfFact Sheet for Healthcare Patients:https://www.[employer] My Heartbeats.[employer]/sites/default/files/product/ documents/Uqvj_Wmvmp_Ewmdmauh_Yzdw_EJVJ-BjM-9.pdfPerforming Laboratory:[facility], [place] [address]Ndhtc frslu8723-18-43 05:12:00 Test Item Value Reference Range Interpretation Comments Triglycerides (test 51 mg/dL Specimen code = 2571-8) slightly hemolyzed Cholesterol (test 152 mg/dL Specimen code = 2093-3) slightly hemolyzed HDL (test code = 68 mg/dL 5-9) LDL Calculated (test 74 mg/dL code = 28195-5) ANGELA (test code = Triglyceride ANGELA) Reference Range: Low Risk <150 Borderline 150-199 High Risk 200-499 Very High Risk >=500 Cholesterol Reference Range: Low Risk <200 Borderline 200-239 High Risk >240 HDL Cholesterol Reference Range: Low Risk >=60 High Risk <40 LDL Cholesterol Reference Range: Optimal <100 Near Optimal 100-129 Borderline 130-159 High 160-189 Very High >=190 Plant Production Worker KAMI - LELAND L [facility]erg[facility]-03 05:12:00 Test Item Value Reference Range Interpretation Comments Magnesium (test code = 2.0 mg/dL 1.6-2.6 Speci men 85136-2) slightly hemolyzed ANGELA (test code = ANGELA) Plant Production Worker ID - LELAND L Lab Interpretation Normal (test code = 13331-9) [facility] HospitalPhosphorus2020-10-03 05:12:00 Test Item Value Reference Range Interpretation Comments Phosphorus (test code 3.6 mg/dL 2.3-4.7 Specim en = 2777-1) slightly hemolyzed ANGELA (test code = ANGELA) Plant Production Worker ID - LELAND L Lab Interpretation Normal (test code = 03043-8) [facility]GN[facility]UM2020-[facility]-03 05:12:00 Test Item Value Reference Range Interpretation Comments MAGNESIUM (BEAKER) 2.0 mg/dL 1.6-2.6 Specimen slightly (test code = 627) hemolyzed Plant Production Worker KAMI HA [id number] 05:12:00 Test Item Value Reference Range Interpretation Comments PHOSPHORUS (BEAKER) 3.6 mg/dL 2.3-4.7 Specimen slightly (test code = 604) hemolyzed Plant Production Worker ID - LELAND LBASIC METABOLIC [id number] 05:12:00 Test Item Value Reference Range Interpretation [...] S NOT APPLICABLE FOR DIALYSIS PATIEN TS. Plant Production Worker ID - PIAYA LLIPID [id number] 05:12:00 Test Item Value Reference Range Interpretation [...] Borderline 130-159 High 160-189 Very High >=190 Plant Production Worker ID - PIAYALPT/mEWR2584-11-81 04:15:00 Test Item Value Reference Range Interpretation Comments Protime (test code = 14.1 11.9- 14.2 5902-2) seconds INR (test code = 1.12 <=5.90 6301-6) PTT (test code = 43.9 22.5- 36.0 H 01880-5) seconds ANGELA (test code = ANGELA) Effective 12/06/2018: PT Reference Range ChangeNew: 11.9-14.2 Previous: 11.7-14.7 RECOMMENDED COUMADIN/WARFARIN INR THERAPY RANGESSTANDARD DOSE: 2.0-3.0 Includes: PROPHYLAXIS for venous thrombosis, systemic embolization; TREATMENT for venous thrombosis and/or pulmonary embolus.HIGH RISK: Target INR is 2.5-3.5 for patients wiht mechanical heart valves. Lab Interpretation Abnormal (test code = 25857-7) [facility] HospitalPT/[id number] 04:15:00 Test Item Value Reference Range Interpretation [...] is2.5-3.5 for patients wiht mechanical heart valves.CBC W/PLT COUNT & AUTO [id number] 04:06:00 Test Item Value Reference Range Interpretation [...] 0-1 PERCENT (BEAKER) (test code = 2801) TROPONIN [id number] 23:58:00 Test Item Value Reference Range Interpretation [...] failure, acidosis, acute neurological disease, and persistent tachyarrhythmia.Plant Production Worker ID - PIAYA LPOCT-GLUCOSE METER 2020-04-11 22:48:00 Test Item Value Reference Range Interpretation Comments POC-GLUCOSE METER 126 mg/dL 70-110 H : TESTED A T [facility] 6720 (BEAKER) (test code = [facility], 1538) [address]: Plant Production Worker/Techni marlene ID = [id number] for IR SHAYLA GARCIA Vitamin B12 and [id number] 16:32:00 Test Item Value Reference Range Interpretation Comments Vitamin B12 (test code = 1210 pg/mL 213-816 H 2132-9) Folate (test code = 2284-8) 18.10 ng/mL >=7.00 ANGELA (test code = ANGELA) Plant Production Worker ID - DB Lab Interpretation (test Abnormal code = 17823-7) [facility] HospitalVITAMIN B12 AND [id number] 16:32:00 Test Item Value Reference Range Interpretation Comments VITAMIN B12 (BEAKER) (test code = 1210 pg/mL 213-816 H 774) FOLATE (BEAKER) (test code = 362) 18.10 ng/mL >=7.00 Plant Production Worker ID - DBTROPONIN [id number] 16:26:00 Test Item Value Reference Range Interpretation [...] failure, acidosis, acute neurological disease, and persistent tachyarrhythmia.Plant Production Worker ID - DBBASIC METABOLIC PANEL 2020-04-11 16:00:00 [...] S NOT APPLICABLE FOR DIALYSIS PATIEN TS. Plant Production Worker ID - DBCBC W/PLT COUNT & AUTO [id number] 15:42:00 Test Item Value Reference Range Interpretation [...]
--- OUTSIDE RECORDS SUMMARY | 2020-06-11 22:58 | XMS REPORT ---
:1950 Author Organization [facility] Address [address] [facility] [address] [place] [address] Care Team Providers Name Role Phone Rasta Ty Unavailable [phone] PROBLEMS Type Condition ICD9-CM MDS64-VG Onset Condition SNOMED Code Notes Code Code Dates Status Problem Complete loss of K08.109 Active 655932570 teeth, unspecified cause, unspecified class Problem Herpes zoster B02.9 Active 842429691 without complication Problem Bipolar affective F31.9 Active 08872114 disorder Problem Other seasonal J30.2 Active 379356814 allergic rhinitis Problem Benign I10 Active 20013693 hypertension Problem Hydronephrosis N13.30 Active 19516085 Problem Nocturnal leg G47.62 Active 210513503 cramps Problem Gastro-esophageal K21.9 Active 786156370 reflux disease without esophagitis Problem Primary insomnia F51.01 Active 5575631 Problem Gastroesophageal K21.9 Active 360194153 reflux disease without esophagitis Problem History of Z86.79 Active 516286008 coronary artery disease Problem Weight gain R63.5 Active 1175980 Problem Essential I10 Active 56182182 hypertension Problem Hyponatremia E87.1 Active 03085014 Problem Anemia D64.9 Active 140494689 Problem Intermittent R42 Active 846935106 lightheadedness Problem Neuropathic pain G57.93 Active 91222958 of both feet Problem Hospital discharge Z09 Active 416468885 follow-up Problem History of Z87.01 Active 040582771 pneumonia Problem Benign essential R31.1 Active 020332482923322 microscopic hematuria ALLERGIES Allergen (clinical drug Drug/Non Drug Reaction Allergy Type Onset D ate Status ingredient) Allergy documented on EMR sulfamethoxazole / Bactrim([facility] rash Drug Allergy Act ruba trimethoprim Code:[address]-32) ENCOUNTERS from 1950 to 2020-04-29 Encounter Location Date Provider Diagnosis [facility] [address] [facility] [address] 20 Apr, 2020 Rasta Ty Upper respiratory Family Medicine [place], [place] disease J39.9 [address] IMMUNIZATIONS Vaccine Route Administration Date Status xRocephin 1 gm IM Intramuscular September 11, 2019 Administered Phenergan (Promethazine) IM Intramuscular September 11, 2019 Admini stered FLUZONE HIGH DOSE OVER 65 Unknown Apr 24, 2020 Pendin g Kenalog (Triamcinolone) IM Intramuscular December 16, 2017 Adminis tered SOCIAL HISTORY Tobacco Use: Social History Observation Description Date Details (start date - stop date) Former Smoker Sex Assigned At : Social History Observation Description Sex Assigned At Unknown PHQ9 Question Answer Notes Little interest or pleasure in doing things Not at all Feeling down, depressed, or hopeless Not at all Trouble falling or staying asleep or sleeping too much Nearl y every day Feeling tired or having little energy Not at all Poor appetite or overeating Nearly every day Feeling bad about yourself, or that you are a failure, or zuluaga ve Not at all let yourself or your family down Trouble concentrating on things, such as reading the newspap er Not at all or watching television Moving or speaking so slowly that other people could have No t at all noticed; or the opposite, being so fidgety or restless that you have been moving around a lot more than usual Total Score 6 Interpretation Mild Depression Thoughts that you would be better off or of hurting Not at all yourself in some way Alcohol Screen Question Answer Notes Did you have a drink containing alcohol in the past Yes year? Points 1 Interpretation Negative How often did you have a drink containing alcohol in Monthly or less (1 point) the past year? Tobacco Use/Smoking Question Answer Notes Are you a former smoker Additional Findings: Tobacco Non-User Ex-moderate cigarette smoker (10-19/day) REASON FOR REFERRAL No Information VITAL SIGNS No information MEDICATIONS Medication SIG (Take, Route, Start Date End Date Status Frequency, Duration) Probiotic Active Vitamin C Active Metoprolol Succinate ER 25 TAKE ONE TABLET BY Active MG MOUTH DAILY for 90 Lyrica 150 1 capsule Orally Three Activ e times a day for 30 Eszopiclone 3 MG (Schedule IV Drug) Activ e TAKE 1 TABLET BY MOUTH EVERY DAY AT BEDTIME NEEDED Oral for 90 Oxymetazoline HCl 0.05 % 2 sprays in each 20 Apr, 2020 Apr, Active nostril as needed Nasally Twice a day for 3 day(s) Valacyclovir HCl 1 GM TAKE 1 TABLET BY MOUTH Active EVERY DAY BuPROPion HCl 150 MG as directed Orally A ctive Pantoprazole Sodium 40 MG TAKE ONE TABLET BY Active MOUTH DAILY for 90 Centrum Silver Ultra Orally daily Active Womens - 1 Ondansetron HCl 8 MG 1 tablet as needed Sep, N ot-Taking Orally Once a day for 30 day(s) Trileptal 300 MG 1 tablet Orally 3 Active times a day Calcium Carbonate 600 MG 1 tablet Orally Three Active times a day Valtrex 1 GM 1 tablet Orally Once a Activ e day for 30 ProAir HFA 108 (90 Base) 2 puffs as needed Jun, Not-Taking MCG/ACT Inhalation every 6 hrs for 30 days Iron 325 (65 Fe) MG 1 tablet Orally Once a Active day for 30 day(s) PROCEDURES No Information RESULTS No Results REASON FOR VISIT Cecilia ptQueenie Sick MEDICAL (GENERAL) HISTORY Type Description Date Medical History Gastro-esophageal reflux disease without esophagitis Medical History Herpes zoster without complication Medical History Hydronephrosis Medical History Bipolar affective disorder Medical History Complete loss of teeth, unspecified caus e, unspecified class Medical History Nocturnal leg cramps Medical History Benign hypertension Medical History Anemia Medical History Intermittent lightheadedness Medical History Other seasonal allergic rhinitis Medical History HPV in female Medical History Acute myocardial infarction, unspecified Medical History Pneumonia due to infectious organism, un specified laterality, unspecified part of lung Medical History UTI (lower urinary tract infection) Medical History Pyelonephritis Medical History Aspiration pneumonia of right upper lobe , unspecified aspiration pneumonia type Medical History Obstructive sleep apnea syndrome Medical History Pain in female genitalia on intercourse Medical History Vaginal dryness, menopausal Medical History Acute myocardial infarction, unspecified Surgical History granuloma removed Surgical History Mortons Neuroma removed Surgical History Breast Reduction Surgical History Gastric sleeve Surgical History Umbilical Hernia repair Surgical History Rt Inguinal Hernia repair Surgical History Left Rotator cuff repair Surgical History Hysterectomy with oopherectomy -rt side Surgical History tubal repair Surgical History bursectomy-left hip Surgical History Rt foot surgery x 6 Surgical History cholecystectomy Surgical History tonsillectomy Surgical History spinal stimulater 2017 Hospitalization History Pneumonia and UTI Aug 2018 Goals Section No Information Health Concerns No Information MEDICAL EQUIPMENT No Information MENTAL STATUS No Information FUNCTIONAL STATUS No Information ASSESSMENTS Encounter Date Diagnosis Notes Apr, Upper respiratory disease (ICD-10 - J39. 9) PLAN OF TREATMENT Medication Medication Name Sig Start Date Stop Date Oxymetazoline HCl 0.05 % 2 sprays in each nostril as needed 20 O 2019Apr, Nasally Twice a day for 3 day(s) Treatment Notes Assessment Notes Clinical Notes Upper respiratory disease 69 F presents with s/s of viral UR I. will treat conservatively.continue flonase, dayquil and niquil.will add afrin prn.humidifier and honey for symptoms.RT C if symptoms worsening or not improving in 5 days. Next Appt Details Provider Name:Luh Larios, 2020-07-24 09 :40:00 AM, [address] [facility], [address], [place], [address], Insurance Providers Payer Name Payer Address Payer Insured Patient Coverage Cover age Phone Name Relationship to Start Date End Date Insured MEDICARE Attn Part B [phone] Baraby self [employer] Claims [address] [place], [address] [employer] [place] [id number] [place] [address] [phone] Baraby self MEDICARE [facility] [address] [place], [place] [address] [employer]
--- OUTSIDE RECORDS SUMMARY | 2020-06-11 22:58 | XMS REPORT | Summary of Care ---
:1950 Author Organization [facility] Address [address] [place] [address] Care Team Providers Name Role Phone Patricia Larios Primary Care Provider Reason for Visit Reason Comments LAB WORK Auth/Cert Status Reason Specialty Diagnoses / Procedures Referred By Pamela howell Referred To Contact Phlebotomy Diagnoses M54.2 Adc Pob Lab Draw Procedures CBC W AUTO DIFF PANEL IN BLOOD Professional Office Building [address] [facility] , [address] [place] [address] Phone: Fax: Encounter Details Date Type Department Care Team Description 04/22/2020 Nicker And Breaker Visit [facility] Consuelo Norton MD [address] [facility] [id number] [place] [address] Cervicalgia (Primary Professional Office Pob, Adc Lab Main Dx) Building Phlebotomy Lab Professional Office Building [address] , [address] [place] [address] Allergies Active Allergy Reactions Severity Noted Date Comments Propoxyphene Hcl Hallucinations 01/24/2013 Sulfa (Sulfonamide Unknown - See comments 01/24/2013 Told not to take by Antibiotics) mother documented as of this encounter (statuses as of 04/22/2020) Medications Medication Sig Dispensed Refills Start Date [...] as of this encounter (statuses as of 04/22/2020) Active Problems Problem Noted Date 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 Overview: ICD10 Diagnosis Term Cinder Block Maker Utility Encounter for routine gynecological examination 2012 Overview: ICD10 Diagnosis Term Cinder Block Maker Utility Bipolar disorder 01/24/2013 Hx of hysterectomy 01/24/2013 Need for prophylactic vaccination with combined 2012 dcggzamtsg-fkuywzb-qlvgdzyin (DTP) vaccine Skin lesion 01/24/2013 documented as of this encounter (statuses as of 04/22/2020) Resolved Problems Problem Noted Date Resolved Date Tubal ligation status 01/24/2013 01/24/2013 documented as of this encounter (statuses as of 04/22/2020) Immunizations Name Administration Dates Next Due TDAP 01/24/2013 documented as of this encounter Social History Tobacco Use Types Packs/Day Years Used Date Never Smoker Smokeless Tobacco: Never Used Alcohol Use Drinks/Week oz/Week Comments Yes socially Sex Assigned at Date Recorded Not on file COVID-19 Exposure Response Date Recorded In the last month, have you been in contact with No / Unsure 04/22/2020 10:48 AM CDT someone who was confirmed or suspected to have Coronavirus / COVID-19? documented as of this encounter Last Filed Vital Signs Not on filedocumented in this encounter Nursing Notes Ayse Nunez - 04/22/2020 10:45 AM CDT Venipuncture collection performed by clean technique on the left anticubitus. Total of 1 attempts were made. Slight pressure and a bandage/dressing were applied to the site(s). The patient experienced no complications. The following specimens were processed according to instructions and sent to [facility] laboratories per lab order on TODAY: LT BLUE SST RED LAV 1 PPT DK GREEN (LiHep) DK GREEN (SodH) OLEA DK BLUE (K2) DK BLUE (S) ACD Blood Culture NIPT/NTD documented in this encounter Plan of Treatment Name Type Priority Associated Diagnoses Order S chedule CBC WITH DIFF LAB Routine Cervicalgia Expected: 04/10, Expires: 04/22/2021 Health Maintenance Due Date Last Done Comments HEPATITIS C (HCV) SCREEN 1950 Depression Screening 1964 Breast Cancer Screening (MAMMOGRAM) 1992 COLON CANCER SCREENING ANNUAL FIT/FOBT 2002 COLON CANCER SCREENING FIT DNA EVERY 3 YEARS 2002 COLON CANCER SCREENING SIGMOIDOSCOPY EVERY 5 YEARS 2002 COLONOSCOPY 2002 Colorectal Cancer Screening 2002 Zoster Recombinant Vaccine (SHINGRIX) (1 of 2) 2002 Medicare Wellness Visit 2017 Osteoporosis Screening 2017 PNEUMOCOCCAL VACCINES 65+ (1 of 1 - PPSV23) 2017 INFLUENZA VACCINE (#1) 2020 DTaP,Tdap,and Td Vaccines (2 - Td) 01/24/2023 01/24/2013 documented as of this encounter Results Not on filedocumented in this encounter Visit Diagnoses Diagnosis Cervicalgia - Primary documented in this encounter Insurance Payer Benefit Plan / Subscriber ID Effective Phone Address T ype Group Dates MEDICARE MEDICARE PART [id number] 2017-Pres [phone] Medicare A & B ent [id number] [place] [id number] [employer] [id number] 2019-Pres C ommercial COMMERCIAL ent Group GROUP documented as of this encounter
--- OUTSIDE RECORDS SUMMARY | 2020-06-11 22:58 | XMS REPORT ---
:1950 Author Organization [facility] Address [address] [place] [address] Care Team Providers Name Role Phone Luh Larios Unavailable [phone] PROBLEMS Type Condition ICD9-CM MFY70-LB Onset Condition SNOMED Code Notes Code Code Dates Status Problem Complete loss of K08.109 Active 414956042 teeth, unspecified cause, unspecified class Problem Herpes zoster B02.9 Active 123878300 without complication Problem Bipolar affective F31.9 Active 62961453 disorder Problem Other seasonal J30.2 Active 077788113 allergic rhinitis Problem Benign I10 Active 73785698 hypertension Problem Hydronephrosis N13.30 Active 53517550 Problem Nocturnal leg G47.62 Active 518179644 cramps Problem Gastro-esophageal K21.9 Active 595408393 reflux disease without esophagitis Problem Primary insomnia F51.01 Active 0626188 Problem Gastroesophageal K21.9 Active 436812989 reflux disease without esophagitis Problem History of Z86.79 Active 655809866 coronary artery disease Problem Weight gain R63.5 Active 1632821 Problem Essential I10 Active 79321713 hypertension Problem Hyponatremia E87.1 Active 67278063 Problem Anemia D64.9 Active 415097388 Problem Intermittent R42 Active 770778140 lightheadedness Problem Neuropathic pain G57.93 Active 33945656 of both feet Problem Hospital discharge Z09 Active 983087653 follow-up Problem History of Z87.01 Active 870702119 pneumonia Problem Benign essential R31.1 Active 048756962213534 microscopic hematuria ALLERGIES Allergen (clinical drug Drug/Non Drug Reaction Allergy Type Onset D ate Status ingredient) Allergy documented on EMR sulfamethoxazole / Bactrim([facility] rash Drug Allergy Act ruba trimethoprim Code:[address]-52) ENCOUNTERS from 1950 to 2020-04-29 Encounter Location Date Provider Diagnosis [facility] [address], [place] [address] IMMUNIZATIONS Vaccine Route Administration Date Status xRocephin [...] HCl 0.05 % 2 sprays in each Apr, Apr, Active nostril as needed Nasally Twice [...] Information RESULTS No Results REASON FOR VISIT Sick MEDICAL (GENERAL) HISTORY Type Description Date [...] No Information FUNCTIONAL STATUS No Information ASSESSMENTS No Information PLAN OF TREATMENT Medication Medication Name Sig Start Date Stop Date Oxymetazoline HCl 0.05 % 2 sprays in each nostril as needed 20 O 2019Apr, Nasally Twice a day for 3 day(s) Next Appt Details Provider Name:Luh Larios, 2020-07-24 09 :40:00 AM, [address] [facility], [address], [place], [address], Insurance Providers Payer Name Payer Address Payer Insured Patient Coverage Cover age Phone Name Relationship to Start Date End Date Insured MEDICARE Attn Part B [id number] [place] self [employer] Claims [address] [place], [address] [employer] [facility] [address] [address] [place] [address] [phone] [place] self MEDICARE [place] [address] [place], [place] [phone] [employer]
--- OUTSIDE RECORDS SUMMARY | 2020-06-11 22:58 | XMS REPORT ---
:1950 Author Organization [facility] Address [address] [place] [address] Care Team Providers Name Role Phone Luh Larios Unavailable [phone] PROBLEMS Type Condition ICD9-CM SME78-TC Onset Condition SNOMED Code Notes Code Code Dates Status Problem Complete loss of K08.109 Active 115613795 teeth, unspecified cause, unspecified class Problem Herpes zoster B02.9 Active 685548183 without complication Problem Bipolar affective F31.9 Active 94318368 disorder Problem Other seasonal J30.2 Active 498501190 allergic rhinitis Problem Benign I10 Active 40480382 hypertension Problem Hydronephrosis N13.30 Active 81563075 Problem Nocturnal leg G47.62 Active 864728634 cramps Problem Gastro-esophageal K21.9 Active 526472006 reflux disease without esophagitis Problem Primary insomnia F51.01 Active 1542196 Problem Gastroesophageal K21.9 Active 756576874 reflux disease without esophagitis Problem History of Z86.79 Active 449022982 coronary artery disease Problem Weight gain R63.5 Active 9580321 Problem Essential I10 Active 32777035 hypertension Problem Hyponatremia E87.1 Active 82311529 Problem Anemia D64.9 Active 740650854 Problem Intermittent R42 Active 436180035 lightheadedness Problem Neuropathic pain G57.93 Active 00291798 of both feet Problem Hospital discharge Z09 Active 397067032 follow-up Problem History of Z87.01 Active 922137275 pneumonia Problem Benign essential R31.1 Active 129434766955696 microscopic hematuria ALLERGIES Allergen (clinical drug Drug/Non Drug Reaction Allergy Type Onset D ate Status ingredient) Allergy documented on EMR sulfamethoxazole / Bactrim([facility] rash Drug Allergy Act ruba trimethoprim Code:[address]-78) ENCOUNTERS from 1950 to 2020-05-04 Encounter Location Date Provider Diagnosis [facility] [address] [facility] Apr, Luhsurinder Finch ntial hypertension Family Medicine [address] ; [place] [address] R63.5 ; Hypona tremia E87.1 ; Gastro-esophage al reflux disease without esophagitis K21 .9 and Encounter for immunization Z2 3 IMMUNIZATIONS Vaccine Route Administration Date Status xRocephin 1 gm IM Intramuscular September 11, 2019 Administered Phenergan (Promethazine) IM Intramuscular September 11, 2019 Admini stered FLUZONE HIGH DOSE OVER 65 IM Intramuscular Apr 24, 2020 Admin istered Kenalog (Triamcinolone) IM Intramuscular December 16, 2017 [...] REASON FOR REFERRAL No Information VITAL SIGNS Height 62 in Apr, Weight 202.4 lbs Apr, Temperature 97.9 degrees Fahrenheit Apr, BMI 37.02 kg/m2 Apr, Oximetry 97 % Apr, Respiratory Rate 16 /min Apr, Blood pressure systolic 134 mm Hg Apr, Blood pressure diastolic 70 mm Hg Apr, MEDICATIONS Medication SIG (Take, Route, Start Date End Date Status Frequency, Duration) Probiotic Active Pantoprazole Sodium 40 MG TAKE ONE TABLET BY MOUTH Active DAILY for 90 Centrum Silver Ultra Womens Orally daily Active - 1 Eszopiclone 3 MG (Schedule IV Drug) TAKE 1 Active TABLET BY MOUTH EVERY DAY AT BEDTIME NEEDED Oral for 90 Lyrica 150 1 capsule Orally Three Activ e times a day for 30 Valacyclovir HCl 1 GM TAKE 1 TABLET BY MOUTH Active EVERY DAY Calcium Carbonate 600 MG 1 tablet Orally Three Active times a day BuPROPion HCl 150 MG as directed Orally A ctive ProAir HFA 108 (90 Base) 2 puffs as needed Jun, Not-Taking MCG/ACT Inhalation every 6 hrs for 30 days Iron 325 (65 Fe) MG 1 tablet Orally Once a Active day for 30 day(s) Metoprolol Succinate ER 25 TAKE ONE TABLET BY MOUTH Active MG DAILY for 90 Ondansetron HCl 8 MG 1 tablet as needed Orally Sep, Not-Taking Once a day for 30 day(s) Valtrex 1 GM 1 tablet Orally Once a Activ e day for 30 Trileptal 300 MG 1 tablet Orally 3 times a Active day Vitamin C Active PROCEDURES No Information RESULTS Component Value Reference Range Basic Metabolic Panel (8) (BMP) Reviewed date:04/28/2020 20:50:59 Interpretation:low sodium Performing Lab:, [facility], [address], [place], [place] [id number], Phone - [phone], Director - Steve Glucose 90 65-99 BUN 11 8-27 Creatinine 0.73 0.57-1.00 eGFR If NonAfricn Am 85 >59 eGFR If Africn Am 99 >59 BUN/Creatinine Ratio 15 12-28 Sodium 130 134-144 Potassium 4.6 3.5-5.2 Chloride 92 96-106 Carbon Dioxide, Total 24 20-29 Calcium 8.9 8.7-10.3 Thyroid Panel With TSH Reviewed date:04/28/2020 20:51:17 Interpretation:Normal Performing Lab:, [facility], [address], [place], [place] [id number], Phone - [phone], Director - Steve TSH 1.320 0.450-4.500 Thyroxine (T4) 5.7 4.5-12.0 T3 Uptake 23 24-39 Free Thyroxine Index 1.3 1.2-4.9 REASON FOR VISIT 3 month f/u [id number] MEDICAL (GENERAL) HISTORY Type Description Date Medical [...] Information ASSESSMENTS Encounter Date Diagnosis Notes Apr, Encounter for immunization (ICD-10 - Z23 ) Apr, Gastro-esophageal reflux disease without esophagitis (ICD-10 - K21.9) Apr, Essential hypertension (ICD-10 - I10) Apr, Hyponatremia (ICD-10 - E87.1) Apr, Weight gain (ICD-10 - R63.5) PLAN OF TREATMENT Treatment Notes Assessment Notes Clinical Notes Essential hypertension meds as directedcheck BP daily and record Weight gain will get labsstart walking again Hyponatremia will get labs today Gastro-esophageal reflux disease med as directed without esophagitis Encounter for immunization done Next Appt Details 3 Months Reason: Provider Name:Luh Larios, 2020-07-24 09 :40:00 AM, [address] [facility], [address], [place], [address], Insurance Providers Payer Name Payer Address Payer Insured Patient Coverage Cover age Phone Name Relationship to Start Date End Date Insured MEDICARE Attn Part B [id number] [place] self [employer] Claims [address] [place], [address] [employer] [facility] [id number] [place] [address] [phone] [place] self MEDICARE [place] [address] [place], [place] [phone] [employer]
--- OUTSIDE RECORDS SUMMARY | 2020-06-11 22:58 | XMS REPORT | Summary of Care ---
:1950 Author Organization [facility] Address [address] [place] [address] Care Team Providers Name Role Phone Patricia Larios Primary Care Provider Reason for Visit Reason Comments LAB WORK Auth/Cert Status Reason Specialty Diagnoses / Procedures Referred By Pamela howell Referred To Contact Phlebotomy Diagnoses M54.2 Adc Pob Lab Draw Procedures CBC W AUTO DIFF PANEL IN BLOOD Professional Office Building [address] [facility] , [address] [place] [address] Phone: Fax: Encounter Details Date Type Department Care Team Description 04/22/2020 Registered Clinical Dietitian Visit [facility] Consuelo Norton MD [address] [facility] [id number] [place] [address] Cervicalgia (Primary Professional Office Pob, Adc Lab Main Dx) Building Phlebotomy Lab Professional Office Building [address] [facility] , [address] [place] [address] Allergies Active Allergy Reactions Severity [...] grade 2 03/07/2013 Overview: ICD10 Diagnosis Term Svp Group Director Utility Encounter for routine gynecological examination 2012 Overview: ICD10 Diagnosis Term Svp Group Director Utility Bipolar disorder 01/24/2013 Hx of hysterectomy 01/24/2013 Need for prophylactic vaccination with combined 2012 ibzfyhjwuf-olgzrpy-orpqopuug (DTP) vaccine Skin lesion 01/24/2013 documented as [...] filedocumented in this encounter Plan of Treatment Name [...] T ype Group Dates MEDICARE MEDICARE PART [id number] 2017-Pres [phone] Medicare A & B ent [id number] [place] [id number] [facility] [id number] 2019-Pres C ommercial COMMERCIAL ent Group GROUP documented as of this encounter
--- OUTSIDE RECORDS SUMMARY | 2020-06-11 22:58 | XMS REPORT | Summary of Care ---
:1950 Author Organization [facility] - Health Address [address] [place] [address] Care Team Providers Name Role Phone Patricia Larios Primary Care Provider Encounter Details Date Type Department Care Team Description 04/22/2020 Orders Only [facility] Doctor Unassigned, No [address] [facility] [place] [address] [address] [place] [address] Allergies Active Allergy Reactions Severity Noted Date [...] grade 2 03/07/2013 Overview: ICD10 Diagnosis Term Fixture Relamper Utility Encounter for routine gynecological examination 2012 Overview: ICD10 Diagnosis Term Fixture Relamper Utility Bipolar disorder 01/24/2013 Hx of hysterectomy 01/24/2013 Need for prophylactic vaccination with combined 2012 wryxwpnjvo-oufpneh-wkwddugxc (DTP) vaccine Skin lesion 01/24/2013 documented as [...] Assigned at Date Recorded Not on file documented as of this encounter Last Filed [...] Name Priority Date/Time Associated Diagnosis Comme nts ASSIGNMENT OF BENEFITS Routine 04/22/2020 10:46 AM CDT documented in this encounter Results Not on filedocumented in this encounter Insurance Payer Benefit Plan / Subscriber ID Effective Phone Address T ype Group Dates MEDICARE MEDICARE PART [id number] 2017-Pres [phone] Medicare A & B ent [id number] [place] ASH [id number] [facility] [id number] 2019-Pres C ommercial COMMERCIAL ent Group GROUP documented as of this encounter
--- OUTSIDE RECORDS SUMMARY | 2020-06-11 22:58 | XMS REPORT | Summary of Care ---
:1950 Author Organization [facility] Address [address] [place] [id number] Care Team Providers Name Role Phone Patricia Larios Primary Care Provider Reason for Visit Reason Comments LAB WORK Auth/Cert Status Reason Specialty Diagnoses / Procedures Referred By Pamela howell Referred To Contact Phlebotomy Diagnoses M54.2 Adc Pob Lab Draw Procedures CBC W AUTO DIFF PANEL IN BLOOD Professional Office Building [address] [facility] [address] , [address] [place] [address] Phone: Fax: Encounter Details Date Type Department Care Team Description 04/22/2020 Admin Secretary Visit [facility] Consuelo Norton MD [address] [facility] [id number] [place] [address] Cervicalgia (Primary Professional Office Pob, Adc Lab Main Dx) Building Phlebotomy Lab Professional Office Building [address] , [address] [place] [address] Allergies Active Allergy Reactions Severity [...] grade 2 03/07/2013 Overview: ICD10 Diagnosis 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 Medicare A & B ent [id number] CRISSY CALLIHAMLAURA [id number] [facility] [id number] 2019-Pres C [employer] COMMER[employer] ent [employer] GROUP documented as of this encounter
[2020-06-12 00:52] LABS: Protime INR 1.13
[2020-06-12 00:55] LABS: Absolute Lymphocytes (CBC) 0.6 K/uL (0.7-4.9); Basophils % 0.2 % (0-1.3); Hematocrit 36.8 % (36.0-45.0); Lymphocytes % 2.8 % (15.3-44.8); RBC Red Blood Cell Count 3.98 M/uL (3.86-4.86)
[2020-06-12 01:03] LABS: Albumin 2.8 g/dL (3.4-5.0); Bilirubin Direct 0.1 mg/dL (0-0.2); Bilirubin Total 0.4 mg/dL (0.2-1.0); CKMB Creatine Kinase MB 3.4 ng/mL (0.3-3.6); Magnesium 2.3 mg/dL (1.8-2.4); Potassium 3.9 mmol/L (3.5-5.1); Protein, Total 6.1 g/dL (6.4-8.2); Troponin (Emerg Dept Use Only) 0.05 ng/mL (0.0-0.045)
[2020-06-12] MEDS ORDERED: ALBUTEROL 2.5 MG/3 ML NEB SOL ONE (01:12)
[2020-06-12] MEDS ORDERED: IPRATROPIUM BROM 0.5MG/2.5ML ONE (01:12)
[2020-06-12 01:29] LABS: Blood Morphology Comment NOT SEEN (NOT SEEN); Platelet Estimate ADEQ
--- NOTE | 2020-06-12 01:47 | ER ---
Nurse's Notes [facility] Name: Cisco Edward Age: 69 yrs Sex: Female : 1950 Arrival Date: 06/11/2020 Time: 22:54 Bed 18 Private MD: Luh Larios Diagnosis: Pneumonia;Sepsis Presentation: 06/11 23:07 Chief complaint: Patient states: I was admitted to [facility] for Pneumonia, I jb4 left because I was on a suspected Covid-19 unit even after I had 2 negative test. I left AMA and came here for treatment. Coronavirus screen: Client denies travel out of the [place] in the last 14 days. Client presents with at least one sign or symptom that may indicate coronavirus-19. Left of Isolation due to negative test results. Ebola Screen: No symptoms or risks identified at this time. Initial Sepsis Screen: Does the patient meet any 2 criteria? HR > 90 bpm. Yes Does the patient have a suspected source of infection? No. Patient's initial sepsis screen is negative. Risk Assessment: Do you want to hurt yourself or someone else? Patient reports no desire to harm self or others. Onset of symptoms was June 11, 2020. Transition of care: patient was not received from another setting of care. 23:07 Method Of Arrival: Wheelchair [facility] 23:07 Acuity: ROB 3 jb4 Triage Assessment: 23:19 General: Appears in no apparent distress. comfortable. Respiratory: Reports the patient mg2 has mild shortness of breath. Historical: - Allergies: 23:11 Darvon; jb4 23:11 Dilaudid; jb4 23:11 Sulfa (Sulfonamide Antibiotics); jb4 - Home Meds: 23:11 metoprolol tartrate 25 mg Oral tab 1 tab once daily [Active]; jb4 - PMHx: 23:11 Bipolar disorder; Chronic pain; Hypertension; Myocardial infarction; jb4 - PSHx: 23:11 Cholecystectomy; ; foot; back; Back Stimulator; jb4 - Immunization history:: Adult Immunizations up to date. - Social history:: Smoking status: Patient denies any tobacco usage or history of. Patient uses alcohol, occasionally. Patient/guardian denies using street drugs. Screenin:18 Abuse screen: Denies threats or abuse. Denies injuries from another. Nutritional mg2 screening: No deficits noted. Tuberculosis screening: No symptoms or risk factors identified. Fall Risk None identified. Assessment: 23:18 General: Appears in no apparent distress. comfortable, Behavior is calm, cooperative. mg2 Pain: Denies pain. Neuro: Level of Consciousness is awake, alert, obeys commands, Oriented to person, place, time, situation. Cardiovascular: Rhythm is sinus rhythm with unifocal PVCs. Respiratory: Airway is patent Respiratory effort is even, unlabored, Respiratory pattern is regular, symmetrical, GI: No signs and/or symptoms were reported involving the gastrointestinal system. : No signs and/or symptoms were reported regarding the genitourinary system. EENT: No signs and/or symptoms were reported regarding the EENT system. Derm: Skin is intact, is healthy with good turgor, Skin is pink, warm \T\ dry. normal. Musculoskeletal: Circulation, motion, and sensation intact. Capillary refill < 3 seconds. 06/12 01:30 Reassessment: Patient appears in no apparent distress at this time. Patient and/or mg2 family updated on plan of care and expected duration. Pain level reassessed. Patient is alert, oriented x 3, equal unlabored respirations, skin warm/dry/pink. 03:07 Reassessment: [place]- Hospitalist at bedside examining the patient. mg2 Vital Signs: 06/11 23:07 BP 122 / 55; Pulse 90; Resp 16; Temp 98.9(O); Pulse Ox 96% on R/A; Weight 87.09 kg (R); jb4 Height 5 ft. 2 in. (157.48 cm) (R); Pain 10/10; 12 01:16 BP 100 / 53; Pulse 82; Resp 20; Pulse Ox 100% on Nebulizer Mask; mg2 06/11 23:07 Body Mass Index 35.12 (87.09 kg, 157.48 cm) jb4 ED Course: 06/11 22:54 Patient arrived in ED. am2 22:55 Luh Larios FNP-C is Private Physician. am2 22:56 Pipe Fisher MD is Attending Physician. mh7 23:03 Luis Alberto Nava, GAEL is Primary Nurse. mg2 23:09 Triage completed. jb4 23:11 Arm band placed on right wrist. jb4 23:19 Patient has correct armband on for positive identification. mg2 23:19 No provider procedures requiring assistance completed. EKG done, by ED staff, reviewed mg2 by Pipe Fisher MD. 06/12 00:43 Inserted saline lock: 20 gauge in right antecubital area, using aseptic technique. mg2 Blood collected. 00:45 Chest Single View XRAY In Process Unspecified. EDMS 01:00 Notified ED physician of a critical lab result(s). WBC 22.8, d-dimer 3881. dm5 01:45 Travis Lopez MD is Hospitalizing Provider. mh7 03:01 Patient admitted, IV remains in place. mg2 15:11 No provider procedures requiring assistance completed. Patient admitted, IV remains in rb3 place. Administered Medications: 01:16 Drug: DuoNeb (3:1) (2.5 mg - 0.5 mg) 3 ml Route: Nebulizer; mg2 05:48 Follow up: Response: No adverse reaction mg2 02:22 Drug: Zithromax 500 mg Route: IVPB; Infused Over: 1 hrs; Site: right antecubital; mg2 05:47 Follow up: Response: No adverse reaction; IV Status: Completed infusion mg2 02:22 Drug: NS 0.9% 1000 ml Route: IV; Rate: 1000 ml; Site: right antecubital; mg2 05:47 Follow up: Response: No adverse reaction; IV Status: Completed infusion; IV Intake: mg2 1000ml 02:23 Drug: Rocephin - (cefTRIAXone) 1 grams Route: IVPB; Infused Over: 30 mins; Site: right mg2 antecubital; 05:47 Follow up: Response: No adverse reaction; IV Status: Completed infusion mg2 02:40 Drug: Tylenol 1000 mg Route: PO; mg2 05:47 Follow up: Response: No adverse reaction mg2 03:57 Drug: NS 0.9% 1000 ml Route: IV; Rate: 1000 ml; Site: right antecubital; mg2 05:47 Follow up: Response: No adverse reaction; IV Status: Completed infusion; IV Intake: mg2 1000ml 05:46 Drug: NS 0.9% 1000 ml Route: IV; Rate: 1000 ml; Site: right antecubital; mg2 07:05 Follow up: Response: No adverse reaction; IV Status: Completed infusion; IV Intake: mg2 1000ml Intake: 05:47 IV: 1000ml; Total: 1000ml. mg2 05:47 IV: 1000ml; Total: 2000ml. mg2 07:05 IV: 1000ml; Total: 3000ml. mg2 Outcome: 01:46 Decision to Hospitalize by Provider. mh7 03:00 Admitted to ER Hold. Please see [facility] for further documentation. mg2 03:00 Condition: stable 03:00 Instructed on the need for admit. 15:11 Admitted to Med/surg accompanied by tech, family with patient, via stretcher, room 229, rb3 with chart, Report called to GAEL Mckenzie 15:11 Condition: stable 15:11 Instructed on the need for admit. 15:18 Patient left the ED. rb3 Signatures: Dispatcher [employer] EDMS Orquidea Ashley, RN RN dm5 Bruce Jones, RN RN jb4 Vale Nielsen Michele, RN RN mg2 Pipe Fisher MD MD 7 Christine King, RN RN rb3
--- NOTE | 2020-06-12 01:48 | EDPHYS ---
Physician Documentation [facility] Name: Cisco Edward Age: 69 yrs Sex: Female : 1950 Arrival Date: 06/11/2020 Time: 22:54 Bed 18 Private MD: Luh Larios ED Physician Pipe Fisher HPI: 06/12 00:45 This 69 yrs old Female presents to ER via Wheelchair with complaints of mh7 Shortness Of Breath, Breathing Difficulty. 00:45 The patient has shortness of breath at rest. mh7 00:45 Onset: The symptoms/episode began/occurred 2 day(s) ago. Duration: The symptoms are mh7 intermittent, with no pattern. The patient's shortness of breath is aggravated by coughing, is alleviated by nothing. 00:46 Associated signs and symptoms: Pertinent negatives: chest pain, productive cough, mh7 diaphoresis, dizziness, fever, hemoptysis, loss of consciousness, nausea, numbness in extremities, visual changes, vomiting. Severity of symptoms: At their worst the symptoms were moderate yesterday, in the emergency department the symptoms have improved moderately. The patient has been recently seen by a physician: yesterday. Historical: - Allergies: 06/11 23:11 Darvon; jb4 23:11 Dilaudid; jb4 23:11 Sulfa (Sulfonamide Antibiotics); jb4 - Home Meds: 23:11 metoprolol tartrate 25 mg Oral tab 1 tab once daily [Active]; jb4 - PMHx: 23:11 Bipolar disorder; Chronic pain; Hypertension; Myocardial infarction; jb4 - PSHx: 23:11 Cholecystectomy; ; foot; back; Back Stimulator; jb4 - Immunization history:: Adult Immunizations up to date. - Social history:: Smoking status: Patient denies any tobacco usage or history of. Patient uses alcohol, occasionally. Patient/guardian denies using street drugs. ROS: 06/12 01:01 Constitutional: Negative for fever, chills, and weight loss, Eyes: Negative for injury, mh7 pain, redness, and discharge, ENT: Negative for injury, pain, and discharge, Neck: Negative for injury, pain, and swelling, Cardiovascular: Negative for chest pain, palpitations, and edema, Abdomen/GI: Negative for abdominal pain, nausea, vomiting, diarrhea, and constipation, Back: Negative for injury and pain, : Negative for injury, bleeding, discharge, and swelling, MS/Extremity: Negative for injury and deformity, Skin: Negative for injury, rash, and discoloration, Neuro: Negative for headache, weakness, numbness, tingling, and seizure, Psych: Negative for depression, anxiety, suicide ideation, homicidal ideation, and hallucinations, Allergy/Immunology: Negative for hives, rash, and allergies, Endocrine: Negative for neck swelling, polydipsia, polyuria, polyphagia, and marked weight changes, Hematologic/Lymphatic: Negative for swollen nodes, abnormal bleeding, and unusual bruising. Exam: 01:01 Head/Face: Normocephalic, atraumatic. Eyes: Pupils equal round and reactive to light, mh7 extra-ocular motions intact. Lids and lashes normal. Conjunctiva and sclera are non-icteric and not injected. Cornea within normal limits. Periorbital areas with no swelling, redness, or edema. Neck: Trachea midline, no thyromegaly or masses palpated, and no cervical lymphadenopathy. Supple, full range of motion without nuchal rigidity, or vertebral point tenderness. No Meningismus. Chest/axilla: Normal chest wall appearance and motion. Nontender with no deformity. No lesions are appreciated. Cardiovascular: Regular rate and rhythm with a normal S1 and S2. No gallops, murmurs, or rubs. Normal PMI, no JVD. No pulse deficits. 01:01 Abdomen/GI: Soft, non-tender, with normal bowel sounds. No distension or tympany. No guarding or rebound. No evidence of tenderness throughout. Back: No spinal tenderness. No costovertebral tenderness. Full range of motion. Skin: Warm, dry with normal turgor. Normal color with no rashes, no lesions, and no evidence of cellulitis. MS/ Extremity: Pulses equal, no cyanosis. Neurovascular intact. Full, normal range of motion. Neuro: Awake and alert, GCS 15, oriented to person, place, time, and situation. Cranial nerves II-XII grossly intact. Motor strength 5/5 in all extremities. Sensory grossly intact. Cerebellar exam normal. Normal gait. 01:01 Constitutional: The patient appears in no acute distress, alert, awake, uncomfortable. 01:01 Respiratory: the patient does not display signs of respiratory distress, Respirations: prolonged exhalation, that is mild, Breath sounds: decreased breath sounds, that are mild, are located in both bases, rhonchi, that are mild, are scattered, Respiratory rate: 16 Vital Signs: 06/11 23:07 BP 122 / 55; Pulse 90; Resp 16; Temp 98.9(O); Pulse Ox 96% on R/A; Weight 87.09 kg (R); jb4 Height 5 ft. 2 in. (157.48 cm) (R); Pain 10/10; 12 01:16 BP 100 / 53; Pulse 82; Resp 20; Pulse Ox 100% on Nebulizer Mask; mg2 06/11 23:07 Body Mass Index 35.12 (87.09 kg, 157.48 cm) jb4 MDM: 01:44 Differential diagnosis: Anemia Anxiety Reaction asthma, Bronchitis CHF exacerbation, 7 Chronic Obstructive Pulmonary Disease Myocardial Infarction pneumonia, Pneumothorax pulmonary edema, Pulmonary Embolism reactive airway disease. Data reviewed: vital signs, nurses notes, diagnostic data from outside facility, CBC, electrolytes, radiologic studies, CT scan, plain films, lab test result(s), cardiac enzymes, CBC, electrolytes, urinalysis, EKG, radiologic studies, plain films. Data interpreted: Pulse oximetry: on 2L(s) per nasal canula, is 100 %. Interpretation: acceptable. Counseling: I had a detailed discussion with the patient and/or guardian regarding: the historical points, exam findings, and any diagnostic results supporting the discharge/admit diagnosis, lab results, radiology results, the need for further work-up and treatment in the hospital. 01:46 Patient medically screened. [facility] 06/11 23:30 Order name: Blood Culture Adult (2) [facility] 06/11 23:30 Order name: BMP [facility] 06/11 23:30 Order name: CBC with Diff [facility] 06/11 23:30 Order name: Ckmb [facility] 06/11 23:30 Order name: CPK [facility] 06/11 23:30 Order name: D-Dimer; Complete Time: : [facility] 06/11 23:30 Order name: Hepatic Function; Complete Time: : [facility] 06/11 23:30 Order name: Lipase; Complete Time: : [facility] 06/11 23:30 Order name: Magnesium; Complete Time: : [facility] 06/11 23:30 Order name: NT PRO-BNP; Complete Time: 01:09 [facility] 06/11 23:30 Order name: PT-INR; Complete Time: 01:09 [facility] 06/11 23:30 Order name: Ptt, Activated; Complete Time: 01:09 [facility] 06/11 23:30 Order name: Troponin (emerg Dept Use Only); Complete Time: 01:09 [facility] 06/11 23:31 Order name: Blood Culture [facility] 06/11 23:31 Order name: Chest Single View XRAY [facility] 06/11 23:31 Order name: Basic Metabolic Panel; Complete Time: 01:09 [facility] 06/11 23:31 Order name: CBC with Automated Diff; Complete Time: 01:41 [facility] 06/11 23:31 Order name: CKMB Creatine Kinase MB; Complete Time: 01:09 [facility] 06/11 23:31 Order name: Creatine Phosphokinase; Complete Time: 01:09 [facility] 06/12 01:02 Order name: Manual Differential; Complete Time: 01:41 [facility] 06/12 02:03 Order name: Lactate [facility] 06/12 02:03 Order name: Procalcitonin [facility] 06/12 05:14 Order name: Lactate [facility] 06/12 06:15 Order name: Lactate Sepsis 2 HR Follow-up [facility] 06/12 06:17 Order name: Troponin I [facility] 06/12 11:42 Order name: Troponin I [facility] 06/11 23:30 Order name: EKG; Complete Time: 23:32 [facility] 06/11 23:30 Order name: Cardiac monitoring; Complete Time: 23:43 [facility] 06/11 23:30 Order name: EKG - Nurse/Tech; Complete Time: 23:38 [facility] 06/11 23:30 Order name: IV Saline Lock; Complete Time: 00:43 [facility] 06/11 23:30 Order name: Labs collected and sent; Complete Time: 00:43 [facility] 06/11 23:30 Order name: O2 Per Protocol; Complete Time: 23:43 [facility] 06/11 23:30 Order name: O2 Sat Monitoring; Complete Time: 23:43 [facility] Administered Medications: 01:16 Drug: DuoNeb (3:1) (2.5 mg - 0.5 mg) 3 ml Route: Nebulizer; mg2 05:48 Follow up: Response: No adverse reaction mg2 02:22 Drug: Zithromax 500 mg Route: IVPB; Infused Over: 1 hrs; Site: right antecubital; mg2 05:47 Follow up: Response: No adverse reaction; IV Status: Completed infusion mg2 02:22 Drug: NS 0.9% 1000 ml Route: IV; Rate: 1000 ml; Site: right antecubital; mg2 05:47 Follow up: Response: No adverse reaction; IV Status: Completed infusion; IV Intake: mg2 1000ml 02:23 Drug: Rocephin - (cefTRIAXone) 1 grams Route: IVPB; Infused Over: 30 mins; Site: right mg2 antecubital; 05:47 Follow up: Response: No adverse reaction; IV Status: Completed infusion mg2 02:40 Drug: Tylenol 1000 mg Route: PO; mg2 05:47 Follow up: Response: No adverse reaction mg2 03:57 Drug: NS 0.9% 1000 ml Route: IV; Rate: 1000 ml; Site: right antecubital; mg2 05:47 Follow up: Response: No adverse reaction; IV Status: Completed infusion; IV Intake: mg2 1000ml 05:46 Drug: NS 0.9% 1000 ml Route: IV; Rate: 1000 ml; Site: right antecubital; mg2 07:05 Follow up: Response: No adverse reaction; IV Status: Completed infusion; IV Intake: mg2 1000ml Disposition: 06/12/20 01:46 Hospitalization ordered by Travis Lopez for Inpatient Admission. Preliminary diagnosis are Pneumonia, Sepsis. - Bed requested for Telemetry/MedSurg (Inpatient). - Status is Inpatient Admission. rb3 - Condition is Stable. - Problem is new. - Symptoms have improved. Signatures: Dispatcher [employer] EDIA Vani Lam RN RN mw Gaetano Tom em1 Bruce Jones RN RN jb4 Luis Alberto Nava RN RN mg2 Pipe Fisher MD MD 7 Christine King, RN RN rb3 Corrections: (The following items were deleted from the chart) 02:29 01:46 Hospitalization Ordered by Travis Lopez MD for Inpatient Admission. Preliminary diagnosis is Pneumonia; Sepsis. Bed requested for Telemetry/MedSurg (Inpatient). Status is Inpatient Admission. Condition is Stable. Problem is new. Symptoms have improved. [facility] 14:25 02:29 06/12/2020 01:46 Hospitalization Ordered by Travis Lopez MD for Inpatient em1 Admission. Preliminary diagnosis is Pneumonia; Sepsis. Bed requested for [facility] ER HOLD. Status is Inpatient Admission. Condition is Stable. Problem is new. Symptoms have improved. mw 15:18 14:25 06/12/2020 01:46 Hospitalization Ordered by Travis Lopez MD for Inpatient rb3 Admission. Preliminary diagnosis is Pneumonia; Sepsis. Bed requested for Telemetry/MedSurg (Inpatient). Status is Inpatient Admission. Condition is Stable. Problem is new. Symptoms have improved. em1
[2020-06-12] MEDS ORDERED: CEFTRIAXONE/SWI 1gm 1 GM/10 ML SYR ONE (02:06)
[2020-06-12] MEDS ORDERED: NA CHLORIDE 0.9% 1,000 ML ONE ×3 (02:06→05:59)
[2020-06-12] MEDS ORDERED: AZITHROMYCIN 500 MG INJ IVPB ONE (02:06)
[2020-06-12] MEDS ORDERED: NA CHLORIDE 0.9% 250 ML ONE (02:06)
[2020-06-12] MEDS ORDERED: ACETAMINOPHEN 500 MG TAB ONE (02:47)
[2020-06-12] MEDS ORDERED: ALBUTEROL 2.5 MG/3 ML NEB SOL NEB PRN (04:11)
[2020-06-12] MEDS ORDERED: NA CHLORIDE 0.9% 1,000 ML IV SCH (04:11)
[2020-06-12] MEDS ORDERED: IPRATROPIUM BROM 0.5MG/2.5ML NEB PRN (04:11)
[2020-06-12] MEDS ORDERED: ONDANSETRON 4 MG/2 ML VIAL IV PRN (04:11)
[2020-06-12 04:14] VITALS: BMI 35.1
--- NOTE | 2020-06-12 04:42 | P.INFCA ---
Sepsis Focused Assessment - Focused Assessment Complete? Sepsis Focused Assessment Completed?: Yes - Sepsis Screen Result Severe Sepsis: Positive - Evaluation Current stage of sepsis: Severe sepsis - Vital Signs Reviewed: Yes Temperature: 98.9 F Heart rate: 84 Blood Pressure: 100/53 Respiratory Rate: 18 O2 Sat by Pulse Oximetry: 95 (NC) - Examination Date exam was performed: 06/12/20 Time exam was performed: 03:00 Heart: Regular rate/rhythm Lungs: Wheezes Peripheral pulses: 2+ Slightly diminished Peripheral pulse location: Radial Capillary refill: <2 Seconds Skin examination: Normal turgor <Chacorta Sloan - Last Filed: 06/12/20 04:40> - Examination Comments: Chart reviewed. Agree with plans as mentioned above. <Travis Lopez - Last Filed: 06/18/20 17:31>
--- NOTE | 2020-06-12 04:49 | P.HP ---
Certification for Inpatient Patient admitted to: Inpatient With expected LOS: >2 Midnights Patient will require the following post-hospital care: None Practitioner: I am a practitioner with admitting privileges, knowledge of patient current condition, hospital course, and medical plan of care. Services: Services provided to patient in accordance with Admission requirements found in Title 42 Section 412.3 of the Code of Federal Regulations <Chacorta Sloan - Last Filed: 06/12/20 04:42> Patient History Date of Service: 06/12/20 Primary Care Provider: Luh Larios Reason for admission: Severe Sepsis, Pneumonia History of Present Illness: This is a 69-year-old female that presented to the emergency room for further workup of sepsis and pneumonia. Patient stated that she started to have increased shortness of breath approximately 2 days ago with cough. [facility] and had full workup including a CT chest PE which was negative for pulmonary embolus, COVID test which was negative, chest x-ray, blood work, and was found to have non COVID related bacterial pneumonia. Patient stated at that time due to the severity of her illness they wanted to transfer her to see [facility] in the [facility] which was completed. Patient stated that she was admitted from their emergency department to a COVID floor after receiving a second COVID test there again showing negative. Patient stated that she was very uncomfortable with this and signed out of there to come to [facility] for admission. Patient was then worked up in our emergency room and found to have right-sided pneumonia with a 22,000 white cell count with 33 bands and neutrophilia. Patient also with an elevated lactic acid at 2.6 and a troponin of 0.05. Hospital medicine was consulted at that time for admission. Lactate was drawn late in the emergency room. I asked that patient be given the 30 mL/kg bolus which was completed. 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 She has 3 children. She no longer works. 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 - Family History Mother -: Heart disease, Hypertension, Diabetes - Social History Smoking Status: Former smoker Smoking therapy provided: No Alcohol use: Yes CD- Drugs: No Caffeine use: Yes Place of Residence: Home <Chacorta Sloan - Last Filed: 06/12/20 04:42> Date of Service: 06/12/20 <Travis Lopez - Last Filed: 06/13/20 10:14> Allergies hydromorphone [From Dilaudid] Allergy (Verified 04/20/17 14:37) Unknown propoxyphene HCl [From Darvon] Allergy (Verified 04/20/17 14:37) Unknown Sulfa (Sulfonamide Antibiotics) Allergy (Verified 04/20/17 14:37) Unknown Home Medications: Ascorbic Acid [Vitamin C*] 1 tab PO BEDTIME 11/28/16 Biotin 5 mg PO DAILY 11/28/16 Calcium Carbonate/Vitamin D3 [Calcium 500-Vit D3 125 Caplet] 1 tab PO DAILY 11/28/16 Multivit-Min/Iron/Folic/Lutein [Centrum Silver Women Tablet] 1 tab PO DAILY 11/28/16 OXcarbazepine [Trileptal] 300 mg PO DAILY 11/28/16 Oxcarbazepine [Trileptal] 600 mg PO BEDTIME 11/28/16 Pantoprazole [Protonix Tab*] 40 mg PO DAILYAC #30 tab 11/29/16 Bupropion *Xl* [Wellbutrin XL*] 300 mg PO DAILY 03/21/19 Pregabalin [Lyrica] 150 mg PO TID 09/14/19 Aspirin [Aspirin EC 81 MG] 81 mg PO DAILY 06/12/20 Eszopiclone [Lunesta] 3 mg PO BEDTIME PRN 06/12/20 Metoprolol Tartrate [Lopressor] 25 mg PO DAILY 06/12/20 Potassium Chloride [Klor-Con 8] 1 tab PO DAILY 06/12/20 Review of Systems General: Weakness Eyes: Unremarkable ENT: Unremarkable Respiratory: Cough, Shortness of Breath Cardiovascular: Unremarkable Gastrointestinal: Unremarkable Genitourinary: Unremarkable Musculoskeletal: Unremarkable Integumentary: Unremarkable Neurological: Unremarkable Lymphatics: Unremarkable <Chacorta Sloan - Last Filed: 06/12/20 04:42> Physical Examination - Vital Signs Temperature: 98.9 F Blood Pressure: 100/53 Pulse: 84 Respirations: 18 Pulse Ox (%): 95 (NC) - Physical Exam General: Alert, In no apparent distress, Oriented x3, Cooperative HEENT: PERRLA, Mucous membr. moist/pink, EOMI Neck: Supple, 2+ carotid pulse no bruit, JVD not distended, No Thyromegaly Respiratory: Normal air movement, Inspiratory wheezes (Wheezing noted to the right lower and middle lobe) Cardiovascular: No edema, Normal pulses, Regular rate/rhythm, Normal S1 S2, No gallops, No rubs, No murmurs Capillary refill: <2 Seconds Gastrointestinal: Normal bowel sounds, Soft and benign, Non-distended, No ascites, No tenderness, No masses, No rebound, No guarding Musculoskeletal: No clubbing, No swelling, No contractures, No erythema, No tenderness, No warmth Integumentary: No rashes, No breakdown, No significant lesion, No tenderness/swelling, No erythema, No warmth, No cyanosis Neurological: Normal speech, Normal strength at 5/5 x4 extr, Normal tone, Sensation intact, Cranial nerves 3-12 intact, Normal affect Lymphatics: No axilla or inguinal lymphadenopathy - Studies Laboratory Data (last 24 hrs) 06/12/20 00:15: PT 13.3 H, INR 1.13, APTT 29.1 06/12/20 00:15: WBC 22.8 H*, Hgb 12.5, Hct 36.8, Plt Count 367 06/12/20 00:15: Sodium 143, Potassium 3.9, BUN 11, Creatinine 0.87, Glucose 145 H, Magnesium 2.3, Total Bilirubin 0.4, AST 27, ALT 30, Alkaline Phosphatase 65, Lipase 57 L <Chacorta Sloan - Last Filed: 06/12/20 04:42> Assessment and Plan - Problems (Diagnosis) (1) Severe sepsis Current Visit: Yes Status: Acute Plan: Patient with identified bacterial pneumonia on chest x-ray with a 22,000 white cell count and elevated lactate meeting criteria for severe sepsis. Patient subsequently was given 30 mL/kg normal saline bolus and will continue on hydration. Patient will be given broad-spectrum antibiotics for the bacterial pneumonia. Lactate will be trended to ensure that it decreases along with her white cell count and other lab values. (2) Pneumonia Onset Date: 03/21/19 Current Visit: No Status: Acute Plan: Patient with suspected bacterial recurrent pneumonia. Patient will be put on broad-spectrum antibiotics and continue antibiotics for the next several days to ensure improvement. Qualifiers: Pneumonia type: due to unspecified organism Laterality: right Lung location: unspecified part of lung Qualified Code(s): J18.9 - Pneumonia, unspecified organism (3) Bipolar disorder Onset Date: 11/29/16 Current Visit: No Status: Chronic Plan: Will continue home medications as needed for her bipolar disorder. Qualifiers: Active/Remission status: remission status unspecified Qualified Code(s): F31.9 - Bipolar disorder, unspecified (4) Hypertension Onset Date: 11/29/16 Current Visit: No Status: Chronic Plan: Will continue her home medications for blood pressure management as needed. Qualifiers: Hypertension type: essential hypertension Qualified Code(s): I10 - Essential (primary) hypertension Discharge Plan: Home Plan to discharge in: Greater than 2 days - Advance Directives Does patient have a Living Will: No Does patient have a Durable POA for Healthcare: No - Code Status/Comfort Care Code Status Assessed: Yes Code Status: Full Code Critical Care: Yes (30 minutes reviewing labs, orders, previous other facilities imaging/labs) Time Spent Managing Pts Care (In Minutes): 90 <Chacorta Sloan - Last Filed: 06/12/20 04:42> Date of Service: 06/12/20 Chart reviewed and agree with plan of care as mentioned above. Patient is clinically upset because she does not want to be around any patients that have COVID-19. she is requesting that she can please go up stairs in the floor that is not a COVID-19 unit. Will talk with supervisor coremaker. She also has back pain and she states that her stimulator is no longer functioning because it needs a new generator and the stretcher in the emergency room is really causing her pain. We will try to get her up stairs. <Travis Lopez - Last Filed: 06/13/20 10:14>
[2020-06-12] MEDS: NA CHLORIDE 0.9% 1,000 ML IV SCH ×2 (05:00→15:52)
--- NOTE | 2020-06-12 06:07 | EKG ---
Test Date: 2020-06-11 Test Time: 23:13:33 [employer]or: MEASUREMENT RESULTS: Intervals: Rate: 87 NC: 160 QRSD: 116 QT: 358 QTc: 430 Upatoi: P: 55 NC: 160 QRS: 13 T: 94 INTERPRETIVE STATEMENTS: Sinus rhythm with premature atrial complexes Nonspecific T wave abnormality Abnormal ECG Compared to ECG 04/11/2020 09:54:31 Atrial premature complex(es) now present T-wave abnormality now present Myocardial infarct finding no longer present Electronically Signed On 06-12-20 06:07:11 PAINTER SIGN MAINTENANCE by Rajinder Cassidy
--- NOTE | 2020-06-12 07:27 | RAD REPORT ---
EXAM DESCRIPTION: RAD - Chest Single View - 06/12/2020 12:46 am CLINICAL HISTORY: Cough;SOB COMPARISON: Portable April 11 TECHNIQUE: AP portable chest image was obtained 06/12/2020 12:46 am . FINDINGS: Alveolar opacification is present in the mid and lower right lung field partially obscurin g the right hemidiaphragm and right heart border. No focal infiltrate in the left lung field. Heart a nd vasculature are normal. No measurable pleural effusion and no pneumothorax. No acute bony abnormal ity seen. No acute aortic findings suspected. IMPRESSION: Right lower lung field pneumonia.
[2020-06-12] MEDS ORDERED: PNEUMOCOCCAL VACCINE 0.5 ML IMVAC ONE (08:00)
[2020-06-12] MEDS ORDERED: INFLUENZA VACCINE (for 3y+) 0.5 ML DOSE IMVAC ONE (08:00)
[2020-06-12] MEDS: PIPER/TAZO/NS 3.375gm 3.375 GM/100 ML BAG IVPB SCH ×3 (09:00→18:31)
[2020-06-12] MEDS ORDERED: PIPER/TAZO/NS 3.375gm 3.375 GM/100 ML BAG ONE (10:22)
--- NOTE | 2020-06-12 12:11 | P.CNS ---
Date of Consult: 06/12/20 Primary Care Provider: Luh Larios Chief Complaint: Severe Sepsis, Pneumonia History of Present Illness: Patient is 69 years of age with a history of presume COPD quit smoking about 20 years ago as been having shortness of breath for the past 4 days. He initially went to [facility] in the was transferred to [facility] test x2 was negative patient left AMA came here to the emergency room he is feeling fine now she has a history of recurrent pneumonia as uses albuterol nebulizers p.r.n. vital signs stable chest x-ray shows a right lower lobe pneumonia no prior history of cardiopulmonary problem Allergies hydromorphone [From Dilaudid] Allergy (Verified 04/20/17 14:37) Unknown propoxyphene HCl [From Darvon] Allergy (Verified 04/20/17 14:37) Unknown Sulfa (Sulfonamide Antibiotics) Allergy (Verified 04/20/17 14:37) Unknown Home Medications: Ascorbic Acid [Vitamin C*] 1 tab PO BEDTIME 11/28/16 Biotin 5 mg PO DAILY 11/28/16 Calcium Carbonate/Vitamin D3 [Calcium 500-Vit D3 125 Caplet] 1 tab PO DAILY 11/28/16 Eszopiclone 3 mg PO BEDTIME 11/28/16 Multivit-Min/Iron/Folic/Lutein [Centrum Silver Women Tablet] 1 tab PO DAILY 11/28/16 OXcarbazepine [Trileptal] 300 mg PO DAILY 11/28/16 Oxcarbazepine [Trileptal] 600 mg PO BEDTIME 11/28/16 Pantoprazole [Protonix Tab*] 40 mg PO DAILYAC #30 tab 11/29/16 Bupropion *Xl* [Wellbutrin XL*] 300 mg PO DAILY 03/21/19 Azithromycin Tab [Zithromax*] 250 mg PO DAILY #30 tab 09/14/19 Cefuroxime Axetil [Cefuroxime] 500 mg PO BID #8 tab 09/14/19 Pregabalin [Lyrica] 150 mg PO TID 09/14/19 Eszopiclone [Lunesta] 3 mg PO BEDTIME PRN 06/12/20 Metoprolol Tartrate [Lopressor] 25 mg PO DAILY 06/12/20 - Past Medical/Surgical History Diabetic: No -: Coronary artery disease -: Hypertension -: GERD -: Chronic back pain with neuropathy -: Bipolar disorder -: Obesity -: 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 She has 3 children. She no longer works. 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 - Family History Mother Medical History: Heart disease, Hypertension, Diabetes - Social History Alcohol use: Yes CD- Drugs: No Caffeine use: Yes Place of Residence: Home Review of Systems 10-point ROS is otherwise unremarkable Respiratory: Shortness of Breath Physical Examination Temp Pulse Resp BP Pulse Ox 98.3 F 79 18 108/91 H 96 06/12/20 08:00 06/12/20 08:00 06/12/20 08:00 06/12/20 08:00 06/12/20 08:00 General: Alert, In no apparent distress, Oriented x3 Respiratory: Clear to auscultation bilaterally, Diminished Cardiovascular: Normal S1 S2 Gastrointestinal: Normal bowel sounds, Soft and benign Musculoskeletal: No clubbing, No swelling, No warmth Integumentary: No breakdown Laboratory Data (last 24 hrs) 06/12/20 00:15: PT 13.3 H, INR 1.13, APTT 29.1 06/12/20 00:15: WBC 22.8 H*, Hgb 12.5, Hct 36.8, Plt Count 367 06/12/20 00:15: Sodium 143, Potassium 3.9, BUN 11, Creatinine 0.87, Glucose 145 H, Magnesium 2.3, Total Bilirubin 0.4, AST 27, ALT 30, Alkaline Phosphatase 65, Lipase 57 L - Problems (1) Pneumonia Current Visit: Yes Status: Acute Plan: Patient is 69 years of age admitted with right lower lobe pneumonia white count is elevated patient's blood pressure was low on admission most likely community- acquired pneumonia there is no risk for resistant organisms recommend change to p.o. levofloxacin once blood cultures are negative pro calcitonin is elevated oxygenation stable possible discharge by tomorrow if she is stable on high dose levofloxacin 750 mg daily Qualifiers: Aspiration pneumonia type: unspecified Laterality: right Lung location: lower lobe of lung
[2020-06-12] MEDS ORDERED: CEFTRIAXONE 1 GM/NS 50 ML 1 GM/50 ML BAG IV SCH (14:00)
[2020-06-12] MEDS: ACETAMINOPHEN 500 MG TAB PO PRN (15:52)
[2020-06-12] MEDS: ENOXAPARIN 40 MG/0.4 ML SQ SCH (15:53)
[2020-06-13] MEDS: NA CHLORIDE 0.9% 1,000 ML IV SCH ×4 (01:00→20:25)
[2020-06-13] MEDS: PIPER/TAZO/NS 3.375gm 3.375 GM/100 ML BAG IVPB SCH ×3 (01:49→16:53)
[2020-06-13] MEDS: ACETAMINOPHEN 500 MG TAB PO PRN (05:01)
[2020-06-13 06:26] LABS: Absolute Lymphocytes (CBC) 1.5 K/uL (0.7-4.9); Basophils % 0.2 % (0-1.3); Hematocrit 30.3 % (36.0-45.0); MPV 7.9 fL (7.6-11.3); RBC Red Blood Cell Count 3.28 M/uL (3.86-4.86)
[2020-06-13 06:41] LABS: BUN Blood Urea Nitrogen 9 mg/dL (7-18); Bicarbonate 26 mmol/L (21-32); Glucose Level 88 mg/dL (74-106); NT PRO-BNP 1740 pg/mL (<125); Potassium 3.5 mmol/L (3.5-5.1); Sodium Level 145 mmol/L (136-145)
[2020-06-13] MEDS ORDERED: AZITHROMYCIN IV 250 MG in NA CHLORIDE 0.9% 250 ML IVPB SCH (09:00)
--- NOTE | 2020-06-13 10:14 | P.PN ---
Subjective Date of Service: 06/13/20 Patient is feeling a little bit better. White blood cell count is coming down. Patient has been afebrile. She still is having some pain on deep inspiration. Pulmonary recommending possible discharge home on Levaquin. Will continue to following see how she improves and will repeated chest x-ray in the morning along with additional lab testing. If these are stable then we anticipate discharge home in the morning. Await pulmonary recommendations as well. Review of Systems 10-point ROS is otherwise unremarkable Physical Examination - Vital Signs Temperature: 97.8 F Blood Pressure: 132/57 Pulse: 80 Respirations: 16 Pulse Ox (%): 95 - Physical Exam General: Alert, In no apparent distress, Oriented x3 Respiratory: Clear to auscultation bilaterally, Normal air movement Cardiovascular: Regular rate/rhythm, Normal S1 S2, No murmurs Gastrointestinal: Normal bowel sounds, Soft and benign, Non-distended, No tenderness Musculoskeletal: No clubbing, No swelling, No tenderness Neurological: Sensation intact, Cranial nerves 3-12 intact - Studies Medications List Reviewed: Yes Assessment & Plan - Problems (Diagnosis) (1) Pneumonia Current Visit: Yes Status: Acute Qualifiers: Aspiration pneumonia type: unspecified Laterality: right Lung location: lower lobe of lung (2) Severe sepsis Current Visit: Yes Status: Acute (3) Bipolar disorder Onset Date: 11/29/16 Current Visit: No Status: Chronic Qualifiers: Active/Remission status: remission status unspecified Qualified Code(s): F31.9 - Bipolar disorder, unspecified (4) Chronic back pain Onset Date: 11/29/16 Current Visit: No Status: Chronic Qualifiers: Back pain location: back pain in unspecified location Back pain laterality: unspecified Qualified Code(s): M54.9 - Dorsalgia, unspecified; G89.29 - Other chronic pain (5) Coronary artery disease Onset Date: 11/29/16 Current Visit: No Status: Chronic Qualifiers: Coronary Disease-Associated Artery/Lesion type: [place] artery [place] vs. transplanted heart: [place] heart Associated angina: without angina Qualified Code(s): I25.10 - Atherosclerotic heart disease of [place] coronary artery without angina pectoris (6) GERD (gastroesophageal reflux disease) Onset Date: 11/29/16 Current Visit: No Status: Chronic Qualifiers: Esophagitis presence: esophagitis presence not specified Qualified Code(s): K21.9 - Gastro-esophageal reflux disease without esophagitis (7) Hypertension Onset Date: 11/29/16 Current Visit: No Status: Chronic Qualifiers: Hypertension type: essential hypertension Qualified Code(s): I10 - Essential (primary) hypertension - Plan 1. Continue with IV antibiotics 2. Cultures are negative so far 3. Repeat chest x-ray in the morning 4. If labs are stable anticipate discharge in the morning 5. Appreciate pulmonary consultation 6. Continue with nebs as needed 7. O2 per protocol 8. Continue with gentle hydration Discharge Plan: Home Plan to discharge in: 48 Hours - Advance Directives Does patient have a Living Will: No Does patient have a Durable POA for Healthcare: No - Code Status/Comfort Care Code Status: Full Code Critical Care: No Time Spent Managing PTS Care (In Minutes): 25
[2020-06-13] MEDS: ENOXAPARIN 40 MG/0.4 ML SQ SCH (16:52)
[2020-06-14] MEDS: PIPER/TAZO/NS 3.375gm 3.375 GM/100 ML BAG IVPB SCH ×2 (00:19→08:55)
[2020-06-14 06:24] LABS: Absolute Lymphocytes (CBC) 1.7 K/uL (0.7-4.9); Basophils % 0.4 % (0-1.3); Hematocrit 29.1 % (36.0-45.0); Lymphocytes % 16.3 % (15.3-44.8); MPV 7.8 fL (7.6-11.3); RBC Red Blood Cell Count 3.17 M/uL (3.86-4.86)
[2020-06-14 06:50] LABS: BUN Blood Urea Nitrogen 6 mg/dL (7-18); Bicarbonate 29 mmol/L (21-32); Creatine Phosphokinase 33 U/L (26-192); Glucose Level 91 mg/dL (74-106); NT PRO-BNP 1371 pg/mL (<125); Phosphorus 3.5 mg/dL (2.5-4.9); Potassium 3.2 mmol/L (3.5-5.1); Sodium Level 145 mmol/L (136-145)
[2020-06-14] MEDS ORDERED: ESZOPICLONE 1 MG TAB PO PRN (08:22)
[2020-06-14] MEDS: NA CHLORIDE 0.9% 1,000 ML IV SCH (08:52)
--- NOTE | 2020-06-14 08:52 | RAD REPORT ---
EXAM DESCRIPTION: Sharon Single View06/14/2020 7:04 am CLINICAL HISTORY: Pneumonia COMPARISON: June 12, 2022 FINDINGS: No significant change in the alveolar opacities within the mid and lower right lung Left lung appears clear of acute Infiltrate. The heart is normal size IMPRESSION: No significant change in a moderate right pneumonia
[2020-06-14] MEDS ORDERED: OXcarbazepine 150 MG TAB PO SCH ×2 (09:00→21:00)
[2020-06-14] MEDS ORDERED: MULTIVIT W/ MINERAL TAB PO SCH (09:00)
[2020-06-14] MEDS ORDERED: CALCIUM 250 MG/VITAMIN D 125 IU TAB PO SCH (09:00)
[2020-06-14] MEDS ORDERED: POTASSIUM CL 8 MEQ SA TAB PO SCH (09:00)
[2020-06-14] MEDS ORDERED: BIOTIN 5 MG PO SCH (09:00)
[2020-06-14] MEDS ORDERED: PREGABALIN 150 MG CAP PO SCH (09:00)
[2020-06-14] MEDS ORDERED: ASPIRIN EC 81 MG TAB PO SCH (09:00)
[2020-06-14] MEDS ORDERED: BUPROPION HCL XL 150 MG TAB PO SCH (09:00)
[2020-06-14] MEDS ORDERED: METOPROLOL TAR 25 MG TAB PO SCH (09:00)
[2020-06-14 13:30] VITALS: O2SAT 96
[2020-06-14] MEDS ORDERED: ASCORBIC ACID 500 MG TABLET PO SCH (21:00)
[2020-06-15] MEDS ORDERED: PANTOPRAZOLE 40MG TABLET PO SCH (06:30)
[2020-06-15] MEDS ORDERED: BIOTIN 5 MG PO SCH (09:00)
--- NOTE | 2020-06-18 17:30 | P.DS ---
Discharge Date: 06/14/20 Primary Care Provider: Luh Larios Disposition: ROUTINE DISCHARGE Discharge Condition: GOOD Reason for Admission: Severe Sepsis, Pneumonia - Problems (1) Pneumonia Status: Acute Qualifiers: Aspiration pneumonia type: unspecified Laterality: right Lung location: lower lobe of lung (2) Severe sepsis Status: Acute (3) Bipolar disorder Onset Date: 11/29/16 Status: Chronic Qualifiers: Active/Remission status: remission status unspecified Qualified Code(s): F31.9 - Bipolar disorder, unspecified (4) Chronic back pain Onset Date: 11/29/16 Status: Chronic Qualifiers: Back pain location: back pain in unspecified location Back pain laterality: unspecified Qualified Code(s): M54.9 - Dorsalgia, unspecified; G89.29 - Other chronic pain (5) Coronary artery disease Onset Date: 11/29/16 Status: Chronic Qualifiers: Coronary Disease-Associated Artery/Lesion type: [place] artery [place] vs. transplanted heart: [place] heart Associated angina: without angina Qualified Code(s): I25.10 - Atherosclerotic heart disease of [place] coronary artery without angina pectoris (6) GERD (gastroesophageal reflux disease) Onset Date: 11/29/16 Status: Chronic Qualifiers: Esophagitis presence: esophagitis presence not specified Qualified Code(s): K21.9 - Gastro-esophageal reflux disease without esophagitis (7) Hypertension Onset Date: 11/29/16 Status: Chronic Qualifiers: Hypertension type: essential hypertension Qualified Code(s): I10 - Essential (primary) hypertension Brief History of Present Illness: Patient is a 69-year-old female who came to the hospital with difficulty breathing. Patient was found to have a pneumonia. Patient's pneumonia with the right lower lobe. She was started on IV antibiotic therapy. Patient was seen by pulmonary as well. Patient was admitted to the hospital for further evaluation. Hospital Course: During patient's hospital stay patient was given IV antibiotic therapy and patient's clinical symptoms have improved significantly. Pulmonary has recommended discharge with oral antibiotics and will have patient follow up as an outpatient and get repeat chest x-ray in 1-2 weeks. Patient is to follow up with pulmonary for outpatient follow up. If patient's pneumonia is not improved completely then patient may need to consider further treatment as per pulmonary recommendations. Vital Signs/Physical Exam: Temp Pulse Resp BP Pulse Ox 97.4 F 63 16 160/70 H 96 06/14/20 12:00 06/14/20 12:00 06/14/20 12:00 06/14/20 12:00 06/14/20 12:00 General: Alert, In no apparent distress, Oriented x3 Respiratory: Clear to auscultation bilaterally, Diminished (Right lower lobe but otherwise clear ) Laboratory Data at Discharge: WBC 10.4 K/uL (4.3-10.9) D 06/14/20 06:11 Hgb 10.2 g/dL (12.0-15.0) L 06/14/20 06:11 Hct 29.1 % (36.0-45.0) L 06/14/20 06:11 Plt Count 330 K/uL (152-406) 06/14/20 06:11 PT 13.3 SECONDS (9.5-12.5) H 06/12/20 00:15 INR 1.13 06/12/20 00:15 APTT 29.1 SECONDS (24.3-36.9) 06/12/20 00:15 Sodium 145 mmol/L (136-145) 06/14/20 06:11 Potassium 3.2 mmol/L (3.5-5.1) L 06/14/20 06:11 BUN 6 mg/dL (7-18) L 06/14/20 06:11 Creatinine 0.62 mg/dL (0.55-1.3) 06/14/20 06:11 Glucose 91 mg/dL (74-106) 06/14/20 06:11 Phosphorus 3.5 mg/dL (2.5-4.9) 06/14/20 06:11 Magnesium 2.0 mg/dL (1.8-2.4) 06/14/20 06:11 Total Bilirubin 0.4 mg/dL (0.2-1.0) 06/12/20 00:15 AST 27 U/L (15-37) 06/12/20 00:15 ALT 30 U/L (12-78) 06/12/20 00:15 Alkaline Phosphatase 65 U/L (45-117) 06/12/20 00:15 Troponin I 0.03 ng/mL (0.0-0.045) 06/12/20 11:00 Lipase 57 U/L (73-393) L 06/12/20 00:15 Home Medications: Ascorbic Acid [Vitamin C*] 1 tab PO BEDTIME 11/28/16 Biotin 5 mg PO DAILY 11/28/16 Calcium Carbonate/Vitamin D3 [Calcium 500-Vit D3 125 Caplet] 1 tab PO DAILY 11/28/16 Multivit-Min/Iron/Folic/Lutein [Centrum Silver Women Tablet] 1 tab PO DAILY 11/28/16 OXcarbazepine [Trileptal] 300 mg PO DAILY 11/28/16 Oxcarbazepine [Trileptal] 600 mg PO BEDTIME 11/28/16 Pantoprazole [Protonix Tab*] 40 mg PO DAILYAC #30 tab 11/29/16 Bupropion *Xl* [Wellbutrin XL*] 300 mg PO DAILY 03/21/19 Pregabalin [Lyrica] 150 mg PO TID 09/14/19 Aspirin [Aspirin EC 81 MG] 81 mg PO DAILY 06/12/20 Eszopiclone [Lunesta*] 3 mg PO BEDTIME PRN 06/12/20 Metoprolol Tartrate [Lopressor*] 25 mg PO DAILY 06/12/20 Potassium Chloride [Klor-Con 8] 1 tab PO DAILY 06/12/20 Albuterol Inhaler [Ventolin Inhaler*] 2 puff IH Q6H PRN #1 hfa.aer.ad 06/14/20 Levofloxacin [Levaquin] 500 mg PO DAILY #7 tablet 06/14/20 predniSONE [Prednisone*] 20 mg PO BID #7 tab 06/14/20 New Medications: Levofloxacin [Levaquin] 500 mg PO DAILY #7 tablet predniSONE [Prednisone*] 20 mg PO BID #7 tab Albuterol Inhaler [Ventolin Inhaler*] 2 puff IH Q6H PRN #1 hfa.aer.ad PRN Reason: Shortness Of Breath Patient Discharge Instructions: OK TO DC IV AND DC HOME. FOLLOW-UP WITH PRIMARY CARE PROVIDER IN 1-2 WEEKS. FOLLOW-UP WITH PULMONARY IN 1-2 WEEKS. RETURN TO THE ER IF symptoms worsen. CALL or TEXT DR. CARRERO AT [phone] IF ANY QUESTIONS REGARDING HOSPITAL STAY. PLEASE CALL THE FLOOR AT [phone] IF ANY MEDICATION OR NURSING QUESTIONS. Diet: AHA Activity: Ad jose Followup: Pranav Aldridge MD [ACTIVE - CAN ADMIT] - 1-2 Weeks (Call for appointment. ) Luh Larios NP [Primary Care Provider] - Time spent managing pt's care (in minutes): 35
[2020-06-18 17:31] VITALS: BP 132/57; TEMP 97.8
--- NOTE | 2020-06-18 17:36 | P.PN ---
Subjective Date of Service: 06/12/20 Patient is a 69-year-old female who came into the hospital with a pneumonia. Patient was started on IV antibiotic therapy. Patient has a right lower lobe infiltrate. Patient will be admitted for further treatment. Will repeat chest x- ray in 1-2 weeks. Review of Systems 10-point ROS is otherwise unremarkable Physical Examination - Vital Signs Temperature: 97.8 F Blood Pressure: 132/57 Pulse: 80 Respirations: 16 Pulse Ox (%): 95 - Physical Exam General: Alert, In no apparent distress, Oriented x3 Respiratory: Clear to auscultation bilaterally, Normal air movement Cardiovascular: Regular rate/rhythm, Normal S1 S2, No murmurs Gastrointestinal: Normal bowel sounds, Soft and benign, Non-distended, No tenderness Musculoskeletal: No clubbing, No swelling, No tenderness Neurological: Normal strength at 5/5 x4 extr, Sensation intact, Cranial nerves 3-12 intact - Studies Medications List Reviewed: Yes Assessment & Plan - Problems (Diagnosis) (1) Pneumonia Status: Acute Qualifiers: Aspiration pneumonia type: unspecified Laterality: right Lung location: lower lobe of lung (2) Severe sepsis Status: Acute (3) Bipolar disorder Onset Date: 11/29/16 Status: Chronic Qualifiers: Active/Remission status: remission status unspecified Qualified Code(s): F31.9 - Bipolar disorder, unspecified (4) Chronic back pain Onset Date: 11/29/16 Status: Chronic Qualifiers: Back pain location: back pain in unspecified location Back pain laterality: unspecified Qualified Code(s): M54.9 - Dorsalgia, unspecified; G89.29 - Other chronic pain (5) Coronary artery disease Onset Date: 11/29/16 Status: Chronic Qualifiers: Coronary Disease-Associated Artery/Lesion type: [place] artery [place] vs. transplanted heart: [place] heart Associated angina: without angina Qualified Code(s): I25.10 - Atherosclerotic heart disease of [place] coronary artery without angina pectoris (6) GERD (gastroesophageal reflux disease) Onset Date: 11/29/16 Status: Chronic Qualifiers: Esophagitis presence: esophagitis presence not specified Qualified Code(s): K21.9 - Gastro-esophageal reflux disease without esophagitis (7) Hypertension Onset Date: 11/29/16 Status: Chronic Qualifiers: Hypertension type: essential hypertension Qualified Code(s): I10 - Essential (primary) hypertension - Plan 1. Continue with IV antibiotics 2. Cultures are pending 3. Repeat chest x-ray 4. Monitor labs closely 5. Pulmonary consultation pending 6. Continue with nebs as needed 7. O2 per protocol 8. Continue with gentle hydration Discharge Plan: Home Plan to discharge in: Greater than 2 days - Advance Directives Does patient have a Living Will: No Does patient have a Durable POA for Healthcare: No - Code Status/Comfort Care Code Status: Full Code Critical Care: No Time Spent Managing PTS Care (In Minutes): 35
== END 2020-06-14 15:14 | disposition home or self-care (01) | DRG 871 ==
LOC: ER 22:53 → ERHOLD 06-12 02:12 → 2ND 06-12 15:07
PROVIDERS: ADMIT Hospitalist; ATTEND Hospitalist
DX: A41.9 Sepsis, unspecified organism (principal); J15.9 Unspecified bacterial pneumonia; R65.20 Severe sepsis without septic shock; G89.29 Other chronic pain; M54.9 Dorsalgia, unspecified; I10 Essential (primary) hypertension; I25.10 Atherosclerotic heart disease of native coronary artery without angina pectoris; F31.9 Bipolar disorder, unspecified; K21.9 Gastro-esophageal reflux disease without esophagitis; I25.2 Old myocardial infarction; Z88.1 Allergy status to other antibiotic agents; Z88.5 Allergy status to narcotic agent; Z90.49 Acquired absence of other specified parts of digestive tract; Z79.899 Other long term (current) drug therapy; Z88.6 Allergy status to analgesic agent; Z90.710 Acquired absence of both cervix and uterus; Z87.891 Personal history of nicotine dependence; Z79.82 Long term (current) use of aspirin; Z79.52 Long term (current) use of systemic steroids
CPT/HCPCS: 36415; 71045; 80048; 80076; 82550; 82553; 83605; 83690; 83735; 83880; 84100; 84145; 84484; 85025; 85379; 85610; 85730; 87040; 93005; 94640; 94760; 96361; 96365; 96366; 99285; J0456; J0696; J1650; J2543; J7030; J7050

== ENCOUNTER 2023-04-29 03:06 | Emergency (ER) | payer OTHER ==
--- OUTSIDE RECORDS SUMMARY | 2023-04-29 03:14 | XMS REPORT | Continuity of Care Document ---
:1950 Author Organization [facility] t Address [address] [place] [address] [place] [id number] Care Team Providers Name Role Phone Michelle Sweeney Primary Care Physician Luh Larios Attending Clinician Unavailable HOSEA GALLO Attending Clinician Unavailable HOSEA GALLO Attending Clinician Unavailable LILI VANCE Attending Clinician Unavailable SANTIAGO ARELLANO Attending Clinician Unavailable Fernando Mijares MD Attending Clinician FERNANDO MIJARES Attending Clinician Unavailable Doctor Unassigned, Gentry Attending Clinician Unavailable Rizwan Gillette DO Attending Clinician Lucila Garcia DO Attending Clinician LUCILA GARCIA Attending Clinician Unavailable Provider, [facility] Attending Clinician Unavailable Eva Osuna Attending Clinician Pob, [facility] Attending Clinician Unavailable LYNSEY HERNANDEZ Attending Clinician Unavailable EL RAMIREZ Attending Clinician Unavailable El Ramirez MD Attending Clinician LILI VANCE Admitting Clinician Unavailable DEBORA BANKS Admitting Clinician Unavailable RUSLAN CULVER Admitting Clinician Unavailable EL RAMIREZ Admitting Clinician Unavailable FERNANDO MIJARES Admitting Clinician Unavailable Payers Payer Name Policy Type Policy Effective Date Expiration Date Sour ce Number PRINCEWICK [id number] 2019 MEDICARE 00:00:00 SUPPLEMENT MEDICARE PART A [id number] 2021 2021 00:00:00 00:00:00 MEDICARE PART A [id number] 2017 \\T\\ B 00:00:00 PRINCEWICK [id number] 2019 COMMERCIAL GROUP 00:00:00 MEDICARE A B [id number] 2019 00:00:00 GENERIC MEDICARE [id number] 2019 SUPPLEMENT 00:00:00 MEDICARE NOVITAS MB [id number] [facility] C1 [id number] [facility] MEDIC[facility] SUPP [facility] C1 [id number] [facility] MEDIC[facility] SUPP [facility] MEDICARE NOVITAS MB [id number] [facility] Problems Condition Condition Condition Status Onset Resolution Last Treating Co mments Source Name Details Category Date Date Treatment Clinician Date Pneumonia Pneumonia Disease Active 2019-[address] [facility] right [facility] right 2 [facility] lung due lung due 00:00: Medica l to to 00 Center infectious infectious organism, organism, unspecifie unspecifie d part of d part of lung lung Bipolar 1 Bipolar 1 Disease Recurre 2019-[address] disorder disorder nce 0-03 [facility] Medical 00 Center Chronic Chronic Disease Recurre 2019-[address] [facility] hyponatrem hyponatrem nce 0-03 Gertrude kes ia ia 00:00: Medical 00 [place] Stroke Stroke Disease Active 2019-[address] [facility] (cerebrum) (cerebrum) 0-02 Gertrude kes 00:00: Medical 00 [place] Anemia Anemia Disease Active 2019-[address] [facility] 0-02 [facility] Center S/P admn S/P admn Disease Active 2019-07 [facility] t tPA in tPA in 0-02 [facility] diff fac diff fac 00:00: Medica l w/n last w/n last 00 Center 24 hr bef 24 hr bef adm to adm to crnt fac crnt fac Essential Essential Disease Recurre 2019-[address] hypertensi hypertensi nce 0-02 Gertrude kes on on 00:00: Medical 00 Center S/P admn S/P admn Disease Active 2019-07 [facility] t tPA in tPA in 0-02 [facility] diff fac diff fac 00:00: Medica l w/n last w/n last 00 Center 24 hr bef 24 hr bef adm to adm to crnt fac crnt fac 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 00:00: 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 00 Term Medi wilder grade 2 grade 2 Shredded [employer] Branch Utility Encounter Encounter Disease Active Overview: Univers for for 01-24 ICD10 ity of routine routine 00:00: Diagnosis [place] gynecologi gynecologi 00 Term Me dical wilder wilder Shredded [employer] Branch examinatio examinatio Utility n n Hx of Hx of Disease Active Univers hysterecto hysterecto 01-24 it y of my my 00:00: [place] 00 Medical Branch Need for Need for Disease Active Unive rs prophylact prophylact 01-24 it y of ic ic 00:00: [place] vaccinatio vaccinatio 00 Me dical n with n with Branch combined combined diphtheria diphtheria -tetanus-p -tetanus-p ertussis ertussis (DTP) (DTP) vaccine vaccine Skin Skin Disease Active Univers lesion lesion 01-24 ity of 00:00: [place] 00 Medical Branch [id number] Symptoms Problem Comm on involving Spirit urinary - [facility]I system [facility] [id number] BMI Problem Common 32.0-32.9, [facility] adult [facility] Gastroesop Gastroesop Problem C ommon hageal hageal Spirit reflux reflux - CHI disease disease St without without [facility] esophagiti esophagiti [facility] Benign Benign Problem Common hypertensi hypertensi Sp nickie on on - CHI [facility] Complete Complete Problem Commo n edentulism loss of Spiri t teeth, - [facility] d class Center Cramp in Nocturnal Problem Comm on lower leg leg cramps Spi rit associated - CHI with rest [facility] Seasonal Other Problem Common allergic seasonal Spirit rhinitis allergic - CHI rhinitis [facility] Herpes Herpes Problem Common zoster zoster Spirit without without - CHI complicati complicati [facility] on [facility] [id number] History of Problem Co mmon coronary [facility] artery - CHI disease [facility] [id number] Neuropathi Problem Com mon c pain of Spirit both feet - [facility] [id number] Hospital Problem Comm on discharge [facility] follow-up [facility] [id number] Bladder Problem Commo n spasm [facility] Bipolar Bipolar Problem Common affective affective Spir it disorder disorder [facility] [id number] Dysuria Problem Common [facility] [id number] Primary Problem Common insomnia [facility] Dizziness Intermitte Problem Co mmon and nt Spirit giddiness lightheade - C HI dness [facility] Hydronephr Hydronephr Problem C ommon osis osis [facility] [id number] History of Problem Co mmon pneumonia [facility] [id number] [place] [id number] essential Spirit microscopi - CHI c [facility] [id number] Weight Problem Common gain [facility] [id number] Hyponatrem Problem Com mon ia [facility] Allergies, Adverse Reactions, Alerts Allergy Allergy Status Severity Reaction(s) Onset Inactive Treating Comm ents Source Name Type Date Date Clinician Hydromor Propensi Active Hallucinatio Univers phone ty to ns 4-14 ity of adverse 00:00: [place] reaction 00 Medical s Branch HYDROMOR DRUG Active Hallucinates Un radha PHONE INGREDI 4-14 ity of 00:00: [place] 00 Medical Branch Hydromor Propensi Active 2019-[address] phone ty to 08-12 tions [facility] (Bulk) adverse 00:00: Medical reaction 00 Center s Sulfa Propensi Active 2019-[address] [facility] (Sulfona ty to 08-12 [facility] mide adverse 00:00: Medical Antibiot reaction 00 Center ics) s SULFA Allergy Active 2019-07 [facility] (SULFONA 08-12 MIDE 00:00: ANTIBIOT 00 ICS) HYDROMOR Allergy Active 2019-07 [facility] PHONE 08-12 (BULK) 00:00: 00 Sulfa Propensi Active 2019-[address] [facility] (Sulfona ty to 08-12 [facility] mide adverse 00:00: Medical Antibiot reaction 00 Center ics) s Hydromor Allergy Active Hallucinatio 2016-07 hallucin a [place] phone to ns 0-11 tions Health substanc 00:00: e 00 Sulfa Allergy Active Rash Told not [place] Antibiot to 717 to take Health ics substanc 00:00: by mother e 00 Propoxyp Propensi Active Hallucinatio Univers hene Hcl ty to ns 7-17 ity of adverse 00:00: [place] reaction 00 Medical s Branch Sulfa Propensi Active Unknown - Told not Uni vers (Sulfona ty to See comments 717 to take i ty of mide adverse 00:00: by mother [place] Antibiot reaction 00 Medica l ics) s Branch PROPOXYP DRUG Active Hallucinates Un radha HENE HCL INGREDI 7-17 ity of 00:00: [place] 00 Medical Branch SULFA Drug Active Unknown-Cmnt Univ ers (SULFONA Class 7-17 ity of MIDE 00:00: [place] ANTIBIOT 00 Medical ICS) Branch sulfamet sulfamet Active rash Common hoxazole hoxazole Spirit / / - CHI trimetho trimetho [facility] NO KNOWN Allergy Active [facility] Social History Social Habit Start Date Stop Date Quantity Comments Source History of [facility] - Tobacco Use [facility] Exposure to 2021-12-28 2022-01-07 Not sure [facility] SARS-CoV-2 00:00:00 13:04:00 (event) Alcohol intake 2020-07-07 2020-07-07 Current drinker Unive rsity of 00:00:00 00:00:00 of alcohol [facility] (finding) Branch Tobacco use and 2020-06-11 2020-06-11 Former smokeless [facility] exposure 00:00:00 00:00:00 tobacco user Medical Cent er Alcohol Comment 2013-01-24 2013-01-24 socially Universit y of 00:00:00 00:00:00 [facility] Sex Assigned At [birth year] [facility] 00:00:00 00:00:00 Medical Center Smoking Status Start Date Stop Date Source Tobacco smoking [facility] consumption unknown Former Smoker 2022-07-27 00:00:00 2022-07-27 [facility] 00:00:00 [facility] nter Never smoker [facility] Medications Ordered Filled Start Stop Current Ordering Indication Dosage Frequency Signature Comments Components Source Medication Medication Date Date Medication? Clinician (SIG) Name Name Amoxicillin Amoxicillin No 1{table BID Amoxicilli -Pot -Pot 7-05 t} n-Pot Clavulanate Clavulanate 00:00: Clavulanat 875-125 MG 875-125 MG 00 e 875-125 MG Amoxicillin Amoxicillin No 1{table BID Amoxicilli -Pot -Pot 7-05 t} n-Pot Clavulanate Clavulanate 00:00: Clavulanat 875-125 MG 875-125 MG 00 e 875-125 MG Amoxicillin Amoxicillin No 1{table BID Amoxicilli -Pot -Pot 7-05 t} n-Pot Clavulanate Clavulanate 00:00: Clavulanat 875-125 MG 875-125 MG 00 e 875-125 MG Amoxicillin Amoxicillin No 1{table BID Amoxicilli -Pot -Pot 7-05 t} n-Pot Clavulanate Clavulanate 00:00: Clavulanat 875-125 MG 875-125 MG 00 e 875-125 MG Amoxicillin Amoxicillin 2021-0 No 1{table BID Amoxicilli -Pot -Pot 7-05 t} n-Pot Clavulanate Clavulanate 00:00: Clavulanat 875-125 MG 875-125 MG 00 e 875-125 MG Pregabalin Pregabalin 2021-0 No TID Pregabalin 150 MG 150 MG 4-11 150 MG 00:00: 00 Pregabalin Pregabalin 2021-0 No TID Pregabalin 150 MG 150 MG 4-11 150 MG 00:00: 00 Pregabalin Pregabalin 2021-0 No TID Pregabalin 150 MG 150 MG 4-11 150 MG 00:00: 00 Pregabalin Pregabalin 2021-0 No TID Pregabalin 150 MG 150 MG 1-10 150 MG 00:00: 00 Pregabalin Pregabalin 2021-0 No TID Pregabalin 150 MG 150 MG 1-10 150 MG 00:00: 00 Pregabalin Pregabalin 2021-0 No TID Pregabalin 150 MG 150 MG 1-10 150 MG 00:00: 00 Amoxicillin Amoxicillin 2020-2020- No 1{table BID Amoxicilli -Pot -Pot 2- 12-09 t} n-Pot Clavulanate Clavulanate 00:00: 00:00 Clavulanat 875-125 MG 875-125 MG 00 :00 e 875-125 MG Pregabalin Pregabalin 2020-1 No Pregabalin 150 MG 150 MG 1-08 150 MG 00:00: 00 Pregabalin Pregabalin 2020-1 No Pregabalin 150 MG 150 MG 1-08 150 MG 00:00: 00 Pregabalin Pregabalin 2020-0 No TID Pregabalin 150 MG 150 MG 9-21 150 MG 00:00: 00 Pregabalin Pregabalin 2020-0 No TID Pregabalin 150 MG 150 MG 9-21 150 MG 00:00: 00 lidocaine 5 2020-0 Yes [id number] 1{patch Apply 1 Univers % (700 4-14 } Patch to ity of mg/patch) 00:00: area(s) [place] patch 00 every Medical other day. Branch naproxen 2020-0 Yes [id number] 550mg Take 1 U nivers sodium 4-14 tablet by ity of (ANAPROX 00:00: mouth 2 [place] DS) 550 mg 00 (two) Medical tablet times Branch daily with meals. lidocaine 5 2020-0 Yes [id number] 1{patch Apply 1 Univers % (700 4-14 } Patch to ity of mg/patch) 00:00: area(s) [place] patch 00 every Medical other day. Branch naproxen 2020-0 Yes [id number] 550mg Take 1 U nivers sodium 4-14 tablet by ity of (ANAPROX 00:00: mouth 2 [place] DS) 550 mg 00 (two) Medical tablet times Branch daily with meals. lidocaine 5 2020-0 Yes [id number] 1{patch Apply 1 Univers % (700 4-14 } Patch to ity of mg/patch) 00:00: area(s) [place] patch 00 every Medical other day. Branch naproxen 2020-0 Yes [id number] 550mg Take 1 U nivers sodium 4-14 tablet by ity of (ANAPROX 00:00: mouth 2 [place] DS) 550 mg 00 (two) Medical tablet times Branch daily with meals. methocarbam 2020-0 1- No [id number] 500mg Take 1 Univers oL 500 mg 4-14 04-20 tablet by ity of tablet 00:00: 04:59 mouth 3 [place] 00 :00 (three) Medical times Branch daily for 5 days. Ezetimibe Ezetimibe 2020-0 No 1{table QD Ezetimibe 10 MG 10 MG 4-01 t} 10 MG 00:00: 00 Ezetimibe Ezetimibe 2020-0 No 1{table QD Ezetimibe 10 MG 10 MG 4-01 t} 10 MG 00:00: 00 Ezetimibe Ezetimibe 2020-0 No 1{table QD Ezetimibe 10 MG 10 MG 4-01 t} 10 MG 00:00: 00 Ezetimibe Ezetimibe 2020-0 No 1{table QD Ezetimibe 10 MG 10 MG 4-01 t} 10 MG 00:00: 00 Ezetimibe Ezetimibe 2020-0 No 1{table QD Ezetimibe 10 MG 10 MG 4-01 t} 10 MG 00:00: 00 Ezetimibe Ezetimibe 2021-0 No 1{table QD Ezetimibe 10 MG 10 MG 10-09 t} 10 MG 00:00: 00 dexamethaso 2019-07 No 6mg 6 mg, IV U nivers ne 07-08 Push, ity of (DECADRON 02:30: 02:30 ONCE, 1 [place] PHOSPHATE[place] 00 :00 dose, Mon Medi wilder injection 6 07/07/20 Bran ch mg at 2030, STAT NaCl 0.9% 2019-07 No 1000mL at 999 Uni vers (NS) bolus 07-08 mL/hr, ity of infusion 01:30: 02:38 1,000 mL, [place] as 1,000 mL 00 :00 IV Medical Infusion, Branch ONCE, 1 dose, 07/07/20 at 1930, RENA azithromyci 2019-07 Yes [id number] 250mg Take 1 Univers n 2-28 tablet by ity of (ZITHROMAX) 00:00: mouth [place] 250 mg 00 daily. Medical tablet Take 500 Branch mg day 1, then 250 mg days 2 to 5. azithromyci 2019-07 Yes [id number] 250mg Take 1 Univers n 2-28 tablet by ity of (ZITHROMAX) 00:00: mouth [place] 250 mg 00 daily. Medical tablet Take 500 Branch mg day 1, then 250 mg days 2 to 5. azithromyci 2019-07 Yes [id number] 250mg Take 1 Univers n 2-28 tablet by ity of (ZITHROMAX) 00:00: mouth [place] 250 mg 00 daily. Medical tablet Take 500 Branch mg day 1, then 250 mg days 2 to 5. azithromyci 2019-07 Yes [id number] 250mg Take 1 Univers n 2-28 tablet by ity of (ZITHROMAX) 00:00: mouth [place] 250 mg 00 daily. Medical tablet Take 500 Branch mg day 1, then 250 mg days 2 to 5. azithromyci 2019-07 Yes [id number] 250mg Take 1 Univers n 2-28 tablet by ity of (ZITHROMAX) 00:00: mouth [place] 250 mg 00 daily. Medical tablet Take 500 Branch mg day 1, then 250 mg days 2 to 5. codeine-gua 2019-07 No [id number] 5mL Take 5 mL Univers ifenesin 2-28 01-05 by mouth ity of 10-100 mg/5 00:00: 05:59 every 6 [place] mL solution 00 :00 (six) Medical hours as Branch needed for Cough for up to 7 days. Indication s: acute pain buPROPion 2019- Yes 150mg QD Take [address] [facility] (WELLBUTRIN 2-02 mg by [facility] XL) 150 MG 22:32: mouth Medica l 24 hr 39 daily. Center tablet buPROPion 2019-07 Yes 150mg QD Take [address] [facility] (WELLBUTRIN 2-02 mg by [facility] XL) 150 MG 22:32: mouth Medica l 24 hr 39 daily. [place] tablet buPROPion 2019-07 Yes 150mg QD Take [address] [facility] [address] (WELLBUTRIN 2-02 mg by [facility] XL) 150 MG 22:32: mouth Medica l 24 hr 39 daily. Center tablet buPROPion 2019-07 Yes 150mg QD Take [address] [facility] [address] (WELLBUTRIN 2-02 mg by [facility] XL) 150 MG 22:32: mouth Medica l 24 hr 39 daily. [place] tablet buPROPion 2019-07 Yes 150mg QD Take [address] (WELLBUTRIN 2-02 mg by [facility] XL) 150 MG 22:32: mouth Medica l 24 hr 39 daily. Center tablet buPROPion 2019-07 Yes 150mg QD Take [address] (WELLBUTRIN 2-02 mg by [facility] XL) 150 MG 22:32: mouth Medica l 24 hr 39 daily. Center tablet ibuprofen 2020-0 Yes [id number] 600mg Take 1 Univers 600 mg 6-14 tablet by ity of tablet 00:00: mouth (three) Medical times Branch daily with meals. methocarbam 2020-0 Yes [id number] 500mg Take 1 Univers ol 500 mg 6-14 tablet by ity o f tablet 00:00: mouth (four) Medical times Branch daily. ibuprofen 2020-0 Yes [id number] 600mg Take 1 Univers 600 mg 6-14 tablet by ity of tablet 00:00: mouth 3 (three) Medical times Branch daily with meals. methocarbam 2020-0 Yes [id number] 500mg Take 1 Univers ol 500 mg 6-14 tablet by ity o f tablet 00:00: mouth (four) Medical times Branch daily. ibuprofen 2020-0 Yes [id number] 600mg Take 1 Univers 600 mg 6-14 tablet by ity of tablet 00:00: mouth (three) Medical times Branch daily with meals. methocarbam 2020-0 Yes [id number] 500mg Take 1 Univers ol 500 mg 6-14 tablet by ity o f tablet 00:00: mouth (four) Medical times Branch daily. ibuprofen 2020-0 Yes [id number] 600mg Take 1 Univers 600 mg 6-14 tablet by ity of tablet 00:00: mouth (three) Medical times Branch daily with meals. methocarbam 2020-0 Yes [id number] 500mg Take 1 Univers ol 500 mg 6-14 tablet by ity o f tablet 00:00: mouth (four) Medical times Branch daily. ibuprofen 2020-0 Yes [id number] 600mg Take 1 Univers 600 mg 6-14 tablet by ity of tablet 00:00: mouth (three) Medical times Branch daily with meals. methocarbam 2020-0 Yes [id number] 500mg Take 1 Univers ol 500 mg 6-14 tablet by ity o f tablet 00:00: mouth (four) Medical times Branch daily. ibuprofen 2020-0 Yes [id number] 600mg Take 1 Univers 600 mg 6-14 tablet by ity of tablet 00:00: mouth (three) Medical times Branch daily with meals. methocarbam 2020-0 Yes [id number] 500mg Take 1 Univers ol 500 mg 6-14 tablet by ity o f tablet 00:00: mouth (four) Medical times Branch daily. ibuprofen 2020-0 Yes [id number] 600mg Take 1 Univers 600 mg 6-14 tablet by ity of tablet 00:00: mouth (three) Medical times Branch daily with meals. methocarbam 2020-0 Yes [id number] 500mg Take 1 Univers ol 500 mg 6-14 tablet by ity o f tablet 00:00: mouth (four) Medical times Branch daily. ibuprofen 2020-0 Yes [id number] 600mg Take 1 Univers 600 mg 6-14 tablet by ity of tablet 00:00: mouth (three) Medical times Branch daily with meals. methocarbam 2020-0 Yes [id number] 500mg Take 1 Univers ol 500 mg 6-14 tablet by ity o f tablet 00:00: mouth (four) Medical times Branch daily. ibuprofen 2020-0 Yes [id number] 600mg Take 1 Univers 600 mg 6-14 tablet by ity of tablet 00:00: mouth (three) Medical times Branch daily with meals. methocarbam 2020-0 Yes [id number] 500mg Take 1 Univers ol 500 mg 6-14 tablet by ity o f tablet 00:00: mouth (four) Medical times Branch daily. ibuprofen 2020-0 Yes [id number] 600mg Take 1 Univers 600 mg 6-14 tablet by ity of tablet 00:00: mouth (three) Medical times Branch daily with meals. methocarbam 2020-0 Yes [id number] 500mg Take 1 Univers ol 500 mg 6-14 tablet by ity o f tablet 00:00: mouth (four) Medical times Branch daily. ibuprofen 2020-0 Yes [id number] 600mg Take 1 Univers 600 mg 6-14 tablet by ity of tablet 00:00: mouth (three) Medical times Branch daily with meals. methocarbam 2020-0 Yes [id number] 500mg Take 1 Univers ol 500 mg 6-14 tablet by ity o f tablet 00:00: mouth (four) Medical times Branch daily. ibuprofen 2020-0 Yes [id number] 600mg Take 1 Univers 600 mg 6-14 tablet by ity of tablet 00:00: mouth (three) Medical times Branch daily with meals. ibuprofen 2020-0 Yes [id number] 600mg Take 1 Univers 600 mg 6-14 tablet by ity of tablet 00:00: mouth (three) Medical times Branch daily with meals. ibuprofen 2020-0 Yes [id number] 600mg Take 1 Univers 600 mg 6-14 tablet by ity of tablet 00:00: mouth [place] (three) Medical times Branch daily with meals. methocarbam 2020-0 2020- No [id number] 500mg Take 1 Univers ol 500 mg 6-14 04-14 tablet by ity of tablet 00:00: 00:00 mouth 4 [place] 00 :00 (four) Medical times Branch daily. Ondansetron Ondansetron 2020-0 Yes Luh 1 tablet Common HCl HCl 3-03 [place] as needed Spirit 00:00: - CHI 00 [facility] xRocephin 1 xRocephin 1 2020-0 No 1g Common gm gm 3-03 Spirit 00:00: - CHI 00 [facility] Phenergan Phenergan 2020-0 No 25mg Com mon (Promethazi (Promethazi 3-03 S pirit ne) ne) 00:00: - CHI 00 [facility] xRocephin 1 xRocephin 1 2020-0 No 1g Common gm gm 3-03 Spirit 00:00: - CHI 00 [facility] Phenergan Phenergan 2020-0 No 25mg Com mon (Promethazi (Promethazi 3-03 S pirit ne) ne) 00:00: - CHI 00 [facility] xRocephin 1 xRocephin 1 2020-0 No 1g Common gm gm 3-03 Spirit 00:00: - CHI 00 [facility] Phenergan Phenergan 2020-0 No 25mg Com mon (Promethazi (Promethazi 3-03 S pirit ne) ne) 00:00: - CHI 00 [facility] xRocephin 1 xRocephin 1 2020-0 No 1g Common gm gm 3-03 Spirit 00:00: - CHI 00 [facility] Phenergan Phenergan 2020-0 No 25mg Com mon (Promethazi (Promethazi 3-03 S pirit ne) ne) 00:00: - CHI 00 [facility] xRocephin 1 xRocephin 1 2020-0 No 1g Common gm gm 3-03 Spirit 00:00: - CHI 00 [facility] Phenergan Phenergan 2020-0 No 25mg Com mon (Promethazi (Promethazi 3-03 S pirit ne) ne) 00:00: - CHI 00 [facility] xRocephin 1 xRocephin 1 2020-0 No 1g Common gm gm 3-03 Spirit 00:00: - CHI 00 [facility] Phenergan Phenergan 2020-0 No 25mg Com mon (Promethazi (Promethazi 3-03 S pirit ne) ne) 00:00: - CHI 00 [facility] xRocephin 1 xRocephin 1 2020-0 No 1g Common gm gm 3-03 Spirit 00:00: - CHI 00 [facility] Phenergan Phenergan 2020-0 No 25mg Com mon (Promethazi (Promethazi 3-03 S pirit ne) ne) 00:00: - CHI 00 [facility] xRocephin 1 xRocephin 1 2020-0 No 1g Common gm gm 3-03 Spirit 00:00: - CHI 00 [facility] Phenergan Phenergan 2020-0 No 25mg Com mon (Promethazi (Promethazi 3-03 S pirit ne) ne) 00:00: - CHI 00 [facility] Metoprolol Metoprolol 2020-0 Yes Luh 1 tablet Common Succinate Succinate 2-26 [facility] Spir it ER ER 00:00: - CHI 00 [facility] metoprolol 2020-0 Yes [address] succinate 2-21 [facility] (TOPROL-XL) 00:00: Medica l 25 MG 24 hr 00 Center tablet metoprolol 2020-0 Yes [address] succinate 2-21 [facility] (TOPROL-XL) 00:00: Medica l 25 MG 24 hr 00 Center tablet metoprolol 2020-0 Yes [address] succinate 2-21 [facility] (TOPROL-XL) 00:00: Medica l 25 MG 24 hr 00 Center tablet metoprolol 2020-0 Yes [address] succinate 2-21 [facility] (TOPROL-XL) 00:00: Medica l 25 MG 24 hr 00 Center tablet metoprolol 2020-0 Yes [address] succinate 2-21 [facility] (TOPROL-XL) 00:00: Medica l 25 MG 24 hr 00 Center tablet metoprolol 2020-0 Yes [address] succinate 2-21 [facility] (TOPROL-XL) 00:00: Medica l 25 MG 24 hr 00 Center tablet pregabalin 2019-[address] [facility] (LYRICA) 8-22 TIMES A [facility] 100 MG 00:00: DAY Medical capsule 00 Center pregabalin 2019-[address] [facility] (LYRICA) 8-22 TIMES A [facility] 100 MG 00:00: DAY Medical capsule 00 Center pregabalin 2019-[address] [facility] (LYRICA) 8-22 TIMES A [facility] 100 MG 00:00: DAY Medical capsule 00 [place] pregabalin Yes THREE [facility] (LYRICA) 8-22 TIMES A [facility] 100 MG 00:00: DAY Medical capsule 00 [place] pregabalin Yes THREE [facility] (LYRICA) 8-22 TIMES A [facility] 100 MG 00:00: DAY Medical capsule 00 [place] pregabalin Yes THREE [facility] (LYRICA) 8-22 TIMES A [facility] 100 MG 00:00: DAY Medical capsule 00 [place] ondansetron Yes [id number] 4mg Take 1 Univers (ZOFRAN) 4 6-04 08 tablet by ity of mg tablet 00:00: mouth [place] 00 every 8 Medical (eight) Branch hours as needed for Nausea and Vomiting (N/V). ondansetron Yes [id number] 4mg Take 1 Univers (ZOFRAN) 4 6-04 08 tablet by ity of mg tablet 00:00: mouth [place] 00 every 8 Medical (eight) Branch hours as needed for Nausea and Vomiting (N/V). ondansetron Yes [id number] 4mg Take 1 Univers (ZOFRAN) 4 6-04 08 tablet by ity of mg tablet 00:00: mouth [place] 00 every 8 Medical (eight) Branch hours as needed for Nausea and Vomiting (N/V). ondansetron Yes [id number] 4mg Take 1 Univers (ZOFRAN) 4 6-04 08 tablet by ity of mg tablet 00:00: mouth [place] 00 every 8 Medical (eight) Branch hours as needed for Nausea and Vomiting (N/V). ondansetron Yes [id number] 4mg Take 1 Univers (ZOFRAN) 4 6-04 08 tablet by ity of mg tablet 00:00: mouth [place] 00 every 8 Medical (eight) Branch hours as needed for Nausea and Vomiting (N/V). ondansetron Yes [id number] 4mg Take 1 Univers (ZOFRAN) 4 6-04 08 tablet by ity of mg tablet 00:00: mouth [place] 00 every 8 Medical (eight) Branch hours as needed for Nausea and Vomiting (N/V). ondansetron Yes [id number] 4mg Take 1 [facility] (ZOFRAN) 4 6-04 08 tablet by ity of mg tablet 00:00: mouth [place] 00 every 8 Medical (eight) Branch hours as needed for Nausea and Vomiting (N/V). ondansetron 2019-0 Yes [id number] 4mg Take 1 [facility] (ZOFRAN) 4 6-04 08 tablet by ity of mg tablet 00:00: mouth [place] 00 every 8 Medical (eight) Branch hours as needed for Nausea and Vomiting (N/V). ondansetron 2019-0 Yes [id number] 4mg Take 1 [facility] (ZOFRAN) 4 6-04 08 tablet by ity of mg tablet 00:00: mouth [place] 00 every 8 Medical (eight) Branch hours as needed for Nausea and Vomiting (N/V). ondansetron 2019-0 Yes [id number] 4mg Take 1 [facility] (ZOFRAN) 4 6-04 08 tablet by ity of mg tablet 00:00: mouth [place] 00 every 8 Medical (eight) Branch hours as needed for Nausea and Vomiting (N/V). ondansetron 2019-0 Yes [id number] 4mg Take 1 [facility] (ZOFRAN) 4 6-04 08 tablet by ity of mg tablet 00:00: mouth [place] 00 every 8 Medical (eight) Branch hours as needed for Nausea and Vomiting (N/V). ondansetron 2019-0 Yes [id number] 4mg Take 1 [facility] (ZOFRAN) 4 6-04 08 tablet by ity of mg tablet 00:00: mouth [place] 00 every 8 Medical (eight) Branch hours as needed for Nausea and Vomiting (N/V). ondansetron 2019-0 Yes [id number] 4mg Take 1 [facility] (ZOFRAN) 4 6-04 08 tablet by ity of mg tablet 00:00: mouth [place] 00 every 8 Medical (eight) Branch hours as needed for Nausea and Vomiting (N/V). ondansetron 2019-0 Yes [id number] 4mg Take 1 [facility] (ZOFRAN) 4 6-04 08 tablet by ity of mg tablet 00:00: mouth [place] 00 every 8 Medical (eight) Branch hours as needed for Nausea and Vomiting (N/V). ondansetron 2019-0 Yes [id number] 4mg Take 1 [facility] (ZOFRAN) 4 6- 08 tablet by ity of mg tablet 00:00: mouth [place] 00 every 8 Medical (eight) Branch hours as needed for Nausea and Vomiting (N/V). ondansetron 2019-0 Yes [id number] 4mg Take 1 [facility] (ZOFRAN) 4 6-04 08 tablet by ity of mg tablet 00:00: mouth [place] 00 every 8 Medical (eight) Branch hours as needed for Nausea and Vomiting (N/V). ProAir HFA ProAir HFA 2017-07 Yes [facility] 2 puffs as Common 2-12 [facility] needed [facility] 00:[facility]: - [facility] 00 [facility] ProAir HFA ProAir HFA 2017-07 No 2{puffs QID ProAir HFA 108 (90 108 (90 2-12 _as_nee 108 (90 Base) Base) 00:00: ded} Base) MCG/ACT MCG/ACT 00 MCG/ACT ProAir HFA ProAir HFA 2017-07 No 2{puffs QID ProAir HFA 108 (90 108 (90 2-12 _as_nee 108 (90 Base) Base) 00:00: ded} Base) MCG/ACT MCG/ACT 00 MCG/ACT ProAir HFA ProAir HFA 2017-07 No 2{puffs QID ProAir HFA 108 (90 108 (90 2-12 _as_nee 108 (90 Base) Base) 00:00: ded} Base) MCG/ACT MCG/ACT 00 MCG/ACT ProAir HFA ProAir HFA 2017-07 No 2{puffs QID ProAir HFA 108 (90 108 (90 2-12 _as_nee 108 (90 Base) Base) 00:00: ded} Base) MCG/ACT MCG/ACT 00 MCG/ACT ProAir HFA ProAir HFA 2017-07 No 2{puffs QID ProAir HFA 108 (90 108 (90 2-12 _as_nee 108 (90 Base) Base) 00:00: ded} Base) MCG/ACT MCG/ACT 00 MCG/ACT ProAir HFA ProAir HFA 2017-07 No 2{puffs QID ProAir HFA 108 (90 108 (90 2-12 _as_nee 108 (90 Base) Base) 00:00: ded} Base) MCG/ACT MCG/ACT 00 MCG/ACT ProAir HFA ProAir HFA 2017-07 No 2{puffs QID ProAir HFA 108 (90 108 (90 2-12 _as_nee 108 (90 Base) Base) 00:00: ded} Base) MCG/ACT MCG/ACT 00 MCG/ACT ProAir HFA ProAir HFA 2017-07 No 2{puffs QID ProAir HFA 108 (90 108 (90 2-12 _as_nee 108 (90 Base) Base) 00:00: ded} Base) MCG/ACT MCG/ACT 00 MCG/ACT ProAir HFA ProAir HFA 2017-07 No 2{puffs QID ProAir HFA 108 (90 108 (90 2-12 _as_nee 108 (90 Base) Base) 00:00: ded} Base) MCG/ACT MCG/ACT 00 MCG/ACT ProAir HFA ProAir HFA 2017-07 No 2{puffs QID ProAir HFA 108 (90 108 (90 2-12 _as_nee 108 (90 Base) Base) 00:00: ded} Base) MCG/ACT MCG/ACT 00 MCG/ACT ProAir HFA ProAir HFA 2017-07 No 2{puffs QID ProAir HFA 108 (90 108 (90 2-12 _as_nee 108 (90 Base) Base) 00:00: ded} Base) MCG/ACT MCG/ACT 00 MCG/ACT ProAir HFA ProAir HFA 2017-07 No 2{puffs QID ProAir HFA 108 (90 108 (90 2-12 _as_nee 108 (90 Base) Base) 00:00: ded} Base) MCG/ACT MCG/ACT 00 MCG/ACT ProAir HFA ProAir HFA 2017-07 No 2{puffs QID ProAir HFA 108 (90 108 (90 2-12 _as_nee 108 (90 Base) Base) 00:00: ded} Base) MCG/ACT MCG/ACT 00 MCG/ACT ProAir HFA ProAir HFA 2017-07 No 2{puffs QID ProAir HFA 108 (90 108 (90 2-12 _as_nee 108 (90 Base) Base) 00:00: ded} Base) MCG/ACT MCG/ACT 00 MCG/ACT ProAir HFA ProAir HFA 2018-1 No 2{puffs QID ProAir HFA 108 (90 108 (90 2-12 _as_nee 108 (90 Base) Base) 00:00: ded} Base) MCG/ACT MCG/ACT 00 MCG/ACT Amoralog Kenalog 2018-0 No 40mg Common (Triamcinol (Triamcinol 6-08 S pirit one) one) 00:00: - [facility] 00 [facility] Amoralog Kenalog 2018-0 No 40mg Common (Triamcinol (Triamcinol 6-08 S pirit one) one) 00:00: - [facility] 00 [facility] Amy Kenalog 2018-0 No 40mg Common (Triamcinol (Triamcinol 6-08 S pirit one) one) 00:00: - [facility] 00 [facility] Amy Kenalog 2018-0 No 40mg Common (Triamcinol (Triamcinol 6-08 S pirit one) one) 00:00: - [facility] 00 [facility] Amy Kenalog 2018-0 No 40mg Common (Triamcinol (Triamcinol 6-08 S pirit one) one) 00:00: - [facility] 00 [facility] Amy Kenalog 2018-0 No 40mg Common (Triamcinol (Triamcinol 6-08 S pirit one) one) 00:00: - [facility] 00 [facility] Amy Kenalog 2018-0 No 40mg Common (Triamcinol (Triamcinol 6-08 S pirit one) one) 00:00: - [facility] 00 [facility] Amoralog Kenalog 2018-0 No 40mg Common (Triamcinol (Triamcinol 6-08 S pirit one) one) 00:00: - [facility] 00 [facility] pantoprazol 2017-0 [facility]30 [facility] 00 [place] pantoprazol 2017-0 Yes [facility] 11[facility]: [facility] 00 [place] pantoprazol 2017-0 Yes [facility] 11[facility]30 [facility] 00 [place] pantoprazol 2017-0 Yes [facility] 5[facility]22 0630 [facility]: Medical 00 [place] pantoprazol 2017-0 Yes [facility] 11[facility]29 [facility]: Medical 00 [place] pantoprazol 2017-0 Yes [facility] 11[facility]: Medical 00 [place] eszopiclone 2017-0 Yes [facility] BEDTIME [facility] tablet 5-21 [facility]: Medical 00 [place] OXcarbazepi 2017-0 Yes DAILY [facility] (TRILEPTAL) 00:00: Medica l 150 MG 00 Center tablet OXcarbazepi 2017-0 Yes [address] [facility] (TRILEPTAL) 00:00: Medica l 150 MG 00 Center tablet eszopiclone 2017-0 Yes [facility] BED[facility] tablet 5-[facility]: [facility] 00 [place] OXcarbazepi 2017-0 Yes DAILY [facility] (TRILEPTAL) 00:00: Medica l 150 MG 00 Center tablet OXcarbazepi 2017-0 [address] [facility] (TRILEPTAL) 00:00: Medica l 150 MG 00 Center tablet eszopiclone 2017-0 Yes [facility] BED[facility] tablet 5-21 [facility]: [facility] 00 [place] OXcarbazepi 2017-0 Yes DAILY [facility] (TRILEPTAL) 00:00: Medica l 150 MG 00 Center tablet OXcarbazepi 2017-0 [address] [facility] (TRILEPTAL) 00:00: Medica l 150 MG 00 Center tablet eszopiclone 2017-0 Yes [facility] BED[facility] tablet 5-21 [facility] OXcarbazepi 2017-0 Yes DAILY [facility] (TRILEPTAL) 00:00: Medica l 150 MG 00 Center tablet OXcarbazepi 2017-0 [address] [facility] (TRILEPTAL) 00:00: Medica l 150 MG 00 Center tablet eszopiclone 2017-0 Yes [facility]ED[facility] tablet 5-21 [facility] 00 [facility] OXcarbazepi 2017-0 Yes DAILY [facility] (TRILEPTAL) 00:00: Medica l 150 MG 00 Center tablet OXcarbazepi 0 Yes [address] [facility] (TRILEPTAL) 00:00: Medica l 150 MG 00 Center tablet eszopiclone 0 Yes [facility] BED[facility] tablet 5-21 [facility]: [facility] 00 [facility] OXcarbazepi 2017-0 Yes DAILY [facility] (TRILEPTAL) 00:00: Medica l 150 MG 00 Center tablet OXcarbazepi 0 Yes [address] [facility] (TRILEPTAL) 00:00: Medica l 150 MG 00 Center tablet metoprolol Yes 12.5mg Take 12.5 [facility] succinate 5-02 mg by ity of XL (TOPROL 18:06: mouth [place] XL) 25 mg 02 daily. Medical 24 hr Branch tablet pantoprazol Yes 40mg Take 40 mg [facility] e 5-02 by mouth ity of (PROTONIX) 18:06: daily. [place] 40 mg EC 02 Medical tablet Branch metoprolol Yes 12.5mg Take 12.5 [facility] succinate 5-02 mg by ity of XL (TOPROL 18:06: mouth [place] XL) 25 mg 02 daily. Medical 24 hr Branch tablet pantoprazol Yes 40mg Take 40 mg Univers e 5-02 by mouth ity of (PROTONIX) 18:06: daily. [place] 40 mg EC 02 Medical tablet Branch metoprolol Yes 12.5mg Take 12.5 [facility] succinate 5-02 mg by ity of XL (TOPROL 18:06: mouth [place] XL) 25 mg 02 daily. Medical 24 hr Branch tablet pantoprazol Yes 40mg Take 40 mg Univers e 5-02 by mouth ity of (PROTONIX) 18:06: daily. [place] 40 mg EC 02 Medical tablet Branch metoprolol Yes 12.5mg Take 12.5 [facility] succinate 5-02 mg by ity of XL (TOPROL 18:06: mouth [place] XL) 25 mg 02 daily. Medical 24 hr Branch tablet pantoprazol 2016-0 Yes 40mg Take 40 mg Univers e 5-02 by mouth ity of (PROTONIX) 18:06: daily. [place] 40 mg EC 02 Medical tablet Branch metoprolol Yes 12.5mg Take 12.5 [facility] succinate 5-02 mg by ity of XL (TOPROL 18:06: mouth [place] XL) 25 mg 02 daily. Medical 24 hr Branch tablet pantoprazol Yes 40mg Take 40 mg [facility] e 5-02 by mouth ity of (PROTONIX) 18:06: daily. [place] 40 mg EC 02 Medical tablet Branch metoprolol Yes 12.5mg Take 12.5 [facility] succinate 5-02 mg by ity of XL (TOPROL 18:06: mouth [place] XL) 25 mg 02 daily. Medical 24 hr Branch tablet pantoprazol Yes 40mg Take 40 mg [facility] e 5-02 by mouth ity of (PROTONIX) 18:06: daily. [place] 40 mg EC 02 Medical tablet Branch metoprolol Yes 12.5mg Take 12.5 [facility] succinate 5-02 mg by ity of XL (TOPROL 18:06: mouth [place] XL) 25 mg 02 daily. Medical 24 hr Branch tablet pantoprazol Yes 40mg Take 40 mg [facility] e 5-02 by mouth ity of (PROTONIX) 18:06: daily. [place] 40 mg EC 02 Medical tablet Branch metoprolol Yes 12.5mg Take 12.5 [facility] succinate 5-02 mg by ity of XL (TOPROL 18:06: mouth [place] XL) 25 mg 02 daily. Medical 24 hr Branch tablet pantoprazol Yes 40mg Take 40 mg [facility] e 5-02 by mouth ity of (PROTONIX) 18:06: daily. [place] 40 mg EC 02 Medical tablet Branch metoprolol Yes 12.5mg Take 12.5 [facility] succinate 5-02 mg by ity of XL (TOPROL 18:06: mouth [place] XL) 25 mg 02 daily. Medical 24 hr Branch tablet pantoprazol 0 Yes 40mg Take 40 mg [facility] e 5-02 by mouth ity of (PROTONIX) 18:06: daily. [place] 40 mg EC 02 Medical tablet Branch metoprolol Yes 12.5mg Take 12.5 [facility] succinate 5-02 mg by ity of XL (TOPROL 18:06: mouth [place] XL) 25 mg 02 daily. Medical 24 hr Branch tablet pantoprazol Yes 40mg Take 40 mg [facility] e 5-02 by mouth ity of (PROTONIX) 18:06: daily. [place] 40 mg EC 02 Medical tablet Branch metoprolol Yes 12.5mg Take 12.5 [facility] succinate 5-02 mg by ity of XL (TOPROL 18:06: mouth [place] XL) 25 mg 02 daily. Medical 24 hr Branch tablet pantoprazol Yes 40mg Take 40 mg [facility] e 5-02 by mouth ity of (PROTONIX) 18:06: daily. [place] 40 mg EC 02 Medical tablet Branch metoprolol Yes 12.5mg Take 12.5 [facility] succinate 5-02 mg by ity of XL (TOPROL 18:06: mouth [place] XL) 25 mg 02 daily. Medical 24 hr Branch tablet pantoprazol Yes 40mg Take 40 mg [facility] e 5-02 by mouth ity of (PROTONIX) 18:06: daily. [place] 40 mg EC 02 Medical tablet Branch metoprolol Yes 12.5mg Take 12.5 [facility] succinate 5-02 mg by ity of XL (TOPROL 18:06: mouth [place] XL) 25 mg 02 daily. Medical 24 hr Branch tablet pantoprazol Yes 40mg Take 40 mg [facility] e 5-02 by mouth ity of (PROTONIX) 18:06: daily. [place] 40 mg EC 02 Medical tablet Branch metoprolol Yes 12.5mg Take 12.5 [facility] succinate 5-02 mg by ity of XL (TOPROL 18:06: mouth [place] XL) 25 mg 02 daily. Medical 24 hr Branch tablet pantoprazol Yes 40mg Take 40 mg [facility] e 5-02 by mouth ity of (PROTONIX) 18:06: daily. [place] 40 mg EC 02 Medical tablet Branch metoprolol Yes 12.5mg Take 12.5 [facility] succinate 5-02 mg by ity of XL (TOPROL 18:06: mouth [place] XL) 25 mg 02 daily. Medical 24 hr Branch tablet pantoprazol Yes 40mg Take 40 mg Univers e 5-02 by mouth ity of (PROTONIX) 18:06: daily. [place] 40 mg EC 02 Medical tablet Branch metoprolol 2016-0 Yes 12.5mg Take 12.5 [facility] succinate 5-02 mg by ity of XL (TOPROL 18:06: mouth [place] XL) 25 mg 02 daily. Medical 24 hr Branch tablet pantoprazol Yes 40mg Take 40 mg Univers e 5-02 by mouth ity of (PROTONIX) 18:06: daily. [place] 40 mg EC 02 Medical tablet Branch OXcarbazepi Yes 1mg Take 1 mg U nivers ne 6-23 by mouth 2 ity of (TRILEPTAL) 15:03: (two) [place] 300 mg 23 times Medical tablet daily. Branch eszopiclone Yes 3mg Take 3 mg U nivers (LUNESTA) 3 6-23 by mouth ity of mg tablet 15:03: at [place] [address] bedtime. Medical Branch DOCOSAHEXAN Yes 1{capsu Take 1 Cap [facility] OIC 6-23 le} by mouth ity of ACID/EPA 15:03: daily. [place] (FISH OIL 23 Medical ORAL) Branch MULTIVITS Yes 1{tbl} Take 1 Tab Univers W-FE,OTHER 6-23 by mouth ity o f MIN/LUT 15:03: daily. [place] (CENTRUM 23 Medical SILVER Branch ULTRA WOMEN'S ORAL) CALCIUM Yes 1{tbl} Take 1 Tab Un radha CARBONATE/V 6-23 by mouth ity of ITAMIN D3 15:03: daily. [place] (VITAMIN 23 Medical D-3 ORAL) Branch CALCIUM Yes 1{tbl} Take 1 Tab Un radha CARB/VIT 6-23 by mouth ity of D2/MINERALS 15:03: [facility] PLUS ORAL) Branch OXcarbazepi Yes 1mg Take 1 mg U nivers ne 6-23 by mouth 2 ity of (TRILEPTAL) 15:03: (two) [place] 300 mg 23 times Medical tablet daily. Branch eszopiclone Yes 3mg Take 3 mg U nivers (LUNESTA) 3 6-23 by mouth ity of mg tablet 15:03: at [place] [address] bedtime. Medical Branch DOCOSAHEXAN Yes 1{capsu Take 1 Cap [facility] OIC 6-23 le} by mouth ity of ACID/EPA 15:03: daily. [place] (FISH OIL 23 Medical ORAL) Branch MULTIVITS Yes 1{tbl} Take 1 Tab [facility] W-FE,OTHER 6-23 by mouth ity o f MIN/LUT 15:03: daily. [place] (CENTRUM 23 Medical SILVER Branch ULTRA WOMEN'S ORAL) CALCIUM Yes 1{tbl} Take 1 Tab Un radha CARBONATE/V 6-23 by mouth ity of ITAMIN D3 15:03: daily. [place] (VITAMIN 23 Medical D-3 ORAL) Branch CALCIUM Yes 1{tbl} Take 1 Tab Un radha CARB/VIT 6-23 by mouth ity of D2/MINERALS 15:03: daily. [place] (CALTRATE 23 Medical PLUS ORAL) Branch OXcarbazepi Yes 1mg Take 1 mg U nivers ne 6-23 by mouth 2 ity of (TRILEPTAL) 15:03: (two) [place] 300 mg 23 times Medical tablet daily. Branch eszopiclone Yes 3mg Take 3 mg U nivers (LUNESTA) 3 6-23 by mouth ity of mg tablet 15:03: at [place] 23 bedtime. Medical Branch DOCOSAHEXAN Yes 1{capsu Take 1 Cap [facility] OIC 6-23 le} by mouth ity of ACID/EPA 15:03: daily. [place] (FISH OIL 23 Medical ORAL) Branch MULTIVITS Yes 1{tbl} Take 1 Tab [facility] W-FE,OTHER 6-23 by mouth ity o f MIN/LUT 15:03: daily. [place] (CENTRUM 23 Medical SILVER Branch ULTRA WOMEN'S ORAL) CALCIUM Yes 1{tbl} Take 1 Tab Un radha CARBONATE/V 6-23 by mouth ity of ITAMIN D3 15:03: daily. [place] (VITAMIN 23 Medical D-3 ORAL) Branch CALCIUM Yes 1{tbl} Take 1 Tab Un radha CARB/VIT 6-23 by mouth ity of D2/MINERALS 15:03: daily. [place] (CALTRATE 23 Medical PLUS ORAL) Branch OXcarbazepi Yes 1mg Take 1 mg U nivers ne 6-23 by mouth 2 ity of (TRILEPTAL) 15:03: (two) [place] 300 mg 23 times Medical tablet daily. Branch eszopiclone Yes 3mg Take 3 mg U nivers (LUNESTA) 3 6-23 by mouth ity of mg tablet 15:03: at [place] 23 bedtime. Medical Branch DOCOSAHEXAN Yes 1{capsu Take 1 Cap [facility] OIC 6-23 le} by mouth ity of ACID/EPA 15:03: daily. [place] (FISH OIL 23 Medical ORAL) Branch MULTIVITS Yes 1{tbl} Take 1 Tab [facility] W-FE,OTHER 6-23 by mouth ity o f MIN/LUT 15:03: daily. [place] (CENTRUM 23 Medical SILVER Branch ULTRA WOMEN'S ORAL) CALCIUM Yes 1{tbl} Take 1 Tab Un radha CARBONATE/V 6-23 by mouth ity of ITAMIN D3 15:03: daily. [place] (VITAMIN 23 Medical D-3 ORAL) Branch CALCIUM Yes 1{tbl} Take 1 Tab Un radha CARB/VIT 6-23 by mouth ity of D2/MINERALS 15:03: [facility]. [facility] Medical PLUS ORAL) Branch OXcarbazepi Yes 1mg Take 1 mg U nivers ne 6-23 by mouth 2 ity of (TRILEPTAL) 15:03: (two) [place] 300 mg 23 times Medical tablet daily. Branch eszopiclone Yes 3mg Take 3 mg U nivers (LUNESTA) 3 6-23 by mouth ity of mg tablet 15:03: at [place] 23 bedtime. Medical Branch DOCOSAHEXAN Yes 1{capsu Take 1 Cap [facility] OIC 6-23 le} by mouth ity of ACID/EPA 15:03: daily. [place] (FISH OIL 23 Medical ORAL) Branch MULTIVITS Yes 1{tbl} Take 1 Tab [facility] W-FE,OTHER 6-23 by mouth ity o f MIN/LUT 15:03: daily. [place] (CENTRUM 23 Medical SILVER Branch ULTRA WOMEN'S ORAL) CALCIUM Yes 1{tbl} Take 1 Tab Un radha CARBONATE/V 6-23 by mouth ity of ITAMIN D3 15:03: daily. [place] (VITAMIN 23 Medical D-3 ORAL) Branch OXcarbazepi Yes 1mg Take 1 mg U nivers ne 6-23 by mouth 2 ity of (TRILEPTAL) 15:03: (two) [place] 300 mg 23 times Medical tablet daily. Branch CALCIUM Yes 1{tbl} Take 1 Tab Un radha CARB/VIT 6-23 by mouth ity of D2/MINERALS 15:03: daily. [place] (CALTRATE 23 Medical PLUS ORAL) Branch OXcarbazepi Yes 1mg Take 1 mg U nivers ne 6-23 by mouth 2 ity of (TRILEPTAL) 15:03: (two) [place] 300 mg 23 times Medical tablet daily. Branch eszopiclone Yes 3mg Take 3 mg U nivers (LUNESTA) 3 6-23 by mouth ity of mg tablet 15:03: at [place] 23 bedtime. Medical Branch DOCOSAHEXAN Yes 1{capsu Take 1 Cap [facility] OIC 6-23 le} by mouth ity of ACID/EPA 15:03: daily. [place] (FISH OIL 23 Medical ORAL) Branch MULTIVITS Yes 1{tbl} Take 1 Tab [facility] W-FE,OTHER 6-23 by mouth ity o f MIN/LUT 15:03: daily. [place] (CENTRUM 23 Medical SILVER Branch ULTRA WOMEN'S ORAL) CALCIUM Yes 1{tbl} Take 1 Tab Un radha CARBONATE/V 6-23 by mouth ity of ITAMIN D3 15:03: daily. [place] (VITAMIN 23 Medical D-3 ORAL) Branch CALCIUM Yes 1{tbl} Take 1 Tab Un radha CARB/VIT 6-23 by mouth ity of D2/MINERALS 15:03: daily. [place] (CALTRATE 23 Medical PLUS ORAL) Branch eszopiclone Yes 3mg Take 3 mg U nivers (LUNESTA) 3 6-23 by mouth ity of mg tablet 15:03: at [place] 23 bedtime. Medical Branch DOCOSAHEXAN Yes 1{capsu Take 1 Cap [facility] OIC 6-23 le} by mouth ity of ACID/EPA 15:03: daily. [place] (FISH OIL 23 Medical ORAL) Branch MULTIVITS Yes 1{tbl} Take 1 Tab [facility] W-FE,OTHER 6-23 by mouth ity o f MIN/LUT 15:03: daily. [place] (CENTRUM 23 Medical SILVER Branch ULTRA WOMEN'S ORAL) CALCIUM Yes 1{tbl} Take 1 Tab Un radha CARBONATE/V 6-23 by mouth ity of ITAMIN D3 15:03: daily. [place] (VITAMIN 23 Medical D-3 ORAL) Branch OXcarbazepi Yes 1mg Take 1 mg U nivers ne 6-23 by mouth 2 ity of (TRILEPTAL) 15:03: (two) [place] 300 mg 23 times Medical tablet daily. Branch eszopiclone Yes 3mg Take 3 mg U nivers (LUNESTA) 3 6-23 by mouth ity of mg tablet 15:03: at [place] 23 bedtime. Medical Branch DOCOSAHEXAN Yes 1{capsu Take 1 Cap [facility] OIC 6-23 le} by mouth ity of ACID/EPA 15:03: daily. [place] (FISH OIL 23 Medical ORAL) Branch MULTIVITS Yes 1{tbl} Take 1 Tab [facility] W-FE,OTHER 6-23 by mouth ity o f MIN/LUT 15:03: daily. [place] (CENTRUM 23 Medical SILVER Branch ULTRA WOMEN'S ORAL) CALCIUM Yes 1{tbl} Take 1 Tab Un radha CARBONATE/V 6-23 by mouth ity of ITAMIN D3 15:03: daily. [place] (VITAMIN 23 Medical D-3 ORAL) Branch CALCIUM Yes 1{tbl} Take 1 Tab Un radha CARB/VIT 6-23 by mouth ity of D2/MINERALS 15:03: [facility]. [facility] Medical PLUS ORAL) Branch CALCIUM Yes 1{tbl} Take 1 Tab Un radha CARB/VIT 6-23 by mouth ity of D2/MINERALS 15:03: daily. [place] (CALTRATE 23 Medical PLUS ORAL) Branch OXcarbazepi Yes 1mg Take 1 mg U nivers ne 6-23 by mouth 2 ity of (TRILEPTAL) 15:03: (two) [place] 300 mg 23 times Medical tablet daily. Branch eszopiclone Yes 3mg Take 3 mg U nivers (LUNESTA) 3 6-23 by mouth ity of mg tablet 15:03: at [place] 23 bedtime. Medical Branch DOCOSAHEXAN Yes 1{capsu Take 1 Cap [facility] OIC 6-23 le} by mouth ity of ACID/EPA 15:03: daily. [place] (FISH OIL 23 Medical ORAL) Branch MULTIVITS Yes 1{tbl} Take 1 Tab [facility] W-FE,OTHER 6-23 by mouth ity o f MIN/LUT 15:03: daily. [place] (CENTRUM 23 Medical SILVER Branch ULTRA WOMEN'S ORAL) CALCIUM Yes 1{tbl} Take 1 Tab Un radha CARBONATE/V 6-23 by mouth ity of ITAMIN D3 15:03: daily. [place] (VITAMIN 23 Medical D-3 ORAL) Branch CALCIUM Yes 1{tbl} Take 1 Tab Un radha CARB/VIT 6-23 by mouth ity of D2/MINERALS 15:03: daily. [place] (CALTRATE 23 Medical PLUS ORAL) Branch OXcarbazepi Yes 1mg Take 1 mg U nivers ne 6-23 by mouth 2 ity of (TRILEPTAL) 15:03: (two) [place] 300 mg 23 times Medical tablet daily. Branch eszopiclone Yes 3mg Take 3 mg U nivers (LUNESTA) 3 6-23 by mouth ity of mg tablet 15:03: at [place] [address] bedtime. Medical Branch DOCOSAHEXAN Yes 1{capsu Take 1 Cap [facility] OIC 6-23 le} by mouth ity of ACID/EPA 15:03: daily. [place] (FISH OIL 23 Medical ORAL) Branch MULTIVITS Yes 1{tbl} Take 1 Tab [facility] W-FE,OTHER 6-23 by mouth ity o f MIN/LUT 15:03: daily. [place] (CENTRUM 23 Medical SILVER Branch ULTRA WOMEN'S ORAL) CALCIUM Yes 1{tbl} Take 1 Tab Un radha CARBONATE/V 6-23 by mouth ity of ITAMIN D3 15:03: daily. [place] (VITAMIN 23 Medical D-3 ORAL) Branch CALCIUM Yes 1{tbl} Take 1 Tab Un radha CARB/VIT 6-23 by mouth ity of D2/MINERALS 15:03: daily. [place] (CALTRATE 23 Medical PLUS ORAL) Branch OXcarbazepi Yes 1mg Take 1 mg U nivers ne 6-23 by mouth 2 ity of (TRILEPTAL) 15:03: (two) [place] 300 mg 23 times Medical tablet daily. Branch eszopiclone Yes 3mg Take 3 mg U nivers (LUNESTA) 3 6-23 by mouth ity of mg tablet 15:03: at [place] 23 bedtime. Medical Branch DOCOSAHEXAN Yes 1{capsu Take 1 Cap [facility] OIC 6-23 le} by mouth ity of ACID/EPA 15:03: daily. [place] (FISH OIL 23 Medical ORAL) Branch MULTIVITS Yes 1{tbl} Take 1 Tab [facility] W-FE,OTHER 6-23 by mouth ity o f MIN/LUT 15:03: daily. [place] (CENTRUM 23 Medical SILVER Branch ULTRA WOMEN'S ORAL) CALCIUM Yes 1{tbl} Take 1 Tab Un radha CARBONATE/V 6-23 by mouth ity of ITAMIN D3 15:03: daily. [place] (VITAMIN 23 Medical D-3 ORAL) Branch CALCIUM Yes 1{tbl} Take 1 Tab Un radha CARB/VIT 6-23 by mouth ity of D2/MINERALS 15:03: daily. [place] (CALTRATE 23 Medical PLUS ORAL) Branch OXcarbazepi Yes 1mg Take 1 mg U nivers ne 6-23 by mouth 2 ity of (TRILEPTAL) 15:03: (two) [place] 300 mg 23 times Medical tablet daily. Branch eszopiclone Yes 3mg Take 3 mg U nivers (LUNESTA) 3 6-23 by mouth ity of mg tablet 15:03: at [place] 23 bedtime. Medical Branch DOCOSAHEXAN Yes 1{capsu Take 1 Cap [facility] OIC 6-23 le} by mouth ity of ACID/EPA 15:03: daily. [place] (FISH OIL 23 Medical ORAL) Branch MULTIVITS Yes 1{tbl} Take 1 Tab [facility] W-FE,OTHER 6-23 by mouth ity o f MIN/LUT 15:03: daily. [place] (CENTRUM 23 Medical SILVER Branch ULTRA WOMEN'S ORAL) CALCIUM Yes 1{tbl} Take 1 Tab Un radha CARBONATE/V 6-23 by mouth ity of ITAMIN D3 15:03: daily. [place] (VITAMIN 23 Medical D-3 ORAL) Branch CALCIUM Yes 1{tbl} Take 1 Tab Un radha CARB/VIT 6-23 by mouth ity of D2/MINERALS 15:03: daily. [place] (CALTRATE 23 Medical PLUS ORAL) Branch OXcarbazepi Yes 1mg Take 1 mg U nivers ne 6-23 by mouth 2 ity of (TRILEPTAL) 15:03: (two) [place] 300 mg 23 times Medical tablet daily. Branch eszopiclone Yes 3mg Take 3 mg U nivers (LUNESTA) 3 6-23 by mouth ity of mg tablet 15:03: at [place] 23 bedtime. Medical Branch DOCOSAHEXAN Yes 1{capsu Take 1 Cap [facility] OIC 6-23 le} by mouth ity of ACID/EPA 15:03: daily. [place] (FISH OIL 23 Medical ORAL) Branch MULTIVITS Yes 1{tbl} Take 1 Tab [facility] W-FE,OTHER 6-23 by mouth ity o f MIN/LUT 15:03: daily. [place] (CENTRUM 23 Medical SILVER Branch ULTRA WOMEN'S ORAL) CALCIUM Yes 1{tbl} Take 1 Tab Un radha CARBONATE/V 6-23 by mouth ity of ITAMIN D3 15:03: daily. [place] (VITAMIN 23 Medical D-3 ORAL) Branch CALCIUM Yes 1{tbl} Take 1 Tab Un rad[facility] CARB/VIT 6-23 by mouth ity of D2/MINERALS 15:03: daily. [place] (CALTRATE 23 Medical PLUS ORAL) Branch OXcarbazepi Yes 1mg Take 1 mg U nivers ne 6-23 by mouth 2 ity of (TRILEPTAL) 15:03: (two) [place] 300 mg 23 times Medical tablet daily. Branch eszopiclone Yes 3mg Take 3 mg U nivers (LUNESTA) 3 6-23 by mouth ity of mg tablet 15:03: at [place] 23 bedtime. Medical Branch DOCOSAHEXAN Yes 1{capsu Take 1 Cap [facility] OIC 6-23 le} by mouth ity of ACID/EPA 15:03: daily. [place] (FISH OIL 23 Medical ORAL) Branch MULTIVITS Yes 1{tbl} Take 1 Tab [facility] W-FE,OTHER 6-23 by mouth ity o f MIN/LUT 15:03: daily. [place] (CENTRUM 23 Medical SILVER Branch ULTRA WOMEN'S ORAL) CALCIUM Yes 1{tbl} Take 1 Tab Un radha CARBONATE/V 6-23 by mouth ity of ITAMIN D3 15:03: daily. [place] (VITAMIN 23 Medical D-3 ORAL) Branch CALCIUM Yes 1{tbl} Take 1 Tab Un radha CARB/VIT 6-23 by mouth ity of D2/MINERALS 15:03: [place] (CALTRATE 23 Medical PLUS ORAL) Branch OXcarbazepi Yes 1mg Take 1 mg U nivers ne 6-23 by mouth 2 ity of (TRILEPTAL) 15:03: (two) [place] 300 mg 23 times Medical tablet daily. Branch eszopiclone Yes 3mg Take 3 mg U nivers (LUNESTA) 3 6-23 by mouth ity of mg tablet 15:03: at [place] [address] bedtime. Medical Branch DOCOSAHEXAN Yes 1{capsu Take 1 Cap Univers OIC 6-23 le} by mouth ity of ACID/EPA 15:03: daily. [place] (FISH OIL 23 Medical ORAL) Branch MULTIVITS Yes 1{tbl} Take 1 Tab Univers W-FE,OTHER 6-23 by mouth ity o f MIN/LUT 15:03: daily. [place] (CENTRUM 23 Medical SILVER Branch ULTRA WOMEN'S ORAL) CALCIUM Yes 1{tbl} Take 1 Tab Un radha CARBONATE/V 6-23 by mouth ity of ITAMIN D3 15:03: daily. [place] (VITAMIN 23 Medical D-3 ORAL) Branch CALCIUM Yes 1{tbl} Take 1 Tab Un radha CARB/VIT 6-23 by mouth ity of D2/MINERALS 15:03: [place]. [place] (CALTRATE 23 Medical PLUS ORAL) Branch OXcarbazepi Yes 1mg Take 1 mg U nivers ne 6-23 by mouth 2 ity of (TRILEPTAL) 15:03: (two) [place] 300 mg 23 times Medical tablet daily. Branch eszopiclone Yes 3mg Take 3 mg U nivers (LUNESTA) 3 6-23 by mouth ity of mg tablet 15:03: at [place] 23 bedtime. Medical Branch DOCOSAHEXAN Yes 1{capsu Take 1 Cap Univers OIC 6 le} by mouth ity of ACID/EPA 15:03: daily. [place] (FISH OIL 23 Medical ORAL) Branch MULTIVITS Yes 1{tbl} Take 1 Tab Univers W-FE,OTHER 6-23 by mouth ity o f MIN/LUT 15:03: daily. [place] (CENTRUM 23 Medical SILVER Branch ULTRA WOMEN'S ORAL) CALCIUM Yes 1{tbl} Take 1 Tab Un radha CARBONATE/V -23 by mouth ity of ITAMIN D3 15:03: daily. [place] (VITAMIN 23 Medical D-3 ORAL) Branch CALCIUM Yes 1{tbl} Take 1 Tab Un radha CARB/VIT -23 by mouth ity of D2/MINERALS 15:03: daily. [facility] (CALTRATE 23 Medical PLUS ORAL) Branch clobetasol Yes [id number] Apply to Univers (TEMOVATE) 6-02 area(s) 2 ity of 0.05 % 00:00: (two) [place] cream 00 times Medical daily. Branch lidocaine Yes [id number] Apply to Univers 4% (L-M-X 6-02 lesions 1 ity o f 4) 4 % 00:00: hour prior [place] cream 00 to Medical appointmen Branch t clobetasol Yes [id number] Apply to Univers (TEMOVATE) 6-02 area(s) 2 ity of 0.05 % 00:00: (two) [place] cream 00 times Medical daily. Branch lidocaine Yes [id number] Apply to Univers 4% (L-M-X 6-02 lesions 1 ity o f 4) 4 % 00:00: hour prior [place] cream 00 to Medical appointmen Branch t clobetasol Yes [id number] Apply to Univers (TEMOVATE) 6-02 area(s) 2 ity of 0.05 % 00:00: (two) [place] cream 00 times Medical daily. Branch lidocaine Yes [id number] Apply to Univers 4% (L-M-X 6-02 lesions 1 ity o f 4) 4 % 00:00: hour prior [place] cream 00 to Medical appointmen Branch t clobetasol Yes [id number] Apply to Univers (TEMOVATE) 6-02 area(s) 2 ity of 0.05 % 00:00: (two) [place] cream 00 times Medical daily. Branch lidocaine Yes [id number] Apply to Univers 4% (L-M-X 6-02 lesions 1 ity o f 4) 4 % 00:00: hour prior [place] cream 00 to Medical appointmen Branch t clobetasol Yes [id number] Apply to Univers (TEMOVATE) 6-02 area(s) 2 ity of 0.05 % 00:00: (two) [place] cream 00 times Medical daily. Branch lidocaine Yes [id number] Apply to Univers 4% (L-M-X 6-02 lesions 1 ity o f 4) 4 % 00:00: hour prior [place] cream 00 to Medical appointmen [place] t clobetasol Yes [id number] Apply to Univers (TEMOVATE) 6-02 area(s) 2 ity of 0.05 % 00:00: (two) [place] cream 00 times Medical daily. Branch lidocaine Yes [id number] Apply to Univers 4% (L-M-X 6-02 lesions 1 ity o f 4) 4 % 00:00: hour prior [place] cream 00 to Medical appointmen Branch t clobetasol Yes [id number] Apply to Univers (TEMOVATE) 6-02 area(s) 2 ity of 0.05 % 00:00: (two) [place] cream 00 times Medical daily. Branch lidocaine Yes [id number] Apply to Univers 4% (L-M-X 6-02 lesions 1 ity o f 4) 4 % 00:00: hour prior [place] cream 00 to Medical appointmen Branch t clobetasol Yes [id number] Apply to Univers (TEMOVATE) 6-02 area(s) 2 ity of 0.05 % 00:00: (two) [place] cream 00 times Medical daily. Branch lidocaine Yes [id number] Apply to Univers 4% (L-M-X 6-02 lesions 1 ity o f 4) 4 % 00:00: hour prior [place] cream 00 to Medical appointmen Branch t clobetasol Yes [id number] Apply to Univers (TEMOVATE) 6-02 area(s) 2 ity of 0.05 % 00:00: (two) [place] cream 00 times Medical daily. Branch lidocaine Yes [id number] Apply to Univers 4% (L-M-X 6-02 lesions 1 ity o f 4) 4 % 00:00: hour prior [place] cream 00 to Medical appointmen Branch t clobetasol Yes [id number] Apply to Univers (TEMOVATE) 6-02 area(s) 2 ity of 0.05 % 00:00: (two) [place] cream 00 times Medical daily. Branch lidocaine Yes [id number] Apply to Univers 4% (L-M-X 6-02 lesions 1 ity o f 4) 4 % 00:00: hour prior [place] cream 00 to Medical appointmen Branch t clobetasol Yes [id number] Apply to Univers (TEMOVATE) 6-02 area(s) 2 ity of 0.05 % 00:00: (two) [place] cream 00 times Medical daily. Branch lidocaine Yes [id number] Apply to Univers 4% (L-M-X 6-02 lesions 1 ity o f 4) 4 % 00:00: hour prior [place] cream 00 to Medical appointmen Branch t clobetasol Yes [id number] Apply to Univers (TEMOVATE) 6-02 area(s) 2 ity of 0.05 % 00:00: (two) [place] cream 00 times Medical daily. Branch clobetasol Yes [id number] Apply to Univers (TEMOVATE) 6-02 area(s) 2 ity of 0.05 % 00:00: (two) [place] cream 00 times Medical daily. Branch clobetasol Yes [id number] Apply to Univers (TEMOVATE) 6-02 area(s) 2 ity of 0.05 % 00:00: (two) [place] cream 00 times Medical daily. Branch clobetasol Yes [id number] Apply to Univers (TEMOVATE) 6-02 area(s) 2 ity of 0.05 % 00:00: (two) [place] cream 00 times Medical daily. Branch lidocaine Yes [id number] Apply to Univers 4% (L-M-X 6-02 lesions 1 ity o f 4) 4 % 00:00: hour prior [place] cream 00 to Medical appointmen Branch t clobetasol Yes [id number] Apply to Univers (TEMOVATE) 6-02 area(s) 2 ity of 0.05 % 00:00: (two) [place] cream 00 times Medical daily. Branch lidocaine Yes [id number] Apply to Univers 4% (L-M-X 6-02 lesions 1 ity o f 4) 4 % 00:00: hour prior [place] [facility] lidocaine 2020- No [id number] Apply to Univers 4% (L-M-X 6-02 04-14 lesions 1 ity of 4) 4 % 00:00: 00:00 hour prior [place] cream 00 :[facility] t ibuprofen Yes Univers (MOTRIN) 5-21 ity of 800 mg 00:00: [place] tablet 00 Medical Branch valACYclovi Yes Univer s r (VALTREX) 5-21 ity of 1 gram 00:00: [place] tablet 00 Medical Branch ibuprofen Yes Univers (MOTRIN) 5-21 ity of 800 mg 00:00: [place] tablet 00 Medical Branch valACYclovi Yes Univer s r (VALTREX) 5-21 ity of 1 gram 00:00: [place] tablet 00 Medical Branch ibuprofen Yes Univers (MOTRIN) 5-21 ity of 800 mg 00:00: [place] tablet 00 Medical Branch valACYclovi Yes Univer s r (VALTREX) 5-21 ity of 1 gram 00:00: [place] tablet 00 Medical Branch ibuprofen Yes Univers (MOTRIN) 5-21 ity of 800 mg 00:00: [place] tablet 00 Medical Branch valACYclovi Yes Univer s r (VALTREX) 5-21 ity of 1 gram 00:00: [place] tablet 00 Medical Branch ibuprofen Yes Univers (MOTRIN) 5-21 ity of 800 mg 00:00: [place] tablet 00 Medical Branch valACYclovi Yes Univer s r (VALTREX) 5-21 ity of 1 gram 00:00: [place] tablet 00 Medical Branch ibuprofen Yes Univers (MOTRIN) 5-21 ity of 800 mg 00:00: [place] tablet 00 Medical Branch valACYclovi Yes Univer s r (VALTREX) 5-21 ity of 1 gram 00:00: [place] tablet 00 Medical Branch ibuprofen Yes Univers (MOTRIN) 5-21 ity of 800 mg 00:00: [place] tablet 00 Medical Branch valACYclovi Yes Univer s r (VALTREX) 5-21 ity of 1 gram 00:00: [place] tablet Medical Branch ibuprofen Yes Univers (MOTRIN) 5-21 ity of 800 mg 00:00: [place] tablet 00 Medical Branch valACYclovi Yes Univer s r (VALTREX) 5-21 ity of 1 gram 00:00: [place] tablet Medical Branch ibuprofen Yes Univers (MOTRIN) 5-21 ity of 800 mg 00:00: [place] tablet 00 Medical Branch valACYclovi Yes Univer s r (VALTREX) 5-21 ity of 1 gram 00:00: [place] tablet Medical Branch ibuprofen Yes Univers (MOTRIN) 5-21 ity of 800 mg 00:00: [place] tablet Medical Branch valACYclovi Yes Univer s r (VALTREX) 5-21 ity of 1 gram 00:00: [place] tablet Medical Branch ibuprofen Yes Univers (MOTRIN) 5-21 ity of 800 mg 00:00: [place] tablet Medical Branch valACYclovi Yes Univer s r (VALTREX) 5-21 ity of 1 gram 00:00: [place] tablet Medical Branch ibuprofen Yes Univers (MOTRIN) 5-21 ity of 800 mg 00:00: [place] tablet 00 Medical Branch valACYclovi Yes Univer s r (VALTREX) 5-21 ity of 1 gram 00:00: [place] tablet Medical Branch ibuprofen Yes Univers (MOTRIN) 5-21 ity of 800 mg 00:00: [place] tablet 00 Medical Branch valACYclovi Yes Univer s r (VALTREX) 5-21 ity of 1 gram 00:00: [place] tablet Medical Branch ibuprofen Yes Univers (MOTRIN) 5-21 ity of 800 mg 00:00: [place] tablet Medical Branch valACYclovi Yes Univer s r (VALTREX) 5-21 ity of 1 gram 00:00: [place] tablet Medical Branch ibuprofen Yes Univers (MOTRIN) 5-21 ity of 800 mg 00:00: [place] tablet 00 Medical Branch valACYclovi Yes Univer s r (VALTREX) 5-21 ity of 1 gram 00:00: [place] tablet 00 Medical Branch ibuprofen Yes Univers (MOTRIN) 5-21 ity of 800 mg 00:00: [place] tablet 00 Medical Branch valACYclovi Yes Univer s r (VALTREX) 5-21 ity of 1 gram 00:00: [place] tablet 00 Medical Branch fluocinonid Yes [id number] Apply to Univers e (LIDEX) 4-24 area(s) 2 ity o f 0.05 % 00:00: (two) [place] cream 00 times Medical daily. Branch fluocinonid Yes [id number] Apply to Univers e (LIDEX) 4-24 area(s) 2 ity o f 0.05 % 00:00: (two) [place] cream 00 times Medical daily. Branch fluocinonid Yes [id number] Apply to Univers e (LIDEX) 4-24 area(s) 2 ity o f 0.05 % 00:00: (two) [place] cream 00 times Medical daily. Branch fluocinonid Yes [id number] Apply to Univers e (LIDEX) 4-24 area(s) 2 ity o f 0.05 % 00:00: (two) [place] cream 00 times Medical daily. Branch fluocinonid Yes [id number] Apply to Univers e (LIDEX) 4-24 area(s) 2 ity o f 0.05 % 00:00: (two) [place] cream 00 times Medical daily. Branch fluocinonid Yes [id number] Apply to Univers e (LIDEX) 4-24 area(s) 2 ity o f 0.05 % 00:00: (two) [place] cream 00 times Medical daily. Branch fluocinonid Yes [id number] Apply to Univers e (LIDEX) 4-24 area(s) 2 ity o f 0.05 % 00:00: (two) [place] cream 00 times Medical daily. Branch fluocinonid Yes [id number] Apply to Univers e (LIDEX) 4-24 area(s) 2 ity o f 0.05 % 00:00: (two) [place] cream 00 times Medical daily. Branch fluocinonid Yes [id number] Apply to Univers e (LIDEX) 4-24 area(s) 2 ity o f 0.05 % 00:00: (two) [place] cream 00 times Medical daily. Branch fluocinonid Yes [id number] Apply to Univers e (LIDEX) 4-24 area(s) 2 ity o f 0.05 % 00:00: (two) [place] cream 00 times Medical daily. Branch fluocinonid Yes [id number] Apply to Univers e (LIDEX) 4-24 area(s) 2 ity o f 0.05 % 00:00: (two) [place] cream 00 times Medical daily. Branch fluocinonid Yes [id number] Apply to Univers e (LIDEX) 4-24 area(s) 2 ity o f 0.05 % 00:00: (two) [place] cream 00 times Medical daily. Branch fluocinonid Yes [id number] Apply to Univers e (LIDEX) 4-24 area(s) 2 ity o f 0.05 % 00:00: (two) [place] cream 00 times Medical daily. Branch fluocinonid Yes [id number] Apply to Univers e (LIDEX) 4-24 area(s) 2 ity o f 0.05 % 00:00: (two) [place] cream 00 times Medical daily. Branch fluocinonid Yes [id number] Apply to Univers e (LIDEX) 4-24 area(s) 2 ity o f 0.05 % 00:00: (two) [place] cream 00 times Medical daily. Branch fluocinonid Yes [id number] Apply to Univers e (LIDEX) 4-24 area(s) 2 ity o f 0.05 % 00:00: (two) [place] cream 00 times Medical daily. Branch imiquimod 2013- Yes Apply to [facility] ers (ALDARA) 5 3-27 area(s) ity of % cream 19:13: every [place] Tuesday, Medical Tuesday and Tuesday. imiquimod 2013-0 Yes Apply to Univ ers (ALDARA) 5 3-27 area(s) ity of % cream 19:13: every [place] Tuesday, Medical Tuesday and Tuesday. imiquimod 2013-0 Yes Apply to Univ ers (ALDARA) 5 3-27 area(s) ity of % cream 19:13: every [place] Tuesday, Medical Tuesday Branch and Tuesday. imiquimod 2013-0 Yes Apply to Univ ers (ALDARA) 5 3-27 area(s) ity of % cream 19:13: every [place] Tuesday, Medical Tuesday Branch and Tuesday. imiquimod 2013-0 Yes Apply to Univ ers (ALDARA) 5 3-27 area(s) ity of % cream 19:13: every [place] Tuesday, Medical [place] Branch and Tuesday. imiquimod 2013-0 Yes Apply to [facility] ers (ALDARA) 5 3-27 area(s) ity of % cream 19:13: every [place] Tuesday, Medical Tuesday Branch and Tuesday. imiquimod 2013-0 Yes Apply to [facility] ers (ALDARA) 5 3-27 area(s) ity of % cream 19:13: every [place] Tuesday, Medical Tuesday Branch and Tuesday. imiquimod 2013-0 Yes Apply to [facility] ers (ALDARA) 5 3-27 area(s) ity of % cream 19:13: every [place] Tuesday, Medical Tuesday Branch and Tuesday. imiquimod 2013-0 Yes Apply to Univ ers (ALDARA) 5 3-27 area(s) ity of % cream 19:13: every [place] Tuesday, Medical Tuesday Branch and Tuesday. imiquimod 2013-0 Yes Apply to [facility] ers (ALDARA) 5 3-27 area(s) ity of % cream 19:13: every [place] Tuesday, Medical Tuesday Branch and Tuesday. imiquimod 2013-0 Yes Apply to [facility] ers (ALDARA) 5 3-27 area(s) ity of % cream 19:13: every [place] Tuesday, Medical Tuesday Branch and Tuesday. imiquimod 2014-0 Yes Apply to Univ ers (ALDARA) 5 3-27 area(s) ity of % cream 19:13: every [place] 29 Tuesday, Medical Tuesday Branch and Tuesday. imiquimod 2013-0 Yes Apply to [facility] ers (ALDARA) 5 3-27 area(s) ity of % cream 19:13: every [place] 29 Tuesday, Medical Tuesday Branch and Tuesday. imiquimod 2013- Yes Apply to [facility] ers (ALDARA) 5 3-27 area(s) ity of % cream 19:13: every [place] Tuesday, Medical Tuesday Branch and Tuesday. imiquimod 2013-0 Yes Apply to [facility] ers (ALDARA) 5 3-27 area(s) ity of % cream 19:13: every [place] Tuesday, Medical Tuesday Branch and Tuesday. imiquimod 2013-0 Yes Apply to [facility] ers (ALDARA) 5 3-27 area(s) ity of % cream 19:13: every [place] Tuesday, Medical Tuesday Branch and Tuesday. clotrimazol Yes [id number] Apply to Univers e 3-27 area(s) at ity of (LOTRIMIN) 00:00: bedtime. [place] 1 % topical 00 Medical cream Branch clotrimazol Yes [id number] Apply to Univers e 3-27 area(s) at ity of (LOTRIMIN) 00:00: bedtime. [place] 1 % topical 00 Medical cream Branch clotrimazol Yes [id number] Apply to Univers e 3-27 area(s) at ity of (LOTRIMIN) 00:00: bedtime. [place] 1 % topical 00 Medical cream Branch clotrimazol Yes [id number] Apply to Univers e 3-27 area(s) at ity of (LOTRIMIN) 00:00: bedtime. [place] 1 % topical 00 Medical cream Branch clotrimazol Yes [id number] Apply to Univers e 3-27 area(s) at ity of (LOTRIMIN) 00:00: bedtime. [place] 1 % topical 00 Medical cream Branch clotrimazol Yes [id number] Apply to Univers e 3-27 area(s) at ity of (LOTRIMIN) 00:00: bedtime. [place] 1 % topical 00 Medical cream Branch clotrimazol 0 Yes [id number] Apply to Univers e 3-27 area(s) at ity of (LOTRIMIN) 00:00: bedtime. [place] 1 % topical 00 Medical cream Branch clotrimazol 2014-0 Yes [id number] Apply to Univers e 3-27 area(s) at ity of (LOTRIMIN) 00:00: bedtime. [place] 1 % topical 00 Medical cream Branch clotrimazol 0 Yes [id number] Apply to Univers e 3-27 area(s) at ity of (LOTRIMIN) 00:00: bedtime. [place] 1 % topical 00 Medical cream Branch clotrimazol 0 Yes [id number] Apply to Univers e 3-27 area(s) at ity of (LOTRIMIN) 00:00: bedtime. [place] 1 % topical 00 Medical cream Branch clotrimazol 0 Yes [id number] Apply to Univers e 3-27 area(s) at ity of (LOTRIMIN) 00:00: bedtime. [place] 1 % topical 00 Medical cream Branch clotrimazol 0 Yes [id number] Apply to Univers e 3-27 area(s) at ity of (LOTRIMIN) 00:00: bedtime. [place] 1 % topical 00 Medical cream Branch clotrimazol 0 Yes [id number] Apply to Univers e 3-27 area(s) at ity of (LOTRIMIN) 00:00: bedtime. [place] 1 % topical 00 Medical cream Branch clotrimazol 0 Yes [id number] Apply to Univers e 3-27 area(s) at ity of (LOTRIMIN) 00:00: bedtime. [place] 1 % topical 00 Medical cream Branch clotrimazol 0 Yes [id number] Apply to Univers e 3-27 area(s) at ity of (LOTRIMIN) 00:00: bedtime. [place] 1 % topical 00 Medical cream Branch clotrimazol 0 Yes [id number] Apply to Univers e 3-27 area(s) at ity of (LOTRIMIN) 00:00: bedtime. [place] 1 % topical 00 Medical cream Branch HYDROcodone 0 Yes Univer s -acetaminop 2-21 ity of hen (NORCO) 00:00: [place] 7.5-325 mg 00 Medical per tablet Branch HYDROcodone 0 Yes Univer s -acetaminop 2-21 ity of hen (NORCO) 00:00: [place] 7.5-325 mg 00 Medical per tablet Branch HYDROcodone 2014-0 Yes Univer s -acetaminop 2-21 ity of hen (NORCO) 00:00: [place] 7.5-325 mg 00 Medical per tablet Branch HYDROcodone 2013-0 Yes Univer s -acetaminop 2-21 ity of hen (NORCO) 00:00: [place] 7.5-325 mg 00 Medical per tablet Branch HYDROcodone 0 Yes Univer s -acetaminop 2-21 ity of hen (NORCO) 00:00: [place] 7.5-325 mg 00 Medical per tablet Branch HYDROcodone 0 Yes Univer s -acetaminop 2-21 ity of hen (NORCO) 00:00: [place] 7.5-325 mg 00 Medical per tablet Branch HYDROcodone 0 Yes Univer s -acetaminop 2-21 ity of hen (NORCO) 00:00: [place] 7.5-325 mg 00 Medical per tablet Branch HYDROcodone 0 Yes Univer s -acetaminop 2-21 ity of hen (NORCO) 00:00: [place] 7.5-325 mg 00 Medical per tablet Branch HYDROcodone 0 Yes Univer s -acetaminop 2-21 ity of hen (NORCO) 00:00: [place] 7.5-325 mg 00 Medical per tablet Branch HYDROcodone 0 Yes Univer s -acetaminop 2-21 ity of hen (NORCO) 00:00: [place] 7.5-325 mg 00 Medical per tablet Branch HYDROcodone 0 Yes Univer s -acetaminop 2-21 ity of hen (NORCO) 00:00: [place] 7.5-325 mg 00 Medical per tablet Branch HYDROcodone 2013-0 Yes Univer s -acetaminop 2-21 ity of hen (NORCO) 00:00: [place] 7.5-325 mg 00 Medical per tablet Branch HYDROcodone 2013-0 Yes Univer s -acetaminop 2-21 ity of hen (NORCO) 00:00: [place] 7.5-325 mg 00 Medical per tablet Branch HYDROcodone 2013-0 Yes Univer s -acetaminop 2-21 ity of hen (NORCO) 00:00: [place] 7.5-325 mg 00 Medical per tablet Branch HYDROcodone 0 Yes Univer s -acetaminop 2-21 ity of hen (NORCO) 00:00: [place] 7.5-325 mg 00 Medical per tablet Branch HYDROcodone 2013-0 Yes Univer s -acetaminop 2-21 ity of hen (NORCO) 00:00: [place] 7.5-325 mg 00 Medical per tablet Branch gabapentin 2013-0 Yes Univers (NEURONTIN) 1-27 ity of 300 mg 00:00: [place] capsule 00 Medical Branch gabapentin 2013-0 Yes Univers (NEURONTIN) 1-27 ity of 300 mg 00:00: [place] capsule 00 Medical Branch gabapentin 2013-0 Yes Univers (NEURONTIN) 1-27 ity of 300 mg 00:00: [place] capsule 00 Medical Branch gabapentin 2013-0 Yes Univers (NEURONTIN) 1- ity of 300 mg 00:00: [place] capsule Medical Branch gabapentin 2013-0 Yes Univers (NEURONTIN) 1- ity of 300 mg 00:00: [place] capsule Medical Branch gabapentin 2013-0 Yes Univers (NEURONTIN) 1- ity of 300 mg 00:00: [place] capsule Medical Branch gabapentin 2013-0 Yes Univers (NEURONTIN) 1-27 ity of 300 mg 00:00: [place] capsule 00 Medical Branch gabapentin 2013-0 Yes Univers (NEURONTIN) 1-27 ity of 300 mg 00:00: [place] capsule 00 Medical Branch gabapentin 2013-0 Yes Univers (NEURONTIN) 1-27 ity of 300 mg 00:00: [place] capsule 00 Medical Branch gabapentin 2013-0 Yes Univers (NEURONTIN) 1-27 ity of 300 mg 00:00: [place] capsule Medical Branch gabapentin 2013-0 Yes Univers (NEURONTIN) 1-27 ity of 300 mg 00:00: [place] capsule 00 Medical Branch gabapentin 2014-0 Yes Univers (NEURONTIN) 1-27 ity of 300 mg 00:00: [place] capsule 00 Medical Branch gabapentin 2013-0 Yes Univers (NEURONTIN) 1-27 ity of 300 mg 00:00: [place] capsule 00 Medical Branch gabapentin 2013-0 Yes Univers (NEURONTIN) 1-27 ity of 300 mg 00:00: [place] capsule 00 Medical Branch gabapentin 2013-0 Yes Univers (NEURONTIN) 1-27 ity of 300 mg 00:00: [place] capsule 00 Medical Branch gabapentin 2013-0 Yes Univers (NEURONTIN) 1-27 ity of 300 mg 00:00: [place] capsule 00 Medical Branch Pantoprazol Pantoprazol No QD Pantoprazo e Sodium 40 e Sodium 40 le Sodium MG MG 40 MG Iron 325 Iron 325 No 1{table QD Iron 325 (65 Fe) MG (65 Fe) MG t} (65 Fe) MG Vitamin C Vitamin C Yes Luh not Comm on Chaves defined [facility] Trileptal Trileptal Yes Luh 1 tablet Common Chaves [facility] Calcium Calcium Yes Luh 1 tablet Comm on Carbonate Carbonate Chaves [facility] Eszopiclone Eszopiclone Yes Luh (Schedule Common Chaves IV Drug) Spirit TAKE 1 - CHI TABLET BY [facility] EVERY DAY Medical AT BEDTIME Center NEEDED Pantoprazol Pantoprazol Yes Luh 1 tablet Common e Sodium e Sodium Chaves [facility] Iron Iron Yes Luh 1 tablet Common Chaves [facility] Valacyclovi Valacyclovi Yes Luh TAKE 1 Common r HCl r HCl Chaves TABLET BY [facility] MOUTH - [facility] EVERY DAY [facility] Centrum Centrum Yes Luh not Common Silver Silver Chaves defined Spirit Ultra Ultra [facility] Probiotic Probiotic Yes Luh not Comm on Chaves defined [facility] Lyrica Lyrica Yes Luh 1 capsule Commo n Chaves [facility] Eszopiclone Eszopiclone No Eszopiclon 3 MG 3 MG e 3 MG Calcium Calcium No 1{table BID Calcium Carbonate Carbonate t} Carbonate 600 MG 600 MG 600 MG Trileptal Trileptal No 1{table TID Trileptal 300 MG 300 MG t} 300 MG Probiotic Probiotic No Probiotic Iron 325 Iron 325 No 1{table QD Iron 325 (65 Fe) MG (65 Fe) MG t} (65 Fe) MG buPROPion buPROPion No buPROPion HCl 150 MG HCl 150 MG HCl 150 MG Centrum Centrum No QD Centrum Silver Silver Silver Ultra Ultra Ultra Womens - 1 Womens - 1 Womens - 1 Zinc Zinc No Zinc Pantoprazol Pantoprazol No QD Pantoprazo e Sodium 40 e Sodium 40 le Sodium MG MG 40 MG valACYclovi valACYclovi No valACYclov r HCl 1 GM r HCl 1 GM ir HCl 1 GM Vitamin C Vitamin C No Vitamin C Metoprolol Metoprolol No QD Metoprolol Succinate Succinate Succinate ER 25 MG ER 25 MG ER 25 MG Calcium Calcium No 1{table BID Calcium Carbonate Carbonate t} Carbonate 600 MG 600 MG 600 MG Metoprolol Metoprolol No QD Metoprolol Succinate Succinate Succinate ER 25 MG ER 25 MG ER 25 MG Iron 325 Iron 325 No 1{table QD Iron 325 (65 Fe) MG (65 Fe) MG t} (65 Fe) MG Pantoprazol Pantoprazol No QD Pantoprazo e Sodium 40 e Sodium 40 le Sodium MG MG 40 MG Eszopiclone Eszopiclone No Eszopiclon 3 MG 3 MG e 3 MG buPROPion buPROPion No buPROPion HCl 150 MG HCl 150 MG HCl 150 MG Zinc Zinc No Zinc Probiotic Probiotic No Probiotic valACYclovi valACYclovi No valACYclov r HCl 1 GM r HCl 1 GM ir HCl 1 GM Trileptal Trileptal No 1{table TID Trileptal 300 MG 300 MG t} 300 MG Vitamin C Vitamin C No Vitamin C Centrum Centrum No QD Centrum Silver Silver Silver Ultra Ultra Ultra Womens - 1 Womens - 1 Womens - 1 Metoprolol Metoprolol No QD Metoprolol Succinate Succinate Succinate ER 25 MG ER 25 MG ER 25 MG Iron 325 Iron 325 No 1{table QD Iron 325 (65 Fe) MG (65 Fe) MG t} (65 Fe) MG Pantoprazol Pantoprazol No QD Pantoprazo e Sodium 40 e Sodium 40 le Sodium MG MG 40 MG Eszopiclone Eszopiclone No Eszopiclon 3 MG 3 MG e 3 MG buPROPion buPROPion No buPROPion HCl 150 MG HCl 150 MG HCl 150 MG Zinc Zinc No Zinc Probiotic Probiotic No Probiotic Centrum Centrum No QD Centrum Silver Silver Silver Ultra Ultra Ultra Womens - 1 Womens - 1 Womens - 1 valACYclovi valACYclovi No valACYclov r HCl 1 GM r HCl 1 GM ir HCl 1 GM Trileptal Trileptal No 1{table TID Trileptal 300 MG 300 MG t} 300 MG Vitamin C Vitamin C No Vitamin C Calcium Calcium No 1{table BID Calcium Carbonate Carbonate t} Carbonate 600 MG 600 MG 600 MG Zinc Zinc No Zinc valACYclovi valACYclovi No valACYclov r HCl 1 GM r HCl 1 GM ir HCl 1 GM Vitamin C Vitamin C No Vitamin C Trileptal Trileptal No 1{table TID Trileptal 300 MG 300 MG t} 300 MG Probiotic Probiotic No Probiotic Pantoprazol Pantoprazol No QD Pantoprazo e Sodium 40 e Sodium 40 le Sodium MG MG 40 MG Centrum Centrum No QD Centrum Silver Silver Silver Ultra Ultra Ultra Womens - 1 Womens - 1 Womens - 1 Eszopiclone Eszopiclone No Eszopiclon 3 MG 3 MG e 3 MG buPROPion buPROPion No buPROPion HCl 150 MG HCl 150 MG HCl 150 MG Calcium Calcium No 1{table BID Calcium Carbonate Carbonate t} Carbonate 600 MG 600 MG 600 MG Iron 325 Iron 325 No 1{table QD Iron 325 (65 Fe) MG (65 Fe) MG t} (65 Fe) MG Metoprolol Metoprolol No QD Metoprolol Succinate Succinate Succinate ER 25 MG ER 25 MG ER 25 MG Zinc Zinc No Zinc valACYclovi valACYclovi No valACYclov r HCl 1 GM r HCl 1 GM ir HCl 1 GM Vitamin C Vitamin C No Vitamin C Trileptal Trileptal No 1{table TID Trileptal 300 MG 300 MG t} 300 MG Probiotic Probiotic No Probiotic Pantoprazol Pantoprazol No QD Pantoprazo e Sodium 40 e Sodium 40 le Sodium MG MG 40 MG Centrum Centrum No QD Centrum Silver Silver Silver Ultra Ultra Ultra Womens - 1 Womens - 1 Womens - 1 Eszopiclone Eszopiclone No Eszopiclon 3 MG 3 MG e 3 MG buPROPion buPROPion No buPROPion HCl 150 MG HCl 150 MG HCl 150 MG Calcium Calcium No 1{table BID Calcium Carbonate Carbonate t} Carbonate 600 MG 600 MG 600 MG Iron 325 Iron 325 No 1{table QD Iron 325 (65 Fe) MG (65 Fe) MG t} (65 Fe) MG Metoprolol Metoprolol No QD Metoprolol Succinate Succinate Succinate ER 25 MG ER 25 MG ER 25 MG Zinc Zinc No Zinc buPROPion buPROPion No buPROPion HCl 150 MG HCl 150 MG HCl 150 MG Vitamin C Vitamin C No Vitamin C Trileptal Trileptal No 1{table TID Trileptal 300 MG 300 MG t} 300 MG Probiotic Probiotic No Probiotic Centrum Centrum No QD Centrum Silver Silver Silver Ultra Ultra Ultra Womens - 1 Womens - 1 Womens - 1 valACYclovi valACYclovi No valACYclov r HCl 1 GM r HCl 1 GM ir HCl 1 GM Eszopiclone Eszopiclone No Eszopiclon 3 MG 3 MG e 3 MG Calcium Calcium No 1{table BID Calcium Carbonate Carbonate t} Carbonate 600 MG 600 MG 600 MG Ezetimibe Ezetimibe No Ezetimibe 10 MG 10 MG 10 MG Iron 325 Iron 325 No 1{table QD Iron 325 (65 Fe) MG (65 Fe) MG t} (65 Fe) MG Pantoprazol Pantoprazol No Pantoprazo e Sodium 40 e Sodium 40 le Sodium MG MG 40 MG Metoprolol Metoprolol No QD Metoprolol Succinate Succinate Succinate ER 25 MG ER 25 MG ER 25 MG Vitamin C Vitamin C No Vitamin C Pantoprazol Pantoprazol No QD Pantoprazo e Sodium 40 e Sodium 40 le Sodium MG MG 40 MG Zinc Zinc No Zinc Calcium Calcium No 1{table BID Calcium Carbonate Carbonate t} Carbonate 600 MG 600 MG 600 MG buPROPion buPROPion No buPROPion HCl 150 MG HCl 150 MG HCl 150 MG Probiotic Probiotic No Probiotic Ezetimibe Ezetimibe No Ezetimibe 10 MG 10 MG 10 MG Centrum Centrum No QD Centrum Silver Silver Silver Ultra Ultra Ultra Womens - 1 Womens - 1 Womens - 1 Eszopiclone Eszopiclone No Eszopiclon 3 MG 3 MG e 3 MG Trileptal Trileptal No 1{table TID Trileptal 300 MG 300 MG t} 300 MG Iron 325 Iron 325 No 1{table QD Iron 325 (65 Fe) MG (65 Fe) MG t} (65 Fe) MG valACYclovi valACYclovi No valACYclov r HCl 1 GM r HCl 1 GM ir HCl 1 GM Metoprolol Metoprolol No QD Metoprolol Succinate Succinate Succinate ER 25 MG ER 25 MG ER 25 MG buPROPion buPROPion No buPROPion HCl 150 MG HCl 150 MG HCl 150 MG valACYclovi valACYclovi No valACYclov r HCl 1 GM r HCl 1 GM ir HCl 1 GM Metoprolol Metoprolol No Metoprolol Succinate Succinate Succinate ER 25 MG ER 25 MG ER 25 MG Calcium Calcium No 1{table BID Calcium Carbonate Carbonate t} Carbonate 600 MG 600 MG 600 MG Zinc Zinc No Zinc Ezetimibe Ezetimibe No Ezetimibe 10 MG 10 MG 10 MG Vitamin C Vitamin C No Vitamin C Centrum Centrum No QD Centrum Silver Silver Silver Ultra Ultra Ultra Womens - 1 Womens - 1 Womens - 1 Iron 325 Iron 325 No 1{table QD Iron 325 (65 Fe) MG (65 Fe) MG t} (65 Fe) MG Trileptal Trileptal No 1{table TID Trileptal 300 MG 300 MG t} 300 MG Probiotic Probiotic No Probiotic Pantoprazol Pantoprazol No QD Pantoprazo e Sodium 40 e Sodium 40 le Sodium MG MG 40 MG Eszopiclone Eszopiclone No Eszopiclon 3 MG 3 MG e 3 MG buPROPion buPROPion No buPROPion HCl 150 MG HCl 150 MG HCl 150 MG valACYclovi valACYclovi No valACYclov r HCl 1 GM r HCl 1 GM ir HCl 1 GM Metoprolol Metoprolol No Metoprolol Succinate Succinate Succinate ER 25 MG ER 25 MG ER 25 MG Calcium Calcium No 1{table BID Calcium Carbonate Carbonate t} Carbonate 600 MG 600 MG 600 MG Zinc Zinc No Zinc Ezetimibe Ezetimibe No Ezetimibe 10 MG 10 MG 10 MG Vitamin C Vitamin C No Vitamin C Centrum Centrum No QD Centrum Silver Silver Silver Ultra Ultra Ultra Womens - 1 Womens - 1 Womens - 1 Iron 325 Iron 325 No 1{table QD Iron 325 (65 Fe) MG (65 Fe) MG t} (65 Fe) MG Trileptal Trileptal No 1{table TID Trileptal 300 MG 300 MG t} 300 MG Probiotic Probiotic No Probiotic Pantoprazol Pantoprazol No QD Pantoprazo e Sodium 40 e Sodium 40 le Sodium MG MG 40 MG Eszopiclone Eszopiclone No Eszopiclon 3 MG 3 MG e 3 MG Trileptal Trileptal No 1{table TID Trileptal 300 MG 300 MG t} 300 MG Vitamin C Vitamin C No Vitamin C Eszopiclone Eszopiclone No Eszopiclon 3 MG 3 MG e 3 MG Probiotic Probiotic No Probiotic valACYclovi valACYclovi No valACYclov r HCl 1 GM r HCl 1 GM ir HCl 1 GM Iron 325 Iron 325 No 1{table QD Iron 325 (65 Fe) MG (65 Fe) MG t} (65 Fe) MG Pantoprazol Pantoprazol No QD Pantoprazo e Sodium 40 e Sodium 40 le Sodium MG MG 40 MG Metoprolol Metoprolol No QD Metoprolol Succinate Succinate Succinate ER 25 MG ER 25 MG ER 25 MG Zinc Zinc No Zinc Centrum Centrum No QD Centrum Silver Silver Silver Ultra Ultra Ultra Womens - 1 Womens - 1 Womens - 1 Metoprolol Metoprolol No Metoprolol Succinate Succinate Succinate ER 25 MG ER 25 MG ER 25 MG Pregabalin Pregabalin No TID Pregabalin 150 MG 150 MG 150 MG Ezetimibe Ezetimibe No Ezetimibe 10 MG 10 MG 10 MG buPROPion buPROPion No buPROPion HCl 150 MG HCl 150 MG HCl 150 MG Calcium Calcium No 1{table BID Calcium Carbonate Carbonate t} Carbonate 600 MG 600 MG 600 MG Trileptal Trileptal No 1{table TID Trileptal 300 MG 300 MG t} 300 MG Vitamin C Vitamin C No Vitamin C Eszopiclone Eszopiclone No Eszopiclon 3 MG 3 MG e 3 MG Probiotic Probiotic No Probiotic valACYclovi valACYclovi No valACYclov r HCl 1 GM r HCl 1 GM ir HCl 1 GM Iron 325 Iron 325 No 1{table QD Iron 325 (65 Fe) MG (65 Fe) MG t} (65 Fe) MG Pantoprazol Pantoprazol No QD Pantoprazo e Sodium 40 e Sodium 40 le Sodium MG MG 40 MG Metoprolol Metoprolol No QD Metoprolol Succinate Succinate Succinate ER 25 MG ER 25 MG ER 25 MG Zinc Zinc No Zinc Centrum Centrum No QD Centrum Silver Silver Silver Ultra Ultra Ultra Womens - 1 Womens - 1 Womens - 1 Metoprolol Metoprolol No Metoprolol Succinate Succinate Succinate ER 25 MG ER 25 MG ER 25 MG Pregabalin Pregabalin No TID Pregabalin 150 MG 150 MG 150 MG Ezetimibe Ezetimibe No Ezetimibe 10 MG 10 MG 10 MG buPROPion buPROPion No buPROPion HCl 150 MG HCl 150 MG HCl 150 MG Calcium Calcium No 1{table BID Calcium Carbonate Carbonate t} Carbonate 600 MG 600 MG 600 MG Trileptal Trileptal No 1{table TID Trileptal 300 MG 300 MG t} 300 MG Vitamin C Vitamin C No Vitamin C Eszopiclone Eszopiclone No Eszopiclon 3 MG 3 MG e 3 MG Probiotic Probiotic No Probiotic valACYclovi valACYclovi No valACYclov r HCl 1 GM r HCl 1 GM ir HCl 1 GM Iron 325 Iron 325 No 1{table QD Iron 325 (65 Fe) MG (65 Fe) MG t} (65 Fe) MG Pantoprazol Pantoprazol No QD Pantoprazo e Sodium 40 e Sodium 40 le Sodium MG MG 40 MG Metoprolol Metoprolol No BID Metoprolol Succinate Succinate Succinate ER 25 MG ER 25 MG ER 25 MG Zinc Zinc No Zinc Centrum Centrum No QD Centrum Silver Silver Silver Ultra Ultra Ultra Womens - 1 Womens - 1 Womens - 1 Metoprolol Metoprolol No Metoprolol Succinate Succinate Succinate ER 25 MG ER 25 MG ER 25 MG Pregabalin Pregabalin No TID Pregabalin 150 MG 150 MG 150 MG Ezetimibe Ezetimibe No Ezetimibe 10 MG 10 MG 10 MG buPROPion buPROPion No buPROPion HCl 150 MG HCl 150 MG HCl 150 MG Calcium Calcium No 1{table BID Calcium Carbonate Carbonate t} Carbonate 600 MG 600 MG 600 MG Zinc Zinc No Zinc Pregabalin Pregabalin No TID Pregabalin 150 MG 150 MG 150 MG Metoprolol Metoprolol No Metoprolol Succinate Succinate Succinate ER 25 MG ER 25 MG ER 25 MG Trileptal Trileptal No 1{table TID Trileptal 300 MG 300 MG t} 300 MG Centrum Centrum No QD Centrum Silver Silver Silver Ultra Ultra Ultra Womens - 1 Womens - 1 Womens - 1 Calcium Calcium No 1{table BID Calcium Carbonate Carbonate t} Carbonate 600 MG 600 MG 600 MG valACYclovi valACYclovi No valACYclov r HCl 1 GM r HCl 1 GM ir HCl 1 GM Probiotic Probiotic No Probiotic Pantoprazol Pantoprazol No QD Pantoprazo e Sodium 40 e Sodium 40 le Sodium MG MG 40 MG Vitamin C Vitamin C No Vitamin C Ezetimibe Ezetimibe No Ezetimibe 10 MG 10 MG 10 MG buPROPion buPROPion No buPROPion HCl 150 MG HCl 150 MG HCl 150 MG Iron 325 Iron 325 No 1{table QD Iron 325 (65 Fe) MG (65 Fe) MG t} (65 Fe) MG Pregabalin Pregabalin No TID Pregabalin 150 MG 150 MG 150 MG Diclofenac Diclofenac No 1{table BID Diclofenac Sodium 75 Sodium 75 t_as_ne Sodium 75 MG MG eded} MG Calcium Calcium No 1{table BID Calcium Carbonate Carbonate t} Carbonate 600 MG 600 MG 600 MG Vitamin C Vitamin C No Vitamin C buPROPion buPROPion No buPROPion HCl 150 MG HCl 150 MG HCl 150 MG Centrum Centrum No QD Centrum Silver Silver Silver Ultra Ultra Ultra Womens - 1 Womens - 1 Womens - 1 Zinc Zinc No Zinc Probiotic Probiotic No Probiotic Metoprolol Metoprolol No Metoprolol Succinate Succinate Succinate ER 25 MG ER 25 MG ER 25 MG Trileptal Trileptal No 1{table TID Trileptal 300 MG 300 MG t} 300 MG [place] 6 Austedo 6 No 1{table QD [place] 6 MG MG t_with_ MG food} Pantoprazol Pantoprazol No QD Pantoprazo e Sodium 40 e Sodium 40 le Sodium MG MG 40 MG [place] 9 [place] 9 No 1{table QD [place] 9 MG MG t_with_ MG food} Ezetimibe Ezetimibe No Ezetimibe 10 MG 10 MG 10 MG Iron 325 Iron 325 No 1{table QD Iron 325 (65 Fe) MG (65 Fe) MG t} (65 Fe) MG Zinc Zinc No Zinc Metoprolol Metoprolol No QD Metoprolol Succinate Succinate Succinate ER 25 MG ER 25 MG ER 25 MG Calcium Calcium No 1{table BID Calcium Carbonate Carbonate t} Carbonate 600 MG 600 MG 600 MG valACYclovi valACYclovi No valACYclov r HCl 1 GM r HCl 1 GM ir HCl 1 GM Vitamin C Vitamin C No Vitamin C Probiotic Probiotic No Probiotic Trileptal Trileptal No 1{table TID Trileptal 300 MG 300 MG t} 300 MG Eszopiclone Eszopiclone No Eszopiclon 3 MG 3 MG e 3 MG Centrum Centrum No QD Centrum Silver Silver Silver Ultra Ultra Ultra Womens - 1 Womens - 1 Womens - 1 buPROPion buPROPion No buPROPion HCl 150 MG HCl 150 MG HCl 150 MG [place] 2022- No BID [place]ipro[place] e 8 MCG e 8 MCG 16 ne 8 MCG 00:00 :00 valACYclovi valACYclovi 2022- No valACYclov r HCl 1 GM r HCl 1 GM 01-23 ir HCl 1 00:00 GM :00 Vital Signs Vital Name Observation Time Observation Value Comments Source HEIGHT 2020-04-11 00:00:00 154.9 cm WEIGHT 2020-04-11 00:00:00 92 kg height 2022-07-27 13:00:00 61.5 [in_i] [facility] weight 2022-07-27 13:00:00 178 [lb_av] [facility] temperature 2022-07-27 13:00:00 97.4 [degF] [facility] bmi 2022-07-27 13:00:00 33.08 kg/m2 [facility] oximetry 2022-07-27 13:00:00 96 % [facility] respiratory rate 2022-07-27 13:00:00 16 /min Comm on [facility] blood pressure 2022-07-27 13:00:00 116 mm[Hg] [facility] - systolic [facility] blood pressure 2022-07-27 13:00:00 58 mm[Hg] [facility] - diastolic [facility] height 2022-04-29 09:40:00 61.5 [in_i] [facility] weight 2022-04-29 09:40:00 178.6 [lb_av] [facility] temperature 2022-04-29 09:40:00 97.3 [degF] [facility] bmi 2022-04-29 09:40:00 33.2 kg/m2 [facility] oximetry 2022-04-29 09:40:00 98 % [facility] respiratory rate 2022-04-29 09:40:00 18 /min Comm on [facility] blood pressure 2022-04-29 09:40:00 120 mm[Hg] [facility] - systolic [facility] blood pressure 2022-04-29 09:40:00 56 mm[Hg] [facility] - diastolic [facility] height 2022-01-18 09:40:00 61.5 [in_i] Common [facility] weight 2022-01-18 09:40:00 173.4 [lb_av] Common [facility] temperature 2022-01-18 09:40:00 97.6 [degF] Common [facility] bmi 2022-01-18 09:40:00 32.23 kg/m2 [facility] 2022-01-18 09:40:00 97 % [facility] respiratory rate 2022-01-18 09:40:00 18 /min Comm on [facility] blood pressure 2022-01-18 09:40:00 139 mm[Hg] [facility] - systolic [facility] blood pressure 2022-01-18 09:40:00 69 mm[Hg] [facility] - diastolic [facility] height 2022-01-18 10:00:00 61.5 [in_i] [facility] weight 2022-01-18 10:00:00 173.4 [lb_av] [facility] temperature 2022-01-18 10:00:00 97.6 [degF] [facility] bmi 2022-01-18 10:00:00 32.23 kg/m2 [facility] S [facility] oximetry 2022-01-18 10:00:00 97 % [facility] respiratory rate 2022-01-18 10:00:00 18 /min Comm on [facility] blood pressure 2022-01-18 10:00:00 139 mm[Hg] [facility] - systolic [facility] blood pressure 2022-01-18 10:00:00 69 mm[Hg] [facility] - diastolic [facility] height 2022-01-12 14:00:00 62 [in_i] [facility] weight 2022-01-12 14:00:00 187.2 [lb_av] Common [facility] temperature 2022-01-12 14:00:00 98.1 [degF] [facility] bmi 2022-01-12 14:00:00 34.24 kg/m2 [facility] oximetry 2022-01-12 14:00:00 98 % [facility] respiratory rate 2022-01-12 14:00:00 16 /min Comm on [facility] blood pressure 2022-01-12 14:00:00 124 mm[Hg] [facility] systolic [facility] blood pressure 2022-01-12 14:00:00 70 mm[Hg] [facility] diastolic [facility] Systolic blood 2022-01-07 18:27:00 148 mm[facility]Hg] [facility] Di[facility] blood 2022-01-07 18:27:00 84 mm[facility]Hg] [facility] Heart rate 2022-01-07 18:27:00 56 [facility] 2022-01-07 18:27:00 35.72 [facility]yn [facility] height 2022-01-07 18:27:00 [facility]9 [facility] 2022-01-07 18:27:00 [facility] 2022-01-07 18:27:00 32.40 [facility] 2021-10-19 10:40:00 62 [in_i] [facility] weight 2021-10-19 10:40:00 187 [lb_av] [facility] temperature 2021-10-19 10:40:00 97.8 [degF] [facility] bmi 2021-10-19 10:40:00 34.2 kg/m2 [facility] oximetry 2021-10-19 10:40:00 98 % [facility] respiratory rate 2021-10-19 10:40:00 16 /min Comm on [facility] blood pressure 2021-10-19 10:40:00 120 mm[Hg] [facility] - systolic [facility] blood pressure 2021-10-19 10:40:00 63 mm[Hg] [facility] height 2021-07-20 10:40:00 62 [in_i] [facility] weight 2021-07-20 10:40:00 189 [lb_av] [facility] temperature 2021-07-20 10:40:00 97.8 [degF] [facility] bmi 2021-07-20 10:40:00 34.56 kg/m2 [facility] oximetry 2021-07-20 10:40:00 98 % [facility] respiratory rate 2021-07-20 10:40:00 16 /min Comm on [facility] blood pressure 2021-07-20 10:40:00 128 mm[Hg] [facility] - systolic [facility] blood pressure 2021-07-20 10:40:00 64 mm[Hg] [facility] - diastolic [facility] height 2021-04-23 09:40:00 62 [in_i] [facility] weight 2021-04-23 09:40:00 189.8 [lb_av] [facility] temperature 2021-04-23 09:40:00 97.8 [degF] [facility] bmi 2021-04-23 09:40:00 34.71 kg/m2 [facility] S [facility] oximetry 2021-04-23 09:40:00 97 % [facility] respiratory rate 2021-04-23 09:40:00 16 /min Comm on [facility] blood pressure 2021-04-23 09:40:00 132 mm[Hg] [facility] - [facility] blood pressure 2021-04-23 09:40:00 74 mm[Hg] [facility] - diastolic [facility] Systolic blood 2020-10-22 15:24:59 132 mm[Hg] [facility] Diastolic blood 2020-10-22 15:24:59 93 mm[Hg] [facility] Heart rate 2020-10-22 15:24:59 65 /min [facility] Respiratory rate 2020-10-22 15:24:59 16 /min [facility] Oxygen saturation in 2020-10-22 15:24:59 97 /min [facility] by [facility] Pulse oximetry Branch Body temperature 2020-10-22 14:19:00 37 Karolyn [facility] Body height 2020-10-22 14:19:00 154.9 cm [facility] Body weight 2020-10-22 14:19:00 87.091 kg [facility] BMI 2020-10-22 14:19:00 36.28 kg/m2 [facility] Systolic blood 2020-07-08 02:00:00 131 mm[Hg] [facility] Diastolic blood 2020-07-08 02:00:00 70 mm[Hg] [facility] Heart rate 2020-07-08 02:00:00 74 /min [facility] Respiratory rate 2020-07-08 02:00:00 15 /min [facility] Oxygen saturation in 2020-07-08 02:00:00 97 /min [facility] blood by [facility] wilder Pulse oximetry Branch Body temperature 2020-07-08 01:10:00 37.11 Karolyn [facility] Body height 2020-07-08 01:10:00 154.9 cm [facility] Body weight 2020-07-08 01:10:00 86.183 kg [facility] BMI 2020-07-08 01:10:00 35.90 kg/m2 [facility] Systolic blood 2020-07-08 02:00:00 131 mm[Hg] [facility] Diastolic blood 2020-07-08 02:00:00 70 mm[Hg] [facility] Heart rate 2020-07-08 02:00:00 74 /min [facility] Respiratory rate 2020-07-08 02:00:00 15 /min [facility] Oxygen saturation in 2020-07-08 02:00:00 97 /min [facility] blood by [facility] Pulse oximetry Branch Body temperature 2020-07-08 01:10:00 37.11 Karolyn [facility] Body height 2020-07-08 01:10:00 154.9 cm [facility] Body weight 2020-07-08 01:10:00 86.183 kg [facility] BMI 2020-07-08 01:10:00 35.90 kg/m2 [facility] Systolic blood 2020-07-08 00:31:00 124 mm[Hg] [facility] Diastolic blood 2020-07-08 00:31:00 76 mm[Hg] [facility] Heart rate 2020-07-08 00:31:00 76 /min [facility] Body temperature 2020-07-08 00:31:00 37.11 Karolyn [facility] Body height 2020-07-08 00:31:00 154.9 cm [facility] Body weight 2020-07-08 00:31:00 86.183 kg [facility] BMI 2020-07-08 00:31:00 35.90 kg/m2 [facility] Oxygen saturation in 2020-07-08 00:31:00 90 /min [facility] by [facility] Pulse oximetry Branch Systolic blood 2020-07-08 00:31:00 124 mm[Hg] [facility] Diastolic blood 2020-07-08 00:31:00 76 mm[Hg] [facility] Heart rate 2020-07-08 00:31:00 76 /min [facility] Body temperature 2020-07-08 00:31:00 37.11 [place] [facility] Body height 2020-07-08 00:31:00 154.9 cm [facility] Body weight 2020-07-08 00:31:00 86.183 kg [facility] BMI 2020-07-08 00:31:00 35.90 kg/m2 [facility] Oxygen saturation in 2020-07-08 00:31:00 90 /min [facility] blood by [facility] Pulse oximetry Branch HEIGHT 2020-06-11 12:33:00 157.5 cm WEIGHT 2020-06-11 12:33:00 87.091 kg HEIGHT 2020-06-11 12:33:00 157.5 cm WEIGHT 2020-06-11 12:33:00 87.091 kg HEIGHT 2020-04-11 00:00:00 154.9 cm WEIGHT 2020-04-11 00:00:00 92 kg Systolic blood 2019-12-23 20:34:00 133 mm[Hg] [facility] Diastolic blood 2019-12-23 20:34:00 81 mm[Hg] [facility] Heart rate 2019-12-23 20:34:00 56 /min [facility] Respiratory rate 2019-12-23 20:34:00 20 /min [facility] Oxygen saturation in 2019-12-23 20:34:00 99 /min [facility] by [facility] Pulse oximetry Branch Body temperature 2019-12-23 18:11:00 36.39 Karolyn [facility] Body weight 2019-12-23 18:11:00 77.111 kg [facility] BMI 2019-12-23 18:11:00 31.09 kg/m2 [facility] Procedures Procedure Date / Time Performed Performing Clinician Manuel e XR LUMBAR SPINE 3 VW 2020-11-12 16:23:11 Fernando Mijares [facility] XR SPINE THORACIC 2 VW 2020-11-12 16:23:11 [facility] 2020-11-12 15:40:57 Doctor Unassigned, No [facility] XR RIBS 3 VW RIGHT 2020-10-22 14:57:[address] [facility] NOTICE OF PRIVACY 2020-10-22 14:13:43 Doctor Unassigned, No [facility] CONSENT/REFUSAL FOR 2020-10-22 14:13:23 Doctor Unassigned, No [facility] [place] DIAGNOSIS AND Name Medical [facility] TREATMENT XR CHEST 1 VW 2020-07-08 01:38:20 Lucila Garcia [facility] Branch TROPONIN I 2020-07-08 01:35:00 Lucila Garcia [facility] [place] BASIC METABOLIC PANEL 2020-07-08 01:35:00 Lucila Garcia [facility] [place] (NA, K, CL, CO2, Medical Branch GLUCOSE, BUN, CREATININE, CA) CBC WITH DIFF 2020-07-08 01:35:00 Lucila Garcia [facility] COVID-19 (ID NOW RAPID 2020-07-08 01:35:00 Lucila [facility] [place] [facility] CONSENT/REFUSAL FOR 2020-07-08 01:08:15 Doctor Unassigned, No [facility] [place] DIAGNOSIS AND Name Medical [facility] TREATMENT POCT FLU A AND B 2020-07-07 00:00:00 Adeola Matias [facility] (MOLECULAR) Medical Branch PHYSICIAN ORDERS 2020-06-19 06:01:00 [facility] ASSIGNMENT OF BENEFITS 2020-04-22 15:46:52 Doctor Unassigned, No [facility] Name Medical Branch XR CHEST 1 VW 2019-12-23 19:58:19 [facility] Medical Branch XR RIBS 3 VW RIGHT 2019-12-23 19:58:19 [facility] Medical Branch EKG-12 LEAD 2019-12-23 18:39:19 [facility] NOTICE OF PRIVACY 2019-12-23 18:02:51 Doctor Unassigned, No [facility] Name Medical Branch CONSENT/REFUSAL FOR 2019-12-23 18:02:28 Doctor Unassigned, No [facility] [place] DIAGNOSIS AND Name Medical Branch TREATMENT CT CERVICAL SPINE WO 2019-08-23 15:59:08 Fernando Mijares [facility] [place] [facility] CONSENT/REFUSAL FOR 2019-08-23 15:20:53 Doctor Unassigned, No [facility] DI[facility]NOS[facility] AND Name [facility] Branch TREATMENT ASSIGNMENT OF BENEFITS 2019-08-23 15:20:08 Doctor Unassigned, No [facility] Plan of Care Planned Activity Planned Date Details Comments Source Future Scheduled 2023-03-11 Influenza Vaccine (#1) [facility]00 [code = Influenza Medical Ce nter Vaccine (#1)] Future Scheduled 2023-03-11 Influenza Vaccine (#1) [facility] 00:00:00 [code = Influenza Medical Ce nter Vaccine (#1)] Future Scheduled 2023-01-24 DTAP/TDAP/TD VACCINES [facility] 00:00:00 (2 - Td or Tdap) [code Medic al Center = DTAP/TDAP/TD VACCINES (2 - Td or Tdap)] Future Scheduled 2023-01-24 DTAP/TDAP/TD VACCINES [facility] 00:00:00 (2 - Td or Tdap) [code Medic al Center = DTAP/TDAP/TD VACCINES (2 - Td or Tdap)] Future Scheduled 2023-01-24 DTAP/TDAP/TD VACCINES [facility] 00:00:00 (2 - Td or Tdap) [code Medic al Center = DTAP/TDAP/TD VACCINES (2 - Td or Tdap)] Future Scheduled 2023-01-24 DTAP/TDAP/TD [facility]ACCINES [facility] 00:00:00 (2 - Td or Tdap) [code Medic al Center = DTAP/TDAP/TD VACCINES (2 - Td or Tdap)] Future Scheduled 2023-01-24 DTAP/TDAP/TD [facility]ACCINES [facility] 00:00:00 (2 - Td or Tdap) [code Medic al Center = DTAP/TDAP/TD VACCINES (2 - Td or Tdap)] Future Scheduled 2023-01-24 DTAP/TDAP/TD [facility]ACCINES [facility] 00:00:00 (2 - Td or Tdap) [code Medic al Center = DTAP/TDAP/TD VACCINES (2 - Td or Tdap)] Future Scheduled 2022-07-11 FALLS RISK SCREENING [facility] 00:00:00 [code = FALLS RISK Medical C enter SCREENING] Future Scheduled 2022-07-11 F[place]S RISK SCREENING [facility] 00:00:00 [code = FALLS RISK Medical C enter SCREENING] Future Scheduled 2022-07-11 F[place] RISK SCREENING [facility] 00:00:00 [code = FALLS RISK Medical C enter SCREENING] Future Scheduled 2022-03-11 INFLUENZA VACCINE (#1) [facility] 00:00:00 [code = INFLUENZA Medical Ce nter VACCINE (#1)] Future Scheduled 2022-03-11 INFLUENZA VACCINE (#1) [facility] 00:00:00 [code = INFLUENZA Medical Ce nter VACCINE (#1)] Future Scheduled 2021-07-11 [facility] R[facility] SCREENING [facility] 00:00:00 [code = FALLS RISK Medical C enter SCREENING] Future Scheduled 2021-07-11 F[place] RISK SCREENING [facility] 00:00:00 [code = FALLS RISK Medical C enter SCREENING] Future Scheduled 2021-07-11 F[place] RISK SCREENING [facility] 00:00:00 [code = FALLS RISK Medical C enter SCREENING] Future Scheduled 2021-06-[address] [facility] 00:00:00 Counseling and Medical Cente r Screening (12+) [code = Tobacco Cessation Counseling and Screening (12+)] Future Scheduled 2021-06-[address] [facility] 00:00:00 Counseling and Medical Cente r Screening (12+) [code = Tobacco Cessation Counseling and Screening (12+)] Future Scheduled 2021-06-[address] [facility] 00:00:00 Counseling and Medical Cente r Screening (12+) [code = Tobacco Cessation Counseling and Screening (12+)] Future Scheduled 2021-03-11 INFLUENZA VACCINE (#1) [facility] 00:00:00 [code = INFLUENZA Medical Ce nter VACCINE (#1)] Future Scheduled 2021-03-11 INFLUENZA VACCINE (#1) [facility] 00:00:00 [code = INFLUENZA Medical Ce nter VACCINE (#1)] Future Scheduled 2020-06-[address] [facility]:00 WELLNESS (YEAR 2 or Medical Center FIRST YEAR if no IPPE) [code = MEDICARE ANNUAL WELLNESS (YEAR 2 or FIRST YEAR if no IPPE)] Future Scheduled 2020-06-[address] [facility] 00:00:00 WELLNESS (YEAR 2 or Medical Center FIRST YEAR if no IPPE) [code = MEDICARE ANNUAL WELLNESS (YEAR 2 or FIRST YEAR if no IPPE)] Future Scheduled 2020-06-[address] [facility] 00:00:00 WELLNESS (YEAR 2 or Medical Center FIRST YEAR if no IPPE) [code = MEDICARE ANNUAL WELLNESS (YEAR 2 or FIRST YEAR if no IPPE)] Future Scheduled 2020-06-[address] [facility] 00:00:00 WELLNESS (YEAR 2 or Medical Center FIRST YEAR if no IPPE) [code = MEDICARE ANNUAL WELLNESS (YEAR 2 or FIRST YEAR if no IPPE)] Future Scheduled 2020-06-[address] [facility] 00:00:00 WELLNESS (YEAR 2 or Medical Center FIRST YEAR if no IPPE) [code = MEDICARE ANNUAL WELLNESS (YEAR 2 or FIRST YEAR if no IPPE)] Future Scheduled 2020-06-[address] [facility] 00:00:00 WELLNESS (YEAR 2 or Medical Center FIRST YEAR if no IPPE) [code = MEDICARE ANNUAL WELLNESS (YEAR 2 or FIRST YEAR if no IPPE)] Future Scheduled 2017 PNEUMOCOCCAL 65+ YRS ([address] [facility] 00:00:00 of 1 - [id number] Medica l Center PCV13) [code = PNEUMOCOCCAL 65+ YRS (1 of 1 - [id number] PCV13)] Future Scheduled 2017 PNEUMOCOCCAL 65+ YRS ([address] [facility] 00:00:00 of 1 - [id number] Medica l Center PCV13) [code = PNEUMOCOCCAL 65+ YRS (1 of 1 - [id number] PCV13)] Future Scheduled 2002 SHINGLES VACCINES ([address] [facility] 00:00:00 2) [code = SHINGLES Medical Center VACCINES (1 of 2)] Future Scheduled 2002 SHINGLES VACCINES ([address] [facility] 00:00:00 2) [code = SHINGLES Medical Center VACCINES (1 of 2)] Future Scheduled 2002 SHINGLES VACCINES ([address] [facility] 00:00:00 2) [code = SHINGLES Medical Center VACCINES (1 of 2)] Future Scheduled 2002 SHINGLES VACCINES ([address] [facility] 00:00:00 2) [code = SHINGLES Medical Center VACCINES (1 of 2)] Future Scheduled 2002 SHINGLES VACCINES ([address] [facility] 00:00:00 2) [code = SHINGLES Medical Center VACCINES (1 of 2)] Future Scheduled 2002 SHINGLES VACCINES ([address] [facility] 00:00:00 2) [code = SHINGLES Medical Center VACCINES (1 of 2)] Future Scheduled 1970 HEPATITIS C [facility]CRE[facility]ING [facility] 00:00:00 [code = HEPATITIS C Medical Center SCREENING] Future Scheduled 1970 HEPATITIS C [facility]CRE[facility]ING [facility] 00:00:00 [code = HEPATITIS C Medical Center SCREENING] Future Scheduled 1970 HEPATITIS C [facility]CRE[facility]ING [facility] 00:00:00 [code = HEPATITIS C Medical Center SCREENING] Future Scheduled 1970 HEPATITIS C [facility]CRE[facility]ING [facility] 00:00:00 [code = HEPATITIS C Medical Center SCREENING] Future Scheduled 1970 HEPATITIS C [facility]CRE[facility]ING [facility] 00:00:00 [code = HEPATITIS C Medical Center SCREENING] Future Scheduled 1970 HEPATITIS C [facility]CRE[facility] 00:00:00 [code = HEPATITIS C Medical Center SCREENING] Future Scheduled 1964 COVID-19 VACCINE (1) [facility] 00:00:00 [code = COVID-[address] VACCINE (1)] Future Scheduled 1964 COVID-19 VACCINE (1) [facility] 00:00:00 [code = COVID-[address] VACCINE (1)] Future Scheduled 1958 PNEUMOCOCCAL 65+ YRS ([address] [facility] 00:00:00 - PCV) [code = Medical Cente r PNEUMOCOCCAL 65+ YRS (1 - PCV)] Future Scheduled 1958 PNEUMOCOCCAL 65+ YRS ([address] [facility] 00:00:00 - PCV) [code = Medical Cente r PNEUMOCOCCAL 65+ YRS (1 - PCV)] Future Scheduled 1958 PNEUMOCOCCAL 65+ YRS ([address] [facility] 00:00:00 - PCV) [code = Medical Cente r PNEUMOCOCCAL 65+ YRS (1 - PCV)] Future Scheduled 1958 PNEUMOCOCCAL 65+ YRS ([address] [facility] 00:00:00 - PCV) [code = Medical Cente r PNEUMOCOCCAL 65+ YRS (1 - PCV)] Future Scheduled 1953-01-22 COVID-19 VACCINE (#1) [facility] 00:00:00 [code = COVID-[address] VACCINE (#1)] Future Scheduled 1953-01-22 COVID-19 VACCINE (#1) [facility] 00:00:00 [code = COVID-[address] VACCINE (#1)] Future Scheduled 1953-01-22 COVID-19 VACCINE (#1) [facility] 00:00:00 [code = COVID-[address] VACCINE (#1)] Future Scheduled 1953-01-22 COVID-19 VACCINE (#1) [facility] 00:00:00 [code = COVID-[address] VACCINE (#1)] Future Scheduled 1952 Screening for malignant [facility] 00:00:00 neoplasm of breast Medical C enter (procedure) [code = 405686561] Future Scheduled 1952 CT Colonography (combo) [facility] 00:00:00 [code = CT Colonography [facility] (combo)] Future Scheduled 1952 Screening for malignant [facility] 00:00:00 neoplasm of colon Medical Ce nter (procedure) [code = 849877850] Future Scheduled 1952 Screening for malignant [facility] 00:00:00 neoplasm of colon Medical Ce nter (procedure) [code = 252605503] Future Scheduled 1952 DXA SCAN [code = DXA [facility] 00:00:00 SCAN] [facility] Future Scheduled 1952 Screening for malignant [facility] 00:00:00 neoplasm of colon Medical Ce nter (procedure) [code = 848155452] Future Scheduled 1952 Screening for malignant [facility] 00:00:00 neoplasm of colon Medical Ce nter (procedure) [code = 086764818] Future Scheduled 1952 Sigmoidoscopy [code = [facility] Sigmoidoscopy] Medical Cente r Future Scheduled 1952 Screening for malignant [facility] 00:00:00 neoplasm of breast Medical C enter (procedure) [code = 440303347] Future Scheduled 1952 CT Colonography (combo) [facility] 00:00:00 [code = CT Colonography [facility] (combo)] Future Scheduled 1952 Screening for malignant [facility] 00:00:00 neoplasm of colon Medical Ce nter (procedure) [code = 422299449] Future Scheduled 1952 Screening for malignant [facility] 00:00:00 neoplasm of colon Medical Ce nter (procedure) [code = 318451380] Future Scheduled 1952 DXA SCAN [code = DXA [facility] 00:00:00 SCAN] [facility] Future Scheduled 1952 Screening for malignant [facility] 00:00:00 neoplasm of colon Medical Ce nter (procedure) [code = 690870021] Future Scheduled 1952 Screening for malignant [facility] 00:00:00 neoplasm of colon Medical Ce nter (procedure) [code = 756841610] Future Scheduled 1952 Sigmoidoscopy [code = [facility] 00:[facility] Sigmoidoscopy] [facility] Future Scheduled 1952 Screening for malignant [facility] 00:00:00 neoplasm of breast Medical C enter (procedure) [code = 555047912] Future Scheduled 1952 Screening for malignant [facility] 00:00:00 neoplasm of colon Medical Ce nter (procedure) [code = 950849450] Future Scheduled 1952 DXA SCAN [code = DXA [facility] 00:00:00 SCAN] [facility] Future Scheduled 1952 Screening for malignant [facility] 00:00:00 neoplasm of breast Medical C enter (procedure) [code = 510408442] Future Scheduled 1952 Screening for malignant [facility] 00:00:00 neoplasm of colon Medical Ce nter (procedure) [code = 133280521] Future Scheduled 1952 DXA SCAN [code = DXA [facility] 00:00:00 SCAN] [facility] Future Scheduled 1952 Screening for malignant [facility] 00:00:00 neoplasm of breast Medical C enter (procedure) [code = 660156532] Future Scheduled 1952 CT Colonography (combo) [facility] 00:00:00 [code = CT Colonography [facility] (combo)] Future Scheduled 1952 Screening for malignant [facility] 00:00:00 neoplasm of colon Medical Ce nter (procedure) [code = 685671827] Future Scheduled 1952 Screening for malignant [facility] 00:00:00 neoplasm of colon Medical Ce nter (procedure) [code = 271704337] Future Scheduled 1952 DXA SCAN [code = DXA [facility] 00:00:00 SCAN] [facility] Future Scheduled 1952 Screening for malignant [facility] 00:00:00 neoplasm of colon Medical Ce nter (procedure) [code = 688120608] Future Scheduled 1952 Screening for malignant [facility] 00:00:00 neoplasm of colon Medical Ce nter (procedure) [code = 422097969] Future Scheduled 1952 Sigmoidoscopy [code = [facility] 00:[facility] Sigmoidoscopy] [facility] Future Scheduled 1952 Screening for malignant [facility] 00:00:00 neoplasm of breast Medical C enter (procedure) [code = 349961424] Future Scheduled 1952 CT Colonography (combo) [facility] 00:00:00 [code = CT Colonography [facility] (combo)] Future Scheduled 1952 Screening for malignant [facility] 00:00:00 neoplasm of colon Medical Ce nter (procedure) [code = 910520912] Future Scheduled 1952 Screening for malignant [facility] 00:00:00 neoplasm of colon Medical Ce nter (procedure) [code = 150888187] Future Scheduled 1952 DXA SCAN [code = DXA [facility] 00:00:00 SCAN] [facility] Future Scheduled 1952 Screening for malignant [facility] 00:00:00 neoplasm of colon Medical Ce nter (procedure) [code = 379301877] Future Scheduled 1952 Screening for malignant [facility] 00:00:00 neoplasm of colon Medical Ce nter (procedure) [code = 682775832] Future Scheduled 1952 Sigmoidoscopy [code = [facility] 00:[facility] S[facility]oidoscopy] Medical Cente r Encounters Start End Encounter Admission Attending Care Care Encounter Source Date/Time Date/Time Type Type Clinicians Facility Department ID 2023-04-19 Outpatient Chaves, STLMLC STLMLC [id number] Common 13:56:00 Luh [id number] [facility] 2023-01-17 Outpatient Chaves, STLMLC STLMLC [id number] Common 08:02:00 Luh [id number] [facility] 2022-11-25 Outpatient Chaves, STLMLC STLMLC [id number] Common 15:54:00 Luh [id number] [facility] 2022-11-15 Outpatient Chaves, STLMLC STLMLC [id number] Common 08:26:00 Luh [id number] [facility] 2022-07-29 Outpatient [facility] [id number] [place] 14:33:34 [id number] [facility] 2022-07-27 Outpatient Chaves, STLMLC STLMLC [id number] Common 13:35:00 Luh [id number] [facility] 2022-07-23 Outpatient Chaves, STLMLC STLMLC [id number] Common 09:08:00 Luh [id number] [facility] 2022-07-09 Outpatient Chaves, STLMLC STLMLC [id number] Common 10:27:00 Luh [id number] [facility] 2022-04-28 Outpatient Chaves, STLMLC STLMLC [id number] Common 15:34:00 Luh [id number] [facility] 2022-04-27 Outpatient Chaves, STLMLC STLMLC [id number] Common 15:17:00 Luh [id number] [facility] 2022-04-16 Outpatient Chaves, STLMLC STLMLC [id number] Common 13:16:00 Luh [facility] 2022-03-09 Outpatient Harriet STROSHNI STLMLC [id number] Common 14:01:00 Luh [facility] 2022-02-08 Outpatient [facility] [id number] [place] 10:02:48 [id number] [facility] 2022-01-28 Outpatient [facility] [id number] [place] 16:48:48 [id number] [facility] 2022-01-22 Outpatient [facility] [id number] [place] 12:59:16 [id number] [facility] 2022-01-19 Outpatient [facility] [id number] [place] 09:28:37 [id number] [facility] 2022-01-14 Outpatient Harriet STROSHNI STLC Common 09:09:01 Luh [facility] 2022-01-12 Outpatient SABINO [facility] JUANA [id number] M H 15:13:[address] [facility] 2022-01-09 Outpatient SABINO [facility] [id number] [place] 03:04:00 EKATARINA [id number] [facility] 2022-01-08 Outpatient [facility] [id number] [place] 09:30:46 [id number] [facility] 2022-01-07 Outpatient SABINO, [facility] [id number] [place] 13:01:24 EKATARINA [id number] [facility]alt [facility] 2021-12-21 Outpatient SABINO, [facility] [id number] [place] 10:16:41 EKATARINA [id number] [facility]alt [facility] 2021-12-18 Outpatient [facility] [id number] [place] 10:48:41 [id number] [facility] 2021-08-05 Outpatient Harriet STROSHNI STLMLC [id number] Common 14:00:36 Luh [id number] [facility] 2021-08-05 Outpatient Harriet STROSHNI STLMLC Common 13:59:45 Luh [id number] [facility] 2021-08-05 Outpatient Harriet STLMLC STLMLC Common 12:20:53 Luh [id number] [facility] 2021-08-05 Outpatient Chaves, STLMLC STLMLC Common 12:20:07 Luh [id number] [facility] 2021-08-05 Outpatient Chaves, STLMLC STLMLC Common 11:19:20 Luh [id number] [facility] 2021-08-05 Outpatient Chaves, STLMLC STLMLC Common 11:14:18 Luh [id number] [facility] 2021-08-05 Outpatient Chaves, STLMLC STLMLC Common 11:03:43 Luh [id number] [facility] 2021-05-10 Emergency [facility] [id number] Univers 12:46:37 [facility] 2021-04-17 Inpatient ER [facility] Pulmonology [id number] [facility] [address] 18:26:03 [facility] 2020-04-11 Inpatient ER [facility] Neurology [id number] [facility] 13:36:48 LILI 2022-07-27 2022-07-27 OFFICE STLMLC STLMLC [id number] Co mmon 00:00:00 00:00:00 VISIT [facility] PT - CHI LEVEL 4 [facility] 2022-04-29 2022-04-29 OFFICE STLMLC STLMLC [id number] Co mmon 00:00:00 00:00:00 VISIT EST Spir it PT LEVEL 3 - CHI [facility] 2022-02-04 2022-02-04 Outpatient SABINO [facility] [id number] [place] 11:00:00 11:00:00 EKATARINA Heal th 2022-02-04 2022-02-04 (TEL) STLMLC STLMLC [id number] Co mmon 00:00:00 00:00:00 [facility] 2022-01-18 2022-01-18 OFFICE STLMLC STLMLC [id number] Co mmon 00:00:00 00:00:00 VISIT [facility] PT - CHI LEVEL 4 [facility] 2022-01-182022-01-18 SUB ANNUAL STLC STLC [id number] Common 00:00:00 00:00:00 MCR Spirit WELLNESS - CHI VISIT [facility] 2022-01-12 2022-01-12 OFFICE STLC STLC [id number] Co mmon 00:00:00 00:00:00 VISIT Spirit ESTAB PT - CHI LEVEL 2 [facility] 2022-01-12 2022-01-12 [facility] [id number] Co mmon 00:00:00 00:00:00 Spirit - CHI [facility] 2022-01-07 2022-01-07 [facility] [id number] [place] 13:00:00 14:11:12 Visit Hosea [facility] [id number] [place] [address] [phone] [id number] 2021-12-31 2021-12-31 [facility] [id number] [place] 10:00:00 10:00:[address] [facility] 2021-12-14 2021-12-17 Inpatient EILEEN, [facility] MED [id number] 16:59:00 14:50:00 SANTIAGO cadena [facility] 2021-12-15 2021-12-15 [facility] [id number] [place] 08:00:00 08:00:00 EKATARINA [facility]al 2021-10-19 2021-10-19 [facility] [id number] Co mmon 00:00:00 00:00:00 VISIT Spirit ESTAB PT - CHI LEVEL 4 [facility] 2021-08-25 2021-08-25 (TEL) STLC STLC [id number] Co mmon 00:00:00 00:00:00 Spirit - CHI [facility] 2021-07-20 2021-07-20 OFFICE STLC STLC [id number] Co mmon 00:00:00 00:00:00 VISIT Spirit ESTAB PT - CHI LEVEL 4 [facility] 2021-07-20 2021-07-20 (TEL) STLC STLC [id number] Co mmon 00:00:00 00:00:00 [facility] 2021-06-11 2021-06-11 (TEL) STLMLC STLMLC [id number] Co mmon 00:00:00 00:00:00 [facility] 2021-06-11 2021-06-11 OFFICE STLMLC STLMLC [id number] Co mmon 00:00:00 00:00:00 VISIT Spirit ESTAB PT - CHI LEVEL 1 [facility] 2021-04-23 2021-04-23 OFFICE STLMLC STLMLC [id number] Co mmon 00:00:00 00:00:00 VISIT Spirit ESTAB PT - CHI LEVEL 4 [facility] 2021-03-31 2021-03-31 (TEL) STLMLC STLMLC [id number] Co mmon 00:00:00 00:00:00 [facility] 2021-01-14 2021-01-14 Outpatient STLMLC STLMLC [id number] Common 00:00:00 00:00:00 [facility] 2021-01-14 2021-01-14 Outpatient STLMLC STLMLC [id number] Common 00:00:00 00:00:00 [facility] 2020-11-12 2020-11-12 [facility] [id number] Univers 11:00:00 23:59:00 Encounter Fernando Hatch [id number] ity of [place] [id number] [facility] [phone] [facility] 807 Branch 2020-11-12 2020-11-12 Outpatient R [facility] [id number] Univers 00:00:00 00:00:00 FERNANDO hassan of [facility] 2020-11-12 2020-11-12 Orders Doctor [facility] [id number] Univers 00:00:00 00:00:00 Only Unassigned, ZULEMA [id number] [facility] [id number] [facility] [phone] [facility] 009 Branch 2020-11-10 2020-11-10 Outpatient STLMLC STLMLC [id number] Common 00:00:00 00:00:00 [facility] 2020-11-06 2020-11-06 Outpatient STLMLC STLMLC [id number] Common 00:00:00 00:00:00 [facility] 2020-10-23 2020-10-23 Outpatient STLMLC STLMLC [id number] Common 00:00:00 00:00:00 [facility] 2020-10-22 2020-10-22 Emergency [place], [facility] [id number] Univers 09:17:00 10:28:00 Rizwan Hatch [id number] i ty of [place] 4.2.7.2.686 [facility] [phone] [facility] 084 Branch 2020-10-22 2020-10-22 Orders Doctor KIKE [id number] [id number] Univers 00:00:00 00:00:00 Only Unassigned, ZULEMA [id number] [facility] [id number] [facility] [phone] [facility] 009 Branch 2020-10-09 2020-10-09 Outpatient STLMLC STLMLC [id number] Common 00:00:00 00:00:00 [facility] 2020-10-02 2020-10-02 Outpatient STLMLC STLMLC [id number] Common 00:00:00 00:00:00 [facility] 2020-09-29 2020-09-29 Outpatient STLMLC STLMLC [id number] Common 00:00:00 00:00:00 [facility] 2020-09-29 2020-09-29 Outpatient STLMLC STLMLC [id number] Common 00:00:00 00:00:00 [facility] 2020-09-01 2020-09-01 Outpatient STLMLC STLMLC [id number] Common 00:00:00 00:00:00 [facility] 2020 2020 Outpatient STLMLC STLMLC [id number] Common 00:00:00 00:00:00 [facility] 2020-07-07 2020-07-07 [facility] [id number] [id number] Univers 19:17:00 20:39:00 Lucila Hatch [id number] ity [place] 4[place].2.[place] [phone] [place] [address] [place] 2020-07-07 2020-07-07 Emergency [facility] ERT [id number] Univers 19:17:00 20:39:00 LUCILA ity of [facility] 2020-07-07 2020-07-07 Emergency [facility] 1.2.840.114 [id number] 19:17:00 20:39:00 Lucila Hatch [id number] [place] 4.2.7.2.686 [place] [phone] [facility] 2020-07-07 2020-07-07 Urgent Provider, [facility] [id number] [id number] Univers 18:18:19 19:53:24 Care TangelaEva negrete J [facility] [id number] ity of [place] [id number] [facility] Professio [phone] Nm dical [address] Office Building [facility] 2020-07-07 2020-07-07 Urgent Provider, [facility] [id number] 18:18:19 19:53:24 Care [facility] [id number] Care [place] [id number] Professio [phone] [place] [address] [address] 2020-07-07 2020-07-07 Outpatient R [facility] [id number] Univers 18:40:00 18:40:00 ity of [facility] 2020-07-07 2020-07-07 Letter Doctor [facility] [id number] [id number] Univers 00:00:00 00:00:00 (Out) Unassigned, ZULEMA [id number] ity of [place] [facility] [id number] [place] as [phone] [address] 2020-07-07 2020-07-07 Letter Doctor KIKE 1.2.840.114 [id number] 00:00:00 00:00:00 (Out) Unassigned, ZULEMA [id number] [facility] [phone] [facility] 2020-06-19 2020-06-19 Contact Center Specialist Cristina, [facility] Lab Main [facility] 1.2.8 40.114 [id number] Univers 15:49:58 16:04:58 Visit Fernando Mijares S Mamie [id number] 0 ity of [place] [id number] [place] [phone] Nm dical [facility] 353 [facility] 2020-06-19 2020-06-19 Contact Center Specialist Cristina, [facility] [id number] 15:49:58 16:04:58 Visit Lab Main [place] [id number] [place] 4.2.7.2.686 Professio [phone] [address] 2020-06-19 2020-06-19 Outpatient R [facility] [id number] Univers 16:00:00 16:00:00 FERNANDO ity [facility] 2020-06-19 2020-06-19 Outpatient STLMLC STLMLC [id number] Common 00:00:00 00:00:00 [facility] 2020-06-19 2020-06-19 Orders Doctor KIKE [id number] [id number] Univers 00:00:00 00:00:00 Only Unassigned, ZULEMA [id number] ity of [facility] 4.2.7.2.686 [place] [phone] [address] 2020-06-19 2020-06-19 Orders Doctor KIKE 1.2.840.114 [id number] 00:00:00 00:00:00 Only Unassigned, ZULEMA 350.1.13.10 [facility] 4.2.7.2.686 [phone] 009 2020-06-11 2020-06-11 Emergency ER [facility] Emergency [id number] [facility] 12:01:00 12:01:00 2020-04-29 2020-04-29 Outpatient STLMLC STLMLC [id number] Common 00:00:00 00:00:00 [facility] 2020-04-29 2020-04-29 Outpatient STLMLC STLMLC [id number] Common 00:00:00 00:00:00 [facility] 2020-04-24 2020-04-24 Outpatient STLMLC STLMLC [id number] Common 00:00:00 00:00:00 [facility] 2020-04-22 2020-04-22 Contact Center Specialist Cristina, Artem Lab Main [facility] 1.2.8 [id number] Univers 10:49:54 11:10:21 Visit Fernando Mijares 350.1.13.1 0 ity of [place] 4.2.7.2.[place] [phone] Nm dical [address] 2020-04-22 2020-04-22 Contact Center Specialist Artem Evans [facility] 1.2.840.114 [id number] 10:49:54 11:10:21 Visit Lab Main [place] 350.1.13.10 [place] 4.2.7.2.686 Professio [phone] [address] 2020-04-22 2020-04-22 Outpatient R [facility] [id number] Univers 10:45:00 10:45:00 FERNANDO hassan [facility] 2020-04-22 2020-04-22 Orders Doctor KIKE 1.2.840.114 [id number] Univers 00:00:00 00:00:00 Only Unassigned, ZULEMA 350.1.13.10 ity of [place] [facility] 4.2.7.2.686 [place] [phone] [address] 2020-01-24 2020-01-24 Outpatient Bert Zavala [id number] Common 16:00:00 16:00:00 [facility] 2019-12-23 2019-12-23 Emergency X SULTANA [facility] ERT [id number] Univers 13:12:31 15:41:[address] [facility] 2019-12-23 2019-12-23 Emergency Ramirez, [facility] [id number] Univers 13:12:31 15:41:00 [place] 350.1.13.10 i ty of [place] 4.2.7.2.686 [facility] [phone] [facility] wilder [address] 2019-12-23 2019-12-23 Orders Doctor KIKE 1.2.840.114 [id number] Univers 00:00:00 00:00:00 Only Unassigned, ZULEMA 350.1.13.[address] [facility] 4.2.7.2.686 [place] [phone] [facility] [address] 2019-11-06 2019-11-06 Out[facility] [id number] Common 10:20:00 10:20:00 t [facility] [address] [facility] 2019-10-10 2019-10-10 Outpatient [facility] [id number] Common 15:00:00 15:00:[address] [facility] 2019-09-26 2019-09-26 Outpatient [facility] [id number] Common 13:23:00 13:23:[address] [facility] 2019-09-18 2019-09-18 Outpatient [facility] [id number] Common 10:00:00 10:00:[address] [facility] 2019-09-11 2019-09-11 Outpatient [facility] [id number] Common 13:00:00 13:00:[address] [facility] 2019-09-05 2019-09-05 Outpatient [facility] [id number] Common 11:26:00 11:26:[address] [facility] 2019-08-31 2019-08-31 Outpatient [facility] [id number] Common 10:40:00 10:40:[address] [facility] 2019-08-23 2019-08-23 Outpatient Las[facility] [id number] Univers 09:19:58 23:59:00 FERNANDO ity of [facility] 2019-08-23 2019-08-23 [facility] [id number] Univers 09:19:00 23:59:00 Encounter Fernando Garciaton 350.1.13.10 ity alessandro [place] 4.2.7.2.686 [facility] [phone] [place] [address] [address] 2019-08-07 2019-08-07 Outpatient [facility] [id number] Common 10:40:00 10:40:[address] [facility] 2019-06-01 2019-06-01 Outpatient [facility] [id number] Common 09:40:00 09:40:[address] [facility] 2019-04-13 2019-04-13 Outpatient [facility] [id number] Common 10:00:00 10:00:[address] [facility] 2019-03-26 2019-03-26 Outpatient [facility] [id number] Common 15:20:00 15:20:[address] [facility] 2019-03-01 2019-03-01 Outpatient [facility] [id number] Common 08:20:00 08:20:[address] [facility] 2018-12-18 2018-12-18 Outpatient [facility] [id number] Common 15:51:00 15:51:[address] [facility] 2018-12-18 2018-12-18 Outpatient [facility] [id number] Common 10:15:00 10:15:[address] [facility] 2018-06-29 2018-06-29 Outpatient [facility] [id number] Common 11:41:00 11:41:[address] [facility] 2018-06-21 2018-06-21 Outpatient Bert Noelt Common 10:30:00 10:30:[address] [facility] 2018-02-06 2018-02-06 Outpatient [facility] [id number] Common 10:13:00 10:13:[address] [facility] 2018-02-02 2018-02-02 Outpatient [facility] [id number] Common 16:51:00 16:51:[address] [facility] 2018-01-09 2018-01-09 Outpatient [facility] [id number] Common 09:12:00 09:12:[address] [facility] 2017-12-16 2017-12-16 Outpatient [facility] [id number] Common 09:15:00 09:15:[address] [facility] 2017-12-12 2017-12-12 Outpatient [facility] [id number] Common 16:39:00 16:39:[address] [facility] 2017-11-30 2017-11-30 Outpatient [facility] [id number] Common 09:30:00 09:30:[address] [facility] Results Test Description Test Time Test Comments Results Result [facility] e Comments XR SPINE HISTORY: Mechanical Unive rsity of THORACIC 2 VW 5 complication of a [place] 16:29:11 dorsal column Branch stimulator. COMPARISON: None. TECHNIQUE: AP and lateral views of the thoracic spines are submitted. FINDINGS: No compression fracture or aggressive bone lesions orparavertebral soft tissue swelling detected.Dorsal column stimulator electrodes are seen at T6-T7-T8 levels. CONCLUSIONS: No fracture. [facility], Radiant Results Inft User - 11/12/2020 11:30 AM CDTHISTORY: Mechanical complication of a dorsal column stimulator.COMPARISON : None.TECHNIQUE: AP and lateral views of the thoracic spines are submitted.FINDINGS: No compression fracture or aggressive bone lesions orparavertebral soft tissue swelling detected.Dorsal column stimulator electrodes are seen at T6-T7-T8 levels.CONCLUSIONS: No fracture. XR LUMBAR SPINE HISTORY: Mechanical University of 3 VW [address] [facility] edical 16:28:12 dorsal column Branch stimulator. FINDINGS: AP, lateral and spot views of the lumbar spines showed 5 lumbarvertebrae with no acute compression fracture or dislocation. No aggressivebone lesions visualized. Cholecystectomy clips noted. Atherosclerosis notedwith calcification in the lower aorta and iliac arteries. AP view showed lumbar dextroscoliosis and lateral view showed lower lumbarexaggerated lordosis.Degenerative disc disease noted in descending order of moderate severity atL2-L3, L4-L5, L3-L4, L1-L2 and T12-L1 levels. L5-S1 disc is intact. Facet arthritis noted throughout, slightly more onthe left side at L2-L3 and on the right-sided L4-L5. Battery pack is seen in the left dorsal aspect of the upper back withelectrode wire is included in the spinal canal at the level of T11-T12. CONCLUSIONS: Multilevel degenerative disc disease with dextroscoliosis andexaggerated lordosis of lumbar spines. [facility], Radiant Results Inft User - 11/12/2020 11:29 AM CDTHISTORY: Mechanical complication of a dorsal column stimulator.FINDINGS: AP, lateral and spot views of the lumbar spines showed 5 lumbarvertebrae with no acute compression fracture or dislocation. No aggressivebone lesions visualized. Cholecystectomy clips noted. Atherosclerosis notedwith calcification in the lower aorta and iliac arteries.AP view showed lumbar dextroscoliosis and lateral view showed lower lumbarexaggerated lordosis.Degenerative disc disease noted in descending order of moderate severity atL2-L3, L4-L5, L3-L4, L1-L2 and T12-L1 levels.L5-S1 disc is intact. Facet arthritis noted throughout, slightly more onthe left side at L2-L3 and on the right-sided L4-L5.Battery pack is seen in the left dorsal aspect of the upper back withelectrode wire is included in the spinal canal at the level of T11-T12.CONCLUSIONS: Multilevel degenerative disc disease with dextroscoliosis andexaggerated lordosis of lumbar spines. XR RIBS 3 VW 2020-10-09 HISTORY: ?Trauma. R/O U niversity of RIGHT 4 fractures. FINDINGS: [facility] 15:09:36 AP, several obliques Bran ch and spot views of the right ribs showed noacute displaced fractures. No pneumothorax or pleural effusion. Note madeof intrathoracic electrodes and cholecystectomy clips in the right upperabdomen. CONCLUSIONS: No acute displaced right rib fracture. [facility], Radiant Results Inft User - 10/22/2020 10:10 AM CDTHISTORY: Trauma. R/O fractures.FINDINGS: AP, several obliques and spot views of the right ribs showed noacute displaced fractures. No pneumothorax or pleural effusion. Note madeof intrathoracic electrodes and cholecystectomy clips in the right upperabdomen.CONCLUSI ONS: No acute displaced right rib fracture. CBC with Differential 2020-07-08 02:21:00 Test Item Value Reference Range Interpretation Comme nts WBC (test code = 6690-2) See_Comment L [A utomated message] The system which Server Density nerated this result transmit jude reference range: 4.30 - 1 1.10 10*3/?L. The reference r jelani was not used to interpr et this result as normal/abnor mal. RBC (test code = 789-8) See_Comment [Au tomated message] The system which Server Density nerated this result transmit jude reference range: 3.93 - 5 .25 10*6/?L. The reference r jelani was not used to interpr et this result as normal/abnor mal. HGB (test code = 718-7) 13.8 g/dL 11.6-15 HCT (test code = 4544-3) 40.7 % 35.7-45.2 MCV (test code = 787-2) 90.6 fL 80.6-95.5 MCH (test code = 785-6) 30.7 pg 25.9-32.8 MCHC (test code = 786-4) 33.9 g/dL 31.6-35.1 RDW-SD (test code = 93080-9) 45.4 fL 39-49.9 RDW-CV (test code = 788-0) 13.6 % 12-15.5 PLT (test code = 777-3) See_Comment [Au tomated message] The system which Server Density nerated this result transmit jude reference range: 166 - 35 8 10*3/?L. The reference range was not used to interpret th is result as normal/abnormal . MPV (test code = 34911-3) 9.9 fL 9.5-12.9 NRBC/100 WBC (test code = See_Comment [ Automated message] The [id number]) system which Server Density nerated this result transmit jude reference range: 0.0 - 10 .0 /100 WBCs. The reference r jelani was not used to interpr et this result as normal/abnor mal. NRBC x10^3 (test code = <0.01 See_Comment [Au tomated message] The [id number]) system which ge nerated this result transmit jude reference range: 10*3/?L. The reference range was not u sed to interpret this result as normal/abnormal . GRAN MAT (NEUT) % (test code 38.7 % = 770-8) IMM GRAN % (test code = 1.90 % 2372389134) LYMPH % (test code = 736-9) 45.3 % MONO % (test code = 5905-5) 12.3 % EOS % (test code = 713-8) 1.3 % BASO % (test code = 706-2) 0.5 % GRAN MAT x10^3(ANC) (test 1.44 10*3/uL 1.88-7.09 L code = 2320366591) IMM GRAN x10^3 (test code = 0.07 10*3/uL 0-0.06 H [id number]) LYMPH x10^3 (test code = 1.69 10*3/uL 1.32-3.29 731-0) MONO x10^3 (test code = 0.46 10*3/uL 0.33-0.92 742-7) EOS x10^3 (test code = 0.05 10*3/uL 0.03-0.39 711-2) BASO x10^3 (test code = <0.03 0.01-0.07 704-7) Lab Interpretation (test Abnormal code = 04392-1) [facility] [id number] 02:08:00 Test Item Value Reference Range Interpretation Comments TROPONIN I (test <0.012 See_Comment [Automated code = 3255675474) message] The system which generated this result transmitted reference range : <=0.034 ng/mL. The reference range was not used to interpr et this result as normal/abnormal . ANGELA (test code = Equal or Less than ANGELA) 0.034 ng/ml---Normal ?Note: Cardiac troponin begins to rise 3-4 hours after the onset of ischemia. Repeat in 4-6 hours if the sample was drawn within 3-4 hours of the onset of the symptom and found normal. Between 0.035 and 0.120 ng/mL--- Borderline. Questionable myocardial injury or necrosis ? ?Note: Serial measurement may be necessary to confirm or exclude the diagnosis of myocardial injury or necrosis; Clinical correlation (symptoms, EKGs, imaging studies, and others) required; Repeat in 4-6 hours if clinically indicated. ? Equal or Higher than 0.121 ng/mL---Abnormal. Myocardial Injury or Necrosis Likely ? Biotin has been reported to cause a negative bias, interpret results relative to patient's use of biotin. ? Lab Interpretation Normal (test code = 92296-7) [facility] (ID NOW RAPID TESTING)2020-07-08 02:02:00 Test Item Value Reference Range Interpretation Comments SARS-CoV-2 Rapid ID NOW Positive Not Detected A (test code = 14578-3) ANGELA (test code = ANGELA) ID NOW COVID-19 Assay is an isothermal nucleic acid amplification test intended for the qualitative detection of nucleic acid from SARS-CoV-2 viral RNA in nasopharyngeal (SECURITY DEVELOPER) specimens. It is used under Emergency Use Authorization (EUA) by FDA. The limit of detection (LOD) of the assay is 125 Genome Equivalents/mL. A positive result is indicative of the presence of SARS-CoV-2 RNA. ?Clinical correlation with patient history and other diagnostic information is necessary to determine patient infection status. A negative (Not Detected) result does not preclude SARS-CoV-2 infection. In patients with clinical symptoms and other tests that are consistent with SARS-CoV-2 infection, negative results should be treated as presumptive negative and a new specimen should be tested with alternative PCR molecular test. Invalid: Please collect a new specimen for repeat patient testing if clinically indicated. Lab Interpretation Abnormal (test code = 23220-6) [facility] 1 [id number] 02:01:42Impression: Mild right sided bronchial wall thickening which may resentbronchitis or viral pneumonia. No consolidation. Exam: XR CHEST 1 07/07/2020 7:26 PM Clinical History: cough, sob Comparison: Radiograph of 12/23/2019 Technique: frontal view of the chest Findings:Mild bronchial wall thickening in the right lung.No pleural effusion. ?No pneumothorax. The cardiac size is within normal limits. No acute osseous abnormality. Neurostimulator catheter is seen overlyingmid thoracic spines. [facility], Radiant Results Inft User - 07/07/2020 8:02 PM CSTExam: XR CHEST 1 07/07/2020 7:26 PMClinical History: cough, sob Comparison: Radiograph of 12/23/2019Technique: frontal view of the chestFindings:Mild bronch ial wall thickening in the right lung.No pleural effusion. No pneumothorax. The cardiac size is within normal limits. No acute osseous abnormality. Neurostimulator catheter is seen overlyingmid thoracic spines.IMPRESSIONImpression: Mild right sided bronchial wall thickening which may resentbronchitis or viral pneumonia. No consolidation.[facility] CenterBas[facility] Metabolic Panel (NA, K, CL, CO2, GLUCOSE, BUN, CREATININE, CA)2020-07-08 01:56:00 Test Item Value Reference Range Interpretation Comments NA (test code = 137 mmol/L 135-145 8451342102) K (test code = 3.5 mmol/L 3.5-5 4836829168) CL (test code = 99 mmol/L 98-108 9987569591) CO2 TOTAL (test code = 28 mmol/L 23-31 3826606642) AGAP (test code = 2-16 4550690837) BUN (test code = 7 mg/dL 7-23 0298306337) GLUCOSE (test code = 106 mg/dL 70-110 3525623255) CREATININE (test code 0.60 mg/dL 0.5-1.04 = 0969961807) CALCIUM (test code = 9.0 mg/dL 8.6-10.6 5226112859) eGFR Calculation mL/min/1.73m2 (Non-) (test code = 9860530685) eGFR Calculation mL/min/1.73m2 () (test code = 5167882906) ANGELA (test code = ANGELA) Association of Glomerular Filtration Rate (GFR) and Staging of Kidney Disease* + -+ + ---+| GFR (mL/min/1.73 m2) ?| With Kidney Damage ?| ?Without Kidney Damage+ -------+ ------+ ---------+| ?>90 ?| ?Stage one ?| ? Normal ?+ --+ -+ ----+| ?60-89 ?| ?Stage two ?| ? Decreased GFR ? + -+ + ---+| ?30-59 ?| ?Stage three ?| ? Stage three ? + -+ + ---+| ?15-29 ?| ?Stage four ? | ? Stage four ?+ --+ -+ ----+| ?<15 (or dialysis) ? ?| ?Stage five ? | ? Stage five ?+ --+ -+ ----+ *Each stage assumes the associated GFR level has been in effect for at least three months. ?Stages 1 to 5, with or without kidney disease, indicate chronic kidney disease. Notes: Determination of stages one and two (with eGFR >59mL/min/1.73 m2) requires estimation of kidney damage for at least three months as defined by structural or functional abnormalities of the kidney, manifested by either:Pathological abnormalities or Markers of kidney damage (including abnormalities in the composition of the blood or urine or abnormalities in imaging tests). [facility] CenterPOCT [facility]U [facility] AND B (MOLECULAR)2020-07-08 01:10:00 Test Item Value Reference Range Interpretation Comments POCT INFLUENZA A (test code = neg Negative - Negative 3840) POCT INFLUENZA B (test code = neg Negative - Negative 3841) Lab Interpretation (test code = Normal 24259-8) [facility] CenterSTREP PNEUMONIAE [id number] 21:47:00 Test Item Value Reference Range Interpretation [...] below the detection limit of the test. LEGIONELLA ANTIGEN, [id number] 21:46:00 Test Item Value Reference Range Interpretation Comments L. PNEUMOPHILA Negative - see Negative fo r L. SEROGP 1 UR AG comment pneumophila (BEAKER) (test code serogrou p 1 antigen, = 1156) suggesting no r ecent or current infe ction with this serog roup. Legionellosis c annot be ruled out si nce other serogroup s and species may cau se disease. RESPIRATORY PANEL [id number] 19:14:00 Test Item Value Reference Range Interpretation [...] decisions. This sample was tested at the [facility] using the WynlinkArray Respiratory Panel. It is FDA cleared and has been verified and approved by the [facility] for clinical use on nasopharyngeal swab specimens.The performance of the FilmArrayRP has not been established in individuals who received influenza vaccine. Recent administration of a nasal influenza vaccine may cause false positive results for Influenza A and/orInfluenza B.SARS-COV2/RT-PCR ([facility])2020-06-11 18:57:00 Test Item Value Reference Range Interpretation Comments SARS-COV2/RT-PCR (test Negative Not Detected, Negative, code = 1359804) See external report for linked test SARS-COV-2 PERFORMING LAB [facility] STEVEN (test code = 0025711) Negative result for this test determines that [...] individuals suspected of COVID-19 by their healthcare provider.This test [...] justifying the authorization of the emergency use ofin vitro diagnostic tests for detection and/or diagnosis of COVID-19 is terminated under Section 564(b)(2) of the Act or the EUA is revoked under Section 564(g) of the Act.Fact Sheet for Healthcare Prov iders:https://www.Care-n-Share/sites/default/files/product/documents/Fact_Sheet_HC _Npiydnxnj_Hmfn_PQXQ-JfB-5.pdfFact Sheet for Healthcare Patients:https://www.Care-[employer]-Share/sites/default/files/product/docume nts/Ltya_Wdyrs_Noeeikhv_Jteo_XTCH-QlP-0.pdfPerforming Laboratory:[address] [address]XNKRPHHC [id number] 18:53:00 Test Item Value Reference Range Interpretation [...] failure, acidosis, acute neurological disease, and persistent tachyarrhythmia.Display Mechanic ID - [id number] 16:47:00 Test Item Value Reference Range Interpretation Comments PROCALCITONIN (BEAKER) (test code 30.31 ng/mL <0.05 = 3036) SEPSIS RISK (ng/mL)Low: 0.05-0.50Intermediate: 0.51-2.00High: >=2.01FERRITIN 2020-06-11 16:13:00 Test Item Value Reference Range Interpretation Comments FERRITIN (BEAKER) (test code = 202.52 ng/mL 5.00-275.00 361) Display Mechanic ID - BSTROPONIN [id number] 16:00:00 Test Item Value Reference Range Interpretation [...] failure, acidosis, acute neurological disease, and persistent tachyarrhythmia.Display Mechanic ID - BSC-REACTIVE PROTEIN 2020-06-11 15:57:00 Test Item Value Reference Range Interpretation Comments C-REACTIVE PROTEIN (BEAKER) (test 10.34 mg/dL 0.00-0.50 H code = 676) Display Mechanic ID - [id number] 15:49:00 Test Item Value Reference Range Interpretation [...] exclusion of thrombosis is within 95-100% range. LACTATE DEHYDROGENASE (LDH)2020-06-11 15:47:00 Test Item Value Reference Range Interpretation Comments LACTATE DEHYDROGENASE (BEAKER) (test 228 U/L 125-220 H code = 635) Display Mechanic ID - BSPROTHROMBIN [id number] 15:46:00 Test Item Value Reference Range Interpretation [...] is 2.5-3.5 for patients wiht mechanical heart valves.[id number] 15:46:00 Test Item Value Reference Range Interpretation Comments FIBRINOGEN LEVEL (BEAKER) (test 371 mg/dl 225-434 code = 658) RAD, CHEST, 1 VIEW, NON [id number] 15:31:00Reason for exam:->SHORTNESS OF BREATHShould this be performed at the bedside?->Yes [facility] : 1950 Sex: FFINAL REPORT INDICATION: SHORTNESS OF BREATH COMPARISON: None TECHNIQUE: Single frontal view of the chest. FINDINGS: Lungs and pleura: Right basilar airspace disease No effusion.Heart and mediastinum: Normal heart size. Unremarkable mediastinal contours.Osseous structures: No acute abnormality.Other: None. IMPRESSION: Right basilar airspace disease Signed: Della Groves MDReport Verified Date/Time: 06/11/2020 15:31:05 Reading Location: [facility] Radiology Reading Room CREATINE KINASE (CK)2020-06-11 14:44:00 Test Item Value Reference Range Interpretation Comments CREATINE KINASE TOTAL (BEAKER) (test 261 U/L 29-200 H code = 380) Display Mechanic ID - AAHAMIDCBC W/PLT COUNT & AUTO [id number] 14:21:00 Test Item Value Reference Range Interpretation [...] MORPHOLOGY (BEAKER) (test code Normal = 486) BASIC METABOLIC [id number] 13:30:00 Test Item Value Reference Range Interpretation [...] 697) EGFR (BEAKER) (test 57 mL/min/1.73 ESTIMA JUDE GFR IS code = 1092) sq m NOT ACCURATE CREATININE CLEARANCE IN PREDICTING GLOMERULAR FILTRATION RATE . ESTIMATED GFR I S NOT APPLICABLE FOR DIALYSIS PATIEN TS. Display Mechanic ID - AAHAMIDB-TYPE NATRIURETIC FACTOR (BNP)2020-06-11 13:19:00 Test Item Value Reference Range Interpretation Comments B-TYPE NATRIURETIC PEPTIDE (DHEERAJ) 79 pg/mL 0-100 (test code = 700) Display Mechanic ID - AANERIIDDYLONNIN [id number] 13:19:00 Test Item Value Reference Range Interpretation Comments TROPONIN I (LANDONAKER) (test code = 0.04 ng/mL 0.00-0.03 H [...] failure, acidosis, acute neurological disease, and persistent tachyarrhythmia.Display Mechanic ID - AAHAMIDLACTIC ACID, VENOUS 2020-06-11 13:07:00 Test Item Value Reference Range Interpretation Comments LACTATE BLOOD VENOUS (2) ([facility]) 1.89 mmol/L 0.50-2.20 (test code = 2872) Display Mechanic ID - [id number] 11:59:00 Test Item Value Reference Range Interpretation Comments RPR SCREEN ([employer] (test code = Nonreactive Nonreactive 420) POCT-GLUCOSE [id number] 12:12:00 Test Item Value Reference Range Interpretation Comments POC-GLUCOSE METER 99 mg/dL 70-110 : TESTED A T [facility] ([facility]) (test code = [place] Lobo [facility], 1538) [address]: Display Mechanic/Techni marlene ID = [id number] for Step toe, Keri HEMOGLOBIN [id number] 10:55:00 Test Item Value Reference Range Interpretation Comments HEMOGLOBIN A1C (MARCELA) (test code = 5.7 % 4.3-6.1 368) CT, BRAIN, WITHOUT [id number] 07:16:00Unlisted Reason for Exam - Click Yes and Enter Reason Below->NoFINAL REPORT CT, BRAIN, WITHOUT CONTRAST CLINICAL INDICATION: Stroke, follow upCOMPARISON: None TECHNIQUE: Noncontrast axial CT imaging of [...] obstructive paranasal sinus disease. IMPRESSION: No acute intracranialfindings If there is persistent clinical concern for intracranial pathology, MR examination is recommended for further characterization. Signed: Della Groves MDReport Verified Date/Time: 04/12/2020 07:16:16 Reading Location: [facility] B1 C013V Neuro Reading Room [id number] 06:22:00 Test Item Value Reference Range Interpretation Comments HOMOCYSTEINE (BEAKER) (test code = 5.8 umol/L 5.1-15.4 642) Display Mechanic ID - PIAYA LTSH/FREE T4 IF [id number] 06:22:00 Test Item Value Reference Range Interpretation Comments THYROID STIMULATING HORMONE 1.689 uIU/mL 0.350-4.940 (BEAKER) (test code = 772) Display Mechanic ID - PIAYA LSARS-COV2/RT-PCR ([facility])2020-04-12 05:40:00 Test Item Value Reference Range Interpretation Comments SARS-COV2/RT-PCR (test Negative Not Detected, Negative, code = 4052996) See external report for linked test SARS-COV-2 PERFORMING LAB [facility] (test code = 9845691) Negative result for this test determines that [...] individuals suspected of COVID-19 by their healthcare provider.This test [...] justifying the authorization of the emergency use ofin vitro diagnostic tests for detection and/or diagnosis of COVID-19 is terminated under Section 564(b)(2) of the Act or the EUA is revoked under Section 564(g) of the Act.Fact Sheet for Healthcare Prov iders:https://www.Care-[employer]-Share/sites/default/files/product/documents/Fact_Sheet_HC _Luyqskfpm_Ldun_AJQF-ZnD-6.pdfFact Sheet for Healthcare Patients:https://www.[employer]/sites/default/files/product/docume nts/Voye_Cxokb_Szhydgss_Bgcu_DUGY-JoD-1.pdfPerforming Laboratory:[facility], [place] [id number] 05:12:00 Test Item Value Reference Range Interpretation Comments MAGNESIUM (BEAKER) 2.0 mg/dL 1.6-2.6 Specimen slightly (test code = 627) hemolyzed Display Mechanic ID - LELAND [id number] 05:12:00 Test Item Value Reference Range Interpretation Comments PHOSPHORUS (BEAKER) 3.6 mg/dL 2.3-4.7 Specimen slightly (test code = 604) hemolyzed Display Mechanic ID - PINANDO LBASIC METABOLIC [id number] 05:12:00 Test Item Value Reference Range Interpretation [...] 697) EGFR (BEAKER) (test 88 mL/min/1.73 ESTIMA JUDE GFR IS code = 1092) sq m NOT ACCURATE CREATININE CLEARANCE IN PREDICTING GLOMERULAR FILTRATION RATE . ESTIMATED GFR I S NOT APPLICABLE FOR DIALYSIS PATIEN TS. Display Mechanic ID - LELAND LLIPID [id number] 05:12:00 Test Item Value Reference Range Interpretation Comments TRIGLYCERIDES (BEAKER) 51 mg/dL Speci men slightly (test code = 540) hemolyzed CHOLESTEROL (BEAKER) 152 mg/dL Specime n slightly (test code = 631) hemolyzed HDL CHOLESTEROL (BEAKER) 68 mg/dL (test code = 976) LDL CHOLESTEROL 74 mg/dL CALCULATED (BEAKER) (test code = 633) Triglyceride Reference Range: Low Risk <150 Borderline 150-199 High Risk 200- 499 Very High Risk >=500Cholesterol Reference Range: Low Risk <200 Borderline 200-239 High Risk >240HDL Cholesterol Reference Range: Low Risk >=60 High Risk <40LDL Cholesterol Reference Range: Optimal <100 Near Optimal 100-129 Borderline 130-159 High 160-189 Very High >=190 Display Mechanic ID - LELAND [id number] 04:15:00 Test Item Value Reference Range Interpretation [...] is 2.5-3.5 for patients wiht mechanical heart valves.CBC W/PLT COUNT & AUTO [id number] 04:06:00 Test Item Value Reference Range Interpretation [...] PERCENT (BEAKER) (test code = 2801) TROPONIN [id number] 23:58:00 Test Item Value Reference Range Interpretation [...] failure, acidosis, acute neurological disease, and persistent tachyarrhythmia.Display Mechanic ID - PIAYA LPOCT-GLUCOSE METER 2020-04-11 22:48:00 Test Item Value Reference Range Interpretation Comments POC-GLUCOSE METER 126 mg/dL 70-110 H : TESTED [facility] T [facility] (test code = [facility] [place] [facility], 1538) [address]: Display Mechanic/Techni marlene ID = [id number] for SHAYLA MCLEOD VITAMIN B12 AND [id number] 16:32:00 Test Item Value Reference Range Interpretation Comments VITAMIN B12 (BEAKER) (test code = 1210 pg/mL 213-816 H 774) FOLATE (BEAKER) (test code = 362) 18.10 ng/mL >=7.00 Display Mechanic ID - DBTROPONIN [id number] 16:26:00 Test Item Value Reference Range Interpretation [...] failure, acidosis, acute neurological disease, and persistent tachyarrhythmia.Display Mechanic ID - DBBASIC METABOLIC PANEL 2020-04-11 16:00:00 [...] 697) EGFR (BEAKER) (test 85 mL/min/1.73 ESTIMA JUDE GFR IS code = 1092) sq m NOT ACCURATE CREATININE CLEARANCE IN PREDICTING GLOMERULAR FILTRATION RATE . ESTIMATED GFR I S NOT APPLICABLE FOR DIALYSIS PATIEN TS. Display Mechanic ID - DBCBC W/PLT COUNT & AUTO [id number] 15:42:00 Test Item Value Reference Range Interpretation [...] 0-1 PERCENT (BEAKER) (test code = 2801) CT CERVICAL SPINE WO [id number] 16:10:20HISTORY: Neck pain. TECHNIQUE: 64-multidetector Spiral CT of the cervical spine is obtained andsubsequently sagittal, coronal reformations are obtained. FINDINGS: No acute compression fracture or aggressive bone lesionsvisualized. Reversal of normal cervical lordosis is suggestive of neckmuscle spasm.Calcification is seen in the left thyroid gland, of noclinical significance. C2-C3: Mild right facetarthritis. C3- C4: Minimal anterior listhesis of C3 over C4 could be due to neck musclespasm. C4-C5: Minimal anterior listhesis of C4 over C5 could be due to neck musclespasm. Mild hypertrophic right facet arthritis with subchondraldegenerative cystic changes in the right facet of C4. C5-C6: Moderate degenerative disc disease with narrowing of the disc spaceby approximately 70% with small disc osteophyte complex minimallyencroaching into the spinal canal. No significant foraminal encroachment. C6-C7:Moderate degenerative disc disease with narrowing of the disc spaceby up to 70%, shallow Schmorl's nodes in the vertebral endplates, moreprominent in the lower plate of C6. Small disc osteophyte complex are seenencroaching into the spinal canal and into the neural foramina, slightly onthe right side without cord compression or nerve root compression. C7-T1, T1-T2: Mild left facet arthritis at C7-T1. CONCLUSIONS:1. No acute fracture. No aggressive bone lesions. Probable neck musclespasm.2. Degenerative disc disease at C5-C6 and C6-C7.[facility], Radiant Results Inft User - 08/23/2019 10:11 AM CSTHISTORY: Neck pain. TECHNIQUE: 64-multidetector Spiral CT of the cervical spine is obtained andsubsequently sagittal, coronal reformations are obtained.FINDINGS: No acute compression fracture or aggressive bone l esionsvisualized. Reversal of normal cervical lordosis is suggestive of neckmuscle spasm. Calcification is seen in the left thyroid gland, of noclinical significance.C2-C3: Mild right facet arthritis.C3-C4: Minimal anterior listhesis of C3 over C4 could be due to neck musclespasm.C4-C5: Minimal anterior listhesis of C4 over C5 could be due to neck musclespasm. Mild hypertrophic right facet arthritis with subchondraldegenerative cystic changes in the right facet of C4.C5-C6: Moderate degenerative disc disease with narrowing of the disc spaceby approximately 70% with small disc osteophyte complex minimallyencroaching into the spinal canal. No significant foraminal encroachment.C6-C7: Moderate degener ative disc disease with narrowing of the disc spaceby up to 70%, shallow Schmorl's nodes in the vertebral endplates, moreprominent in the lower plate of C6. Small disc osteophyte complex are seenencroaching into the spinal canal and into the neural foramina, slightly onthe right side without cord compression or nerve root compression.C7-T1, T1-T2: Mild left facet arthritis at C7- T1.CONCLUSIONS:1. No acute fracture. No aggressive bone lesions. Probable neck musclespasm.2. Degenerative disc disease atC5-C6 and C6-C7.[facility]"
[2023-04-29] MEDS ORDERED: ALBUTEROL 2.5 MG/3 ML NEB SOL ONE (03:44)
[2023-04-29] MEDS ORDERED: IPRATROPIUM BROM 0.5MG/2.5ML ONE (03:44)
[2023-04-29 04:14] LABS: Absolute Lymphocytes (CBC) 1.8 K/uL (0.7-4.9); Lymphocytes % 15.7 % (15.3-44.8); MCV 91.9 fL (80-100); MPV 7.1 fL (7.6-11.3); Platelets 443 thou/uL (152-406); RBC Red Blood Cell Count 4.14 M/uL (3.86-4.86)
[2023-04-29 04:33] LABS: Potassium 3.6 mEq/L (3.5-5.1); Troponin High Sensitivity 7.4 pg/mL (<58.9)
--- NOTE | 2023-04-29 05:48 | EDPHYS ---
Physician Documentation [facility] Name: Cisco Edward Age: 72 yrs Sex: Female : 1950 Arrival Date: 04/29/2023 Time: 03:06 Bed 2 Private MD: ED Physician Abdiel Moore HPI: 04/29 03:26 This 72 yrs old Female presents to ER via Wheelchair with complaints of uri ec2 s/s. 03:26 Patient arrives today due to concern for URI signs and symptoms. Patient reports that ec2 she been having cough and congestion along with shortness of breath. Patient reports no issues with p.o. intake, no vomiting or diarrhea. Patient reports that she has no fevers or chills. Patient reports no issues with p.o. intake. Patient denies any abdominal pain or urinary problems. Patient chest pain.. Historical: - Allergies: 03:18 Sulfa (Sulfonamide Antibiotics); lg3 03:18 Dilaudid; lg3 03:18 Darvon; lg3 - Home Meds: 03:18 ezetimibe oral [Active]; hydrocodone-acetaminophen 7.5-325 mg Oral tablet [Active]; lg3 03:20 eszopiclone oral [Active]; pantoprazole oral [Active]; metoprolol tartrate Oral lg3 [Active]; Lyrica Oral [Active]; Lunesta oral [Active]; Trileptal oral [Active]; Bupropion Oral [Active]; - PMHx: 03:18 Bipolar disorder; Chronic pain; Hypertension; Myocardial infarction; Gastric reflux; lg3 high cholesterol; 03:20 chronic constipation; lg3 - PSHx: 03:20 Appendectomy; Cholecystectomy; Total abdominal hysterectomy; Tonsillectomy; Adenoid lg3 excision; - Immunization history:: Adult Immunizations up to date. - Social history:: Smoking status: Patient denies any tobacco usage or history of. Patient/guardian denies using alcohol, street drugs. ROS: 03:26 Constitutional: uri s/s ec2 Exam: 03:26 Constitutional: GEN: NAD Head: atraumatic Eyes: EOMI Ears: External ears are ec2 normal. CV: regular rate LUNGS: no respiratory distress, scattered wheezes noted throughout, no focal deficits noted. ABD: non-distended SKIN: no evidence of rashes MSK: no evidence of trauma NEURO: moves all extremities equally Vital Signs: 03:17 BP 137 / 78; Pulse 70; Resp 21; Temp 98.5(O); Pulse Ox 97% on R/A; Weight 81.65 kg (R); lg3 Height 5 ft. 0 in. (R); 03:57 BP 158 / 71; Pulse 75; Resp 19 S; Pulse Ox 100% on R/A; km8 04:30 BP 120 / 58; Pulse 76; Resp 19 S; Pulse Ox 95% on R/A; km8 05:00 BP 105 / 50; Pulse 74; Resp 13 S; Pulse Ox 95% on R/A; km8 05:30 BP 109 / 49; Pulse 71; Resp 16; Pulse Ox 95% on R/A; km8 03:17 Body Mass Index 35.15 (81.65 kg, 152.4 cm) lg3 MDM: 03:16 Patient medically screened. ec2 03:26 ED course: Patient arrives today due to concern for progressive cough and cold ec2 symptoms. Examination remarkable for nontoxic dividual is otherwise in no acute distress with some scattered wheezes noted on examination. Will obtain lab work, EKG, chest x-ray for further assessment. We will also give the patient a DuoNeb as well. Currently considering processes such as viral infection, lower suspicion for pneumonia given lack of focal lung sound deficits, low suspicion for ACS, PE.. 03:42 ED course: EKG independently reviewed and interpreted by me, shows normal sinus rhythm, ec2 rate of 66, no acute ST segment elevations, nonconcerning intervals.. 04:40 ED course: On reassessment patient reports marked improvement in her work of breathing..ec2 04:41 ED course: Chest x-ray independently reviewed and interpreted by me, shows no acute ec2 intrathoracic process.. 04:42 ED course: Metabolic profile pertinent for hyponatremia with a sodium of 129, CBC is ec2 generally reassuring, troponin is within normal ranges. . 05:47 ED course: On reassessment patient is well-appearing and in no acute distress. Patient ec2 without any significant work of breathing. I will discharge patient home with prescription for albuterol, instruct him on return precautions. Presentation consistent with viral illness.. 05:50 Data reviewed: vital signs. ec2 04/29 03:17 Order name: Basic Metabolic Panel; Complete Time: 04:41 ec2 04/29 03:17 Order name: CBC with Diff; Complete Time: 04:41 ec2 04/29 03:17 Order name: Troponin HS; Complete Time: 04:41 ec2 04/29 03:25 Order name: COVID-19 SARS RT PCR ec2 04/29 03:25 Order name: Influenza Screen (a \T\ B) ec2 04/29 03:17 Order name: XRAY Chest (1 view) ec2 04/29 03:17 Order name: EKG; Complete Time: 03:18 ec2 04/29 03:17 Order name: Cardiac monitoring; Complete Time: 03:46 ec2 04/29 03:17 Order name: EKG - Nurse/Tech; Complete Time: 03:46 ec2 04/29 03:17 Order name: IV Saline Lock; Complete Time: 04:11 ec2 04/29 03:17 Order name: Labs collected and sent; Complete Time: 04:11 ec2 04/29 03:17 Order name: O2 Per Protocol; Complete Time: 03:46 ec2 04/29 03:17 Order name: O2 Sat Monitoring; Complete Time: 03:46 ec2 Administered Medications: 03:45 Drug: DuoNeb Nebulize (3:1) (2.5 mg - 0.5 mg) 3 ml Nebulizer once Route: Nebulizer; km8 04:11 Follow up: Response: No adverse reaction; Wheezing diminished km8 Disposition Summary: 04/29/23 05:48 Discharge Ordered Notes: Location: Home ec2 Condition: Stable ec2 Diagnosis - Viral Illness ec2 Discharge Instructions: - Discharge Summary Sheet ec2 - Viral Respiratory Infection, Zgpo-Su-Ohna ec2 Forms: - Medication Reconciliation Form ec2 - Thank You Letter ec2 - Antibiotic Education ec2 - Prescription Opioid Use ec2 - Patient Portal Instructions ec2 - Leadership Thank You Letter ec2 Prescriptions: - albuterol sulfate 90 mcg/actuation Inhalation HFA Aerosol Inhaler - inhale 2 puff INHALATION route every 2 to 4 hours as needed for bronchospasm; ec2 administer via ventilator; 90 microgram; Refills: 0, Product Selection Permitted Signatures: Dispatcher [employer] Ronit Reyes RN RN lg3 Abdiel Moore MD MD ec2 Diane Mancilla RN RN km8 Corrections: (The following items were deleted from the chart) 03:18 PMHx: GERD (Myocardial infarction); lg3 lg3 03:18 PMHx: GERD (Myocardial infarction); lg3 lg3 03:20 PMHx: Gastric reflux; lg3 lg3
--- NOTE | 2023-04-29 05:48 | ER ---
Nurse's Notes [facility] Name: Cisco Edward Age: 72 yrs Sex: Female : 1950 Arrival Date: 04/29/2023 Time: 03:06 Bed 2 Private MD: Diagnosis: Viral Illness Presentation: 04/29 03:17 Chief complaint: Patient states: SOB/Cough/sore throat X2 days. Coronavirus screen: lg3 Client denies travel out of the [place] in the last 14 days. Client presents with at least one sign or symptom that may indicate coronavirus-19. Standard/surgical mask placed on the client. Ebola Screen: No symptoms or risks identified at this time. Initial Sepsis Screen: Does the patient meet any 2 criteria? No. Patient's initial sepsis screen is negative. Does the patient have a suspected source of infection? No. Patient's initial sepsis screen is negative. Risk Assessment: Do you want to hurt yourself or someone else? Patient reports no desire to harm self or others. Onset of symptoms was April 26, 2023. 03:17 Method Of Arrival: Wheelchair lg3 03:17 Acuity: ROB 3 lg3 Triage Assessment: 03:20 General: Appears in no apparent distress. Behavior is anxious, fussy, restless. Pain: lg3 Denies pain. EENT: No deficits noted. Reports pain when swallowing. Neuro: Rios Agitation-Sedation Scale (RASS): +1 Restless Level of Consciousness is awake, alert, obeys commands, Oriented to person, place, time, situation. Cardiovascular: No deficits noted. Capillary refill < 3 seconds Clubbing of nail beds is absent JVD is absent Patient's skin is warm and dry. Respiratory: Reports shortness of breath at rest cough that is air hunger labored breathing Airway is patent Respiratory effort is even, unlabored. GI: No deficits noted. No signs and/or symptoms were reported involving the gastrointestinal system. : No deficits noted. No signs and/or symptoms were reported regarding the genitourinary system. Derm: No deficits noted. No signs and/or symptoms reported regarding the dermatologic system. Skin is intact, is healthy with good turgor, Skin is dry, Skin is normal, Skin temperature is warm. Musculoskeletal: No deficits noted. No signs and/or symptoms reported regarding the musculoskeletal system. Circulation, motion, and sensation intact. Range of motion: intact in all extremities. Historical: - Allergies: 03:18 Sulfa (Sulfonamide Antibiotics); lg3 03:18 Dilaudid; lg3 03:18 Darvon; lg3 - Home Meds: 03:18 ezetimibe oral [Active]; hydrocodone-acetaminophen 7.5-325 mg Oral tablet [Active]; lg3 03:20 eszopiclone oral [Active]; pantoprazole oral [Active]; metoprolol tartrate Oral lg3 [Active]; Lyrica Oral [Active]; Lunesta oral [Active]; Trileptal oral [Active]; Bupropion Oral [Active]; - PMHx: 03:18 Bipolar disorder; Chronic pain; Hypertension; Myocardial infarction; Gastric reflux; lg3 high cholesterol; 03:20 chronic constipation; lg3 - PSHx: 03:20 Appendectomy; Cholecystectomy; Total abdominal hysterectomy; Tonsillectomy; Adenoid lg3 excision; - Immunization history:: Adult Immunizations up to date. - Social history:: Smoking status: Patient denies any tobacco usage or history of. Patient/guardian denies using alcohol, street drugs. Screenin:47 [facility] ED Fall Risk Assessment (Adult) History of falling in the last 3 months, km8 including since admission No falls in past 3 months (0 pts) Confusion or Disorientation No (0 pts) Intoxicated or Sedated No (0 pts) Impaired Gait No (0 pts) Mobility Assist Device Used No (0 pt) Altered Elimination No (0 pt) Score/Fall Risk Level 0 - 2 = Low Risk Oriented to surroundings, Maintained a safe environment, Educated pt \T\ family on fall prevention, incl call for assistance when getting out of bed, Assessed \T\ reinforced patient's understanding of fall precautions. Abuse screen: Denies threats or abuse. Denies injuries from another. Nutritional screening: No deficits noted. Tuberculosis screening: No symptoms or risk factors identified. Assessment: 03:47 General: Appears in no apparent distress. comfortable, Behavior is calm, cooperative, km8 appropriate for age. Pain: Complains of pain in throat Pain currently is 4 out of 10 on a pain scale. Pain began 2-3 days ago. Neuro: No deficits noted. Rios Agitation-Sedation Scale (RASS): 0 - Alert and Calm Level of Consciousness is awake, alert, obeys commands, Oriented to person, place, time, situation. Cardiovascular: No deficits noted. Denies chest pain, Capillary refill < 3 seconds Patient's skin is warm and dry. Respiratory: No deficits noted. Reports shortness of breath on exertion cough that is productive, Airway is patent Respiratory effort is even, unlabored, Respiratory pattern is regular, symmetrical, Breath sounds are clear bilaterally. GI: No deficits noted. No signs and/or symptoms were reported involving the gastrointestinal system. : No deficits noted. No signs and/or symptoms were reported regarding the genitourinary system. EENT: Reports nasal congestion. Derm: No deficits noted. No signs and/or symptoms reported regarding the dermatologic system. Musculoskeletal: No deficits noted. No signs and/or symptoms reported regarding the musculoskeletal system. Circulation, motion, and sensation intact. Range of motion: intact in all extremities. Vital Signs: 03:17 BP 137 / 78; Pulse 70; Resp 21; Temp 98.5(O); Pulse Ox 97% on R/A; Weight 81.65 kg (R); lg3 Height 5 ft. 0 in. (R); 03:57 BP 158 / 71; Pulse 75; Resp 19 S; Pulse Ox 100% on R/A; km8 04:30 BP 120 / 58; Pulse 76; Resp 19 S; Pulse Ox 95% on R/A; km8 05:00 BP 105 / 50; Pulse 74; Resp 13 S; Pulse Ox 95% on R/A; km8 05:30 BP 109 / 49; Pulse 71; Resp 16; Pulse Ox 95% on R/A; km8 03:17 Body Mass Index 35.15 (81.65 kg, 152.4 cm) lg3 ED Course: 03:14 Patient arrived in ED. lg3 03:15 Lewis Chappell, GAEL is Primary Nurse. bp 03:16 Abdiel Moore MD is Attending Physician. ec2 03:18 Triage completed. lg3 03:20 Arm band placed on right wrist. lg3 03:29 XRAY Chest (1 view) In Process Unspecified. EDMS 03:47 Patient has correct armband on for positive identification. Bed in low position. Call km8 light in reach. Side rails up X 1. family at bedside. Client placed on continuous cardiac and pulse oximetry monitoring. NIBP monitoring applied. monitoring tech on. Door closed. Visitors limited. Warm blanket given. Pillow given. 04:11 Influenza Screen (a \T\ B) Sent. km8 04:11 COVID-19 SARS RT PCR Sent. 8 04:11 Basic Metabolic Panel Sent. 8 04:11 CBC with Diff Sent. 04:11 Troponin HS Sent. 8 06:13 No provider procedures requiring assistance completed. IV discontinued, intact, km8 bleeding controlled, No redness/swelling at site. Pressure dressing applied. Administered Medications: 03:45 Drug: DuoNeb Nebulize (3:1) (2.5 mg - 0.5 mg) 3 ml Nebulizer once Route: Nebulizer; 04:11 Follow up: Response: No adverse reaction; Wheezing diminished 8 Medication: 06:14 VIS not applicable for this client. 8 Outcome: 05:48 Discharge ordered by . ec2 06:13 Discharged to home via wheelchair, with significant other, 06:13 Condition: good 06:13 Discharge instructions given to patient, significant other, Instructed on discharge instructions, follow up and referral plans. medication usage, Demonstrated understanding of instructions, follow-up care, medications, Prescriptions given X 1, 06:14 Patient left the ED. 8 Signatures: Dispatcher [employer] Lewis Self, RN RN Ronit Daigle RN RN lg3 Abdiel Moore MD MD ec2 Marx, Katie, RN RN km8 Corrections: (The following items were deleted from the chart) 03:28 03:18 PMHx: GERD (Myocardial infarction); lg3 lg3 03:28 03:18 PMHx: GERD (Myocardial infarction); lg3 lg3 03:28 03:20 PMHx: Gastric reflux; lg3 lg3
[2023-04-29 06:19] VITALS: TEMP 98.5
[2023-04-29 06:22] VITALS: O2SAT 95
[2023-04-29 06:24] VITALS: BP 109/49
--- NOTE | 2023-04-29 14:40 | EKG ---
Test Date: 2023-04-29 Test Time: 03:39:31 Endoscopic Technician: WANDA MEASUREMENT RESULTS: Intervals: Rate: 66 MN: 168 QRSD: 136 QT: 426 QTc: 446 [place]: P: 59 MN: 168 QRS: 30 T: 51 INTERPRETIVE STATEMENTS: Normal sinus rhythm Nonspecific intraventricular block Abnormal ECG Compared to ECG 06/11/2020 23:13:33 Atrial premature complex(es) no longer present T-wave abnormality no longer present Electronically Signed On 04-29-23 14:39:19 CDT by Massimo Fields
--- NOTE | 2023-04-29 19:26 | RAD REPORT ---
EXAM DESCRIPTION: RAD - Chest Single View - 04/29/2023 3:28 am CLINICAL HISTORY: The patient is 72 years old and is Female; CONGESTION TECHNIQUE: Single view of the chest. COMPARISON: No relevant prior studies available. FINDINGS: Lungs: No pulmonary vascular congestion or consolidation. Pleural space: Unremarkable. No pneumothorax. Heart: Unremarkable. No cardiomegaly. Mediastinum: Unremarkable. Bones/joints: No acute fracture visualized. Tubes, lines and devices: Spinal stimulator device. Upper abdomen: No free air in the visualized upper abdomen. IMPRESSION: No acute cardiopulmonary process identified. Electronically signed by: Magali Fabian MD 04/29/2023 4:17 AM CDT Due to temporary technical issues with the PACS/Fluency reporting system, reports are being signed by the in house radiologists without review as a courtesy to insure prompt reporting. The interpreting radiologist is fully responsible for the content of the report.
== END 2023-04-29 06:14 | disposition home or self-care (01) ==
LOC: ER 03:06
DX: B34.9 Viral infection, unspecified (principal); Z20.822 Contact with and (suspected) exposure to COVID-19; I10 Essential (primary) hypertension; Z88.2 Allergy status to sulfonamides; Z88.8 Allergy status to other drugs, medicaments and biological substances
CPT/HCPCS: 93005; 85025; 80048; 36415; 84484; 87635; 87804 ×2; 71045; 94640; 99285; J7613; J7644

== ENCOUNTER → 2023-10-02 | Emergency (ER) | payer OTHER ==
[~2023-10-02] MED LIST: D5.45NS W/KCL 20MEQ 1,000 ML IV ONE; HYDROCORTISONE SUC 100 MG INJ ONE
[2023-10-02 12:18] LABS: Absolute Lymphocytes (CBC) 1.3 K/uL (0.7-4.9); Absolute Monocytes 0.6 K/uL (0.1-1.3); Absolute Neutrophil 6.7 K/uL (1.8-8.0); Basophils % 0.5 % (0-1.3); Eosinophils % 0.5 % (0-4.4); Hematocrit 36.8 % (36.0-45.0); Hemoglobin 12.6 g/dL (12.0-15.0); Lymphocytes % 15.5 % (15.3-44.8); MCH 31.4 pg (27.0-35.0); MCHC 34.1 g/dL (32.0-36.0); MPV 6.7 fL (7.6-11.3); Monocytes % 6.8 % (3.3-12.3); Neutrophils % 76.7 % (41.7-73.7); Platelets 522 thou/uL (152-406); Red Cell Distribution Width 13.8 % (12.1-15.2)
[2023-10-02 12:19] LABS: PT Prothrombin Time 10.8 SECONDS (9.5-12.5); Protime INR 0.98
[2023-10-02 12:30] LABS: Albumin 2.9 g/dL (3.4-5.0); Albumin/Globulin Ratio 1.2 (1.1-1.8); Anion Gap 10.4 mEq/L (5.0-15.0); Bilirubin Direct 0.2 mg/dL (0-0.2); Bilirubin Indirect, Calculated 0.3 mg/dL (0.2-0.8); Bilirubin Total 0.5 mg/dL (0.2-1.0); Globulin 2.5 g/dL (2.3-3.5); Magnesium 1.8 mg/dL (1.6-2.4); Potassium 3.4 mEq/L (3.5-5.1); Protein, Total 5.4 g/dL (6.4-8.2); Troponin High Sensitivity 9.9 pg/mL (<58.9)
--- NOTE | 2023-10-02 12:39 | RAD REPORT ---
EXAM DESCRIPTION: CT - Head C Spine Cap Wo Con - 10/02/2023 12:18 pm CLINICAL HISTORY: Trauma, head and neck injury. Chest, abdomen and pelvis pain. SYNCOPE COMPARISON: No comparisons TECHNIQUE: CT head without contrast. CT cervical spine without contrast with coronal and sagittal reformatted images. CT chest, abdomen and pelvis without contrast with coronal and sagittal reformatted images of the [facility]. All CT scans are performed using dose optimization technique as appropriate and may include automated exposure control or mA/KV adjustment according to patient size. FINDINGS: CT HEAD WITHOUT CONTRAST: No intracranial hemorrhage, hydrocephalus or extra-axial fluid collection. No areas of brain edema o r midline shift. The paranasal sinuses and mastoids are clear. The calvarium is intact. CT CERVICAL SPINE WITHOUT CONTRAST: No fracture or subluxation. 4 mm degenerative anterolisthesis of C4 on 5. The prevertebral soft tissu es are normal in thickness. CT CHEST, ABDOMEN, PELVIS WITHOUT CONTRAST: NOTE: Lack of contrast is a significant limitation in the assessment of trauma related findings. Spec ifically, solid organ, vascular and bowel evaluation is significantly limited. The lungs are clear.Small hiatal hernia.No pneumothorax or pericardial/pleural fluid. No evidence of intra-abdominal visceral injury, free fluid or free air is seen within the above detai led limitations. No concerning pelvic findings. No fractures. Moderate lumbar degenerative changes. IMPRESSION: Negative for acute traumatic findings within the above detailed limitations.
--- NOTE | 2023-10-02 12:52 | RAD REPORT ---
EXAM DESCRIPTION: RAD - Chest Single View - 10/02/2023 12:34 pm CLINICAL HISTORY: COUGH Chest pain. COMPARISON: Chest Single View dated 04/29/2023; Chest Pa And Lat (2 Views) dated 07/29/2020; Chest Si ngle View dated 06/14/2020; Chest Single View dated 06/12/2020 FINDINGS: Portable technique limits examination quality. The lungs are grossly clear. The heart is normal in size. No displaced fractures. IMPRESSION: No acute intrathoracic process suspected.
--- NOTE | 2023-10-02 13:53 | EDPHYS ---
Physician Documentation [facility] Name: Cisco Edward Age: 73 yrs Sex: Female : 1950 Arrival Date: 10/02/2023 Time: 11:36 Bed 7 Private MD: ED Physician Seth Wen HPI: 10/01 11:47 This 73 yrs old Female presents to ER via EMS with complaints of Syncope. mic Historical: - Allergies: 11:47 Darvon; iw 11:47 Dilaudid; iw 11:47 Sulfa (Sulfonamide Antibiotics); iw - PMHx: 11:47 Chronic pain; Myocardial infarction; Hypertension; High Cholesterol; Gastric Reflux; iw Bipolar disorder; chronic constipation; - PSHx: 11:47 Cholecystectomy; Tonsillectomy; Adenoid excision; Appendectomy; Total abdominal iw hysterectomy; - Immunization history:: Adult Immunizations not up to date. - Social history:: Smoking status: Patient/guardian denies using tobacco, the patient reports quitting approximately 20 years ago. ROS: 13:44 Constitutional: Negative for fever, chills, and weight loss, Eyes: Negative for injury, mic pain, redness, and discharge, ENT: Negative for injury, pain, and discharge, Neck: Negative for injury, pain, and swelling, Cardiovascular: Negative for chest pain, palpitations, and edema, Respiratory: Negative for shortness of breath, cough, wheezing, and pleuritic chest pain, Back: Negative for injury and pain, : Negative for injury, bleeding, discharge, and swelling, MS/Extremity: Negative for injury and deformity, Skin: Negative for injury, rash, and discoloration, Psych: Negative for depression, anxiety, suicide ideation, homicidal ideation, and hallucinations, Allergy/Immunology: Negative for hives, rash, and allergies, Endocrine: Negative for neck swelling, polydipsia, polyuria, polyphagia, and marked weight changes, Hematologic/Lymphatic: Negative for swollen nodes, abnormal bleeding, and unusual bruising, 13:44 Abdomen/GI: Positive for nausea and vomiting, abdominal cramps, anorexia, 13:44 Neuro: Positive for dizziness, syncope, near syncope, weakness, Exam: 13:44 Constitutional: This is a well developed, well nourished patient who is awake, alert, mic and in no acute distress. Head/Face: Normocephalic, atraumatic. Eyes: Pupils equal round and reactive to light, extra-ocular motions intact. Lids and lashes normal. Conjunctiva and sclera are non-icteric and not injected. Cornea within normal limits. Periorbital areas with no swelling, redness, or edema. ENT: Nares patent. No nasal discharge, no septal abnormalities noted. Tympanic membranes are normal and external auditory canals are clear. Oropharynx with no redness, swelling, or masses, exudates, or evidence of obstruction, uvula midline. Mucous membranes moist. Neck: Trachea midline, no thyromegaly or masses palpated, and no cervical lymphadenopathy. Supple, full range of motion without nuchal rigidity, or vertebral point tenderness. No Meningismus. Chest/axilla: Normal chest wall appearance and motion. Nontender with no deformity. No lesions are appreciated. Cardiovascular: Regular rate and rhythm with a normal S1 and S2. No gallops, murmurs, or rubs. Normal PMI, no JVD. No pulse deficits. Respiratory: Lungs have equal breath sounds bilaterally, clear to auscultation and percussion. No rales, rhonchi or wheezes noted. No increased work of breathing, no retractions or nasal flaring. Abdomen/GI: Soft, non-tender, with normal bowel sounds. No distension or tympany. No guarding or rebound. No evidence of tenderness throughout. Back: No spinal tenderness. No costovertebral tenderness. Full range of motion. Skin: Warm, dry with normal turgor. Normal color with no rashes, no lesions, and no evidence of cellulitis. MS/ Extremity: Pulses equal, no cyanosis. Neurovascular intact. Full, normal range of motion. Neuro: Awake and alert, GCS 15, oriented to person, place, time, and situation. Cranial nerves II-XII grossly intact. Motor strength 5/5 in all extremities. Sensory grossly intact. Cerebellar exam normal. Normal gait. Psych: Awake, alert, with orientation to person, place and time. Behavior, mood, and affect are within normal limits. 13:44 ECG was reviewed by the Attending Physician. 13:44 Musculoskeletal/extremity: ROM: no acute changes, Circulation is intact in all extremities. Sensation intact. Compartment Syndrome exam of affected extremity: is normal. DVT Exam: No signs of deep vein thrombosis. no pain, no swelling, no tenderness, negative Homans' sign noted on exam, no appreciated bluish discoloration, no erythema, no increased warmth, Vital Signs: 11:44 BP 121 / 64; Pulse 71; Resp 16; Temp 98.5; Pulse Ox 98% ; Weight 76.66 kg; Height 5 ft. iw 0 in. ; Pain 0/10; 13:18 BP 125 / 70; Pulse 70; Resp 18; Pulse Ox 100% on R/A; ph 15:08 BP 136 / 80; Pulse 71; Resp 16; Temp 98.1; Pulse Ox 100% ; Pain 0/10; iw 11:44 Body Mass Index 33.01 (76.66 kg, 152.4 cm) iw 11:44 Pain Scale: Adult iw 15:08 Pain Scale: Adult iw NIH Stroke Scale Scores: 13:44 NIHSS Score: 0 mic Terry Coma Score: 13:44 Eye Response: spontaneous(4). Motor Response: obeys commands(6). Verbal Response: mic oriented(5). Total: 15. MDM: 11:45 Patient medically screened. 10/01 11:46 Order name: Basic Metabolic Panel; Complete Time: 13:36 [facility] 10/01 11:46 Order name: CBC with Diff; Complete Time: 13:36 [facility] 10/01 11:46 Order name: LFT's; Complete Time: 13:36 [facility] 10/01 11:46 Order name: Magnesium; Complete Time: 13:36 mic 10/01 11:46 Order name: NT PRO-BNP; Complete Time: 13:36 10/01 11:46 Order name: PT-INR; Complete Time: 13:36 mic 10/01 11:46 Order name: Troponin HS; Complete Time: 13:36 mic 10/01 11:46 Order name: Lipase; Complete Time: 13:36 10/01 11:46 Order name: Urinalysis w/ reflexes 10/01 13:47 Order name: Urine Osmolality 10/01 13:47 Order name: Urine Sodium Random 10/01 13:59 Order name: TSH 10/01 11:46 Order name: XRAY Chest (1 view); Complete Time: 13:36 [facility] 10/01 11:46 Order name: CT Traumagram (Head C Spine CAP wo con); Complete Time: 13:36 [facility] 10/01 11:46 Order name: EKG; Complete Time: 11:47 10/01 11:46 Order name: Cardiac monitoring; Complete Time: 11:51 [facility] 10/01 11:46 Order name: EKG - Nurse/Tech; Complete Time: 12:00 10/01 11:46 Order name: IV Saline Lock; Complete Time: 11:51 10/01 11:46 Order name: Labs collected and sent; Complete Time: 11:10/01 11:46 Order name: O2 Per Protocol; Complete Time: 11:10/01 11:46 Order name: O2 Sat Monitoring; Complete Time: 11:51 10/01 13:40 Order name: PO challenge; Complete Time: 14:43 [facility] 10/01 13:40 Order name: Misc. Order: GET UA; Complete Time: 14:43 [facility] EC:44 Rate is 66 beats/min. QRS [place] is Normal. NV interval is normal. QRS interval is mic normal. QT interval is normal. No Q waves. T waves are Normal. No ST changes noted. Clinical impression: NSR w/ Non-specific ST/T Changes, Abnormal EKG without significant change, and No evidence of ischemia. Interpreted by me. Reviewed by me. Administered Medications: 15:09 Discontinued: d5-1/2 ns with kcl20 meq/l 1000 ml IV at 125 ml/hr continuous iw 11:51 Drug: NS 0.9% IV 500 ml IV at bolus once Route: IV; Rate: bolus; Site: left antecubital;iw 12:30 Follow up: IV Status: Completed infusion iw 12:17 Drug: NS 0.9% IV 1000 ml IV at 1 bolus Per protocol; 1000 mL bolus Route: IV; Rate: 1 ph bolus; Site: left antecubital; 15:09 Follow up: IV Status: Completed infusion iw 13:56 Drug: D5-1/2 NS with KCl IV 20 mEq/L 1000 ml IV at 125 ml/hr continuous Route: IV; iw Rate: 125 ml/hr; Site: right antecubital; 14:30 Drug: Solu-CORTEF IVP 100 mg IVP once Route: IVP; Site: left antecubital; iw 15:00 Follow up: Response: No adverse reaction iw Disposition Summary: 10/02/23 15:10 Left Against Medical Advice Notes: Location: Home(10/02/23 15:10) mic Problem: new(10/02/23 15:10) mic Symptoms: are unchanged(10/02/23 15:10) mic Condition: Undetermined(10/02/23 15:10) mic Diagnosis - Syncope Near(10/02/23 15:10) mic - Hypo-osmolality and hyponatremia(10/02/23 15:10) mic - Hypokalemia(10/02/23 15:10) mic - Weakness(10/02/23 15:10) mic - Anorexia(10/02/23 15:10) mic - Hypotension, unspecified(10/02/23 15:11) mic Followup: mic - With: Private Physician - When: Upon discharge from the Emergency Department - Reason: Further diagnostic work-up, Recheck today's complaints, Continuance of care, Re-evaluation by your physician NIH Stroke Scale - NIH Stroke Score Date: 10/02/2023 Time: 13:44 Total Score = 0 10. Dysarthria (speech clarity - read or repeat words) - 0(Normal) 11. Extinction and Inattention (visual/tactile/auditory/spatial/personal) - 0(No abnormality) 1a. Level of Consciousness (LOC) - 0(Alert) 1b. Level of Consciousness (LOC) (Month \T\ Age) - 0(Both) 1c. LOC Commands (Open \T\ Closes Eyes/Regional Climate Change Analyst) - 0(Both) 2. Best Gaze (Lateral Gaze Paresis) - 0(Normal) 3. Visual Field Loss - 0(No visual loss) 4. Facial Palsy - 0(Normal) 5a. Left Arm: Motor (10-second hold) - 0(No drift) 5b. Right Arm: Motor (10-second hold) - 0(No drift) 6a. Left Leg: Motor (5-second hold - always test supine) - 0(No drift) 6b. Right Leg: Motor (5-second hold - always test supine) - 0(No drift) 7. Limb Ataxia (finger/nose \T\ heel/crandall - test with eyes open) - 0(Absent) 8. Sensory Loss (pinprick arms/legs/face) - 0(Normal) 9. Best Language: Aphasia (description/naming/reading) - 0(No aphasia) Initials: mic Signatures: Dispatcher [employer] Seth Irizarry MD MD cha Williams, Irene, RN RN iw Emmy Greene RN RN ph Corrections: (The following items were deleted from the chart) 15: 13:52 Observation mic mic 15: 13:52 Wilfredo Montes mic mic 15: 13:52 Telemetry/MedSurg (observation) mic mic 15: 13:52 Fair mic mic 15: 13:52 new mic mic 15: 13:52 have improved mic mic 15: 13:52 Standard mic mic 15: 13:52 mic mic 15: 13:52 Syncope Near mic mic 15: 13:52 Hypotension, unspecified mic mic 15: 13:52 Hypo-osmolality and hyponatremia mic mic 15: 13:52 Hypokalemia mic mic 15: 13:52 Anorexia mic mic 15: 13:52 Weakness mic mic
--- NOTE | 2023-10-02 13:53 | ER ---
Nurse's Notes [facility] Name: Cisco Edward Age: 73 yrs Sex: Female : 1950 Arrival Date: 10/02/2023 Time: 11:36 Bed 7 Private MD: Diagnosis: Syncope Near;Hypo-osmolality and hyponatremia;Hypokalemia;Weakness;Anorexia;Hypotension, unspecified Presentation: 10/01 11:44 Chief complaint: Patient states: syncopal episode at [facility], pt has not been eating iw well X 1 week, stopped her semaglutide because it was making her feel bad, stopped it last , started lorazepam on because she was not sleeping well , BP was 88/52 pm scene, now up to 106/88 after 350 NS. Coronavirus screen: At this time, the client does not indicate any symptoms associated with coronavirus-19. Ebola Screen: Patient negative for fever greater than or equal to 101.5 degrees Fahrenheit, and additional compatible Ebola Virus Disease symptoms Patient denies exposure to infectious person. Patient denies travel to an Ebola-affected area in the 21 days before illness onset. No symptoms or risks identified at this time. Initial Sepsis Screen: Does the patient meet any 2 criteria? No. Patient's initial sepsis screen is negative. Does the patient have a suspected source of infection? No. Patient's initial sepsis screen is negative. Risk Assessment: Do you want to hurt yourself or someone else? Patient reports no desire to harm self or others. Onset of symptoms was October 02, 2023. 11:44 Method Of Arrival: EMS: [facility] iw 11:44 Acuity: ROB 3 iw 11:48 Care prior to arrival: Medication(s) given: Normal saline infusion, 500 mL, IV iw initiated. 20 GA, in the left antecubital area, Glucose check: 166. Triage Assessment: 11:49 General: Appears in no apparent distress. Behavior is calm, cooperative. Pain: Denies iw pain. Neuro: Level of Consciousness is awake, alert, obeys commands, Oriented to person, place, time, situation, Reports a syncopal episode. Historical: - Allergies: 11:47 Darvon; iw 11:47 Dilaudid; iw 11:47 Sulfa (Sulfonamide Antibiotics); iw - PMHx: 11:47 Chronic pain; Myocardial infarction; Hypertension; High Cholesterol; Gastric Reflux; iw Bipolar disorder; chronic constipation; - PSHx: 11:47 Cholecystectomy; Tonsillectomy; Adenoid excision; Appendectomy; Total abdominal iw hysterectomy; - Immunization history:: Adult Immunizations not up to date. - Social history:: Smoking status: Patient/guardian denies using tobacco, the patient reports quitting approximately 20 years ago. Screenin:50 [facility] ED Fall Risk Assessment (Adult) History of falling in the last 3 months, iw including since admission Yes- physiologic fall (2 pts) Confusion or Disorientation No (0 pts) Intoxicated or Sedated No (0 pts) Impaired Gait No (0 pts) Mobility Assist Device Used No (0 pt) Altered Elimination No (0 pt) Score/Fall Risk Level 0 - 2 = Low Risk. Abuse screen: Denies threats or abuse. Denies injuries from another. Nutritional screening: No deficits noted. Nutritional screening: No deficits noted. Tuberculosis screening: No symptoms or risk factors identified. Assessment: 11:49 General: Appears in no apparent distress. Behavior is calm, cooperative. Pain: Denies iw pain. Neuro: Level of Consciousness is awake, alert, obeys commands, Oriented to person, place, time, situation, Moves all extremities. Full function. Cardiovascular: Denies chest pain, Rhythm is regular. Respiratory: Airway is patent Respiratory effort is even, unlabored, Respiratory pattern is regular, symmetrical. GI: Abdomen is non-distended, Reports nausea, not eating well. Derm: Skin is intact, is thin, with poor turgor. Musculoskeletal: Range of motion: intact in all extremities. 14:00 Reassessment: Patient appears in no apparent distress at this time. Patient and/or iw family updated on plan of care and expected duration. Pain level reassessed. Patient is alert, oriented x 3, equal unlabored respirations, skin warm/dry/pink. pt does not want to be admitted to hospital. Dr. Wen notified. 14:31 Reassessment: pt up to bathroom, ambulatory with assistance, pt normally uses cane to iw ambulate , pt feeling better. 15:08 Reassessment: Patient appears in no apparent distress at this time. Patient and/or iw family updated on plan of care and expected duration. Pain level reassessed. Patient is alert, oriented x 3, equal unlabored respirations, skin warm/dry/pink. pt requesting to sign out AMA, form signed by pt, assisted pt to vehicle via wheelchair, educated on return precautions, verbalized understanding. Vital Signs: 11:44 BP 121 / 64; Pulse 71; Resp 16; Temp 98.5; Pulse Ox 98% ; Weight 76.66 kg; Height 5 ft. iw 0 in. ; Pain 0/10; 13:18 BP 125 / 70; Pulse 70; Resp 18; Pulse Ox 100% on R/A; ph 15:08 BP 136 / 80; Pulse 71; Resp 16; Temp 98.1; Pulse Ox 100% ; Pain 0/10; iw 11:44 Body Mass Index 33.01 (76.66 kg, 152.4 cm) iw 11:44 Pain Scale: Adult iw 15:08 Pain Scale: Adult iw Welda Coma Score: 13:44 Eye Response: spontaneous(4). Motor Response: obeys commands(6). Verbal Response: mic oriented(5). Total: 15. NIH Stroke Scale Scores: 13:44 NIHSS Score: 0 mic ED Course: 11:39 Patient arrived in ED. ph 11:44 Lilian Fairbanks, RN is Primary Nurse. iw 11:45 Seth Wen MD is Attending Physician. mic 11:47 Triage completed. iw 11:48 Arm band placed on. iw 11:51 No provider procedures requiring assistance completed. Maintain EMS IV. Dressing iw intact. Good blood return noted. Site clean \T\ dry. Gauge \T\ site: 20 LAC. 11:52 EKG done, by ED staff, reviewed by Seth Wen MD. hb 12:[address] via stretcher. hb 12:20 CT Traumagram (Head C Spine CAP wo con) In Process Unspecified. EDMS 12:35 XRAY Chest (1 view) In Process Unspecified. EDMS 13:19 Patient has correct armband on for positive identification. Placed in gown. Bed in low ph position. Call light in reach. Side rails up X2. Client placed on continuous cardiac and pulse oximetry monitoring. NIBP monitoring applied. lunchroom monitor on. Door closed. Noise minimized. Warm blanket given. 13:51 Wilfredo Montes MD is Hospitalizing Provider. mic 15:09 IV discontinued, intact, bleeding controlled, No redness/swelling at site. Pressure iw dressing applied. Administered Medications: 15:09 Discontinued: d5-1/2 ns with kcl20 meq/l 1000 ml IV at 125 ml/hr continuous iw 11:51 Drug: NS 0.9% IV 500 ml IV at bolus once Route: IV; Rate: bolus; Site: left antecubital;iw 12:30 Follow up: IV Status: Completed infusion iw 12:17 Drug: NS 0.9% IV 1000 ml IV at 1 bolus Per protocol; 1000 mL bolus Route: IV; Rate: 1 ph bolus; Site: left antecubital; 15:09 Follow up: IV Status: Completed infusion iw 13:56 Drug: D5-1/2 NS with KCl IV 20 mEq/L 1000 ml IV at 125 ml/hr continuous Route: IV; iw Rate: 125 ml/hr; Site: right antecubital; 14:30 Drug: Solu-CORTEF IVP 100 mg IVP once Route: IVP; Site: left antecubital; iw 15:00 Follow up: Response: No adverse reaction iw Medication: 11:51 VIS not applicable for this client. iw Outcome: 13:52 Decision to Hospitalize by Provider. mic 15:11 AMA AMA form signed iw 15:11 Condition: improved 15:11 Discharge instructions given to patient, family, Instructed on the need for admit, Demonstrated understanding of instructions, 15:11 Patient left the ED. iw NIH Stroke Scale - NIH Stroke Score Date: 10/02/2023 Time: 13:44 Total Score = 0 10. Dysarthria (speech clarity - read or repeat words) - 0(Normal) 11. Extinction and Inattention (visual/tactile/auditory/spatial/personal) - 0(No abnormality) 1a. Level of Consciousness (LOC) - 0(Alert) 1b. Level of Consciousness (LOC) (Month \T\ Age) - 0(Both) 1c. LOC Commands (Open \T\ Closes Eyes/Veterinary Laboratory Diagnostician) - 0(Both) 2. Best Gaze (Lateral Gaze Paresis) - 0(Normal) 3. Visual Field Loss - 0(No visual loss) 4. Facial Palsy - 0(Normal) 5a. Left Arm: Motor (10-second hold) - 0(No drift) 5b. Right Arm: Motor (10-second hold) - 0(No drift) 6a. Left Leg: Motor (5-second hold - always test supine) - 0(No drift) 6b. Right Leg: Motor (5-second hold - always test supine) - 0(No drift) 7. Limb Ataxia (finger/nose \T\ heel/crandall - test with eyes open) - 0(Absent) 8. Sensory Loss (pinprick arms/legs/face) - 0(Normal) 9. Best Language: Aphasia (description/naming/reading) - 0(No aphasia) Initials: mic Signatures: Dispatcher [employer] Seth Irizarry MD MD cha Williams, Irene, RN RN iw Hall, Patricia, RN RN Ena Wilcox RN RN
[2023-10-02 15:06] LABS: Sqamous Epithelial None Seen /HPF (None Seen); Urine Bacteria <20 /HPF (<20); Urine Microscopic Reflex YN ORDER UMIC; Urine Mucus Slight /HPF (None Seen); Urine RBC <5 /HPF (None Seen); Urine WBC <5 /HPF (<5)
[2023-10-02 15:07] LABS: Specific Gravity 1.011 (1.005-1.030); Urine Bilirubin NEGATIVE (Negative); Urine Blood Negative (Negative); Urine Clarity Turbid (Clear); Urine Color Yellow (Yellow); Urine Glucose NEGATIVE (Negative); Urine Ketones NEGATIVE (Negative); Urine Nitrite NEGATIVE (Negative); Urine Protein NEGATIVE (Negative); Urine Urobilinogen Normal (Normal)
[2023-10-02 15:58] VITALS: BP 136/80; TEMP 98.1; O2SAT 100
--- NOTE | 2023-10-03 14:16 | EKG ---
Test Date: 2023-10-02 Test Time: 10:52:03 [employer]ic Fans Mechanic: SKY MEASUREMENT RESULTS: Intervals: Rate: 66 UT: 184 QRSD: 128 QT: 444 QTc: 465 [place]: P: 56 UT: 184 QRS: -17 T: -9 INTERPRETIVE STATEMENTS: Normal sinus rhythm Left ventricular hypertrophy with QRS widening Nonspecific T wave abnormality Abnormal ECG Compared to ECG 04/29/2023 03:39:31 Left ventricular hypertrophy now present T-wave abnormality now present Electronically Signed On 10-03-23 14:13:57 CDT by Massimo Fields
== END ==
LOC: ER 11:36
DX: R55 Syncope and collapse (principal); E87.1 Hypo-osmolality and hyponatremia; E87.6 Hypokalemia; R53.1 Weakness; R63.0 Anorexia; I95.9 Hypotension, unspecified; I25.2 Old myocardial infarction; Z88.2 Allergy status to sulfonamides; Z88.5 Allergy status to narcotic agent
CPT/HCPCS: 93005; 85025; 81001; 80048; 36415; 83735; 85610; 84300; 80076; 84443; 84484; 83690; 83880; 83935; 70450; 71250; 72125; 71045; J1720; 96361; 96374; 99285